=== PATIENT | female | born 1950 | race Caucasian/White ===

== ENCOUNTER → 2018-04-30 | Outpatient (CLI) | payer OTHER ==
[2018-04-30 16:52] LABS: ALBUMIN 3.8 gm/dl (3.4-5.0); ALKALINE PHOSPHATASE 56 U/L (45-117); ALT/SGPT 37 U/L (12-78); AST/SGOT 23 U/L (15-37); BLOOD UREA NITROGEN 17 mg/dl (7-18); CALCIUM 9.3 mg/dl (8.5-10.1); CARBON DIOXIDE 29 mmol/L (21-32); CHOLESTEROL 107 mg/dl (0-200); CREATININE 0.75 mg/dl (0.60-1.20); GLUCOSE 58 mg/dl (70-99); LDL CHOLESTEROL CALCULATED 11 mg/dl; POTASSIUM 3.7 mmol/L (3.5-5.1); SODIUM 141 mmol/L (136-145); TOTAL PROTEIN 7.3 gm/dl (6.4-8.2)
[2018-05-01 05:57] LABS: HEMOGLOBIN A1C 5.3 % (4.5-5.6)
== END | disposition home or self-care (01) ==
LOC: C.LAB1850 15:52
PROVIDERS: ATTEND Physician Assistant
DX: E11.9 Type 2 diabetes mellitus without complications (principal)

== ENCOUNTER 2024-12-13 05:32 | Inpatient (IN) ==
[2024-12-13] MEDS ORDERED: ONDANSETRON INJ 2 MG/ML 2 ML VIAL IV PRN ×2 (05:55→13:32)
[2024-12-13] MEDS ORDERED: MoRPHine SULFATE 2 MG/ML CARP IV PRN (05:55)
--- NOTE | 2024-12-13 06:08 | Surgery Consultation ---
Date of Consultation December 13, 2024 Assessment & Plan (1) PEG tube malfunction: I evaluated the patient in room C3. For the present time we will proceed as follows: Patient will be kept strict n.p.o. for the present time Will not initiate any tube feeds or medicines through her PEG tube at this time We will provide analgesics and antiemetics We will provide IV fluid for gentle hydration supplementing her potassium I ordered a dose of Protonix as there was reportedly some blood from her PEG tube during her most recent tube feed although the patient does not appear to have active bleeding at this time As noted the emergency room physician that [facility] attempted to reposition the PEG tube without success. At the time of my exam the tube was painful with manipulation and I could not identify a port to deflate the balloon. It has been nearly 12 hours since the tube became dislodged and it is unlikely this can be replaced at bedside I did discuss with my attending physician, Dr. Turner and he is planning on taking the patient to the operating room later today for surgical correction of this problem. Supervising Physician Co-Signing Physician Notes Patient discussed with Chun Romero overnight, 2 weeks status post PEG tube placement by Dr. Turner, dislodged, was seen at [facility] and transferred here for further management. Dr. Turner to perform PEG replacement later this afternoon. History of Present Illness Reason for Consultation: Dislodged PEG tube History of Present Illness This is a 71-year-old female with underlying history of tongue cancer. She has been undergoing chemotherapy as well as radiation therapy. Her most recent dose of chemotherapy was on 12/08/2024 with her next dose due on 12/15/2024. Her most recent radiation therapy was on 12/10/2024 with her next dose of radiation being done today. Patient notes that she is having significant difficulty swallowing due to pain from her radiation therapy and she is only able to drink small amounts of water. Because of this problem she had a PEG tube placed by Dr. Turner on 11/29/2024. Patient notes that she is receiving tube feeds approximate 4 times per day. Her most recent tube feed attempt was at 6:00 PM on 12/12/2024. When the patient and her administered the tube feed they noticed some blood and leaking fluid around the tube. The patient also noted pain with flushing of the tube and she therefore presented to the emergency department at [facility]. She does note some pain at the PEG tube insertion site but denies any overt abdominal pain. She denies any nausea or vomiting. Patient went to the emergency department at [facility] where labs were conducted. A CBC revealed white blood cell count was 3.1. Her hemoglobin and hematocrit were 10.8 and 31.2. Platelet count was 190,000. An INR was 1.1 with a PTT of 21. Chemistry profile showed sodium was 143 with a potassium of 3.0. BUN and creatinine were 24 and 0.8. She had a chest x-ray and abdominal x-ray that showed no evidence of free air or obstructive process. A CT scan of the abdomen and pelvis was performed that showed that the distal aspect of her G-tube was noted in the subcutaneous fat above the stomach. There was some element of a residual tract noted and inflammatory changes noted around the tube itself. Interpreting radiologist felt that the stomach was not adjacent to the abdominal wall and the distal aspect of the tube was near the course of the superior epigastric artery. There is no contrast extravasation suggestive of active bleed on the study. While at [facility] the treating emergent physician did contact [facility] physician of general surgery and discussion was had with this provider as well as Dr. English and it was recommended that he attempt to try to readjust the PEG tube and he was unable to do so and therefore requested transfer to [facility]. There were no beds available alternative facilities were contacted however it was felt the patient should be transferred to [facility] and she was sent from ER to ER as a transfer. At the time of my interview the patient was resting comfortably bed and she was in no distress. Allergies Allergy/AdvReac Type Severity Reaction Status Date / Time latex Allergy Intermediate Blisters Verified 12/13/24 08:36 Penicillins Allergy Intermediate Hives Verified 12/13/24 08:36 lisinopril Allergy Mild fluid Verified 12/13/24 08:36 retention Hoxxkpm-NFI-YfV Reductase Allergy Verified 12/13/24 08:36 Inhibitor Home Medications Medication Instructions Recorded Confirmed Type amlodipine 5 mg tablet 5 mg PO QAM 07/27/19 12/13/24 History buspirone 30 mg tablet 30 mg PO BID 07/27/19 12/13/24 History cholecalciferol (vitamin D3) 125 5,000 units PO QAM 07/27/19 12/13/24 History mcg (5,000 unit) capsule Microlet Lancet (lancets) #200 ea 06/12/20 11/22/24 Rx CPAP Machine 04/19/21 11/22/24 History lansoprazole 15 mg capsule,delayed 15 mg PO QAM 06/27/21 12/13/24 History release cyanocobalamin (vitamin B-12) 1,000 mcg IM MONTHLY 11/26/21 12/13/24 History 1,000 mcg/mL injection solution mercaptopurine 50 mg tablet 50 mg PO QAM 11/26/21 12/13/24 History soft lens rinse,store solution 05/29/22 11/22/24 History (Bio true solution) blood-glucose meter (Contour Next #1 ea 02/21/23 11/22/24 Rx One Meter) pen needle, diabetic 31 gauge x #500 ea 09/16/23 11/22/24 Rx 3/16" (BD Ultra-Fine Mini Pen Needle) blood-glucose sensor (Dexcom G7 01/19/24 11/22/24 History Sensor device) cyanocobalamin (vitamin B-12) 1,000 mcg PO DAILY 01/19/24 12/13/24 History 1,000 mcg sublingual tablet irbesartan 300 mg tablet 300 mg PO QPM 06/22/24 12/13/24 History insulin glargine U-300 conc 300 70 unit (0.2333 mL) subcut HS #24 07/05/24 12/13/24 Rx unit/mL (3 mL) subcutaneous pen mL (Toujeo Max U-300 SoloStar) magnesium aspart,citrate,oxide 400 mg PO QAM 08/10/24 12/13/24 History potassium chloride 20 mEq 20 meq PO DAILY 08/10/24 12/13/24 History tablet,extended release(part/cryst) atorvastatin 20 mg tablet 20 mg PO HS #90 tabs 09/28/24 12/13/24 Rx cyclosporine 0.05 % eye drops in a 1 drp OPB BID 10/26/24 12/13/24 History dropperette blood sugar diagnostic (Contour #400 ea 11/12/24 11/22/24 Rx Next Test Strips) gabapentin 800 mg tablet 800 mg PO BID 12/13/24 12/13/24 History insulin aspart U-100 100 unit/mL 0 sliding scale dose subcut 12/13/24 12/13/24 History (3 mL) subcutaneous pen (Novolog TIDWMEAL FlexPen U-100 Insulin aspart) Patient History Medical History Hypomagnesemia heme/onc monitoring and supplementing Anemia Obesity Gout Hypertension Dyslipidemia associated with type 2 diabetes mellitus Diabetic peripheral neuropathy associated with type 2 diabetes mellitus Depression with anxiety Post-nasal drip Type 2 diabetes mellitus Spinal stenosis Glaucoma Metabolic syndrome Recurrent squamous cell carcinoma of tongue Surgery 04/2024 and 10/04/24; currently on chemo tx; follows with once per week (wednesdays); also current XRT with in [place] Hx of sepsis 2021- no residual/current issues Fatty liver Sleep apnea CPAP Crohn's disease Neck problem Cervical pitched nerve + narrowing Intermittent LUE radiculopathy and ROM limitations COPD (chronic obstructive pulmonary disease) "Mild" No inhaler Surgical History History of percutaneous endoscopic gastrostomy (11/29/24) Esophagogastroduodenoscopy with Percutaneous Endoscopic Gastrostomy (PEG) Tube - Malik Turner DO Port-A-Cath in place (11/01/24) Insertion Access Port with Fluoroscopy - Right Subclavian(Right) - Kishore Mulligan DO; MAC without issue S/P cholecystectomy S/P partial glossectomy 04/30/24: partial glossectomy with L selective neck dissection [facility]; 10/04/24: L suprahyoid neck dissection and partial glossectomy Hx of cataract extraction R/L Hx of bilateral breast reduction surgery S/P epidural steroid injection x4 [id number] History of colonoscopy History of bowel resection (~2003) 12 inches r/t Crohn's disease (1971) Re-do r/t Crohn's disease (2003)- also had gallbladder removed at this time History of appendectomy (1971) Family History Father Family history of diabetes mellitus Diabetes Stroke Daughter Breast cancer Uncle Diabetes Grandmother Diabetes Stroke Other No family history of adverse response to anesthesia Social History Smoking Status: Former smoker Tobacco Type: Cigarettes Age Started Using Tobacco: 0 (unknown); Age Quit Using Tobacco: 0 (unknown); Second Hand Exposure: No; Do You Dip or Chew Tobacco: No; Hx Alcohol Use: Yes Alcohol type: wine Hx Substance Use: No Preferred Language: Georgian Communication Ability: Effective Musical Instrument Maker Or Repairer Required: No Beliefs That Will Affect Care: None Current Living Situation: Spouse Feels Safe at Home: Yes Assistive Devices: CPAP and Glasses Review of Systems Review of Systems: All systems reviewed & are unremarkable except as noted in HPI & below Physical Exam Constitutional: WD/WN, vitals as above Eyes: Wears glasses ENMT: Ears: no hearing impairment and no external ear abnormality Oral mucosa is dry Neck: trachea midline Respiratory: Patient is not using accessory muscles to aid in respiration. There is no stridor or wheezing. There is no evidence of airway compromise Cardiovascular: Rate/Rhythm: regular rate and regular rhythm Gastrointestinal (Abdomen): Abdomen is soft and nondistended. It is nonrigid. The patient has a PEG tube in place with some erythema surrounding the insertion site. There is no purulent drainage. At the time of my exam there is no active bleeding noted from the site. Musculoskeletal: No calf tenderness Skin: no rashes Neurologic: moves all extremities Psychiatric: A+Ox3, euthymic affect PG Care Time/CCT Total # of Minutes Spent Total Time Spent with Patient: Total time spent is greater than 50% in coordination of care (as documented) at patient's floor/unit and/or counseling patient: Coding Level of Care Code 58217 INT INP/OBS CARE 3/75MIN Diagnoses PEG tube malfunction K94.23
[2024-12-13] MEDS: NSS + 20MEQ KCL 20 MEQ/1,000 ML BAG IV SCH (06:44)
[2024-12-13] MEDS: PANTOprazole 40 MG/10 ML SYR IV ONE (06:44)
[2024-12-13] MEDS: Patient's HEIGHT &/or WEIGHT Needed STA (06:44)
--- NOTE | 2024-12-13 08:56 | Hospitalist Consultation ---
Date of Consultation December 13, 2024 Assessment & Plan (1) PEG tube malfunction: (2) Hypomagnesemia: (3) Diabetes: Plan Carley is a 74-year-old female who presented on 12/13 after her PEG tube became dislodged. Plan is to go to the OR on 12/13. # PEG tube malfunction Pain control, DVT ppx, and fluids per the primary team OR planned for 934 on 12/13 Maintain strict n.p.o. for now but patient does drink water at home-advance diet to sips and chips after procedure Hold all p.o. medications, and will convert to IV where possible; added on Protonix 40 mg IV QAM IV antiemetics, analgesics PRN IVF maintenance with NSS +20mEq K at 75 mL an hour Ordered AM CBC, BMP, A1c, mag #Hypomagnesemia-magnesium 1.2 on arrival, also dealing with hypokalemia as an outpatient-secondary to poor p.o. intake and recently started on tube feeds Magnesium sulfate 1 g IV x 3 Trend a.m. mag #Recurrent squamous cell carcinoma of tongue-follows with [facility] for chemotherapy every Friday; cisplatin. Follows with PH for radiation therapy M-F Dietitian consult appreciated Aquaphor or formulary equivalent PRN for neck liriano/pain Daily wound care Wound care nurse consult appreciated #[id number] A1c at 6.0% on 06/07/2024,Glucose 241 on admission. Patient normally takes Lantus 70u HS Dose reduced to Lantus 30 u BID while inpatient SSI with target BSG range 120-150mg/dL, CF 15, carb ratio 5 BSG q6h while NPO Adjust regimen as needed #Crohn's disease-with a history of partial colectomy, follows with GI in [place] Hold mercaptopurine for now #GAMA CPAP HS #HTN-BPs are mildly elevated Hold irbesartan, amlodipine until G-tube able to be used Hydralazine 5 mg IV q8h PRN for SBP >195 or DBP >95 while off usual an tihypertensives Disposition: MedSurg Full code NPO for now, with plan to advance to sips and chips of water Thank you for allowing us to participate in the care of this patient, please reach out with any questions or concerns; we will continue to follow. Supervising Physician Co-Signing Physician Notes PA Supervision Note: I personally saw and examined the patient. 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 G-tube was recently placed 2 weeks ago but she did not start tube feeds until 12/03 while getting them approved through insurance. Here with dislodgment of the tube and inability to get nutrition or take any medications. Also with hypomagnesemia. No fevers or chills, no current abdominal pain, no other acute concerns. History and ROS otherwise reviewed as above I discussed her care with her oncologist, Dr. Perez, on admission O- Vitals reviewed Gen: AAOx3, NAD HEENT: Anicteric sclerae, EOMI, tongue with evidence of partial glossectomy with small amount of bleeding ulceration on the tip and lateral portion of tongue, left side of neck with radiation liriano and small amount of wet exudate in the center of rash, small amount of soft tissue swelling of the left cheek and submandibular region CV: RRR no mgr nl S1S2 Pulm: CTAB no wcr Abd: +BS soft NT ND no masses or hernias Ext: No edema, 2+ DP pulses Skin: No rashes except for left side of neck as above, warm/dry Neuro: Full strength throughout A/T-58-xcvs-old female here with with history noted as above with PEG tube malfunction/displacement -Surgery has admitted her and will be taking her to the OR for replacement of G- tube -Consult dietitian and plan to resume tube feeds when possible -Replace magnesium and follow BMP and magnesium levels in the morning -I discussed her care with her oncologist-she we will reschedule her routine follow-up appointment for this . She can resume radiation after discharge -We will continue to manage her blood pressure and diabetes as noted in YAYA Mcneal's note -IV Protonix for GI protection for now while holding home lansoprazole -Okay to hold other home medicines for 24 hours until G-tube can be replaced History of Present Illness Reason for Consultation: Medical management Requesting Physician: RAFA Mccloud Dr. Attending Physician: Dr. Ronald Chambers History of Present Illness Carley is a 74-year-old female with PMH of recurrent squamous cell carcinoma of the tongue with recent PEG tube placement, diabetes, anxiety, depression, GAMA, HTN, and HLD. She presented on 12/13 as a transfer from [facility] due to displace d PEG tube. Patient reports no prior issues with her feeding tube; has not become dislodged in the past. Her (Smapson) is at the bedside and provides the history. They report that, when they were attempting to do feeding around 1800, the patient developed pain, and there was "blood everywhere" around her feeding tube site. She reports that the pain was mainly on her left abdomen/flank; she rates it 7/10 at worst, and 0/10 at present after receiving pain medicine. Pain is worse with movement. The ED providers at [facility] did attempt to fix the feeding tube, but were unsuccessful. Patient has history of tongue cancer and receives chemotherapy every Friday with Dr. Perez at [facility]; last chemo was on Friday 12/08. She goes to [facility] for her radiation therapy Friday through Friday, with the last session being on Sunday 12/10. Patient did not take any of her regular morning medicine today; no recent change in medication. She normally takes long-acting insulin for her diabetes at night, but did not take anything the evening of 12/12. Patient uses a CPAP at night. She denies smoking or tobacco use. Patient is mildly hypertensive at 145/78 at time of consult; vitals otherwise stable. ROS: Patient endorses low-grade fever (last night; resolved), dizziness, lightheadedness, NG, loose stool, and pain at feeding tube site (resolved). Patient denies chest pain, SOB, chest palpitations, cough, abdominal pain, nausea, vomiting, melena, or blood in the urine/stool. Allergies Allergy/AdvReac Type Severity Reaction Status Date / Time latex Allergy Intermediate Blisters Verified 12/13/24 08:36 Penicillins Allergy Intermediate Hives Verified 12/13/24 08:36 lisinopril Allergy Mild fluid Verified 12/13/24 08:36 retention [id number]-[id number] Reductase Allergy Verified 12/13/24 08:36 Inhibitor Home Medications Medication Instructions Recorded Confirmed Type amlodipine 5 mg tablet 5 mg PO QAM 07/27/19 12/13/24 History buspirone 30 mg tablet 30 mg PO BID 07/27/19 12/13/24 History cholecalciferol (vitamin D3) 125 5,000 units PO QAM 07/27/19 12/13/24 History mcg (5,000 unit) capsule Microlet Lancet (lancets) #200 ea 06/12/20 11/22/24 Rx CPAP Machine 04/19/21 11/22/24 History lansoprazole 15 mg capsule,delayed 15 mg PO QAM 06/27/21 12/13/24 History release cyanocobalamin (vitamin B-12) 1,000 mcg IM MONTHLY 11/26/21 12/13/24 History 1,000 mcg/mL injection solution mercaptopurine 50 mg tablet 50 mg PO QAM 11/26/21 12/13/24 History soft lens rinse,store solution 05/29/22 11/22/24 History (Bio true solution) blood-glucose meter (Contour Next #1 ea 02/21/23 11/22/24 Rx One Meter) pen needle, diabetic 31 gauge x #500 ea 09/16/23 11/22/24 Rx 3/16" (BD Ultra-Fine Mini Pen Needle) blood-glucose sensor (Dexcom G7 01/19/24 11/22/24 History Sensor device) cyanocobalamin (vitamin B-12) 1,000 mcg PO DAILY 01/19/24 12/13/24 History 1,000 mcg sublingual tablet irbesartan 300 mg tablet 300 mg PO QPM 06/22/24 12/13/24 History insulin glargine U-300 conc 300 70 unit (0.2333 mL) subcut HS #24 07/05/24 12/13/24 Rx unit/mL (3 mL) subcutaneous pen mL (Toujeo Max U-300 SoloStar) magnesium aspart,citrate,oxide 400 mg PO QAM 08/10/24 12/13/24 History potassium chloride 20 mEq 20 meq PO DAILY 08/10/24 12/13/24 History tablet,extended release(part/cryst) atorvastatin 20 mg tablet 20 mg PO HS #90 tabs 09/28/24 12/13/24 Rx cyclosporine 0.05 % eye drops in a 1 drp OPB BID 10/26/24 12/13/24 History dropperette blood sugar diagnostic (Contour #400 ea 11/12/24 11/22/24 Rx Next Test Strips) gabapentin 800 mg tablet 800 mg PO BID 12/13/24 12/13/24 History insulin aspart U-100 100 unit/mL 0 sliding scale dose subcut 12/13/24 12/13/24 History (3 mL) subcutaneous pen (Novolog TIDWMEAL FlexPen U-100 Insulin aspart) Patient History Medical History Hypomagnesemia heme/onc monitoring and supplementing Anemia Obesity Gout Hypertension Dyslipidemia associated with type 2 diabetes mellitus Diabetic peripheral neuropathy associated with type 2 diabetes mellitus Depression with anxiety Post-nasal drip Type 2 diabetes mellitus Spinal stenosis Glaucoma Metabolic syndrome Recurrent squamous cell carcinoma of tongue Surgery 04/2024 and 10/04/24; currently on chemo tx; follows with once per week (wednesdays); also current XRT with in [place] Hx of sepsis 2021- no residual/current issues Fatty liver Sleep apnea CPAP Crohn's disease Neck problem Cervical pitched nerve + narrowing Intermittent LUE radiculopathy and ROM limitations COPD (chronic obstructive pulmonary disease) "Mild" No inhaler Surgical History History of percutaneous endoscopic gastrostomy (11/29/24) Esophagogastroduodenoscopy with Percutaneous Endoscopic Gastrostomy (PEG) Tube - Malik Turner DO Port-A-Cath in place (11/01/24) Insertion Access Port with Fluoroscopy - Right Subclavian(Right) - Kishore Mulligan DO; MAC without issue S/P cholecystectomy S/P partial glossectomy 04/30/24: partial glossectomy with L selective neck dissection Dr. Coyle [facility]; 10/04/24: L suprahyoid neck dissection and partial glossectomy Hx of cataract extraction R/L Hx of bilateral breast reduction surgery S/P epidural steroid injection x4 [id number] History of colonoscopy History of bowel resection (~2003) 12 inches r/t Crohn's disease (1971) Re-do r/t Crohn's disease (2003)- also had gallbladder removed at this time History of appendectomy (1971) Family History Father Family history of diabetes mellitus Diabetes Stroke Daughter Breast cancer Uncle Diabetes Grandmother Diabetes Stroke Other No family history of adverse response to anesthesia Social History Smoking Status: Former smoker Tobacco Type: Cigarettes Age Started Using Tobacco: 0 (unknown); Age Quit Using Tobacco: 0 (unknown); Second Hand Exposure: No; Do You Dip or Chew Tobacco: No; Hx Alcohol Use: Yes Alcohol type: wine Hx Substance Use: No Preferred Language: Senegalese Communication Ability: Effective Production Technologist Required: No Beliefs That Will Affect Care: None Current Living Situation: Spouse Feels Safe at Home: Yes Assistive Devices: CPAP and Glasses Review of Systems Review of Systems: See HPI above Physical Exam Physical Exam: General: no acute distress; pleasant affect; non-toxic appearing; well- nourished; cooperative; SpO2 94% on RA HEENT: normocephalic, atraumatic; no scleral icterus; PERRLA; vision and hearing intact Neck: supple; no lymphadenopathy; trachea midline Skin: Radiation burn barker/superficial scaling of skin noted on the anterior neck bilaterally; warm, dry without signs of tenting; no cyanosis CV: chest wall NTP; right upper chest wall port site without signs of erythema/infection; RRR; S1/S2 normal; no murmurs/rubs/gallops; pulses intact and symmetric at radial, DP, and PT Lungs: no acute respiratory distress; symmetrical chest wall expansion; clear breath sounds across all lung nino w/o adventitious sounds; no wheezing ABD: Feeding tube with new gauze dressing surrounding the site, without signs of active bleeding; soft, NTP; left flank NTP; BS present; no rebound/guarding; no distention MSK: no tics or fasciculations; no edema noted in the LEs b/l, nonerythematous Neuro: A&Ox3; normal mood and affect; fluent speech; no focal deficits; sensation grossly intact in the LEs b/l Results & Data Results & Data Vital Signs (Past 12 Hours) Vital Signs Temp Pulse Resp BP Pulse Ox O2 Del Method 12/13/24 05:36 36.8 C 90 18 145/78 H 94 Room Air Laboratory Results Reviewed CBC, BMP from outside hospital Abnormal lab results 12/13/24 Range/Units 08:09 Magnesium 1.2 L (1.7-2.4) mg/dl Diagnostic Findings Reviewed CT abdomen/pelvis report from outside hospital PG Care Time/CCT Total # of Minutes Spent Total Time Spent with Patient: Total time spent is greater than 50% in coordination of care (as documented) at patient's floor/unit and/or counseling patient: Coding [place] [address] IN/OBS CONSULT LVL 4,60M Patient Type Established Medical Decision Making High Complexity Diagnoses PEG tube malfunction K94.23 Hypomagnesemia E83.42 Diabetes E11.9
[2024-12-13] MEDS ORDERED: GLUCAGON FOR INJ 1 MG VIAL SQ PRN (09:23)
[2024-12-13] MEDS ORDERED: DEXTROSE 50% 50 ML SYRINGE IV PRN (09:23)
[2024-12-13] MEDS ORDERED: ARTIFICIAL TEARS OP PRN (10:07)
[2024-12-13] MEDS: MAGNESIUM SULFATE / D5W 1 GM/100 ML BAG IV SCH (10:17)
[2024-12-13] MEDS ORDERED: hydrALAZINE HCL 20 MG/ML VIAL IV PRN (10:28)
[2024-12-13 12:06] LABS: Basophils # (auto) 0.01 K/uL (0.00-0.20); Basophils % (auto) 0.4 %; Eosinophils # (auto) 0.01 K/uL (0.00-0.50); Eosinophils % (auto) 0.4 %; Hematocrit (blood only) 30.7 % (37.0-47.0); Hemoglobin 10.6 g/dl (12.0-16.0); Immature Granulocytes # (auto) 0.01 K/uL (0.01-0.20); Immature Granulocytes % (auto) 0.4 %; Lymphocytes # (auto) 0.26 K/uL (1.20-3.40); Lymphocytes % (auto) 10.3 %; Mean Corpuscular Hemoglobin 33.2 pg (25.0-34.0); Mean Corpuscular Hgb Conc 34.5 g/dL (32.0-36.0); Mean Corpuscular Volume 96.2 fL (80.0-100.0); Mean Platelet Volume 9.4 fL (9.4-12.4); Monocytes % (auto) 15.9 %; Neutrophils # (auto) 1.83 K/uL (1.40-6.50); Neutrophils % (auto) 72.6 %; Platelet Count 205 K/uL (130-400); RDW Coefficient of Variation 15.4 % (11.5-14.5); RDW Standard Deviation 53.7 fL (36.4-46.3); Red Blood Count 3.19 M/uL (4.20-5.40); White Blood Count 2.52 K/ul (4.8-10.8)
--- NOTE | 2024-12-13 12:17 | History & Physical Bridge Note ---
Date of Service December 13, 2024 History & Physical Bridge Note I have examined the patient, reviewed the History & Physical and in the interval since the performance of the History & Physical I have noted the following changes of clinical significance: no changes noted pt seen. chart/ct reviewed. discussed with my PA. gastrostomy tube appears to be dislodged to evaluate/repace in OR via laparoscopic +/- open approach. discussed options/risks ( bleeding/infection/blood clots/injury to another structure etc...). questions answered.
[2024-12-13 12:21] LABS: BUN Creatinine Ratio 29.2 (10-20); Calcium 8.6 mg/dl (8.6-10.3); Creatinine Clr Calc Pharmacy 87.7 ml/min; Potassium 3.2 mmol/L (3.5-5.1)
[2024-12-13] MEDS: LACTATED RINGER'S 1,000 ML IV SCH (13:21)
--- NOTE | 2024-12-13 13:29 | Anesthesiology Consultation ---
Date of Service December 13, 2024 Assessment & Plan Chart Review Chart Review: Acceptable Risk for Surgery and Patient NOT seen in Pre Admission Testing Consults Requested none ASA ASA4 Proposed Anesthesia Anesthesia Type: General Risk / Benefits Reviewed With: PT / POA / Parent / Guardian, Accepts Plan and Informed Consent Obtained History Surgery Operation Date: 12/13/24 09:35 Proposed Procedures p Laparoscopic, Possible Laparotomy, Replacement of Feeding Tube - Malik Turner DO s Esophagogastroduodenoscopy - Malik Turner DO Height/Weight Height: 5 ft 6 in Weight: 99.6 kg Allergies Allergy/AdvReac Type Severity Reaction Status Date / Time latex Allergy Intermediate Blisters Verified 12/13/24 12:45 Penicillins Allergy Intermediate Hives Verified 12/13/24 12:45 lisinopril Allergy Mild fluid Verified 12/13/24 12:45 retention [id number] Reductase Allergy Verified 12/13/24 12:45 Inhibitor Medications Home Medications Medication Instructions Recorded Confirmed Last Taken amlodipine 5 mg tablet 5 mg PO QAM 07/27/19 12/13/24 12/12/24 buspirone 30 mg tablet 30 mg PO BID 07/27/19 12/13/24 12/12/24 cholecalciferol (vitamin D3) 125 5,000 units PO QAM 07/27/19 12/13/24 12/12/24 mcg (5,000 unit) capsule Microlet Lancet (lancets) #200 ea 06/12/20 11/22/24 Unknown CPAP Machine 04/19/21 11/22/24 Unknown lansoprazole 15 mg capsule,delayed 15 mg PO QAM 06/27/21 12/13/24 12/12/24 release cyanocobalamin (vitamin B-12) 1,000 mcg IM MONTHLY 11/26/21 12/13/24 1 Month Ago 1,000 mcg/mL injection solution ~11/15/24 mercaptopurine 50 mg tablet 50 mg PO QAM 11/26/21 12/13/24 2 Weeks Ago ~11/29/24 soft lens rinse,store solution 05/29/22 11/22/24 Unknown (Bio true solution) blood-glucose meter (Contour Next #1 ea 02/21/23 11/22/24 Unknown One Meter) pen needle, diabetic 31 gauge x #500 ea 09/16/23 11/22/24 Unknown 3/16" (BD Ultra-Fine Mini Pen Needle) blood-glucose sensor (Dexcom G7 01/19/24 11/22/24 Unknown Sensor device) cyanocobalamin (vitamin B-12) 1,000 mcg PO DAILY 01/19/24 12/13/24 12/12/24 1,000 mcg sublingual tablet irbesartan 300 mg tablet 300 mg PO QPM 06/22/24 12/13/24 2 Weeks Ago ~11/29/24 insulin glargine U-300 conc 300 70 unit (0.2333 mL) subcut HS #24 07/05/24 12/13/24 12/12/24 unit/mL (3 mL) subcutaneous pen mL (Toujeo Max U-300 SoloStar) magnesium aspart,citrate,oxide 400 mg PO QAM 08/10/24 12/13/24 2 Weeks Ago ~11/29/24 potassium chloride 20 mEq 20 meq PO DAILY 08/10/24 12/13/24 2 Weeks Ago tablet,extended release(part/cryst) ~11/29/24 atorvastatin 20 mg tablet 20 mg PO HS #90 tabs 09/28/24 12/13/24 12/12/24 cyclosporine 0.05 % eye drops in a 1 drp OPB BID 10/26/24 12/13/24 12/12/24 dropperette blood sugar diagnostic (Contour #400 ea 11/12/24 11/22/24 Unknown Next Test Strips) gabapentin 800 mg tablet 800 mg PO BID 12/13/24 12/13/24 12/12/24 insulin aspart U-100 100 unit/mL 0 sliding scale dose subcut 12/13/24 12/13/24 12/12/24 (3 mL) subcutaneous pen (Novolog TIDWMEAL FlexPen U-100 Insulin aspart) Active Medications Generic Name Dose Route Start Last Admin Trade Name Freq PRN Reason Stop Dose Admin Potassium Chloride/Sodium Chloride 20 meq in 1,000 mls @ 75 mls/hr 12/13/24 06:00 12/13/24 06:44 Normal Saline W/20 Meq Kcl IV 12/14/24 05:59 75 mls/hr .[id number] CHARI Administration Magnesium Sulfate/Dextrose 1 gm in 100 mls @ 50 mls/hr 12/13/24 09:30 12/13/24 12:18 Magnesium Sulfate / D5w IV 12/13/24 15:29 50 mls/hr Q2H CHARI Administration Lactated Ringer's 1,000 mls @ 15 mls/hr 12/13/24 13:30 12/13/24 13:21 Lr IV 12/14/24 13:29 15 mls/hr .Q24H CHARI Administration NPO Date Last Intake of Fluids: 12/12/24 Time Last Intake of Fluids: 18:00 Date Last Intake of Solids: 12/12/24 Time Last Intake of Solids: 18:00 Past Medical History Medical History Anemia Obesity Gout Hypertension Dyslipidemia associated with type 2 diabetes mellitus Diabetic peripheral neuropathy associated with type 2 diabetes mellitus Depression with anxiety Post-nasal drip Type 2 diabetes mellitus Spinal stenosis Glaucoma Metabolic syndrome Recurrent squamous cell carcinoma of tongue Surgery 04/2024 and 10/04/24; currently on chemo tx; follows with once per week (wednesdays); also current XRT with in [place] Hx of sepsis 2021- no residual/current issues Fatty liver Sleep apnea CPAP Crohn's disease Neck problem Cervical pitched nerve + narrowing Intermittent LUE radiculopathy and ROM limitations COPD (chronic obstructive pulmonary disease) "Mild" No inhaler Exercise / Class Metabolic Activity III < 4 Walking/Shop/Light housework Past Family History Family History Father Family history of diabetes mellitus Diabetes Stroke Daughter Breast cancer Uncle Diabetes Grandmother Diabetes Stroke Other No family history of adverse response to anesthesia Past Surgical History Surgical History History of percutaneous endoscopic gastrostomy (11/29/24) Esophagogastroduodenoscopy with Percutaneous Endoscopic Gastrostomy (PEG) Tube - Malik Turner DO Port-A-Cath in place (11/01/24) Insertion Access Port with Fluoroscopy - Right Subclavian(Right) - Kishore Mulligan DO; MAC without issue S/P cholecystectomy S/P partial glossectomy 04/30/24: partial glossectomy with L selective neck dissection Dr. Coyle [facility]; 10/04/24: L suprahyoid neck dissection and partial glossectomy Hx of cataract extraction R/L Hx of bilateral breast reduction surgery S/P epidural steroid injection x4 [id number] History of colonoscopy History of bowel resection (~2003) 12 inches r/t Crohn's disease (1971) Re-do r/t Crohn's disease (2003)- also had gallbladder removed at this time History of appendectomy (1971) Past Anesthesia History No Hx of Anesthesia Complications and No Family Hx of Anesthesia Complications History of PONV No Hx of PONV and No Hx of Motion Sickness Social History Smoking Status: Former smoker Do You Dip or Chew Tobacco: No Hx Alcohol Use: Yes Alcohol type: wine alcohol intake frequency: holidays/special occasions only Hx Substance Use: No substance use type: does not use Physical Exam Vital Signs Last Vital Signs Temp 36.9 C 12/13/24 12:45 Pulse 81 12/13/24 12:45 Resp 18 12/13/24 12:45 BP 159/78 H 12/13/24 12:45 Pulse Ox 95 12/13/24 12:45 O2 Del Method Room Air 12/13/24 12:45 Testing Laboratory Results 12/13/24 11:23 12/13/24 11:28 12/13/24 12/13/24 12:47 09:50 POC Glucose 162 H 163 H Electrocardiogram Date: 10/28/24 Findings: + NSR @ (@ 76;1st degree AVB) Echocardiogram Date: 10/30/20 EF: 50% LV Function: normal RWMA: + none Valvular Disease: + (mild ;AV area 1.6 cm2)
[2024-12-13] MEDS ORDERED: fentaNYL citrate PF 100 MCG/2 ML VIAL IV PRN (13:32)
[2024-12-13] MEDS ORDERED: ePHEDrine sulfate 50 MG/ML AMP IV PRN (13:32)
[2024-12-13] MEDS ORDERED: LABETALOL HCL IV 5 MG/ML 20ML IV PRN (13:32)
[2024-12-13] MEDS ORDERED: NALOXONE HCL 0.4 MG/1 ML VIAL/CARP IV PRN (13:32)
[2024-12-13] MEDS ORDERED: ATROPINE SULFATE 0.1 MG/ML 10ML SYR IV PRN (13:32)
[2024-12-13] MEDS ORDERED: FLUMAZENIL 0.1 MG/1 ML 10 ML VIAL IV PRN (13:32)
[2024-12-13] MEDS ORDERED: PROMETHAZINE HCL 6.25 MG in SODIUM CHLORIDE 0.9% 50 ML IV PRN (13:32)
[2024-12-13] MEDS ORDERED: PROPOFOL IV EMULSION 10 MG/ML 20 ML VIAL IV ONE (13:40)
[2024-12-13] MEDS ORDERED: fentaNYL citrate PF 100 MCG/2 ML VIAL ONE (13:41)
[2024-12-13] MEDS: CLINDAMYCIN/D5W 900 MG/50 ML BAG IV SCH ×2 (14:25→21:23)
[2024-12-13] MEDS ORDERED: SUCCINYLCHOLINE CHLORIDE 20 MG/ML 10 ML VIAL IV ONE (15:20)
[2024-12-13] MEDS ORDERED: GLYCOPYRROLATE 0.2 MG/ML VIAL ONE (15:22)
--- NOTE | 2024-12-13 15:31 | Operative Report ---
PG Post Operative Report Pre & Post Diagnosis Operation Date: 12/13/24 09:35 Pre-Op Diagnosis: Peg malfunction/dislocation Post-Op Diagnosis: Peg malfunction/dislocation I identified the patient and participated in the time-out.: Yes Procedure Operation Date: 12/13/24 09:35 Actual Procedures p Removal of Feeding Tube(Not Applicable)/placement new gastrostomy tube - Malik Turner DO s Esophagogastroduodenoscopy - Malik Turner DO Surgeon Malik Turner DO Shopper'S Aide adelaida Mondragon Estimated Blood Loss 5 Findings Consistent with Post-Op Diagnosis Specimens none Description of Procedure After informed consent was obtained the patient was taken to the operating suite and placed in supine position. After successful intubation the abdomen was sterilely prepped and draped with a Betadine solution. I began by performing an upper endoscopy. A gastroscope was lubricated and inserted into the oropharynx and the proximal esophagus without difficulty. Keeping the lumen in view at all times scope was passed down into the stomach. I was able to readily identify the gastric opening from the recent PEG tube dislodgment. At this point I kept the camera in place and scrubbed into the abdomen itself. Next we removed the existing feeding tube with manual pressure. I initially tried to use the introducing catheter from a PEG kit to cannulate the external os into the lumen of the stomach. This proved to be too flimsy and I therefore used a 5 mm trocar and was then able to easily cannulate from the abdominal side into the lumen of the stomach visualizing it with the gastroscope. I did not want to use a traditional PEG tube as this would likely dislodge again. Therefore I advanced the guidewire from the PEG tube kit through the trocar and into the lumen of the stomach. We then used a 24 Malay 3 port 30 cc balloon urinary catheter. We were able to advance the guidewire through the distal channel and bring it out through the port. We were then able to slide the catheter itself over the guidewire and into the lumen of the stomach all while watching visually via the gastroscope. Once catheter was in we inflated the balloon to 25 cc. We then removed the guidewire. The tube flushed quite easily. I then removed the gastroscope. We placed an external buttressing button on the catheter prior to inserting it and we used this to secure the balloon up to the anterior abdominal wall. We then sutured the button onto the skin using 2-0 nylon The patient was awakened extubated and transferred to recovery in stable condition. My nurse practitioner was present for the entire case and assisted with all aspects of removing the prior gastrostomy tube, assisting with placement of the new tube. I attest to the content of the Intraoperative Record and any orders documented therein. Any exceptions are noted below.
[2024-12-13] MEDS: BUPIVACAINE/EPINEPHRINE 0.5% MPF 1:200,000 30 ML VIAL ONE (15:45)
--- NOTE | 2024-12-13 16:16 | Anesthesiology Progress Note ---
Date of Service December 13, 2024 Anesthesia Post Procedure Vital Signs Vital Signs: Temp Pulse Pulse Pulse Resp BP BP 12/13/24 16:05 94 H 14 128/61 12/13/24 15:55 92 H 16 127/72 12/13/24 15:45 96 H 18 144/78 H 12/13/24 15:35 36.4 C L 110 H 14 160/102 H 12/13/24 12:45 36.9 C 81 18 159/78 H 12/13/24 10:22 79 16 144/66 H 12/13/24 05:36 36.8 C 90 18 145/78 H Pulse Ox O2 Del Method 12/13/24 16:05 93 Room Air 12/13/24 15:55 95 Room Air 12/13/24 15:45 96 Room Air 12/13/24 15:35 92 Room Air 12/13/24 12:45 95 Room Air 12/13/24 10:22 95 Room Air 12/13/24 05:36 94 Room Air Transfer of Care Handoff Completed per policy Notes Mental Status: alert / awake / arousable Patient Amnestic to Procedure: Yes Nausea / Vomiting: adequately controlled Pain: adequately controlled Airway Patency, RR, SpO2: stable & adequate BP & HR: stable & adequate Hydration State: stable & adequate Anesthetic Complications: no major complications apparent
[2024-12-13] MEDS: INSULIN ASPART PER UNIT CHARGE SC SCH (17:04)
[2024-12-13] MEDS: POTASSIUM CHLORIDE / WTR 10 MEQ/100 ML PLCT IV SCH ×2 (17:28→18:51)
[2024-12-13] MEDS ORDERED: POTASSIUM CHLORIDE / WTR 10 MEQ/100 ML PLCT IV SCH (19:30)
[2024-12-13] MEDS: LANTUS PER UNIT CHARGE SQ SCH (20:56)
[2024-12-13] MEDS: ACETAMINOPHEN 1,000 MG/100 ML VIAL IV PRN (21:03)
[2024-12-14 06:23] LABS: Basophils # (auto) 0.02 K/uL (0.00-0.20); Basophils % (auto) 0.8 %; Eosinophils # (auto) 0.03 K/uL (0.00-0.50); Eosinophils % (auto) 1.2 %; Hematocrit (blood only) 29.8 % (37.0-47.0); Hemoglobin 10.3 g/dl (12.0-16.0); Immature Granulocytes # (auto) 0.02 K/uL (0.01-0.20); Immature Granulocytes % (auto) 0.8 %; Lymphocytes # (auto) 0.32 K/uL (1.20-3.40); Lymphocytes % (auto) 12.6 %; Mean Corpuscular Hemoglobin 33.2 pg (25.0-34.0); Mean Corpuscular Hgb Conc 34.6 g/dL (32.0-36.0); Mean Corpuscular Volume 96.1 fL (80.0-100.0); Mean Platelet Volume 9.4 fL (9.4-12.4); Monocytes # (auto) 0.39 K/uL (0.11-0.59); Monocytes % (auto) 15.4 %; Neutrophils # (auto) 1.76 K/uL (1.40-6.50); Neutrophils % (auto) 69.2 %; Platelet Count 199 K/uL (130-400); RDW Coefficient of Variation 15.6 % (11.5-14.5); RDW Standard Deviation 53.7 fL (36.4-46.3); White Blood Count 2.54 K/ul (4.8-10.8)
[2024-12-14] MEDS ORDERED: Nursing to Pharmacy Communication SCH (06:30)
[2024-12-14 06:36] LABS: BUN Creatinine Ratio 29.2 (10-20); Calcium 7.9 mg/dl (8.6-10.3); Magnesium 1.6 mg/dl (1.7-2.4); Potassium 3.2 mmol/L (3.5-5.1)
[2024-12-14] MEDS: INSULIN ASPART PER UNIT CHARGE SC SCH (06:44)
[2024-12-14 07:38] LABS: Estimated Average Glucose 143 mg/dl; Hemoglobin A1C 6.6 % (4.5-5.6)
--- NOTE | 2024-12-14 08:25 | Surgery Progress Note ---
Date of Service December 14, 2024 Assessment & Plan (1) PEG tube malfunction: Plan: POD#1 EGD and PEG tube exchange Pt doing okay will order tube study today to ensure good placement prior to using if okay can likely start meds/feeds appreciate medicine assisting us with patient Admission and Anticipated Discharge Date Admission Date: December 13, 2024 Subjective patient with no overnight issues. feels a twinge of nausea and expected post op pain in abdomen, otherwise no major complaints Physical Exam Physical Exam: awake, no distress Gastrointestinal (Abdomen): G tube in place with dressing c/d/i. abdomen soft Results & Data Vital Signs (Past 12 Hours) Vital Signs Temp Pulse Pulse Resp BP Pulse Ox O2 Del Method 12/14/24 04:00 97.7 F 80 18 134/82 95 Room Air 12/14/24 02:33 77 16 93 12/13/24 22:30 80 12 96 12/13/24 22:10 97.9 F 79 18 129/71 93 Room Air PG Care Time/CCT Total # of Minutes Spent Total Time Spent with Patient: Total time spent is greater than 50% in coordination of care (as documented) at patient's floor/unit and/or counseling patient: Coding Level of Care Code 99313 Post Operative Follow-Up Diagnoses PEG tube malfunction K94.23
[2024-12-14] MEDS: MAGNESIUM SULFATE / D5W 1 GM/100 ML BAG IV SCH (09:09)
[2024-12-14] MEDS: POTASSIUM CHLORIDE / WTR 10 MEQ/100 ML PLCT IV SCH (09:09)
[2024-12-14] MEDS: PANTOprazole 40 MG/10 ML SYR IV SCH (09:09)
[2024-12-14] MEDS: LANTUS PER UNIT CHARGE SQ SCH (09:18)
--- NOTE | 2024-12-14 10:06 | XRay Report ---
KUB HISTORY: do Contrasted G tube study to ensure placement COMPARISON STUDY: None FINDINGS: Gastrografin was injected into the PEG tube and multiple frontal views of the abdomen were obtained. The contrast conforms to the tube and the lumen of the stomach. No evidence of contrast leak seen. No evidence of bowel obstruction seen. IMPRESSION: Normal PEG tube check. ACT 112: Negative or not required by law. The above report was generated using voice recognition software. It may contain grammatical, syntax o r spelling errors. Electronically signed by: Ronald Alvarez M.D. 12/14/2024 10:04 AM
[2024-12-14] MEDS: NSS + 20MEQ KCL 20 MEQ/1,000 ML BAG IV SCH (13:06)
[2024-12-14] MEDS: TUBE FEEDING WATER FLUSH GT SCH ×2 (13:09→13:10)
[2024-12-14] MEDS: NUTREN LIQD 2.0 1,000 ML BAG PEG SCH (13:10)
[2024-12-14] MEDS: FIRST - Mouthwash BLM 5 ML UDP PO SCH (13:19)
--- NOTE | 2024-12-14 17:17 | Hospitalist Progress Note ---
Date of Service December 14, 2024 Assessment & Plan (1) PEG tube malfunction: (2) Hypomagnesemia: (3) Diabetes: Plan This patient is a 74-year-old female with a H/O recurrent squamous cell carcinoma of the tongue, DM2, Crohn's disease, GAMA on CPAP, HTN, with recent PEG tube placement who presented on 12/13 after her PEG tube became dislodged # PEG tube malfunction-PEG tube replaced on 12/13 and is functioning normally and in place as per tube study on 12/14. -Give 1 more liter of IV fluids maintenance while restarting tube feeds -Give free water flushes as per nutrition recommendations 120 mL before and after tube feeds at Nutren 2.0 250 mL per G-tube 4 times daily -Continue IV Protonix x 1 more day -Appreciate general surgery management #Hypomagnesemia/hypokalemia-magnesium 1.2 on arrival, potassium low-from poor enteral intake with oral cancer and not receiving enough nutrition lately -Continue replacement with 2 g of IV magnesium sulfate and IV potassium chloride -Follow BMP, magnesium in the morning #Recurrent squamous cell carcinoma of tongue-follows with CCP for chemotherapy every Friday; cisplatin. Follows with PH for radiation therapy M-F-has 5 remaining radiation treatments With ulcerations on tongue and buccal mucosa from radiation that is very painful. Poor nutrition and pain are making her not feel well today. She also has radiation liriano to the left side of her neck -Continue Aquaphor or formulary equivalent PRN for neck liriano/pain appreciate wound care nurse consult -Add Magic mouthwash #[id number] A1c at 6.0% on 06/07/2024,Glucose 241 on admission. Patient normally takes Lantus 70u HS-dose reduced to Lantus 30 u BID while inpatient, but still with poor enteral intake -Reduce Lantus further to 15 units once daily, continue supplemental NovoLog -BSG's #Crohn's disease-with a history of partial colectomy, follows with GI in [place] Hold mercaptopurine for now #GAMA-continue CPAP HS #HTN-BPs are controlled -Hold irbesartan, amlodipine until G-tube able to be used-will now resume -Continue hydralazine 5 mg IV q8h PRN for SBP >195 or DBP >95 while off usual antihypertensives DVT prophylaxis-SCDs, add Lovenox Disposition-continued stay Admission and Anticipated Discharge Date Admission Date: December 13, 2024 Subjective Patient reports feeling bad and wiped out, flushed. No headache or chest pain or shortness of breath. Has some mild abdominal pain at the site of the incision. Physical Exam Constitutional: WD/WN, vitals as above Respiratory: normal respiratory effort, lungs clear to auscultation Cardiovascular: RRR, no murmur, no edema Gastrointestinal (Abdomen): Inspection/Auscultation: normal bowel sounds; + abdomen abnormal to inspection (PEG tube in place with dressing CDI) and abdomen not distended Percussion/Palpation: abdomen soft; abdomen nontender Psychiatric: A+Ox3, euthymic affect Results & Data Results & Data Vital Signs (Past 12 Hours) Vital Signs Temp Pulse Resp BP Pulse Ox O2 Del Method 12/14/24 16:33 36.7 C 79 16 138/78 96 Room Air 12/14/24 08:43 36.7 C 80 18 128/71 94 Room Air Laboratory Results CBC, BMP, magnesium, HgbA1c reviewed Diagnostic Findings KUB/PEG tube study reviewed PG Care Time/CCT Total # of Minutes Spent Total Time Spent with Patient: Total time spent is greater than 50% in coordination of care (as documented) at patient's floor/unit and/or counseling patient: Coding Level of Care Code 28118 SUB INP/OBS CARE 3/50MIN Diagnoses PEG tube malfunction K94.23 Hypomagnesemia E83.42 Diabetes E11.9
[2024-12-14] MEDS: ENOXAPARIN INJ 40 MG/0.4 ML SYR SQ SCH (20:14)
[2024-12-14] MEDS: GABAPENTIN 250 MG/5 ML 470 ML BTL PO SCH (21:27)
[2024-12-14] MEDS: LOSARTAN POTASSIUM 50 MG TAB PEG SCH (21:28)
[2024-12-14] MEDS: busPIRone 15 MG TAB PEG SCH (21:28)
[2024-12-14] MEDS: ATORVASTATIN 20 MG TAB PEG SCH (21:28)
[2024-12-15 06:35] LABS: Magnesium 1.6 mg/dl (1.7-2.4); Potassium 3.2 mmol/L (3.5-5.1)
[2024-12-15 06:36] LABS: Basophils # (auto) 0.02 K/uL (0.00-0.20); Basophils % (auto) 0.8 %; Eosinophils # (auto) 0.04 K/uL (0.00-0.50); Eosinophils % (auto) 1.5 %; Hematocrit (blood only) 30.4 % (37.0-47.0); Hemoglobin 10.3 g/dl (12.0-16.0); Immature Granulocytes # (auto) 0.05 K/uL (0.01-0.20); Immature Granulocytes % (auto) 1.9 %; Lymphocytes # (auto) 0.49 K/uL (1.20-3.40); Lymphocytes % (auto) 18.8 %; Mean Corpuscular Hemoglobin 33.6 pg (25.0-34.0); Mean Corpuscular Hgb Conc 33.9 g/dL (32.0-36.0); Mean Platelet Volume 9.5 fL (9.4-12.4); Monocytes # (auto) 0.48 K/uL (0.11-0.59); Monocytes % (auto) 18.4 %; Neutrophils # (auto) 1.53 K/uL (1.40-6.50); Neutrophils % (auto) 58.6 %; Nucleated RBC # (auto) 0.03 K/uL (0.00-0.12); Nucleated RBC % (auto) 1.1 %; Platelet Count 221 K/uL (130-400); RDW Coefficient of Variation 15.7 % (11.5-14.5); RDW Standard Deviation 55.9 fL (36.4-46.3); Red Blood Count 3.07 M/uL (4.20-5.40); White Blood Count 2.61 K/ul (4.8-10.8)
[2024-12-15 06:41] LABS: BUN Creatinine Ratio 33.9 (10-20); Creatinine Clr Calc Pharmacy 102.2 ml/min
[2024-12-15 07:25] VITALS: BP 172/74; PULSE 59; RESP 16; TEMP 98.1; O2SAT 95
--- NOTE | 2024-12-15 07:31 | Surgery Progress Note ---
Date of Service December 15, 2024 Assessment & Plan (1) PEG tube malfunction: Plan: POD#2 EGD and PEG tube exchange tube study yesterday showed tube in the right position TEN feeds going in okay per patient abdomen soft, non distended when pt is medically stable for discharge she may go from our standpoint we appreciate hospitalists taking over her care we are available for any questions/concerns during her stay Admission and Anticipated Discharge Date Admission Date: December 13, 2024 Subjective Patient doing okay. Tolerating her tube feeds. Has some expected abdominal discomfort, not related to getting tube feeds. No nausea/vomiting. Physical Exam Physical Exam: awake, no distress Gastrointestinal (Abdomen): Inspection/Auscultation: abdomen not distended Percussion/Palpation: abdomen soft; abdomen nontender Results & Data Vital Signs (Past 12 Hours) Vital Signs Temp Pulse Pulse Resp BP Pulse Ox O2 Del Method 12/15/24 07:24 98.1 F 59 L 16 172/74 H 95 Room Air 12/15/24 02:46 67 14 98 12/14/24 22:50 97.7 F 78 18 128/63 94 CPAP 12/14/24 22:27 79 17 98 PG Care Time/CCT Total # of Minutes Spent Total Time Spent with Patient: Total time spent is greater than 50% in coordination of care (as documented) at patient's floor/unit and/or counseling patient: Coding Level of Care Code 71008 Post Operative Follow-Up Diagnoses PEG tube malfunction K94.23
[2024-12-15] MEDS: CYANOCOBALAMIN (B-12) 500 MCG TABLET PO SCH (07:55)
[2024-12-15] MEDS: MAGNESIUM OXIDE 400 MG TAB PEG SCH (07:55)
[2024-12-15] MEDS: CHOLECALCIFEROL 125 MCG (5,000 UNITS) TAB PO SCH (07:56)
[2024-12-15] MEDS: LANSOPRAZOLE 15 MG SOLTAB PO SCH (07:56)
[2024-12-15] MEDS: amLODIPine BESYLATE 5 MG TAB PEG SCH (07:57)
[2024-12-15] MEDS: INSULIN ASPART PER UNIT CHARGE SC SCH (08:29)
[2024-12-15] MEDS: POTASSIUM CHLORIDE 20 MEQ/15 ML UDC PEG SCH (09:39)
[2024-12-15] MEDS: MAGNESIUM SULFATE / D5W 1 GM/100 ML BAG IV SCH (09:39)
--- NOTE | 2024-12-15 13:38 | Discharge Summary ---
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 She is now tolerating regular feeds through the tube. -continue free water flushes as per nutrition recommendations 120 mL before and after tube feeds and Nutren 2.0 250 mL per G-tube 4 times daily -Continue Prevacid daily -Appreciate general surgery management-f/u in 2 weeks as outpt #Hypomagnesemia/hypokalemia-magnesium 1.2 on arrival, potassium low-from poor enteral intake with oral cancer and not receiving enough nutrition lately. Replaced with IV mag and KCl IV and per PEG on several occasions, improving. -change home KCl tablet to KCl elixir 20 meq per PEG daily, continue Mag oxide per PEG -f/u BMP, mag levels with oncology as outpt #Recurrent squamous cell carcinoma of tongue-follows with [facility] for chemotherapy every Friday; cisplatin-pushed appt back this week to 12/16. Follows with for radiation therapy M-F-has 5 remaining radiation treatments-she will resume treatments after discharge With ulcerations on tongue and buccal mucosa from radiation that is very painful-improved with magic mouthwash. She also has radiation liriano to the left side of her neck -Continue Aquaphor or formulary equivalent PRN for neck liriano/pain appreciate wound care nurse consult -continue Magic mouthwash -continue chemo and XRT after discharge #[id number] A1c at 6.0% on 06/07/2024,Glucose 241 on admission. Patient normally takes Lantus 70u HS-dose reduced to Lantus 15 units while inpatient, but glucose rising now wth resuming tube feeds -can resume home doses of lantus and Novolog on discharge #Crohn's disease-with a history of partial colectomy, follows with GI in [place] Held mercaptopurine while here but can resume on discharge #GAMA-continue CPAP HS #HTN-BPs are controlled -continue home irbesartan, amlodipine DVT prophylaxis-SCDs, Lovenox Disposition-dc to home Notes For Next Care Provider Check BMP, mag level with oncology in 1 day Medication Changes From Visit Changed KCl from 20 meq tab per PEG qAM to 20 meq elixir qAM Discharge Exam Constitutional WD/WN, vitals as above Respiratory normal respiratory effort, lungs clear to auscultation Cardiovascular RRR, no murmur, no edema Gastrointestinal (Abdomen) Inspection/Auscultation: normal bowel sounds; + abdomen abnormal to inspection (PEG tube in place with dressing CDI) and abdomen not distended Percussion/Palpation: abdomen soft; abdomen nontender Psychiatric A+Ox3, euthymic affect Discharge Plan Discharge Items Patient Disposition: Home - Home Health Services Reason For Visit: PEG MALFUNCTION Discharge Diagnosis: Peg tube replacement Hypomagnesemia Hypokalemia Condition on Discharge: Fair Activity: As commented below Lifting: No more than 10 pounds Exercise/Sports: Wait until after follow-up appointment Non-emergency contact: Primary Care Provider, Surgeon and Oncologist Call non-emergency contact if: you have any medication questions, your symptoms worsen, your pain is not controlled, your temperature is above 101.5, your wound has increased redness, your wound has increased drainage and your wound pain has increased Follow-up/Referrals: Malik Turner DO [Surgeon] - (call office for a follow up in 1-2 weeks ) Lilian Godwin MD [Primary Care Provider] - (Follow up within 1-2 weeks) Kellen Perez MD [Physician] - 12/16/24 10:15 am (Your appointment was rescheduled for 10:15 blood draw and 11:[address] Perez's office) Diet: Other - See Diet Comment Addtl Attending Provider Instructions: You may use your G-tube for feeds and/or medications as instructed. You can still take small amounts of clear liquids by mouth as tolerated. You may keep a dry dressing around your G tube site, with dry gauze/tape or a drain sponge/tape, change daily and as needed. Your potassium supplement was changed to an elixir that can more easily be placed through your PEG tube. Dr. Perez will be checking your blood work to make sure your potassium and magnesium levels are normalizing. Pending Studies at Discharge: No Stand-Alone Forms: [facility] Medications and DC Order Prescriptions: New potassium chloride 20 mEq/15 mL Liquid 20 meq PEG QAM Qty: 450 0RF Nutren 2.0 0.08 gram-2 kcal/mL Liquid See Rx Instructions .ROUTE .COMPLEX Qty: 6000 0RF Rx Instructions: 250mL four times a day through PEG tube. Continued (DME) lancets [Microlet Lancet] Misc See Rx Instructions .ROUTE .MEDSUPPLY Qty: 200 5RF Rx Instructions: Test blood sugars four times a day (DME) blood-glucose meter [Contour Next One Meter] Misc See Rx Instructions .ROUTE .MEDSUPPLY Qty: 1 0RF Rx Instructions: Test blood sugars 1 x times a day (DME) pen needle, diabetic [BD Ultra-Fine Mini Pen Needle] 31 gauge x 3/16" needle See Dose Instructions .ROUTE .MEDSUPPLY Qty: 500 1RF Rx Instructions: use to inject insulin 5 times daily as directed insulin glargine U-300 conc [Toujeo Max U-300 SoloStar] 300 unit/mL (3 mL) insulin pen 70 unit SQ HS Qty: 24 3RF Rx Instructions: 80 units the day of chemoa nd the day after cyanocobalamin (vitamin B-12) 1,000 mcg/mL solution 1,000 mcg IM MONTHLY (DME) Dexcom G7 Sensor Device See Rx Instructions .Route Rx Instructions: change every 10 days (DME) Bio true Solution See Rx Instructions .Route Rx Instructions: As directed; PRN (DME) CPAP Machine Misc See Rx Instructions .Route Rx Instructions: As directed (DME) Contour Next Test Strips Strip See Rx Instructions .ROUTE .MEDSUPPLY Qty: 400 1RF Rx Instructions: Test blood sugar four times daily magnesium aspart,citrate,oxide 400 mg magnesium capsule 400 mg PO QAM Rx Instructions: Pt takes this the day of chemo - otherwise she skips it because it's too hard to swallow cyclosporine 0.05 % dropperette 1 drp OPB BID insulin aspart U-100 [Novolog FlexPen U-100 Insulin] 100 unit/mL (3 mL) insulin pen 0 sliding scale dose SQ TIDWMEAL MDD 60 Changed buspirone 30 mg tablet 30 mg feeding tube BID Qty: 60 0RF lansoprazole 15 mg capsule,delayed release(DR/EC) 15 mg feeding tube QAM Qty: 30 0RF amlodipine 5 mg tablet 5 mg feeding tube QAM Qty: 30 0RF cholecalciferol (vitamin D3) 5,000 unit capsule 5,000 units feeding tube QAM Qty: 30 0RF mercaptopurine 50 mg tablet 50 mg feeding tube QAM Qty: 30 0RF cyanocobalamin (vitamin B-12) 1,000 mcg tablet, sublingual 1,000 mcg sublingual DAILY Qty: 30 0RF irbesartan 300 mg tablet 300 mg feeding tube QPM Qty: 30 0RF atorvastatin 20 mg tablet 20 mg feeding tube HS Qty: 90 2RF gabapentin 800 mg tablet 800 mg feeding tube BID Qty: 60 0RF Discontinued potassium chloride 20 mEq tablet,ER particles/crystals 20 meq PO DAILY Rx Instructions: Pt states she is unable to crush this tablet so she hasn't been taking it even though her potassium is low. Discharge Orders: Discharge Order (Routine); Ordered 12/15/24 Ordered By: Alycia Dugan/Other Patient Handouts: Managing Type 2 Diabetes Admission Data Admit Date/Time: 12/13/24 06:30 Attending Provider: Alycia Alexandre Admit Provider: Ronald English Primary Care Provider: Lilian Godwin Other Providers: Shaniqua Castellanos; [facility] Hospital Stay Data Consultations 12/13/24 10:03 Consult Hospitalist Routine Procedures Performed Operation Date: 12/13/24 09:35 Actual Procedures p Replacement of Feeding Tube(Not Applicable) - Malik Turner DO s Esophagogastroduodenoscopy - Malik Turner DO Pending Results Patient Have Any Pending Studies at Discharge: No Discharge Instructions Given to Patient (Per Discharging Provider) You may use your G-tube for feeds and/or medications as instructed. You can still take small amounts of clear liquids by mouth as tolerated. You may keep a dry dressing around your G tube site, with dry gauze/tape or a drain sponge/tape, change daily and as needed. Your potassium supplement was changed to an elixir that can more easily be placed through your PEG tube. Dr. Perez will be checking your blood work to make sure your potassium and magnesium levels are normalizing. Total Time Total Time Spent Total Time Spent (In Minutes): 35 min Total Time Includes: Examination of the Patient, Discharge Planning and Medication Reconciliation Coding Level of Care Code 36507 INP/OBS DISCH >30 MIN Diagnoses PEG tube malfunction K94.23 Hypomagnesemia E83.42 Hypokalemia E87.6 Recurrent squamous cell carcinoma of tongue C02.9
[2024-12-15] MEDS: HEPARIN 100 UNIT/ML 5ML FLUSH FLUSH STA (14:49)
== END 2024-12-15 15:22 | disposition home health service (06) | DRG 394 ==
LOC: ED 05:32 → SUATTDRO 06:30 → EDINP 06:30 → 4W 16:46

== ENCOUNTER 2025-04-16 14:46 | Inpatient (IN) ==
--- NOTE | 2025-04-16 14:59 | Emergency Department Note ---
Impression & Plan Jerri infection, Cellulitis of face ED Provider Note CHIEF COMPLAINT: PEG tube issue HISTORY OF PRESENTING ILLNESS: The patient is a pleasant 74-year-old female who arrives to the emergency department for evaluation of a PEG tube problem. She reports noting some drainage from the superior aspect of the insertion site. She states she has been having some breakdown of the skin around the area as well. She reports no significant abdominal pain. She states currently at this time she is only using the PEG tube for medication administration, and is able to have limited oral intake. She states she would prefer to have the PEG tube removed, as it is causing her problems at this time, and she ideally does not need to use it. She also states she began to develop facial cellulitis, with right-sided facial pain, and swelling since last night. She reports history of previous infected salivary duct, with similar symptoms. She was evaluated for the previous infection, by ENT and provided antibiotics with resolution of symptoms. She reports last night symptoms began, she went to urgent care this morning, and she was diagnosed with the same. She was provided oral cephalexin, and steroids for treatment. She states the pain is severe, she denies difficulty swallowing, or fever. REVIEW OF SYSTEMS: See HPI for pertinent positives and pertinent negatives. ALLERGIES: See below MEDICATIONS: See below PAST MEDICAL HISTORY: See below PHYSICAL EXAM: VITALS: Vitals are noted on the nurse's note and reviewed by myself. Vital signs stable. GENERAL: 74-year-old female, in no acute distress, nondiaphoretic, well- developed well-nourished. SKIN: The skin was without rashes, erythema, edema, or bruising. HEAD: Normocephalic atraumatic. MOUTH: Mucous membranes moist. Tonsils are not enlarged. No sublingual edema. Pharynx without erythema or exudate. Uvula midline. Airway patent. Tongue does not deviate. Right-sided facial swelling, firmness, and tenderness to palpation noted from the preauricular region extending to the mastoid, and towards the lower mandibular region. Erythema noted overlying this region. NECK: Supple without nuchal rigidity. Right cervical lymphadenopathy. Cervical spine is nontender. No JVD. HEART: Regular rate and rhythm without murmurs gallops or rubs. LUNGS: Clear to auscultation bilaterally without wheezes, rales or rhonchi. No retractions or accessory muscle use. ABDOMEN: Positive bowel sounds x 4. Soft, nontender, without masses or organomegaly. Wren sign negative. No guarding or rebound tenderness. Drainage noted at the insertion site of the PEG tube, with surrounding skin breakdown, likely consistent with yeast. NEURO: Patient was alert and oriented to person place and time. No focal neurological deficits. DIFFERENTIAL DIAGNOSIS: Infection, cellulitis, parotiditis, abscess, mass, lymphadenitis, meningitis, tumor, arterial dissection, thyroiditis, mastoiditis, as well as other pathologies. ED COURSE AND MEDICAL DECISION MAKING: HISTORY FROM INDEPENDENT HISTORIAN: at bedside serving as secondary historian. MEDICATIONS GIVEN: 1 L NSS bolus, 900 mg IV clindamycin, 4 mg IV morphine, 4 mg IV Zofran INTERPRETATION OF LABS: I interpreted the labs with full lab results as below in the lab section of this note. Pertinent lab results discussed in the MDM section below. INTERPRETATION OF IMAGING: Imaging studies were interpreted by myself and read by radiology as per the imaging section of this note. 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 CONSULTATIONS: [place] [facility] [place] recommendation of admission to hospitalist service for IV antibiotics and further imaging likely. MDM SUMMARY: The patient is a pleasant, 74-year-old female who arrives to the emergency department for evaluation of the above-stated complaint. Upon patient arrival, the PEG tube was evaluated, and it does appear the drainage from the tube, and the breakdown of the skin is likely due to a Jerri infection. Patient was provided nystatin powder and is considering having PEG tube removed, as she is no longer using it for feeding. Upon further discussion, the patient states she was seen for a right sided facial swelling, with pain. Patient does appear to have a significant right-sided facial cellulitis, with severe tenderness to palpation, which has seemed to significantly increase over the past 24 hours. Patient was provided Keflex, and steroids from urgent care, and diagnosed with a salivary gland obstruction. Due to the patient's past medical history of recurrent squamous cell carcinoma of the tongue, as well as newly found pulmonary nodules, I do believe further evaluation is indicated. CT imaging of the soft tissue of the neck was obtained which per my interpretation shows significant fat stranding, consistent with cellulitis/infection, as well as an enlarged submandibular gland, either infectious, or inflammatory. Lab work shows no leukocytosis, with a stable anemia. Patient does have hypokalemia, as well as slight hyperglycemia. The patient's PEG tube was flushed, she was provided 40 mEq liquid potassium via PEG tube for replacement. Formal radiology report of CT scan showed no acute findings, I contacted the radiologist for discussion, who did agree due to the left facial radiation, that the patient likely suffered significant atrophy, causing the right side of the face to appear slightly normal on CT imaging. Consultation was obtained by Dr. Alexander Vargas from [facility] who recommended admission as well as IV antibiotics. He will evaluate the patient in the morning, for need for surgical intervention. The patient was provided IV clindamycin due to a penicillin allergy. Discussion was had with Dr. Shaniqua Castellanos from the [facility]. She agreed to evaluate and accept the patient for admission. Please refer to her documentation as well as Dr. Vargas's documentation for further patient workup and care. DIAGNOSIS: Jerri infection, facial cellulitis The patient's case was discussed with Dr. Burr, who agreed with my evaluation and treatment plan. The chart was completed utilizing [employer] Speech voice recognition software. Grammatical errors, random word insertions, pronoun errors, and incomplete sentences are an occasional consequence of this system due to software limitations, ambient noise, and hardware issues. Any formal questions or concerns about the content, text, or information contained within the body of this dictation should be directly addressed to the provider for clarification. Past Med/Surg History Problem List (Updated 04/19/25 @ 01:37 by STEFANI Estrella) Cellulitis of face (Acute) Jerri infection (Acute) Jerri infection Salivary gland obstruction Cellulitis of face Multiple pulmonary nodules PEG (percutaneous endoscopic gastrostomy) adjustment/replacement/removal (12/13/24) Removal of Feeding Tube/placement new gastrostomy tube - Malik Turner, DO Esophagogastroduodenoscopy - Malik Turner, DO Hypokalemia Hypomagnesemia heme/onc monitoring and supplementing Diabetes Arthritis Anemia Recurrent squamous cell carcinoma of tongue Obesity Post-nasal drip Injury of toe, right, superficial 05/2022 Depression with anxiety Left lumbar radiculopathy GAMA (obstructive sleep apnea) Crohn disease Binge eating disorder Mixed hyperlipidemia Metabolic syndrome Glaucoma Spinal stenosis Diabetic peripheral neuropathy associated with type 2 diabetes mellitus (Acute) Dyslipidemia associated with type 2 diabetes mellitus (Acute) Hypertension (Acute) Loss of protective sensation of skin of foot (Acute) Type 2 diabetes mellitus (Acute) Medical History PEG tube malfunction Anemia Obesity Gout Hypertension Dyslipidemia associated with type 2 diabetes mellitus Diabetic peripheral neuropathy associated with type 2 diabetes mellitus Depression with anxiety Post-nasal drip Type 2 diabetes mellitus Spinal stenosis Glaucoma Metabolic syndrome Recurrent squamous cell carcinoma of tongue Surgery 04/2024 and 10/04/24; currently on chemo tx; follows with once per week (wednesdays); also current XRT with in [place] Hx of sepsis 2021- no residual/current issues Fatty liver Sleep apnea CPAP Crohn's disease Neck problem Cervical pitched nerve + narrowing Intermittent LUE radiculopathy and ROM limitations COPD (chronic obstructive pulmonary disease) "Mild" No inhaler Surgical History History of percutaneous endoscopic gastrostomy (11/29/24) Esophagogastroduodenoscopy with Percutaneous Endoscopic Gastrostomy (PEG) Tube - Malik Turner DO Port-A-Cath in place (11/01/24) Insertion Access Port with Fluoroscopy - Right Subclavian(Right) - Kishore Mulligan DO; MAC without issue S/P cholecystectomy S/P partial glossectomy 04/30/24: partial glossectomy with L selective neck dissection Dr[facility]; 10/04/24: L suprahyoid neck dissection and partial glossectomy Hx of cataract extraction R/L Hx of bilateral breast reduction surgery S/P epidural steroid injection x4 [id number] History of colonoscopy History of bowel resection (~2003) 12 inches r/t Crohn's disease (1971) Re-do r/t Crohn's disease (2003)- also had gallbladder removed at this time History of appendectomy (1971) Family History Father Family history of diabetes mellitus Diabetes Stroke Daughter Breast cancer Uncle Diabetes Grandmother Diabetes Stroke Other No family history of adverse response to anesthesia Social History Smoking Status: Former smoker Tobacco Type: Cigarettes Age Started Using Tobacco: 18; Age Quit Using Tobacco: 30; packs per day: 1; Cigarettes Per Day: 1980; Second Hand Exposure: Yes; Do You Dip or Chew Tobacco: No; Hx Alcohol Use: No Hx Substance Use: No Preferred Language: Turkmen Communication Ability: Effective Visual Impairment: No Limitations Deep Fryer Assembler Required: No Beliefs That Will Affect Care: None Current Living Situation: Spouse Feels Safe at Home: Yes Assistive Devices: CPAP, Walker and Other Allergies Allergies Allergy/AdvReac Type Severity Reaction Status Date / Time latex Allergy Intermediate Blisters Verified 04/13/25 14:43 Penicillins Allergy Intermediate Hives Verified 04/13/25 14:43 lisinopril Allergy Mild fluid Verified 04/13/25 14:43 retention [id number] Reductase Allergy Verified 04/13/25 14:43 Inhibitor Home Meds Home Medications Medication Instructions Recorded Confirmed CPAP Machine 04/19/21 01/26/25 soft lens rinse,store solution 05/29/22 01/26/25 (Bio true solution) blood-glucose sensor (Dexcom G7 01/19/24 01/26/25 Sensor device) cyclosporine 0.05 % eye drops in a 1 drp OPB BID 10/26/24 04/16/25 dropperette insulin aspart U-100 100 unit/mL 0 sliding scale dose subcut 12/13/24 04/16/25 (3 mL) subcutaneous pen (Novolog TIDWMEAL FlexPen U-100 Insulin aspart) ondansetron 8 mg disintegrating 8 mg PO Q8H PRN Nausea 01/01/25 04/16/25 tablet latanoprostene bunod 0.024 % eye 1 drp ophthalmic (eye) QPM 04/13/25 04/16/25 drops (Vyzulta) mercaptopurine 50 mg tablet 50 mg PO DAILY 04/13/25 04/16/25 Previous Rx's Medication Instructions Recorded Microlet Lancet (lancets) #200 ea 06/12/20 blood-glucose meter (Contour Next #1 ea 02/21/23 One Meter) blood sugar diagnostic (Contour #400 ea 11/12/24 Next Test Strips) buspirone 30 mg tablet 30 mg feeding tube BID #60 tabs 12/15/24 gabapentin 800 mg tablet 800 mg feeding tube BID #60 tabs 12/15/24 pen needle, diabetic 31 gauge x #500 ea 03/21/2512/05" Results & Data (ED) Vital Signs Vital Signs - 24 hr 04/16/25 14:52 04/16/25 17:30 04/16/25 19:00 Temperature 36.5 C Temperature Source Temporal Artery Scan Pulse Rate 109 H Pulse Rate [Right Finger] 86 99 H Pulse Rhythm [Right Finger] Regular Pulse Strength [Right Finger] Normal Respiratory Rate 16 19 18 Respiratory Effort / Characteristics Non-Labored Spontaneous Non-Labored Spontaneous Non-Labored Spontaneous Respiratory Depth Normal Normal Normal Respiratory Pattern Regular Regular Blood Pressure 142/83 H Blood Pressure [Right Arm] 146/77 H 143/98 H Blood Pressure Mean 102 Blood Pressure Mean [Right Arm] 100 113 Blood Pressure Position Sitting Blood Pressure Position [Right Arm] Pulse Oximetry 98 96 98 Oxygen Delivery Method Room Air Room Air Room Air Sepsis Recent Fever Within 48 Hours No Sepsis New/Unexplained Change in Mental Status N/A Sepsis Action Taken by Nursing No Action Required 04/16/25 19:50 Temperature Temperature Source Pulse Rate Pulse Rate [Right Finger] 87 Pulse Rhythm [Right Finger] Pulse Strength [Right Finger] Respiratory Rate 18 Respiratory Effort / Characteristics Non-Labored Spontaneous Respiratory Depth Normal Respiratory Pattern Regular Blood Pressure Blood Pressure [Right Arm] 137/103 H Blood Pressure Mean Blood Pressure Mean [Right Arm] 114 Blood Pressure Position Blood Pressure Position [Right Arm] Semi-fowlers Pulse Oximetry 99 Oxygen Delivery Method Room Air Sepsis Recent Fever Within 48 Hours Sepsis New/Unexplained Change in Mental Status Sepsis Action Taken by Residential Medications Current Medication List: was personally reviewed by me Laboratory Data Attestation: I reviewed the patient's lab results. 04/18/25 06:01 04/18/25 06:01 Lab Results 04/16/25 Range/Units 15:46 WBC 4.95 (4.8-10.8) K/ul RBC 3.61 L (4.20-5.40) M/uL Hgb 12.2 (12.0-16.0) g/dl Hct 34.0 L (37.0-47.0) % MCV 94.2 (80.0-100.0) fL MCH 33.8 (25.0-34.0) pg MCHC 35.9 (32.0-36.0) g/dL RDW Std Deviation 48.6 H (36.4-46.3) fL RDW Coeff of Nelia 14.3 (11.5-14.5) % Plt Count 243 (130-400) K/uL MPV 9.1 L (9.4-12.4) fL Immature Gran % (Auto) 0.2 % Neut % (Auto) 75.1 % Lymph % (Auto) 15.6 % Cascade % (Auto) 8.3 % Eos % (Auto) 0.6 % Baso % (Auto) 0.2 % Neut # (Auto) 3.72 (1.40-6.50) K/uL Lymph # (Auto) 0.77 L (1.20-3.40) K/uL Cascade # (Auto) 0.41 (0.11-0.59) K/uL Eos # (Auto) 0.03 (0.00-0.50) K/uL Baso # (Auto) 0.01 (0.00-0.20) K/uL Immature Gran # (Auto) 0.01 (0.01-0.20) K/uL Sodium 141 (136-145) mmol/L Potassium 2.9 L (3.5-5.1) mmol/L Chloride 107 (98-107) mmol/L Carbon Dioxide 25 (21-32) mmol/L Anion Gap 9 (3-11) BUN 12 (6-23) mg/dl Creatinine 0.84 (0.6-1.2) mg/dl Est Cr Clr Drug Dosing 63.4 ml/min eGFR 71.97 BUN/Creatinine Ratio 14.3 (10-20) Glucose 165 H (70-99(Fasting)) mg/dl Calcium 9.6 (8.6-10.3) mg/dl Magnesium 1.4 L (1.7-2.4) mg/dl Total Bilirubin 0.8 (0.2-1.0) mg/dl AST 14 (13-39) U/L ALT 16 (7-52) U/L Alkaline Phosphatase 96 (34-104) U/L Total Protein 6.8 (6.0-8.3) gm/dl Albumin 3.6 (3.4-5.0) gm/dl Globulin 3.2 (2.5-4.0) gm/dl Albumin/Globulin Ratio 1.1 (0.9-2) Administered Medications Acetaminophen (Acetaminophen 325 Mg Tab) 650 mg PO Q4H PRN PRN Reason: Pain or Fever Stop: 05/16/25 22:03 Last Admin: 04/17/25 17:42 Dose: 650 mg Documented By: Admin: 04/17/25 08:38 Dose: 650 mg Documented By: Admin: 04/16/25 22:57 Dose: 650 mg Documented By: JIAN Buspirone HCl (Buspirone 15 Mg Tab) 30 mg PO BID CHARI Stop: 05/16/25 22:03 Last Admin: 04/18/25 20:37 Dose: 30 mg Documented By: Admin: 04/18/25 07:57 Dose: 30 mg Documented By: Admin: 04/17/25 21:21 Dose: 30 mg Documented By: Admin: 04/17/25 08:37 Dose: 30 mg Documented By: Admin: 04/16/25 22:49 Dose: 30 mg Documented By: JIAN Enoxaparin Sodium (Enoxaparin Inj 40 Mg/0.4 Ml Syr) 40 mg SQ HS CHARI Stop: 05/16/25 22:44 Last Admin: 04/18/25 20:37 Dose: 40 mg Documented By: Admin: 04/17/25 21:22 Dose: 40 mg Documented By: Admin: 04/16/25 22:51 Dose: Not Given Documented By: JIAN Gabapentin (Gabapentin 800 Mg Tab) 800 mg PO BID CHARI Stop: 05/16/25 22:03 Last Admin: 04/18/25 20:37 Dose: 800 mg Documented By: Admin: 04/18/25 07:57 Dose: 800 mg Documented By: Admin: 04/17/25 21:21 Dose: 800 mg Documented By: Admin: 04/17/25 08:37 Dose: 800 mg Documented By: Admin: 04/16/25 22:49 Dose: 800 mg Documented By: JIAN Heparin Sodium (Porcine) (Heparin 100 Unit/Ml 5ml Flush) 5 ml FLUSH PRN PRN PRN Reason: Flush Stop: 05/17/25 12:47 Last Admin: 04/18/25 20:50 Dose: 5 ml Documented By: Admin: 04/18/25 08:44 Dose: 5 ml Documented By: JOSE M Clindamycin Phosphate (Cleocin/D5w) 900 mg in 50 mls @ 100 mls/hr IV Q8H CHARI Stop: 04/24/25 03:59 Last Infusion: 04/18/25 20:55 Dose: Infused Documented By: Admin: 04/18/25 20:21 Dose: 100 mls/hr Documented By: Infusion: 04/18/25 13:25 Dose: Infused Documented By: JOSE M Admin: 04/18/25 12:55 Dose: 100 mls/hr Documented By: JOSE M Infusion: 04/18/25 04:38 Dose: Infused Documented By: Admin: 04/18/25 04:08 Dose: 100 mls/hr Documented By: Infusion: 04/17/25 22:07 Dose: Infused Documented By: Admin: 04/17/25 21:25 Dose: 100 mls/hr Documented By: Infusion: 04/17/25 12:44 Dose: Infused Documented By: Admin: 04/17/25 12:11 Dose: 100 mls/hr Documented By: Infusion: 04/17/25 05:09 Dose: Infused Documented By: Admin: 04/17/25 04:39 Dose: 100 mls/hr Documented By: JIAN Ceftriaxone Sodium (Rocephin) 2,000 mg in 50 mls @ 100 mls/hr IV Q24H CHARI Stop: 04/24/25 08:59 Last Infusion: 04/18/25 08:28 Dose: Infused Documented By: JOSE M Admin: 04/18/25 07:58 Dose: 100 mls/hr Documented By: JOSE M Infusion: 04/17/25 09:36 Dose: Infused Documented By: Admin: 04/17/25 09:00 Dose: 100 mls/hr Documented By: MALLORY Insulin Aspart (Insulin Aspart Per Unit Charge) 0 units SC ACHS CHARI Stop: 05/17/25 12:29 Last Admin: 04/18/25 20:39 Dose: 1 units Documented By: YISEL Co-signed By: ELIUD Admin: 04/18/25 17:05 Dose: Not Given Documented By: DAYANA Co-signed By: JOSE M Admin: 04/18/25 13:00 Dose: 7 units Documented By: JOSE M Co-signed By: DAYANA Admin: 04/18/25 09:01 Dose: 7 units Documented By: JOSE M Co-signed By: DAYANA Admin: 04/17/25 21:22 Dose: Not Given Documented By: Admin: 04/17/25 17:40 Dose: 3 units Documented By: MALLORY Co-signed By: EVELYN Admin: 04/17/25 13:39 Dose: Not Given Documented By: MALLORY Morphine Sulfate (Morphine Sulfate 2 Mg/Ml Carp) 2 mg IV Q6H PRN PRN Reason: Moderate Pain (Scale 4, 5, 6) Stop: 04/30/25 22:03 Last Admin: 04/18/25 08:51 Dose: 2 mg Documented By: JOSE M Vyzulta 0.024% Eye Drops- Non-Formulary Patient's Own Med 1 each EXT HS CHARI Stop: 05/17/25 20:59 Last Admin: 04/18/25 20:38 Dose: 1 drops Documented By: Admin: 04/17/25 21:22 Dose: 1 drops Documented By: ANTONIA Nutritional Formula (Nutren Liqd 2.0 1,000 Ml Bag) 0 ml GT DAILY@1000 CHARI; Protocol Stop: 05/18/25 09:59 Last Admin: 04/18/25 16:11 Dose: 180 ml Documented By: DAYANA Oxycodone HCl (Oxycodone Hcl Ir 5 Mg Tab (Immediate Release)) 5 mg PO Q4H PRN PRN Reason: Pain Stop: 05/01/25 09:43 Last Admin: 04/18/25 20:36 Dose: 5 mg Documented By: Admin: 04/18/25 06:18 Dose: 5 mg Documented By: Admin: 04/18/25 02:21 Dose: 5 mg Documented By: Admin: 04/17/25 14:53 Dose: 5 mg Documented By: MALLORY Sterile Water (Tube Feeding Water Flush) 60 ml GT DAILY@0930,1100 CHARI Stop: 05/18/25 09:29 Last Admin: 04/18/25 17:03 Dose: 60 ml Documented By: Admin: 04/18/25 16:12 Dose: 60 ml Documented By: PME Discontinued Medications Enoxaparin Sodium (Enoxaparin Inj 40 Mg/0.4 Ml Syr) 40 mg SQ Q24H CHARI Stop: 05/16/25 22:03 Last Admin: 04/17/25 08:44 Dose: Not Given Documented By: MALLORY Heparin Sodium (Beef Lung) (Heparin 10 Unit/Ml 5 Ml Flush) 5 ml FLUSH PRN PRN PRN Reason: Flush Stop: 05/17/25 03:32 Last Admin: 04/17/25 05:07 Dose: 5 ml Documented By: JIAN Sodium Chloride (Nss) 1,000 mls @ 999 mls/hr IV .Q1H1M ONE Stop: 04/16/25 20:35 Last Infusion: 04/16/25 21:25 Dose: Infused Documented By: Admin: 04/16/25 20:02 Dose: 999 mls/hr Documented By: TATYANA Clindamycin Phosphate (Cleocin/D5w) 900 mg in 50 mls @ 100 mls/hr IV NOW ONE Stop: 04/16/25 20:04 Last Infusion: 04/16/25 21:03 Dose: Infused Documented By: Admin: 04/16/25 20:19 Dose: 100 mls/hr Documented By: JESUS Magnesium Sulfate/Dextrose (Magnesium Sulfate / D5w) 1 gm in 100 mls @ 50 mls/hr IV Q2H CHARI Stop: 04/17/25 00:29 Last Infusion: 04/17/25 01:38 Dose: Infused Documented By: Admin: 04/16/25 23:38 Dose: 50 mls/hr Documented By: Infusion: 04/16/25 23:38 Dose: Infused Documented By: Admin: 04/16/25 21:03 Dose: 50 mls/hr Documented By: JESUS Potassium Chloride (K Turner / Wtr) 10 meq in 100 mls @ 100 mls/hr IV Q1H CHARI Stop: 04/16/25 23:29 Last Infusion: 04/17/25 00:56 Dose: Infused Documented By: Admin: 04/16/25 23:56 Dose: 100 mls/hr Documented By: Infusion: 04/16/25 23:53 Dose: Infused Documented By: Admin: 04/16/25 23:37 Dose: 100 mls/hr Documented By: Infusion: 04/16/25 23:36 Dose: Infused Documented By: Admin: 04/16/25 20:56 Dose: 100 mls/hr Documented By: JESUS Potassium Chloride (K Turner / Wtr) 10 meq in 100 mls @ 100 mls/hr IV Q1H CHARI Stop: 04/18/25 11:29 Last Infusion: 04/18/25 12:17 Dose: Infused Documented By: Admin: 04/18/25 11:17 Dose: 100 mls/hr Documented By: Infusion: 04/18/25 11:10 Dose: Infused Documented By: Admin: 04/18/25 10:10 Dose: 100 mls/hr Documented By: Infusion: 04/18/25 09:52 Dose: Infused Documented By: Admin: 04/18/25 08:52 Dose: 100 mls/hr Documented By: JOSE M Magnesium Sulfate/Dextrose (Magnesium Sulfate / D5w) 1 gm in 100 mls @ 50 mls/hr IV Q2H CHARI Stop: 04/18/25 14:29 Last Infusion: 04/18/25 14:51 Dose: Infused Documented By: Admin: 04/18/25 12:51 Dose: 50 mls/hr Documented By: Infusion: 04/18/25 12:51 Dose: Infused Documented By: Admin: 04/18/25 11:00 Dose: 50 mls/hr Documented By: Infusion: 04/18/25 10:52 Dose: Infused Documented By: Admin: 04/18/25 08:52 Dose: 50 mls/hr Documented By: JOSE M Insulin Aspart (Insulin Aspart Per Unit Charge) 0 units SC Q6 CHARI Stop: 05/16/25 22:29 Last Admin: 04/17/25 12:07 Dose: Not Given Documented By: Admin: 04/17/25 05:43 Dose: Not Given Documented By: LEÓN Co-signed By: JIAN Admin: 04/16/25 22:51 Dose: Not Given Documented By: JIAN Co-signed By: LEÓN Insulin Glargine (Lantus Per Unit Charge) 15 units SQ BID CHARI Stop: 05/16/25 22:03 Last Admin: 04/17/25 08:33 Dose: Not Given Documented By: Admin: 04/16/25 22:52 Dose: Not Given Documented By: JIAN Ioversol (Optiray 320 100ml) 90 ml IV ONCE ONE Stop: 04/16/25 16:41 Last Admin: 04/16/25 16:40 Dose: 90 ml Documented By: MAX Miscellaneous ((Latanoprostene Bunod [Vyzulta] 0.024 % Drops)Order Awaiting Action) 1 each N/A QS CHARI Stop: 05/16/25 22:29 Last Admin: 04/17/25 08:40 Dose: Not Given Documented By: Admin: 04/16/25 23:01 Dose: Not Given Documented By: JIAN Morphine Sulfate (Morphine Sulfate 4 Mg/Ml 1 Ml Carp\\Vial) 4 mg IV NOW STA Stop: 04/16/25 19:36 Last Admin: 04/16/25 20:04 Dose: 4 mg Documented By: TATYANA Nystatin (Nystatin Powder 15gm Btl) 1 appln EXT ONCE ONE Stop: 04/16/25 15:35 Last Admin: 04/16/25 16:13 Dose: 1 appln Documented By: SUSY Nystatin (Nystatin Powder 15gm Btl) 1 appln EXT QID CHARI Stop: 05/16/25 22:03 Last Admin: 04/18/25 15:07 Dose: Not Given Documented By: JOSE M Admin: 04/18/25 07:57 Dose: 1 appln Documented By: JOSE M Admin: 04/17/25 21:22 Dose: 1 appln Documented By: Admin: 04/17/25 17:40 Dose: 1 appln Documented By: Admin: 04/17/25 12:44 Dose: 1 appln Documented By: Admin: 04/17/25 08:38 Dose: 1 appln Documented By: Admin: 04/16/25 22:42 Dose: 1 appln Documented By: JIAN Ondansetron HCl (Ondansetron Inj 2 Mg/Ml 2 Ml Vial) 4 mg IV NOW STA Stop: 04/16/25 19:36 Last Admin: 04/16/25 20:02 Dose: 4 mg Documented By: TATYANA Potassium Chloride (Potassium Chloride 20 Meq/15 Ml Udc) 40 meq PO NOW STA Stop: 04/16/25 18:53 Last Admin: 04/16/25 19:06 Dose: 40 meq Documented By: JESUS Potassium Chloride (Potassium Chloride Crtab 20 Meq Tabcr) 40 meq PO NOW STA Stop: 04/17/25 08:13 Last Admin: 04/17/25 08:37 Dose: 40 meq Documented By: MALLORY Imaging Data Attestation: I personally reviewed and interpreted this imaging study as follows: Radiologist's Impression: Soft Tissue Neck CT 04/16/25 15:33 CT neck with contrast History: PEG tube issues Comparison: PET/CT 04/05/2025 Technique: Following intravenous administration of nonionic iodinated contrast medium, thin section helical CT images were obtained from the skull base down to the level of the aortic arch. Axial, coronal and sagittal reformations were performed with 2-3 mm slice thickness reconstruction. Images were reviewed in soft tissue, lung and bone windows. One or more of the following dose-optimizing techniques was utilized for this exam: automated exposure control, adjustment of the mA and/or kV according to patient size, and/or use of iterative reconstruction technique. Findings: Evaluation of the mucosal space demonstrates no evident abnormality in the nasopharynx, oropharynx, hypopharynx or the glottis. The tongue base appears normal. Complete fatty atrophy of the left parotid and left submandibular gland. There is also moderate fatty atrophy of the right parotid and right submandibular gland. The thyroid gland appears atrophic without suspicious nodule. There is no evident cervical lymphadenopathy. The fascial spaces in the neck are intact bilaterally. The major vascular structures in the neck appear unremarkable. Evaluation of the osseous structures demonstrate no worrisome lytic or sclerotic lesion. No overt spinal canal or neuroforaminal stenosis. The visualized paranasal sinuses are clear. The mastoid air cells are clear. Scattered pulmonary nodules again seen. Impression: Normal CT study of the neck with contrast. No evident mass or adenopathy within the neck. Glandular atrophy, as above. Redemonstrated scattered pulmonary nodules, partially seen in the upper lungs. Electronically signed by Joaquín Appiah 04-16-2025 6:49 PM Discharge Plan Visit Data Chief Complaint: Feeding/PEG Tube Replacement Stated Complaint: PEG TUBE SEEMS TO BE LEAKING ED Provider: Ludwig Burr ED Midlevel Provider: Kami Jones Discharge Problem: Jerri infection, Cellulitis of face Patient Disposition: Admitted As Inpatient Discharge Instructions Interventions: ED Discharge Assessment Last Done: 04/16/25 21:49
[2025-04-16 16:04] LABS: Hematocrit (blood only) 34.0 % (37.0-47.0); Hemoglobin 12.2 g/dl (12.0-16.0); Immature Granulocytes # (auto) 0.01 K/uL (0.01-0.20); Immature Granulocytes % (auto) 0.2 %; Mean Corpuscular Hemoglobin 33.8 pg (25.0-34.0); Mean Corpuscular Volume 94.2 fL (80.0-100.0); Platelet Count 243 K/uL (130-400); RDW Standard Deviation 48.6 fL (36.4-46.3); Red Blood Count 3.61 M/uL (4.20-5.40); White Blood Count 4.95 K/ul (4.8-10.8)
[2025-04-16] MEDS: NYSTATIN POWDER 15GM BTL EXT ONE (16:13)
[2025-04-16 16:26] LABS: Alanine Aminotransferase 16.0 U/L (7-52); Albumin Globulin Ratio 1.1 (0.9-2); Alkaline Phosphatase 96.0 U/L (34-104); Anion Gap 9.0 (3-11); Bilirubin,Total 0.8 mg/dl (0.2-1.0); Blood Urea Nitrogen 12.0 mg/dl (6-23); Calcium 9.6 mg/dl (8.6-10.3); Carbon Dioxide 25.0 mmol/L (21-32); Chloride 107.0 mmol/L (98-107); Creatinine Clr Calc Pharmacy 63.4 ml/min; Globulin 3.2 gm/dl (2.5-4.0); Glucose 165.0 mg/dl (70-99(Fasting)); Potassium 2.9 mmol/L (3.5-5.1); Sodium 141.0 mmol/L (136-145); Total Protein 6.8 gm/dl (6.0-8.3)
[2025-04-16] MEDS: OPTIRAY 320 100ml IV ONE (16:40)
--- NOTE | 2025-04-16 16:55 | Emergency Department Note ---
ED Visit Note Physician Evaluation Note: Patient was seen in conjunction with the midlevel provider. Please see the midlevel provider note for full details of the patient's visit. I have personally evaluated and examined this patient. Patient presented to the ED with concern for evaluation of her PEG tube where she noted some erythema and moisture, patient also mention while here that she was having some discomfort in the right part of her jaw over the past several days. Patient is noted to have a history of squamous cell carcinoma of the tongue. Following evaluation of the patient decision was made to order CT imaging of the neck to evaluate her right sided jaw discomfort. The area surrounding her PEG tube appears to be consistent with a yeast dermatitis. Patient will be placed on nystatin powder for this issue. CT imaging of the neck was obtained, following review there is some concern for an inflammatory process of the glands on the right side of the neck. Imaging was reviewed with OMFS, patient was determined appropriate for admission and initiation of IV antibiotics. Placement was placed for admission in stable condition. I agree with assessment and plan of Kami Jones NP. Ludwig Burr DO .
--- NOTE | 2025-04-16 18:49 | CT Scan Report ---
CT neck with contrast History: PEG tube issues Comparison: PET/CT 04/05/2025 Technique: Following intravenous administration of nonionic iodinated contrast medium, thin section helical CT images were obtained from the skull base down to the level of the aortic arch. Axial, coronal and sagittal reformations were performed with 2-3 mm slice thickness reconstruction. Images were reviewed in soft tissue, lung and bone windows. One or more of the following dose-optimizing techniques was utilized for this exam: automated exposure control, adjustment of the mA and/or kV according to patient size, and/or use of iterative reconstruction technique. Findings: Evaluation of the mucosal space demonstrates no evident abnormality in the nasopharynx, oropharynx, hypopharynx or the glottis. The tongue base appears normal. Complete fatty atrophy of the left parotid and left submandibular gland. There is also moderate fatty atrophy of the right parotid and right submandibular gland. The thyroid gland appears atrophic without suspicious nodule. There is no evident cervical lymphadenopathy. The fascial spaces in the neck are intact bilaterally. The major vascular structures in the neck appear unremarkable. Evaluation of the osseous structures demonstrate no worrisome lytic or sclerotic lesion. No overt spinal canal or neuroforaminal stenosis. The visualized paranasal sinuses are clear. The mastoid air cells are clear. Scattered pulmonary nodules again seen. Impression: Normal CT study of the neck with contrast. No evident mass or adenopathy within the neck. Glandular atrophy, as above. Redemonstrated scattered pulmonary nodules, partially seen in the upper lungs. Electronically signed by Joaquín Appiah 04-16-2025 6:49 PM
[2025-04-16] MEDS: POTASSIUM CHLORIDE 20 MEQ/15 ML UDC PO STA (19:06)
--- NOTE | 2025-04-16 19:56 | History & Physical Report ---
Date of Service April 16, 2025 Assessment & Plan (1) Cellulitis of face: (2) Salivary gland obstruction: (3) Jerri infection: (4) Hypokalemia: (5) Hypomagnesemia: Plan Patient is a 74-year-old female with past medical history of type II DM, HTN, COPD, GAMA, Crohn's s/p partial colectomy. 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 Patient presented due to redness of her PEG tube and right sided facial erythema and swelling. She is being admitted for evaluation for possible PEG tube removal and right facial cellulitis secondary to salivary gland obstruction. #right facial cellulitis/salivary gland obstruction - known history of salivary gland obstruction. CT imaging on admission showed extensive subcutaneous inflammatory fat stranding suggestive of cellulitis, no abscess or evidence for deep neck space infection noted. Nonseptic at time of admissionno leukocytosis, VSS, afebrile. Oral maxillofacial surgery consulted, aware and will evaluate patient in a.m. continue clindamycin No previous cultures on file N.p.o. after midnight Pain control with Tylenol as needed, morphine for breakthrough pain - hard candy prn - oral care q4h Trend CBC #Suspected Jerri PEG patient taking [id number] powder for several weeks without relief. Again patient is nonseptic. Wound cultures ordered Nystatin powder ordered Patient now able to tolerate a liquid and pured diet, only takes medications through PEG however stated she is able to tolerate p.o., would like for possible PEG removal Nutrition consulted for swallow evaluation If passes swallow evaluation consider general surgery consult for PEG removal Hold PEG feeds #Electrolyte abnormalities - Chronic however acutely worsened. With chronic liquid diarrhea with Crohn's disease. K+ 2.9, mag 1.4. Has not yet started home potassium supplement. 40 mEq p.o. 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 S/p radiation and chemotherapy. PEG tube as above. #GAMA CPAP at bedtime #T2DM - Most recent A1C 6.6%. - SSI with target BSG range 110-180mg/dL, CF 15, carb ratio 5 - Lantus reduced to 15 u BID while in patient #Crohn's disease - s/p partial colectomy. Hold mercaptopurine with acute infection #HTN - no reported home medications with med rec, monitor BP. VTE ppx: SCDs, Lovenox Dispo: MedSurg Admission and Anticipated Discharge Date Admission Date: 04/16/25 History of Present Illness Chief Complaint: facial cellulitis Primary Care Provider: Lilian Godwin MD Patient is a 74-year-old female with past medical history of type II DM, HTN, COPD, GAMA, Crohn's s/p partial colectomy. 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 Patient presented due to redness of her PEG tube and right sided facial erythema and swelling. She is being admitted for evaluation for possible PEG tube removal and right facial cellulitis secondary to salivary gland obstruction. Patient seen at bedside with her present. She stated she saw an ENT March 11 who stated she had an infected salivary gland which was treated and resolved at that time. Today she went to urgent care because she developed swelling overnight of the right side of her face as well as significant pain. Urgent care referred her to the ED because she also has redness of her PEG tube. CT imaging revealed extensive subcutaneous inflammatory fat stranding suggestive of cellulitis however no signs of deep neck space infection or abscess noted. Patient has a known obstructed salivary gland, oral maxillofacial surgery aware and will evaluate the patient in the morning. She has not eaten much today due to the pain. As for her PEG tube, patient stated it has been red and with white drainage for several weeks and she has been using a yeast powder that she bought [id number] at home, it intermittently causes her pain but it is not significant. She previously had PEG feeds she was unable to tolerate p.o. intake but slowly has been able to tolerate liquid and pured diet eating mostly soups at home, she still takes medications through PEG tube but does feel she is able to swallow them at this time and would like for possible PEG tube removal. Patient stated on Friday she also had low potassium and magnesium and received IV repletion, she was ordered a potassium supplement which she has not yet taken. She does have chronic liquid diarrhea secondary to the Crohn's disease. She denies any fevers, chills, chest pain, shortness of breath, nausea, vomiting. Patient did have a recent PET scan April 05 that showed new lung nodules that she is under the impression will need repeat chemotherapy and radiation. She is to [facility] on Friday, pulmonology (Dr. Hawkins), and Dr. Wheeler with [facility] radiology on Friday. She is due for her evening medications. She wishes to be full code. She still uses CPAP at bedtime. Reports she was prescribed Keflex and prednisone which she only took 1 Keflex, no prednisone from urgent care. Allergies Allergy/AdvReac Type Severity Reaction Status Date / Time latex Allergy Intermediate Blisters Verified 04/13/25 14:43 Penicillins Allergy Intermediate Hives Verified 04/13/25 14:43 lisinopril Allergy Mild fluid Verified 04/13/25 14:43 retention Oblcgcg-[id number] Reductase Allergy Verified 04/13/25 14:43 Inhibitor Home Medications Medication Instructions Recorded Confirmed Type Microlet Lancet (lancets) #200 ea 06/12/20 01/26/25 Rx CPAP Machine 04/19/21 01/26/25 History soft lens rinse,store solution 05/29/22 01/26/25 History (Bio true solution) blood-glucose meter (Contour Next #1 ea 02/21/23 01/26/25 Rx One Meter) blood-glucose sensor (Dexcom G7 01/19/24 01/26/25 History Sensor device) cyclosporine 0.05 % eye drops in a 1 drp OPB BID 10/26/24 04/16/25 History dropperette blood sugar diagnostic (Contour #400 ea 11/12/24 01/26/25 Rx Next Test Strips) insulin aspart U-100 100 unit/mL 0 sliding scale dose subcut 12/13/24 04/16/25 History (3 mL) subcutaneous pen (Novolog TIDWMEAL FlexPen U-100 Insulin aspart) buspirone 30 mg tablet 30 mg feeding tube BID #60 tabs 12/15/24 04/16/25 Rx gabapentin 800 mg tablet 800 mg feeding tube BID #60 tabs 12/15/24 04/16/25 Rx ondansetron 8 mg disintegrating 8 mg PO Q8H PRN Nausea 01/01/25 04/16/25 History tablet pen needle, diabetic 31 gauge x #500 ea 03/21/25 Rx 12/05" latanoprostene bunod 0.024 % eye 1 drp ophthalmic (eye) QPM 04/13/25 04/16/25 History drops (Vyzulta) mercaptopurine 50 mg tablet 50 mg PO DAILY 04/13/25 04/16/25 History Past Med/Surg History Problem List Jerri infection Salivary gland obstruction Cellulitis of face Multiple pulmonary nodules PEG (percutaneous endoscopic gastrostomy) adjustment/replacement/removal (12/13/24) Removal of Feeding Tube/placement new gastrostomy tube - Malik Turner DO Esophagogastroduodenoscopy - Malik Turner DO Hypokalemia Hypomagnesemia heme/onc monitoring and supplementing Diabetes Arthritis Anemia Recurrent squamous cell carcinoma of tongue Obesity Post-nasal drip Injury of toe, right, superficial 05/2022 Depression with anxiety Left lumbar radiculopathy GAMA (obstructive sleep apnea) Crohn disease Binge eating disorder Mixed hyperlipidemia Metabolic syndrome Glaucoma Spinal stenosis Diabetic peripheral neuropathy associated with type 2 diabetes mellitus (Acute) Dyslipidemia associated with type 2 diabetes mellitus (Acute) Hypertension (Acute) Loss of protective sensation of skin of foot (Acute) Type 2 diabetes mellitus (Acute) Medical History PEG tube malfunction Anemia Obesity Gout Hypertension Dyslipidemia associated with type 2 diabetes mellitus Diabetic peripheral neuropathy associated with type 2 diabetes mellitus Depression with anxiety Post-nasal drip Type 2 diabetes mellitus Spinal stenosis Glaucoma Metabolic syndrome Recurrent squamous cell carcinoma of tongue Surgery 04/2024 and 10/04/24; currently on chemo tx; follows with once per week (wednesdays); also current XRT with in [facility] of sepsis 2021- no residual/current issues Fatty liver Sleep apnea CPAP Crohn's disease Neck problem Cervical pitched nerve + narrowing Intermittent LUE radiculopathy and ROM limitations COPD (chronic obstructive pulmonary disease) "Mild" No inhaler Surgical History History of percutaneous endoscopic gastrostomy (11/29/24) Esophagogastroduodenoscopy with Percutaneous Endoscopic Gastrostomy (PEG) Tube - Malik Turner DO Port-A-Cath in place (11/01/24) Insertion Access Port with Fluoroscopy - Right Subclavian(Right) - Kishore Mulligan DO; MAC without issue S/P cholecystectomy S/P partial glossectomy 04/30/24: partial glossectomy with L selective neck dissection Dr. Coyle [facility]; 10/04/24: L suprahyoid neck dissection and partial glossectomy Hx of cataract extraction R/L Hx of bilateral breast reduction surgery S/P epidural steroid injection x4 [id number] History of colonoscopy History of bowel resection (~2003) 12 inches r/t Crohn's disease (1971) Re-do r/t Crohn's disease (2003)- also had gallbladder removed at this time History of appendectomy (1971) Family History Father Family history of diabetes mellitus Diabetes Stroke Daughter Breast cancer Uncle Diabetes Grandmother Diabetes Stroke Other No family history of adverse response to anesthesia Social History Smoking Status: Never smoker Tobacco Type: Cigarettes Age Started Using Tobacco: 18; Age Quit Using Tobacco: 30; packs per day: 1; Second Hand Exposure: Yes; Do You Dip or Chew Tobacco: No; Hx Alcohol Use: No Hx Substance Use: No Preferred Language: Amharic Communication Ability: Effective Visual Impairment: No Limitations Manager Philosophy Required: No Beliefs That Will Affect Care: Islam Islam Beliefs: NONDENOMINATIONAL Current Living Situation: Spouse Feels Safe at Home: Yes Assistive Devices: Walker Review of Systems Review of Systems: see HPI Physical Exam Physical Exam: The patient is awake, alert and oriented 3, well developed and well nourished, normocephalic and atraumatic, in no acute distress. Non-toxic appearing. HEENT- EOMI, mucous membranes dry. Hearing grossly intact. Right neck with significant area edema, erythema, swelling. Heart-normal S1 and S2. No murmurs, rubs or gallops. Lungs-clear bilaterally, no respiratory distress, no accessory muscle use. Abdomen-normal bowel sounds and soft. No ascites noted. Non-tender. PEG tube with surrounding erythema. Extremities- no clubbing, cyanosis, or edema. Rheumatologic-normal range of motion. Results & Data Results & Data Vital Signs (Past 12 Hours) Vital Signs Temp Pulse Pulse Resp BP BP Pulse Ox 04/16/25 19:50 87 18 137/103 H 99 04/16/25 19:00 99 H 18 143/98 H 98 04/16/25 17:30 86 19 146/77 H 96 04/16/25 14:52 36.5 C 109 H 16 142/83 H 98 O2 Del Method 04/16/25 19:50 Room Air 04/16/25 19:00 Room Air 04/16/25 17:30 Room Air 04/16/25 14:52 Room Air Laboratory Results reviewed CBC, CMP, magnesium Diagnostic Findings reviewed soft tissue neck CT Medications Administered EDclindamycin 900 Mg IV, nystatin powder externally, KCl 40 mEq p.o., morphine 4 Mg IV, Zofran 4 Mg IV, 1L NSS ECG Additional Comments: ordered Code Status & VTE Plan Code Status full code VTE Prophylaxis Plan VTE Prophylaxis will be ordered: Yes Supervising Physician Co-Signing Physician Notes Patient seen and examined, chart reviewed, case discussed with RAFA Vasquez and I agree with the assessment and plan as above. In brief, patient is a 74yo female with history of DM, HTN, COPD, SCC of her tongue s/p XRT and chemotherapy presenting with right sided facial pain and swelling. Also with pain at her PEG site. Patient does not use her PEG tube much anymore and is able to take most of her nutrition orally. She denies fever, chills. Is having significant discomfort of the right face. On exam she is afebrile, HD stable +S1/S2, regular, no m/r/g Lungs CTA anteriorly Abd soft, NT/ND Ext warm, well perfused Warmth, redness and tenderness of right face. No obvious purulence Labs and images reviewed Assessment/Plan -Continue Clindamycin -OMFS consultation appreciated -Will keep patient NPO for now -Swallow evaluation -Consider general surgery consultation for possible PEG removal -Remainder as above PG Care Time/CCT Total # of Minutes Spent Total Time Spent with Patient: Total time spent is greater than 50% in coordination of care (as documented) at patient's floor/unit and/or counseling patient: Coding Level of Care Code 15619 INT INP/OBS CARE MIN Diagnoses Cellulitis of face L03.211 Salivary gland obstruction K11.8 Jerri infection B37.9 Hypokalemia E87.6 Hypomagnesemia E83.42
[2025-04-16] MEDS: SODIUM CHLORIDE 0.9% 1,000 ML IV ONE (20:02)
[2025-04-16] MEDS: ONDANSETRON INJ 2 MG/ML 2 ML VIAL IV STA (20:02)
[2025-04-16] MEDS: MoRPHine SULFATE 4 MG/ML 1 ML CARP\\VIAL IV STA (20:04)
[2025-04-16 20:10] LABS: Magnesium 1.4 mg/dl (1.7-2.4)
[2025-04-16] MEDS: CLINDAMYCIN/D5W 900 MG/50 ML BAG IV ONE (20:19)
[2025-04-16] MEDS: POTASSIUM CHLORIDE / WTR 10 MEQ/100 ML PLCT IV SCH (20:56)
[2025-04-16] MEDS: MAGNESIUM SULFATE / D5W 1 GM/100 ML BAG IV SCH (21:03)
[2025-04-16] MEDS ORDERED: GLUCOSE 40% GEL 15 GM TUBE PO PRN (22:04)
[2025-04-16] MEDS ORDERED: GLUCAGON FOR INJ 1 MG VIAL SQ PRN (22:04)
[2025-04-16] MEDS ORDERED: DEXTROSE 50% 50 ML SYRINGE IV PRN (22:04)
[2025-04-16] MEDS ORDERED: GLUCOSE 10 TAB/TUBE PO PRN (22:04)
[2025-04-16] MEDS ORDERED: NALOXONE HCL 0.4 MG/1 ML VIAL/CARP IV PRN (22:04)
[2025-04-16] MEDS ORDERED: MoRPHine SULFATE 4 MG/ML 1 ML CARP\\VIAL IV PRN (22:04)
[2025-04-16] MEDS ORDERED: MELATONIN 3 MG TAB PO PRN (22:04)
[2025-04-16] MEDS ORDERED: CARBOHYDRATES FOR HYPOGLYCEMIA PO PRN (22:04)
[2025-04-16] MEDS ORDERED: ARTIFICIAL TEARS OP PRN (22:25)
[2025-04-16] MEDS: NYSTATIN POWDER 15GM BTL EXT SCH (22:42)
[2025-04-16] MEDS: GABAPENTIN 800 MG TAB PO SCH (22:49)
[2025-04-16] MEDS: busPIRone 15 MG TAB PO SCH (22:49)
[2025-04-16] MEDS: ENOXAPARIN INJ 40 MG/0.4 ML SYR SQ SCH (22:51)
[2025-04-16] MEDS: INSULIN ASPART PER UNIT CHARGE SC SCH (22:51)
[2025-04-16] MEDS: LANTUS PER UNIT CHARGE SQ SCH (22:52)
[2025-04-16] MEDS: ACETAMINOPHEN 325 MG TAB PO PRN (22:57)
[2025-04-17] MEDS: CLINDAMYCIN/D5W 900 MG/50 ML BAG IV SCH (04:39)
[2025-04-17 06:58] LABS: Hematocrit (blood only) 30.5 % (37.0-47.0); Hemoglobin 10.8 g/dl (12.0-16.0); Immature Granulocytes # (auto) 0.02 K/uL (0.01-0.20); Immature Granulocytes % (auto) 0.4 %; Mean Corpuscular Hemoglobin 33.8 pg (25.0-34.0); Mean Corpuscular Volume 95.3 fL (80.0-100.0); Platelet Count 219 K/uL (130-400); RDW Standard Deviation 49.6 fL (36.4-46.3); Red Blood Count 3.20 M/uL (4.20-5.40); White Blood Count 5.22 K/ul (4.8-10.8)
[2025-04-17 07:22] LABS: Anion Gap 7.0 (3-11); Blood Urea Nitrogen 9.0 mg/dl (6-23); Calcium 8.7 mg/dl (8.6-10.3); Carbon Dioxide 25.0 mmol/L (21-32); Chloride 110.0 mmol/L (98-107); Creatinine Clr Calc Pharmacy 74.3 ml/min; Glucose 146.0 mg/dl (70-99(Fasting)); Magnesium 1.8 mg/dl (1.7-2.4); Potassium 3.0 mmol/L (3.5-5.1); Sodium 142.0 mmol/L (136-145)
[2025-04-17] MEDS: POTASSIUM CHLORIDE CRTAB 20 MEQ TABCR PO STA (08:37)
[2025-04-17] MEDS: ENOXAPARIN INJ 40 MG/0.4 ML SYR SQ SCH (08:44)
[2025-04-17] MEDS: cefTRIAXone SODIUM 2,000 MG/50 ML BAG IV SCH (09:00)
--- NOTE | 2025-04-17 12:13 | Oral/Maxillofacial Consult ---
Date of Consultation April 17, 2025 Assessment & Plan (1) Salivary gland obstruction: (2) Cellulitis of face: (3) Diabetes: History of Present Illness Attending Physician: Emely Betancourt MD History of Present Illness I reviewed this case last night with the ER staff and radiologist over the phone. Right side Parotid gland swelling second reoccurrence over the last few months. Last time much worse. Etiology most likely from recent chemo/radiation and DM. No drainable fluid noted. Given the dry mouth probably due to retrograde bacteremia vs mucus plug. Suggest-heat, fluid, massage, IV antibiotics, sour candy or lemon juice rinse. I will follow her while she is in Hospital No drainage via through the Parotid duct Notes from ER Plan Patient is a 74-year-old female with past medical history of type II DM, HTN, COPD, GAMA, Crohn's s/p partial colectomy. 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 Patient presented due to redness of her PEG tube and right sided facial erythema and swelling. She is being admitted for evaluation for possible PEG tube removal and right facial cellulitis secondary to salivary gland obstruction. #right facial cellulitis/salivary gland obstruction - known history of salivary gland obstruction. CT imaging on admission showed extensive subcutaneous inflammatory fat stranding suggestive of cellulitis, no abscess or evidence for deep neck space infection noted. Nonseptic at time of admissionno leukocytosis, VSS, afebrile. Oral maxillofacial surgery consulted, aware and will evaluate patient in a.m. continue clindamycin No previous cultures on file Pain control with Tylenol as needed, morphine for breakthrough pain - hard candy prn - oral care q4h Trend CBC Allergies Allergy/AdvReac Type Severity Reaction Status Date / Time latex Allergy Intermediate Blisters Verified 04/13/25 14:43 Penicillins Allergy Intermediate Hives Verified 04/13/25 14:43 lisinopril Allergy Mild fluid Verified 04/13/25 14:43 retention Uzqqgvp-KGT-MdH Reductase Allergy Verified 04/13/25 14:43 Inhibitor Home Medications Medication Instructions Recorded Confirmed Type Microlet Lancet (lancets) #200 ea 06/12/20 01/26/25 Rx CPAP Machine 04/19/21 01/26/25 History soft lens rinse,store solution 05/29/22 01/26/25 History (Bio true solution) blood-glucose meter (Contour Next #1 ea 02/21/23 01/26/25 Rx One Meter) blood-glucose sensor (Dexcom G7 01/19/24 01/26/25 History Sensor device) cyclosporine 0.05 % eye drops in a 1 drp OPB BID 10/26/24 04/16/25 History dropperette blood sugar diagnostic (Contour #400 ea 11/12/24 01/26/25 Rx Next Test Strips) insulin aspart U-100 100 unit/mL 0 sliding scale dose subcut 12/13/24 04/16/25 History (3 mL) subcutaneous pen (Novolog TIDWMEAL FlexPen U-100 Insulin aspart) buspirone 30 mg tablet 30 mg feeding tube BID #60 tabs 12/15/24 04/16/25 Rx gabapentin 800 mg tablet 800 mg feeding tube BID #60 tabs 12/15/24 04/16/25 Rx ondansetron 8 mg disintegrating 8 mg PO Q8H PRN Nausea 01/01/25 04/16/25 History tablet pen needle, diabetic 31 gauge x #500 ea 03/21/25 Rx 3/16" latanoprostene bunod 0.024 % eye 1 drp ophthalmic (eye) QPM 04/13/25 04/16/25 History drops (Vyzulta) mercaptopurine 50 mg tablet 50 mg PO DAILY 04/13/25 04/16/25 History Patient History Medical History PEG tube malfunction Anemia Obesity Gout Hypertension Dyslipidemia associated with type 2 diabetes mellitus Diabetic peripheral neuropathy associated with type 2 diabetes mellitus Depression with anxiety Post-nasal drip Type 2 diabetes mellitus Spinal stenosis Glaucoma Metabolic syndrome Recurrent squamous cell carcinoma of tongue Surgery 04/2024 and 10/04/24; currently on chemo tx; follows with once per week (wednesdays); also current XRT with in [facility] of sepsis 2021- no residual/current issues Fatty liver Sleep apnea CPAP Crohn's disease Neck problem Cervical pitched nerve + narrowing Intermittent LUE radiculopathy and ROM limitations COPD (chronic obstructive pulmonary disease) "Mild" No inhaler Surgical History History of percutaneous endoscopic gastrostomy (11/29/24) Esophagogastroduodenoscopy with Percutaneous Endoscopic Gastrostomy (PEG) Tube - Malik Turner DO Port-A-Cath in place (11/01/24) Insertion Access Port with Fluoroscopy - Right Subclavian(Right) - Kishore Mulligan DO; MAC without issue S/P cholecystectomy S/P partial glossectomy 04/30/24: partial glossectomy with L selective neck dissection Dr. C[facility]; 10/04/24: L suprahyoid neck dissection and partial glossectomy Hx of cataract extraction R/L Hx of bilateral breast reduction surgery S/P epidural steroid injection x4 [id number] History of colonoscopy History of bowel resection (~2003) 12 inches r/t Crohn's disease (1971) Re-do r/t Crohn's disease (2003)- also had gallbladder removed at this time History of appendectomy (1971) Family History Father Family history of diabetes mellitus Diabetes Stroke Daughter Breast cancer Uncle Diabetes Grandmother Diabetes Stroke Other No family history of adverse response to anesthesia Social History Smoking Status: Former smoker Tobacco Type: Cigarettes Age Started Using Tobacco: 18; Age Quit Using Tobacco: 30; packs per day: 1; Cigarettes Per Day: 1980; Second Hand Exposure: Yes; Do You Dip or Chew Tobacco: No; Hx Alcohol Use: No Hx Substance Use: No Preferred Language: Liberian Communication Ability: Effective Visual Impairment: No Limitations Dixonac Operator Required: No Beliefs That Will Affect Care: None Current Living Situation: Spouse Feels Safe at Home: Yes Safety Concerns: Feels Safe At This Time Assistive Devices: CPAP, Walker and Other Results & Data Vital Signs (Past 12 Hours) Vital Signs Temp Pulse Pulse Resp BP Pulse Ox O2 Del Method 04/17/25 07:50 Room Air, CPAP 04/17/25 07:41 36.4 C 67 15 128/82 97 Nasal CPAP 04/17/25 05:31 81 25 H 97 PG Care Time/CCT Total # of Minutes Spent Total Time Spent with Patient: Total time spent is greater than 50% in coordination of care (as documented) at patient's floor/unit and/or counseling patient: Coding Level of Care Code 34313 INT INP/OBS CARE Diagnoses Salivary gland obstruction K11.8 Cellulitis of face L03.211 Type 2 diabetes mellitus with other specified complication, with long-term current use of insulin E11.69; Z79.4 Diabetes mellitus type: type 2 Diabetes mellitus extermination inspector insulin use: with alf use Diabetes mellitus complication status: with other specified complication (3) Diabetes Diabetes mellitus type: type 2 Diabetes mellitus alf insulin use: with extermination inspector use Diabetes mellitus complication status: with other specified complication Qualified Code(s): E11.69 - Type 2 diabetes mellitus with other specified complication; Z79.4 - buttermaker helper (current) use of insulin
[2025-04-17] MEDS ORDERED: Nursing to Pharmacy Communication SCH (12:15)
--- NOTE | 2025-04-17 12:28 | Hospitalist Progress Note ---
Date of Service April 17, 2025 Assessment & Plan (1) Cellulitis of face: (2) Salivary gland obstruction: (3) Jerri infection: (4) Hypokalemia: (5) Hypomagnesemia: Plan Patient is a 74-year-old female with past medical history of type II DM, HTN, COPD, GAMA, Crohn's s/p partial colectomy. 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 Patient presented due to redness of her PEG tube and right sided facial erythema and swelling. She is being admitted for evaluation for possible PEG tube removal and right facial cellulitis secondary to salivary gland obstruction. #right facial cellulitis/salivary gland obstruction With hx of salivary gland obstruction CT: extensive subcutaneous inflammatory fat stranding suggestive of cellulitis, no abscess/evidence for deep neck space infx noted. CBC w/o leukocytosis. Dr Vargas consulted --> recommended heat, fluid, massage IV abx, sour candy/lemon juice rinse. No drainage via parotid duct was observed. Puree diet Pain control w/ Tylenol & Morphine for severe pain. Continue Clindamycin #PEG tube infection Wound culture + for Serratia marcescens, sensitivities pending Rocephin started 04/17, tailor abx based on sensitivity results. Speech consulted - diet w/ minced & moist Nutrition consulted - PEG tubes 1x/day. Per nutrition not having enough PO intake for PEG tube removal yet. Continue to monitor. Able to take medications PO now #Electrolyte abnormalities Acute on Chronic --> reports was given a potassium supplement at home but has not started yet. K 3.0 s/p repletion Mag stable @ 1.8 but s/p repletion on admission Trend w/ daily labs. 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 --> did discuss w/ pt that if her salivary gland infection is not improved she may not be able to make these appointments. will reassess in AM. S/p radiation and chemotherapy. PEG tube as above. Does require urgent CN prior to beginning immunotherapy tx --> would like to be referred to [facility] on discharge. #GAMA CPAP at bedtime #T2DM Most recent A1C 6.6%. SSI with target BSG range 110-180mg/dL, CF 15, carb ratio 5 Refused Lantus x 2 --> discontinued. #Crohn's disease s/p partial colectomy. Mercaptopurine held due to infx Has diarrhea 1x daily reports Refer to [facility] on dc. --> may require biologic ? #HTN - no reported home medications with med rec, monitor BP. VTE ppx: SCDs, Lovenox Code: full Updated at bedside 04/17 Admission and Anticipated Discharge Date Admission Date: April 16, 2025 Subjective Carley seen and examined this morning. States that her right parotid gland is still painful. chip applying machine tender to palpation. Also reports ongoing issues with her Peg tube outpatient & has been using anti-fungal products to help. Ideally she would like her peg tube removed but she is unsure if she is taking in enough nutrition by mouth for this to be an option. Physical Exam Constitutional: WD/WN, vitals as above Eyes: PERRL, conjunctivae normal, anicteric sclerae ENMT: swelling of right side of mouth/neck area. tender & warm to palpation Respiratory: normal respiratory effort, lungs clear to auscultation Cardiovascular: RRR, no murmur, no edema Gastrointestinal (Abdomen): PEG tube w/ surrounding erythema around insertion site. no purulent/bloody drainage observed. Neurologic: PERRL, EOMI, accommodation nl, no face palsy, no dysarthria Psychiatric: A+Ox3, euthymic affect Results & Data Results & Data Vital Signs (Past 12 Hours) Vital Signs Temp Pulse Pulse Resp BP Pulse Ox O2 Del Method 04/17/25 07:50 Room Air, CPAP 04/17/25 07:41 36.4 C 67 15 128/82 97 Nasal CPAP 04/17/25 05:31 81 25 H 97 PG Care Time/CCT Total # of Minutes Spent Total Time Spent with Patient: Total time spent is greater than 50% in coordination of care (as documented) at patient's floor/unit and/or counseling patient: Coding Level of Care Code 83646 SUB INP/OBS CARE 3/50MIN Diagnoses Cellulitis of face L03.211 Salivary gland obstruction K11.8 Jerri infection B37.9 Hypokalemia E87.6 Hypomagnesemia E83.42
[2025-04-17] MEDS: INSULIN ASPART PER UNIT CHARGE SC SCH (13:39)
[2025-04-17 18:53] LABS: Cdiff Toxin B Gene (2yr or >) Negative Cdiff Gene (Neg)
[2025-04-17 19:24] LABS: Adenovirus F 40/41 PCR Not Detected (NotDetected); Campylobacter PCR Not Detected (NotDetected); Enteroaggregative E.coli(EAEC) Not Detected (NotDetected); Shiga-like Toxin E.coli (STEC) Not Detected (NotDetected); Vibrio species PCR Not Detected (NotDetected)
[2025-04-17] MEDS: EYE EXT SCH (21:22)
[2025-04-17] MEDS: VYZULTA 0.024% EXT SCH (21:22)
[2025-04-18 06:14] LABS: Hematocrit (blood only) 31.1 % (37.0-47.0); Hemoglobin 10.9 g/dl (12.0-16.0); Mean Corpuscular Hemoglobin 33.3 pg (25.0-34.0); Mean Corpuscular Volume 95.1 fL (80.0-100.0); Platelet Count 211 K/uL (130-400); RDW Standard Deviation 50.4 fL (36.4-46.3); Red Blood Count 3.27 M/uL (4.20-5.40); White Blood Count 6.03 K/ul (4.8-10.8)
[2025-04-18 06:31] LABS: Anion Gap 7.0 (3-11); Blood Urea Nitrogen 10.0 mg/dl (6-23); Calcium 8.5 mg/dl (8.6-10.3); Carbon Dioxide 24.0 mmol/L (21-32); Chloride 109.0 mmol/L (98-107); Creatinine Clr Calc Pharmacy 71.3 ml/min; Glucose 131.0 mg/dl (70-99(Fasting)); Magnesium 1.3 mg/dl (1.7-2.4); Potassium 2.8 mmol/L (3.5-5.1); Sodium 140.0 mmol/L (136-145)
--- NOTE | 2025-04-18 06:32 | Electrocardiogram Report ---
Test Reason : Blood Pressure : */* mmHG Vent. Rate : 73 BPM Atrial Rate : 73 BPM P-R Int : 222 ms QRS Dur : 96 ms QT Int : 408 ms P-R-T Axes : 52 85 94 degrees QTcB Int : 449 ms Sinus rhythm with 1st degree A-V block Abnormal ECG When compared with ECG of 28-Oct-2024 15:08, T wave inversion now evident in Anterior leads Confirmed by Sonny Yee ([id number]) on 04/18/2025 6:31:42 AM Referred By: REFERRED SELF Confirmed By: Sonny Yee
[2025-04-18] MEDS: HEPARIN 100 UNIT/ML 5ML FLUSH FLUSH PRN (08:44)
[2025-04-18] MEDS: MoRPHine SULFATE 2 MG/ML CARP IV PRN (08:51)
[2025-04-18] MEDS: POTASSIUM CHLORIDE / WTR 10 MEQ/100 ML PLCT IV SCH (08:52)
[2025-04-18] MEDS: MAGNESIUM SULFATE / D5W 1 GM/100 ML BAG IV SCH (08:52)
--- NOTE | 2025-04-18 13:51 | Gastrointestinal Consultation ---
Date of Consultation April 18, 2025 Assessment & Plan (1) Crohn disease: 74 year old female w/ w/ history of T2DM, HTN, COPD, GAMA, Crohn's s/p partial colectomy maintained on 6MP, SSC of tongue s/p radiation and chemotherapy w/ plan for immunotherapy admitted w/ PEG site infection, facial cellulitis and s alivary gland obstruction - GI was asked to arrange inpatient colonoscopy. Will follow course of admission and plan for colonoscopy once medically appropriate - this will be discussed w/ attending. Recommend clear liquid diet. I spent a total of 60 minutes on the date of service in review of patient's record, and previously obtained information in person and appropriate medical visit, discussion and education of plan, with patient and/or caregiver, placing orders for tests/referral/procedures as medically necessary and documentation of pertinent clinical information in patient's medical records for their visit today. Supervising Physician Co-Signing Physician Notes I saw and examined this patient with our nurse practitioner and agree with her assessment and plan. Patient with long history of Crohn's disease status post small bowel and large bowel resection. Although clinically her symptoms have not changed recently to suggest active Crohn's disease we will plan to do a colonoscopy later in the week prior to her receiving her chemotherapy. History of Present Illness Reason for Consultation: inpatient colonoscopy Requesting Physician: Emely Betancourt MD Attending Physician: Emely Betancourt MD History of Present Illness 74 year old female w/ w/ history of T2DM, HTN, COPD, GAMA, Crohn's s/p partial colectomy maintained on 6MP, SSC of tongue s/p radiation and chemotherapy w/ plan for immunotherapy admitted w/ PEG site infection, facial cellulitis and salivary gland obstruction - GI was asked to arrange inpatient colonoscopy. She notes she was diagnosed w/ Crohn's disease in her younger years. Suggests she is s/p partial colectomy in her 20's. Was doing well until around 2003 when she was brought back to the OR w/ additional large bowel resection - she tells me this was related to disease recurrence at anastomosis. Since 2003, she has been maintained on 6mp and doing fairly well from an IBD standpoint. Suggests she often has loose stools. Typically one loose stool daily. No black or bloody stools. Allergies Allergy/AdvReac Type Severity Reaction Status Date / Time latex Allergy Intermediate Blisters Verified 04/13/25 14:43 Penicillins Allergy Intermediate Hives Verified 04/13/25 14:43 lisinopril Allergy Mild fluid Verified 04/13/25 14:43 retention Yielpmj-OTL-LtV Reductase Allergy Verified 04/13/25 14:43 Inhibitor Home Medications Medication Instructions Recorded Confirmed Type Microlet Lancet (lancets) #200 ea 06/12/20 01/26/25 Rx CPAP Machine 04/19/21 01/26/25 History soft lens rinse,store solution 05/29/22 01/26/25 History (Bio true solution) blood-glucose meter (Contour Next #1 ea 02/21/23 01/26/25 Rx One Meter) blood-glucose sensor (Dexcom G7 01/19/24 01/26/25 History Sensor device) cyclosporine 0.05 % eye drops in a 1 drp OPB BID 10/26/24 04/16/25 History dropperette blood sugar diagnostic (Contour #400 ea 11/12/24 01/26/25 Rx Next Test Strips) insulin aspart U-100 100 unit/mL 0 sliding scale dose subcut 12/13/24 04/16/25 History (3 mL) subcutaneous pen (Novolog TIDWMEAL FlexPen U-100 Insulin aspart) buspirone 30 mg tablet 30 mg feeding tube BID #60 tabs 12/15/24 04/16/25 Rx gabapentin 800 mg tablet 800 mg feeding tube BID #60 tabs 12/15/24 04/16/25 Rx ondansetron 8 mg disintegrating 8 mg PO Q8H PRN Nausea 01/01/25 04/16/25 History tablet pen needle, diabetic 31 gauge x #500 ea 03/21/25 Rx 3/16" latanoprostene bunod 0.024 % eye 1 drp ophthalmic (eye) QPM 04/13/25 04/16/25 History drops (Vyzulta) mercaptopurine 50 mg tablet 50 mg PO DAILY 04/13/25 04/16/25 History Patient History Medical History PEG tube malfunction Anemia Obesity Gout Hypertension Dyslipidemia associated with type 2 diabetes mellitus Diabetic peripheral neuropathy associated with type 2 diabetes mellitus Depression with anxiety Post-nasal drip Type 2 diabetes mellitus Spinal stenosis Glaucoma Metabolic syndrome Recurrent squamous cell carcinoma of tongue Surgery 04/2024 and 10/04/24; currently on chemo tx; follows with once per week (wednesdays); also current XRT with in [place] Hx of sepsis 2021- no residual/current issues Fatty liver Sleep apnea CPAP Crohn's disease Neck problem Cervical pitched nerve + narrowing Intermittent LUE radiculopathy and ROM limitations COPD (chronic obstructive pulmonary disease) "Mild" No inhaler Surgical History History of percutaneous endoscopic gastrostomy (11/29/24) Esophagogastroduodenoscopy with Percutaneous Endoscopic Gastrostomy (PEG) Tube - Malik Turner DO Port-A-Cath in place (11/01/24) Insertion Access Port with Fluoroscopy - Right Subclavian(Right) - Kishore Mulligan DO; MAC without issue S/P cholecystectomy S/P partial glossectomy 04/30/24: partial glossectomy with L selective neck dissection Dr. Coyle [facility]; 10/04/24: L suprahyoid neck dissection and partial glossectomy Hx of cataract extraction R/L Hx of bilateral breast reduction surgery S/P epidural steroid injection x4 [id number] History of colonoscopy History of bowel resection (~2003) 12 inches r/t Crohn's disease (1971) Re-do r/t Crohn's disease (2003)- also had gallbladder removed at this time History of appendectomy (1971) Family History Father Family history of diabetes mellitus Diabetes Stroke Daughter Breast cancer Uncle Diabetes Grandmother Diabetes Stroke Other No family history of adverse response to anesthesia Social History Smoking Status: Former smoker Tobacco Type: Cigarettes Age Started Using Tobacco: 18; Age Quit Using Tobacco: 30; packs per day: 1; Cigarettes Per Day: 1980; Second Hand Exposure: Yes; Do You Dip or Chew Tobacco: No; Hx Alcohol Use: No Hx Substance Use: No Preferred Language: Hungarian Communication Ability: Effective Visual Impairment: No Limitations Pin Machine Operator Required: No Beliefs That Will Affect Care: None Current Living Situation: Spouse Feels Safe at Home: Yes Assistive Devices: CPAP, Walker and Other Review of Systems Review of Systems: All other findings negative except as noted in HPI. Physical Exam Constitutional: WD/WN, vitals as above Respiratory: normal respiratory effort Cardiovascular: Rate/Rhythm: regular rate and regular rhythm Gastrointestinal (Abdomen): normal bowel sounds, soft, nontender, no hepatosplenomegaly Skin: no rashes, warm and dry Results & Data Vital Signs (Past 12 Hours) Vital Signs Temp Pulse Pulse Resp BP Pulse Ox O2 Del Method 04/18/25 12:38 98.1 F 69 14 116/79 96 Room Air 04/18/25 07:20 98.1 F 64 13 145/83 H 94 Nasal CPAP 04/18/25 02:57 70 14 97 Laboratory Results 04/18/25 04/18/25 04/18/25 Range/Units 11:37 07:30 06:01 WBC 6.03 (4.8-10.8) K/ul RBC 3.27 L (4.20-5.40) M/uL Hgb 10.9 L (12.0-16.0) g/dl Hct 31.1 L (37.0-47.0) % MCV 95.1 (80.0-100.0) fL MCH 33.3 (25.0-34.0) pg MCHC 35.0 (32.0-36.0) g/dL RDW Std Deviation 50.4 H (36.4-46.3) fL RDW Coeff of Nelia 14.6 H (11.5-14.5) % Plt Count 211 (130-400) K/uL MPV 8.8 L (9.4-12.4) fL Sodium 140 (136-145) mmol/L Potassium 2.8 L (3.5-5.1) mmol/L Chloride 109 H (98-107) mmol/L Carbon Dioxide 24 (21-32) mmol/L Anion Gap 7 (3-11) BUN 10 (6-23) mg/dl Creatinine 0.75 (0.6-1.2) mg/dl Est Cr Clr Drug Dosing 71.3 ml/min eGFR 82.46 BUN/Creatinine Ratio 13.3 (10-20) Glucose 131 H (70-99(Fasting)) mg/dl POC Glucose 153 H 124 H (70-99) mg/dl Calcium 8.5 L (8.6-10.3) mg/dl Magnesium 1.3 L (1.7-2.4) mg/dl Stl C. cayetanensis PCR (NotDetected) Stool Rotavirus A PCR (NotDetected) Stl Adenov F 40/ PCR (NotDetected) Stool Astrovirus (PCR) (NotDetected) Stool Campylobacter PCR (NotDetected) Stl C. diff Tox B Gene (Neg) Stl C. diff 027-NAP1-BI Stool Cryptosporidium PCR (NotDetected) Stl E.coli Shiga Tox PCR (NotDetected) Stl Enterotoxigenic E PCR (NotDetected) Stool EPEC (PCR) (NotDetected) Stool EAEC (PCR) (NotDetected) Stl E. histolytica PCR (NotDetected) Stool Giardia Lamblia PCR (NotDetected) Stool Salmonella PCR (NotDetected) Stool Sapovirus (PCR) (NotDetected) Stl P. shigelloides PCR (NotDetected) Stl Shigella/EIEC PCR (NotDetected) St Y.enterocolitica PCR (NotDetected) Stool Vibrio (PCR) (NotDetected) Stl Vibrio cholerae PCR (NotDetected) Stl Norovirus GI/GII PCR (NotDetected) 04/17/25 04/17/25 04/17/25 Range/Units 21:20 17:47 16:34 WBC (4.8-10.8) K/ul RBC (4.20-5.40) M/uL Hgb (12.0-16.0) g/dl Hct (37.0-47.0) % MCV (80.0-100.0) fL MCH (25.0-34.0) pg MCHC (32.0-36.0) g/dL RDW Std Deviation (36.4-46.3) fL RDW Coeff of Nelia (11.5-14.5) % Plt Count (130-400) K/uL MPV (9.4-12.4) fL Sodium (136-145) mmol/L Potassium (3.5-5.1) mmol/L Chloride (98-107) mmol/L Carbon Dioxide (21-32) mmol/L Anion Gap (3-11) BUN (6-23) mg/dl Creatinine (0.6-1.2) mg/dl Est Cr Clr Drug Dosing ml/min eGFR BUN/Creatinine Ratio (10-20) Glucose (70-99(Fasting)) mg/dl POC Glucose 139 H 147 H (70-99) mg/dl Calcium (8.6-10.3) mg/dl Magnesium (1.7-2.4) mg/dl Stl C. cayetanensis PCR Not Detected (NotDetected) Stool Rotavirus A PCR Not Detected (NotDetected) Stl Adenov F 40/41 PCR Not Detected (NotDetected) Stool Astrovirus (PCR) Not Detected (NotDetected) Stool Campylobacter PCR Not Detected (NotDetected) Stl C. diff Tox B Gene Negative Cdiff Gene (Neg) Stl C. diff 027-NAP1-BI NEGATIVE Stool Cryptosporidium PCR Not Detected (NotDetected) Stl E.coli Shiga Tox PCR Not Detected (NotDetected) Stl Enterotoxigenic E PCR Not Detected (NotDetected) Stool EPEC (PCR) Not Detected (NotDetected) Stool EAEC (PCR) Not Detected (NotDetected) Stl E. histolytica PCR Not Detected (NotDetected) Stool Giardia Lamblia PCR Not Detected (NotDetected) Stool Salmonella PCR Not Detected (NotDetected) Stool Sapovirus (PCR) Not Detected (NotDetected) Stl P. shigelloides PCR Not Detected (NotDetected) Stl Shigella/EIEC PCR Not Detected (NotDetected) St Y.enterocolitica PCR Not Detected (NotDetected) Stool Vibrio (PCR) Not Detected (NotDetected) Stl Vibrio cholerae PCR Not Detected (NotDetected) Stl Norovirus GI/GII PCR Not Detected (NotDetected) PG Care Time/CCT Total # of Minutes Spent Total Time Spent with Patient: Total time spent is greater than 50% in coordination of care (as documented) at patient's floor/unit and/or counseling patient: Coding Level of Care Code 27813 INT INP/OBS CARE 2/55MIN Diagnoses Crohn disease K50.90
--- NOTE | 2025-04-18 14:20 | Hospitalist Progress Note ---
Date of Service April 18, 2025 Assessment & Plan (1) Cellulitis of face: (2) Salivary gland obstruction: (3) Jerri infection: (4) Hypokalemia: (5) Hypomagnesemia: Plan Patient is a 74-year-old female with past medical history of type II DM, HTN, COPD, GAMA, Crohn's s/p partial colectomy. 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 Patient presented due to redness of her PEG tube and right sided facial erythema and swelling. She is being admitted for evaluation for possible PEG tube removal and right facial cellulitis secondary to salivary gland obstruction. #right facial cellulitis/salivary gland obstruction With hx of salivary gland obstruction CT: extensive subcutaneous inflammatory fat stranding suggestive of cellulitis, no abscess/evidence for deep neck space infx noted. CBC w/o leukocytosis. Dr Vargas consulted --> recommended heat, fluid, massage IV abx, sour candy/lemon juice rinse. No drainage via parotid duct was observed. Puree diet Pain control w/ Tylenol & Morphine for severe pain. Continue Clindamycin #PEG tube infection Wound culture + for Serratia marcescens, pansensitive Rocephin started 04/17, continue Speech consulted - diet w/ minced & moist Nutrition consulted - PEG tubes 1x/day. Per nutrition not having enough PO inta ke for PEG tube removal yet. Continue to monitor. Able to take medications PO now Took gauze off peg tube site, recommend avoiding placing gauze around peg tube. Clean with saline if purulent drainage around site. No need for fungal powder given this is a bacterial infection. #Electrolyte abnormalities Acute on Chronic --> reports was given a potassium supplement at home but has not started yet. K 2.8 s/p repletion Mag 1.3 s/p repletion Trend w/ daily labs. #Crohn's disease s/p partial colectomy. Mercaptopurine held due to infx Has diarrhea 1x daily reports Stool studies negative. Discussed w/ Dr. Perez - she would like patient to have CN prior to discharge if able. 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 Perez outpatient. S/p radiation and chemotherapy. PEG tube as above. Patient reports she does need to meet with pum for a lung bx --> will discuss w/ nurse navigator when closer to [place]. #GAMA CPAP at bedtime #T2DM Most recent A1C 6.6%. SSI with target BSG range 110-180mg/dL, CF 15, carb ratio 5 Refused Lantus x 2 --> discontinued. #HTN - no reported home medications with med rec, monitor BP. VTE ppx: SCDs, Lovenox Code: full Updated at bedside 04/18 Admission and Anticipated Discharge Date Admission Date: April 16, 2025 Subjective Carley seen and examined this afternoon. She states that she is still having pain on the right side of her face but it is slowly improving. Continues with diarrhea daily. GI also in to see patient at same time & discussed bowel habits + past abdominal surgeries. Physical Exam Constitutional: WD/WN, vitals as above ENMT: erythema on right side of face/neck region. tender to palpation. Respiratory: normal respiratory effort Gastrointestinal (Abdomen): PEG tube site w/ erythema + purulent drainage. Neurologic: PERRL, EOMI, accommodation nl, no face palsy, no dysarthria Psychiatric: A+Ox3, euthymic affect Results & Data Results & Data Vital Signs (Past 12 Hours) Vital Signs Temp Pulse Pulse Resp BP Pulse Ox O2 Del Method 04/18/25 12:38 36.7 C 69 14 116/79 96 Room Air 04/18/25 07:20 36.7 C 64 13 145/83 H 94 Nasal CPAP 04/18/25 02:57 70 14 97 PG Care Time/CCT Total # of Minutes Spent Total Time Spent with Patient: Total time spent is greater than 50% in coordination of care (as documented) at patient's floor/unit and/or counseling patient: Coding Level of Care Code 16949 SUB INP/OBS CARE 3/50MIN Diagnoses Cellulitis of face L03.211 Salivary gland obstruction K11.8 Jerri infection B37.9 Hypokalemia E87.6 Hypomagnesemia E83.42
[2025-04-18] MEDS: NUTREN LIQD 2.0 1,000 ML BAG GT SCH (16:11)
[2025-04-18] MEDS: TUBE FEEDING WATER FLUSH GT SCH (16:12)
[2025-04-19 06:36] LABS: Hematocrit (blood only) 30.3 % (37.0-47.0); Hemoglobin 10.6 g/dl (12.0-16.0); Mean Corpuscular Hemoglobin 33.4 pg (25.0-34.0); Mean Corpuscular Volume 95.6 fL (80.0-100.0); Platelet Count 234 K/uL (130-400); RDW Standard Deviation 48.6 fL (36.4-46.3); Red Blood Count 3.17 M/uL (4.20-5.40); White Blood Count 5.35 K/ul (4.8-10.8)
[2025-04-19 07:10] LABS: Anion Gap 9.0 (3-11); Blood Urea Nitrogen 10.0 mg/dl (6-23); Calcium 8.5 mg/dl (8.6-10.3); Carbon Dioxide 26.0 mmol/L (21-32); Chloride 106.0 mmol/L (98-107); Creatinine Clr Calc Pharmacy 74.3 ml/min; Glucose 143.0 mg/dl (70-99(Fasting)); Magnesium 1.6 mg/dl (1.7-2.4); Potassium 2.6 mmol/L (3.5-5.1); Sodium 141.0 mmol/L (136-145)
[2025-04-19] MEDS: MAGNESIUM SULFATE / D5W 1 GM/100 ML BAG IV ONE (09:33)
[2025-04-19] MEDS: POTASSIUM CHLORIDE / WTR 10 MEQ/100 ML PLCT IV SCH ×2 (09:35→18:00)
[2025-04-19] MEDS: POTASSIUM CHLORIDE 20 MEQ/15 ML UDC PO SCH (10:24)
--- NOTE | 2025-04-19 11:10 | Gastroenterology Progress Note ---
Date of Service April 19, 2025 Assessment & Plan (1) Crohn disease: Plan: 74 year old female w/ w/ history of T2DM, HTN, COPD, GAMA, Crohn's s/p partial colectomy maintained on 6MP, SSC of tongue s/p radiation and chemotherapy w/ plan for immunotherapy admitted w/ PEG site infection, facial cellulitis and salivary gland obstruction - GI was asked to arrange inpatient colonoscopy. Clear liquids. NPO midnight. Golytely bowel prep. Colonoscopy planned 04/20. Will need potassium corrected. We appreciate assistance in the management of any serological abnormality and corrections to include: hemoglobin >7, INR <2, platelets >50,000, potassium levels >3.5 but <5.3, and sodium levels within 5 points of the reference range prior to endoscopic evaluation. I spent a total of 30 minutes on the date of service in review of patient's record, and previously obtained information in person and appropriate medical visit, discussion and education of plan, with patient and/or caregiver, placing orders for tests/referral/procedures as medically necessary and documentation of pertinent clinical information in patient's medical records for their visit today. Admission and Anticipated Discharge Date Admission Date: April 16, 2025 Supervising Physician Co-Signing Physician Notes I saw and examined this patient with our nurse practitioner and agree with her assessment and plan. Resting comfortably persistent hyponatremia. Plan for colonoscopy to assess Crohn's disease activity in a.m. if potassium normalized. Subjective Tentative plan for colonoscopy 04/20 pending her potassium. No new symptoms. Afebrile. Review of Systems Review of Systems: All other findings negative except as noted in HPI. Physical Exam Constitutional: WD/WN, vitals as above Respiratory: normal respiratory effort Cardiovascular: Rate/Rhythm: regular rate and regular rhythm Gastrointestinal (Abdomen): Percussion/Palpation: abdomen soft; abdomen nontender Skin: no rashes, warm and dry Results & Data Results & Data Vital Signs (Past 12 Hours) Vital Signs Temp Pulse Pulse Resp BP Pulse Ox O2 Del Method 04/19/25 07:38 97.5 F L 72 16 133/78 97 CPAP 04/19/25 03:42 72 15 96 FiO2 04/19/25 07:38 04/19/25 03:42 21 Laboratory Results 04/19/25 04/19/25 04/18/25 Range/Units 07:40 05:56 20:06 WBC 5.35 (4.8-10.8) K/ul RBC 3.17 L (4.20-5.40) M/uL Hgb 10.6 L (12.0-16.0) g/dl Hct 30.3 L (37.0-47.0) % MCV 95.6 (80.0-100.0) fL MCH 33.4 (25.0-34.0) pg MCHC 35.0 (32.0-36.0) g/dL RDW Std Deviation 48.6 H (36.4-46.3) fL RDW Coeff of Nelia 13.8 (11.5-14.5) % Plt Count 234 (130-400) K/uL MPV 9.2 L (9.4-12.4) fL Sodium 141 (136-145) mmol/L Potassium 2.6 L (3.5-5.1) mmol/L Chloride 106 (98-107) mmol/L Carbon Dioxide 26 (21-32) mmol/L Anion Gap 9 (3-11) BUN 10 (6-23) mg/dl Creatinine 0.72 (0.6-1.2) mg/dl Est Cr Clr Drug Dosing 74.3 ml/min eGFR 86.60 BUN/Creatinine Ratio 13.9 (10-20) Glucose 143 H (70-99(Fasting)) mg/dl POC Glucose 153 H 181 H (70-99) mg/dl Calcium 8.5 L (8.6-10.3) mg/dl Magnesium 1.6 L (1.7-2.4) mg/dl 04/18/25 04/18/25 Range/Units 16:37 11:37 WBC (4.8-10.8) K/ul RBC (4.20-5.40) M/uL Hgb (12.0-16.0) g/dl Hct (37.0-47.0) % MCV (80.0-100.0) fL MCH (25.0-34.0) pg MCHC (32.0-36.0) g/dL RDW Std Deviation (36.4-46.3) fL RDW Coeff of Nelia (11.5-14.5) % Plt Count (130-400) K/uL MPV (9.4-12.4) fL Sodium (136-145) mmol/L Potassium (3.5-5.1) mmol/L Chloride (98-107) mmol/L Carbon Dioxide (21-32) mmol/L Anion Gap (3-11) BUN (6-23) mg/dl Creatinine (0.6-1.2) mg/dl Est Cr Clr Drug Dosing ml/min eGFR BUN/Creatinine Ratio (10-20) Glucose (70-99(Fasting)) mg/dl POC Glucose 131 H 153 H (70-99) mg/dl Calcium (8.6-10.3) mg/dl Magnesium (1.7-2.4) mg/dl PG Care Time/CCT Total # of Minutes Spent Total Time Spent with Patient: Total time spent is greater than 50% in coordination of care (as documented) at patient's floor/unit and/or counseling patient: Coding Level of Care Code 58955 SUB INP/OBS CARE 10/16MIN Diagnoses Crohn disease K50.90
--- NOTE | 2025-04-19 14:17 | Hospitalist Progress Note ---
Date of Service April 19, 2025 Assessment & Plan (1) Cellulitis of face: (2) Salivary gland obstruction: (3) Jerri infection: (4) Hypokalemia: (5) Hypomagnesemia: Plan Patient is a 74-year-old female with past medical history of type II DM, HTN, COPD, GAMA, Crohn's s/p partial colectomy. 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 Patient presented due to redness of her PEG tube and right sided facial erythema and swelling. She is being admitted for evaluation for possible PEG tube removal and right facial cellulitis secondary to salivary gland obstruction. #right facial cellulitis/salivary gland obstruction With hx of salivary gland obstruction CT: extensive subcutaneous inflammatory fat stranding suggestive of cellulitis, no abscess/evidence for deep neck space infx noted. CBC w/o leukocytosis. Continue Clindamycin Dr Vargas consulted --> recommended heat, fluid, massage IV abx, sour candy/lemon juice rinse. No drainage via parotid duct was observed. Pain control w/ Tylenol & Morphine for severe pain. #PEG tube infection Wound culture + for Serratia marcescens, pansensitive Rocephin started 04/17, continue Speech consulted - diet w/ minced & moist, however on clear liquid with plan for colonoscopy tomorrow Nutrition consulted - PEG tubes 1x/day. Per nutrition not having enough PO intake for PEG tube removal yet. Continue to monitor. Able to take medications PO now Took gauze off peg tube site, recommend avoiding placing gauze around peg tube. Clean with saline if purulent drainage around site. No need for fungal powder given this is a bacterial infection. #Electrolyte abnormalities Acute on Chronic --> reports was given a potassium supplement at home but has not started yet. K 2.6 today and mag 1.6 - give 1gm mag IV, 40 meq K PO x2 and 20meq IV checked EKG SR with 1st AV block, no CP or palpiations, okay to remain on med/surg pending repeat BMP Recheck BMP this afternoon for possible additional supplementation overnight to prepare for colo tomorrow AM BMP and Mag #Crohn's disease s/p partial colectomy. Mercaptopurine held due to infx Has diarrhea 1x daily. Stool studies negative. Discussed w/ Dr. Perez - she would like patient to have CN prior to discharge if able. 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 Perez outpatient. S/p radiation and chemotherapy. PEG tube as above. Patient reports she does need to meet with pum for a lung bx --> will discuss w/ nurse navigator [place] #GAMA CPAP at bedtime #T2DM Most recent A1C 6.6%. SSI with target BSG range 110-180mg/dL, CF 15, carb ratio 5 Refused Lantus x 2 --> discontinued. #HTN - no reported home medications with med rec, monitor BP. VTE ppx: SCDs, Lovenox Dispo: continued inpatient stay, colonscopy tomorrow Updated at bedside 04/18 Admission and Anticipated Discharge Date Admission Date: April 16, 2025 Subjective patient seen this morning lying in bed denies CP or shortness of breath mouth is dry but this is her baseline still having tenderness to her face and reports that Dr. Vargas is wanting to do a CT scan Review of Systems Review of Systems: All systems reviewed & are unremarkable except as noted in Subjective Physical Exam Physical Exam: General: NAD, VS as above HEENT: swelling and erythema to right check/jaw bone area Resp: normal respiratory effort, lungs clear to auscultation CV: RRR, no murmur, Abd: normal bowel sounds, non tender, no hepatosplenomegaly. PEG tube site with mild erythema, no active drainage Extremities: Moves all extremities, non pitting LE edema Neuro: A&O x3, Results & Data Results & Data Vital Signs (Past 12 Hours) Vital Signs Temp Pulse Pulse Resp BP Pulse Ox O2 Del Method 04/19/25 13:40 98.1 F 68 16 124/91 97 Room Air 04/19/25 07:38 97.5 F L 72 16 133/78 97 CPAP 04/19/25 03:42 72 15 96 FiO2 04/19/25 13:40 04/19/25 07:38 04/19/25 03:42 21 Laboratory Results cbc and chemistry reviewed PG Care Time/CCT Total # of Minutes Spent Total Time Spent with Patient: Total time spent is greater than 50% in coordination of care (as documented) at patient's floor/unit and/or counseling patient: Coding Level of Care Code 38486 SUB INP/OBS CARE 350MIN Diagnoses Cellulitis of face L03.211 Salivary gland obstruction K11.8 Jerri infection B37.9 Hypokalemia E87.6 Hypomagnesemia E83.42
[2025-04-19 15:42] LABS: Anion Gap 9.0 (3-11); Blood Urea Nitrogen 8.0 mg/dl (6-23); Calcium 8.6 mg/dl (8.6-10.3); Carbon Dioxide 23.0 mmol/L (21-32); Chloride 105.0 mmol/L (98-107); Creatinine Clr Calc Pharmacy 73.3 ml/min; Glucose 171.0 mg/dl (70-99(Fasting)); Potassium 3.3 mmol/L (3.5-5.1); Sodium 137.0 mmol/L (136-145)
[2025-04-19] MEDS: LAVAGE SOLUTION 4000ML PO SCH (21:08)
[2025-04-20] MEDS ORDERED: Nursing to Pharmacy Communication SCH ×2 (01:00→16:15)
[2025-04-20] MEDS: ONDANSETRON INJ 2 MG/ML 2 ML VIAL IV PRN (06:06)
[2025-04-20] MEDS: INSULIN ASPART PER UNIT CHARGE SC SCH ×2 (06:28→17:25)
[2025-04-20 06:40] LABS: Anion Gap 10.0 (3-11); Blood Urea Nitrogen 5.0 mg/dl (6-23); Calcium 9.2 mg/dl (8.6-10.3); Carbon Dioxide 24.0 mmol/L (21-32); Chloride 107.0 mmol/L (98-107); Creatinine Clr Calc Pharmacy 86.3 ml/min; Glucose 148.0 mg/dl (70-99(Fasting)); Magnesium 1.5 mg/dl (1.7-2.4); Potassium 3.5 mmol/L (3.5-5.1); Sodium 141.0 mmol/L (136-145)
[2025-04-20] MEDS: MAGNESIUM SULFATE / D5W 1 GM/100 ML BAG IV SCH (09:00)
[2025-04-20] MEDS: POTASSIUM CHLORIDE 20 MEQ in LACTATED RINGER'S 1,000 ML IV SCH (09:04)
[2025-04-20] MEDS: PROCHLORPERAZINE 5 MG in SYRINGE 4 ML IV ONE (09:29)
--- NOTE | 2025-04-20 09:48 | Hospitalist Progress Note ---
Date of Service April 20, 2025 Assessment & Plan (1) Cellulitis of face: (2) Salivary gland obstruction: (3) Jerri infection: (4) Hypokalemia: (5) Hypomagnesemia: Plan Patient is a 74-year-old female with past medical history of type II DM, HTN, COPD, GAMA, Crohn's s/p partial colectomy. 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 Patient presented due to redness of her PEG tube and right sided facial erythema and swelling. She is being admitted for evaluation for possible PEG tube removal and right facial cellulitis secondary to salivary gland obstruction. #right facial cellulitis/salivary gland obstruction With hx of salivary gland obstruction CT: extensive subcutaneous inflammatory fat stranding suggestive of cellulitis, no abscess/evidence for deep neck space infx noted. CBC w/o leukocytosis. Continue Clindamycin Dr Vargas consulted --> recommended heat, fluid, massage IV abx, sour candy/lemon juice rinse. DIscussed with Dr. Vargas - recommend CT scan to reeval parotid gland, if not improving consider bx. Pain control w/ Tylenol & Morphine for severe pain. #PEG tube infection Wound culture + for Serratia marcescens, pansensitive, staph aureus and galbrata - currently not on MRSA coverage, not worsening, will await culture before initating Rocephin started 04/17, continue Speech consulted - diet w/ minced & moist, NPO for colo can advance after Nutrition consulted - PEG tubes 1x/day. Per nutrition not having enough PO intake for PEG tube removal yet. Continue to monitor. Able to take medications PO now Took gauze off peg tube site, recommend avoiding placing gauze around peg tube. Clean with saline if purulent drainage around site. No need for fungal powder given this is a bacterial infection. #Electrolyte abnormalities Acute on Chronic --> reports was given a potassium supplement at home but has not started yet. K improved to 3.5, mag 1.5 --> replace mag IV and add K to fluids while NPO AM BMP and Mag #Crohn's disease s/p partial colectomy. Mercaptopurine held due to infx Has diarrhea 1x daily. Stool studies negative. Discussed w/ Dr. Perez - she would like patient to have CN prior to discharge if able. 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 Perez outpatient. S/p radiation and chemotherapy. PEG tube as above. Patient reports she does need to meet with pum for a lung bx --> will discuss w/ nurse navigator [place] closer to [place]. #GAMA CPAP at bedtime #T2DM Most recent A1C 6.6%. SSI with target BSG range 110-180mg/dL, CF 15, carb ratio 5 Refused Lantus x 2 --> discontinued. #HTN - no reported home medications with med rec, monitor BP. VTE ppx: SCDs, Lovenox Dispo: continued inpatient stay, colonscopy today, awaiting cultures Updated at bedside 04/18 Admission and Anticipated Discharge Date Admission Date: April 16, 2025 Supervising Physician Co-Signing Physician Notes Attending Attestation - Chart reviewed, care plan d/w YAYA Han. I agree w/ the miller components of her documentation. Appreciate GI & oral surgery assistance. Duc Taylor MD Subjective Patient seen this morning, lying in bed. Reports not feeling well after colonscopy prep - nausea but not vomiting this morning face pain has improved plan for colonscopy today Review of Systems Review of Systems: All systems reviewed & are unremarkable except as noted in Subjective Physical Exam Physical Exam: General: NAD, VS as above HEENT: swelling and erythema to right check/jaw bone area - has improved compared to yesterday Resp: normal respiratory effort, lungs clear to auscultation CV: RRR, no murmur, Abd: normal bowel sounds, non tender, no hepatosplenomegaly. PEG tube site with mild erythema, no active drainage Extremities: Moves all extremities, non pitting LE edema Neuro: A&O x3, Results & Data Results & Data Vital Signs (Past 12 Hours) Vital Signs Temp Pulse Resp BP Pulse Ox O2 Del Method 04/20/25 07:24 97.9 F 80 17 150/92 H 98 Room Air Laboratory Results cbc, chemistry and mag reviewed PG Care Time/CCT Total # of Minutes Spent Total Time Spent with Patient: Total time spent is greater than 50% in coordination of care (as documented) at patient's floor/unit and/or counseling patient: Coding Level of Care Code 46962 SUB INP/OBS CARE 50MIN Diagnoses Cellulitis of face L03.211 Salivary gland obstruction K11.8 Jerri infection B37.9 Hypokalemia E87.6 Hypomagnesemia E83.42
--- NOTE | 2025-04-20 10:42 | Gastroenterology Progress Note ---
Date of Service April 20, 2025 Assessment & Plan (1) Crohn disease: Plan: 74 year old female w/ w/ history of T2DM, HTN, COPD, GAMA, Crohn's s/p partial colectomy maintained on 6MP, SSC of tongue s/p radiation and chemotherapy w/ plan for immunotherapy admitted w/ PEG site infection, facial cellulitis and salivary gland obstruction - GI was asked to arrange inpatient colonoscopy. NPO for colonoscopy today. We appreciate assistance in the management of any se rological abnormality and corrections to include: hemoglobin >7, INR <2, platelets >50,000, potassium levels >3.5 but <5.3, and sodium levels within 5 points of the reference range prior to endoscopic evaluation. Admission and Anticipated Discharge Date Admission Date: April 16, 2025 Supervising Physician Co-Signing Physician Notes I saw and examined this patient with our nurse practitioner and agree with her assessment and plan. Tolerated colon prep well no signs of bleeding. Will proceed with colonoscopy. Subjective Pt was seen and evaluated, chart reviewed. Nausea w/ prep. No vomiting. Stools are liquid, yellow. No black/bloody stools. Review of Systems Review of Systems: All other findings negative except as noted in HPI. Physical Exam Respiratory: normal respiratory effort Cardiovascular: Rate/Rhythm: regular rate Gastrointestinal (Abdomen): Inspection/Auscultation: normal bowel sounds Skin: no rashes, warm and dry Results & Data Results & Data Vital Signs (Past 12 Hours) Vital Signs Temp Pulse Resp BP Pulse Ox O2 Del Method 04/20/25 07:24 97.9 F 80 17 150/92 H 98 Room Air Laboratory Results 04/20/25 04/20/25 04/19/25 Range/Units 05:59 05:42 20:18 Sodium 141 (136-145) mmol/L Potassium 3.5 (3.5-5.1) mmol/L Chloride 107 (98-107) mmol/L Carbon Dioxide 24 (21-32) mmol/L Anion Gap 10 (3-11) BUN 5 L (6-23) mg/dl Creatinine 0.62 (0.6-1.2) mg/dl Est Cr Clr Drug Dosing 86.3 ml/min eGFR 92.24 BUN/Creatinine Ratio 8.1 L (10-20) Glucose 148 H (70-99(Fasting)) mg/dl POC Glucose 139 H 94 (70-99) mg/dl Calcium 9.2 (8.6-10.3) mg/dl Magnesium 1.5 L (1.7-2.4) mg/dl 04/19/25 04/19/25 04/19/25 Range/Units 16:34 14:45 11:34 Sodium 137 (136-145) mmol/L Potassium 3.3 L D (3.5-5.1) mmol/L Chloride 105 (98-107) mmol/L Carbon Dioxide 23 (21-32) mmol/L Anion Gap 9 (3-11) BUN 8 (6-23) mg/dl Creatinine 0.73 (0.6-1.2) mg/dl Est Cr Clr Drug Dosing 73.3 ml/min eGFR 85.18 BUN/Creatinine Ratio 11.0 (10-20) Glucose 171 H (70-99(Fasting)) mg/dl POC Glucose 119 H 175 H (70-99) mg/dl Calcium 8.6 (8.6-10.3) mg/dl Magnesium (1.7-2.4) mg/dl PG Care Time/CCT Total # of Minutes Spent Total Time Spent with Patient: Total time spent is greater than 50% in coordination of care (as documented) at patient's floor/unit and/or counseling patient: Coding Level of Care Code None Diagnoses Crohn disease K50.90
--- NOTE | 2025-04-20 12:56 | Anesthesiology Consultation ---
Date of Service April 20, 2025 Assessment & Plan Chart Review Chart Review: Acceptable Risk for Surgery and Patient NOT seen in Pre Admission Testing Consults Requested none ASA ASA3 Proposed Anesthesia Anesthesia Type: MAC Risk / Benefits Reviewed With: PT / POA / Parent / Guardian, Accepts Plan and Informed Consent Obtained History Surgery Operation Date: 04/20/25 17:10 Proposed Procedures p Colonoscopy Dr. Guillermo Li MD Height/Weight Height: 5 ft 6 in Weight: 88.1 kg Allergies Allergy/AdvReac Type Severity Reaction Status Date / Time latex Allergy Intermediate Blisters Verified 04/20/25 12:55 Penicillins Allergy Intermediate Hives Verified 04/20/25 12:55 lisinopril Allergy Mild fluid Verified 04/20/25 12:55 retention Zhzpybe-BOF-UbQ Reductase Allergy Verified 04/20/25 12:55 Inhibitor Medications Home Medications Medication Instructions Recorded Confirmed Last Taken Microlet Lancet (lancets) #200 ea 06/12/20 01/26/25 Unknown CPAP Machine 04/19/21 01/26/25 Unknown soft lens rinse,store solution 05/29/22 01/26/25 Unknown (Bio true solution) blood-glucose meter (Contour Next #1 ea 02/21/23 01/26/25 Unknown One Meter) blood-glucose sensor (Dexcom G7 01/19/24 01/26/25 Unknown Sensor device) cyclosporine 0.05 % eye drops in a 1 drp OPB BID 10/26/24 04/16/25 12/12/24 dropperette blood sugar diagnostic (Contour #400 ea 11/12/24 01/26/25 Unknown Next Test Strips) insulin aspart U-100 100 unit/mL 0 sliding scale dose subcut 12/13/24 04/16/25 12/12/24 (3 mL) subcutaneous pen (Novolog TIDWMEAL FlexPen U-100 Insulin aspart) buspirone 30 mg tablet 30 mg feeding tube BID #60 tabs 12/15/24 04/16/25 12/12/24 gabapentin 800 mg tablet 800 mg feeding tube BID #60 tabs 12/15/24 04/16/25 12/12/24 ondansetron 8 mg disintegrating 8 mg PO Q8H PRN Nausea 01/01/25 04/16/25 Unknown tablet pen needle, diabetic 31 gauge x #500 ea 03/21/25 Unknown 3/16" latanoprostene bunod 0.024 % eye 1 drp ophthalmic (eye) QPM 04/13/25 04/16/25 Unknown drops (Vyzulta) mercaptopurine 50 mg tablet 50 mg PO DAILY 04/13/25 04/16/25 Unknown Active Medications Generic Name Dose Route Start Last Admin Trade Name Freq PRN Reason Stop Dose Admin Acetaminophen 650 mg 04/16/25 22:04 04/19/25 23:19 Acetaminophen 325 Mg Tab PO 05/16/25 22:03 650 mg Q4H PRN Administration Pain or Fever Buspirone HCl 30 mg 04/16/25 22:04 04/20/25 09:03 Buspirone 15 Mg Tab PO 05/16/25 22:03 30 mg BID CHARI Administration Enoxaparin Sodium 40 mg 04/16/25 22:45 04/19/25 22:36 Enoxaparin Inj 40 Mg/0.4 Ml Syr SQ 05/16/25 22:44 40 mg HS CHARI Administration Gabapentin 800 mg 04/16/25 22:04 04/20/25 09:03 Gabapentin 800 Mg Tab PO 05/16/25 22:03 800 mg BID CHARI Administration Heparin Sodium (Porcine) 5 ml 04/17/25 12:48 04/20/25 06:04 Heparin 100 Unit/Ml 5ml Flush FLUSH 05/17/25 12:47 5 ml PRN PRN Administration Flush Clindamycin Phosphate 900 mg in 50 mls @ 100 mls/hr 04/17/25 04:00 04/20/25 04:43 Cleocin/D5w IV 04/24/25 03:59 Infused Q8H CHARI Infusion Ceftriaxone Sodium 2,000 mg in 50 mls @ 100 mls/hr 04/17/25 09:00 04/20/25 09:29 Rocephin IV 04/24/25 08:59 0 mls/hr Q24H CHARI Infusion Potassium Chloride 20 meq/ 1,010 mls @ 80 mls/hr 04/20/25 09:00 04/20/25 09:04 Lactated Ringer's IV 04/21/25 10:00 80 mls/hr .[id number] CHARI Administration Insulin Aspart 0 units 04/20/25 06:00 04/20/25 12:17 Insulin Aspart Per Unit Charge SC 05/20/25 05:59 2 units Q6 CHARI Administration Morphine Sulfate 2 mg 04/16/25 22:04 04/18/25 08:51 Morphine Sulfate 2 Mg/Ml Carp IV 04/30/25 22:03 2 mg Q6H PRN Administration Moderate Pain (Scale 4, 5, 6) Vyzulta 0.024% Eye 1 each 04/17/25 21:00 04/19/25 22:37 Drops- Non-Formulary EXT 05/17/25 20:59 1 drops Patient's Own Med HS CHARI Administration Nutritional Formula 0 ml 04/18/25 10:00 04/20/25 09:04 Nutren Liqd 2.0 1,000 Ml Bag GT 05/18/25 09:59 Not Given DAILY@1000 [facility] Protocol Ondansetron HCl 4 mg 04/16/25 22:04 04/20/25 06:06 Ondansetron Inj 2 Mg/Ml 2 Ml Vial IV 05/16/25 22:03 4 mg Q6H PRN Administration Nausea And Vomiting Oxycodone HCl 5 mg 04/17/25 09:44 04/18/25 20:36 Oxycodone Hcl Ir 5 Mg Tab (Immediate Release) PO 05/01/25 09:43 5 mg Q4H PRN Administration Pain Sterile Water 60 ml 04/18/25 09:30 04/20/25 12:00 Tube Feeding Water Flush GT 05/18/25 09:29 Not Given DAILY@0930,1100 [facility] NPO Date Last Intake of Fluids: 04/20/25 Time Last Intake of Fluids: 08:00 Last Intake of Fluids Comment: sips only with am medication Date Last Intake of Solids: 04/19/25 Time Last Intake of Solids: 23:59 Last Intake of Solids Comment: NPO at midnight per RN report, patient reports no BF today Past Medical History Medical History PEG tube malfunction Anemia Obesity Gout Hypertension Dyslipidemia associated with type 2 diabetes mellitus Diabetic peripheral neuropathy associated with type 2 diabetes mellitus Depression with anxiety Post-nasal drip Type 2 diabetes mellitus Spinal stenosis Glaucoma Metabolic syndrome Recurrent squamous cell carcinoma of tongue Surgery 04/2024 and 10/04/24; currently on chemo tx; follows with once per week (wednesdays); also current XRT with in [place] Hx of sepsis 2021- no residual/current issues Fatty liver Sleep apnea CPAP Crohn's disease Neck problem Cervical pitched nerve + narrowing Intermittent LUE radiculopathy and ROM limitations COPD (chronic obstructive pulmonary disease) "Mild" No inhaler Exercise / Class Metabolic Activity II 4-5 Yardwork/Stairs/Walk up hill Past Family History Family History Father Family history of diabetes mellitus Diabetes Stroke Daughter Breast cancer Uncle Diabetes Grandmother Diabetes Stroke Other No family history of adverse response to anesthesia Past Surgical History Surgical History History of percutaneous endoscopic gastrostomy (11/29/24) Esophagogastroduodenoscopy with Percutaneous Endoscopic Gastrostomy (PEG) Tube - Malik Turner DO Port-A-Cath in place (11/01/24) Insertion Access Port with Fluoroscopy - Right Subclavian(Right) - Kishore Mulligan, ; MAC without issue S/P cholecystectomy S/P partial glossectomy 04/30/24: partial glossectomy with L selective neck dissection Dr. Coyle [facility]; 10/04/24: L suprahyoid neck dissection and partial glossectomy Hx of cataract extraction R/L Hx of bilateral breast reduction surgery S/P epidural steroid injection x4 [id number] History of colonoscopy History of bowel resection (~2003) 12 inches r/t Crohn's disease (1971) Re-do r/t Crohn's disease (2003)- also had gallbladder removed at this time History of appendectomy (1971) Past Anesthesia History No Hx of Anesthesia Complications and No Family Hx of Anesthesia Complications History of PONV No Hx of PONV and No Hx of Motion Sickness Social History Smoking Status: Former smoker Smoking cigarettes per day: 1979 Do You Dip or Chew Tobacco: No Hx Alcohol Use: No Alcohol type: wine alcohol intake frequency: holidays/special occasions only Hx Substance Use: No substance use type: does not use Review of Systems ROS Unobtainable: All systems reviewed & are unremarkable except as noted in HPI & below Physical Exam Vital Signs Last Vital Signs Temp 36.2 C L 04/20/25 12:50 Pulse 98 H 04/20/25 12:50 Resp 16 04/20/25 12:50 BP 183/92 H 04/20/25 12:50 Pulse Ox 98 04/20/25 12:50 O2 Del Method Room Air 04/20/25 12:50 FiO2 21 04/19/25 03:42 Constitutional WD/WN, vitals as above + obese Eyes PERRL, conjunctivae normal, anicteric sclerae ENMT external ear and nose normal, oropharynx normal Mouth: no dentition abnormality Thyromental Distance: > or= 3.5 Finger Breadths Mallampati Class: III Neck trachea midline, no thyromegaly normal visual inspection Respiratory normal respiratory effort, lungs clear to auscultation normal respiratory effort; no respiratory distress Auscultation: + diminished lung sounds Cardiovascular RRR, no murmur, no edema Rate/Rhythm: regular rate and regular rhythm Musculoskeletal Head/Neck/Chest: normocephalic and head atraumatic Spine: normal cervical ROM and no pain with cervical ROM Extremities: extremities normal to inspection and strength 5/5 throughout; full ROM of extremities Skin no rashes, warm and dry Neurologic moves all extremities Motor/Sensory: no sensory deficit Psychiatric A+Ox3, euthymic affect Testing Laboratory Results 04/19/25 05:56 04/20/25 05:59 04/16/25 21:22 Gram Stain - Final Abdomen Aerobic and Anaerobic Culture - Preliminary Serratia marcescens Staphylococcus aureus Jerri glabrata Jerri albicans 04/20/25 04/20/25 11:52 05:42 POC Glucose 196 H 139 H
--- NOTE | 2025-04-20 14:02 | GI REPORT ---
[facility] Patient: ERASTO ALVAREZ : 1950 Sex at : Female Age: 74 Years Procedure: Colonoscopy Date: 04/20/2025 Attending Physician: Jay Jay Li MD Referring MD: Referred Self Indications: - Crohn's disease Medications: - Monitored Anesthesia Care Complications: - No immediate complications. Procedure: - Prior to the procedure, a History and Physical was performed, and patient medications and allergies were reviewed. The patient's tolerance of previous anesthesia was also reviewed. The risks and benefits of the procedure and the sedation options and risks were discussed with the patient. All questions were answered, and informed consent was obtained. [Anticoagulant Agents] [Days Prior to Procedure]. [ASA Grade]. After reviewing the risks and benefits, the patient was deemed in satisfactory condition to undergo the procedure. - The adult colonoscope was introduced through the anus and advanced to the ileocolonic anastomosis. - The colonoscopy was performed without difficulty. - The patient tolerated the procedure well. - The quality of the bowel preparation was [Prep Quality]. - [Anatomical Structures] photographed. Findings: - The perianal and digital rectal examinations were normal. - A small (4-6 mm) polyp was found in the ascending colon. The polyp was sessile. The polyp was removed with a cold snare. Resection and retrieval were complete. To prevent bleeding after the polypectomy, two hemostatic clips were successfully placed. There was no bleeding at the end of the procedure. - A 12 mm polyp was found in the transverse colon. The polyp was sessile. The polyp was removed with a hot snare. Resection and retrieval were complete. - Four [Pedicle] polyps were found in the anastomosis, mid descending colon and rectum. The polyps were diminutive (1-3 mm) in size. These polyps were removed with a piecemeal technique using a cold biopsy forceps. Resection and retrieval were complete. - Many diverticula were found in the entire colon. - The chanel-terminal ileum appeared normal. - There was evidence of a prior end-to-end ileo-colonic anastomosis in the ascending colon. This was patent and was characterized by healthy appearing mucosa. - No other significant abnormalities were identified in a careful examination of the remainder of the colon. Impression: - One small (4-6 mm) polyp in the ascending colon, removed with a cold snare. Resected and retrieved. Clips were placed. - One 12 mm polyp in the transverse colon, removed with a hot snare. Resected and retrieved. - Four diminutive (1-3 mm) polyps at the anastomosis, in the mid descending colon and in the rectum, removed piecemeal using a cold biopsy forceps. Resected and retrieved. - Diverticulosis in the entire examined colon. - The examined portion of the ileum was normal. - Patent end-to-end ileo-colonic anastomosis, characterized by healthy appearing mucosa. Recommendation: - Await pathology results. - Resume previous diet. - Repeat colonoscopy in 3 years for surveillance of multiple adenomas and for surveillance. - Patient has a contact number available for emergencies. The signs and symptoms of potential delayed complications were discussed with the patient. Return to normal activities tomorrow. Written discharge instructions were provided to the patient. Procedure Code(s): - 49402, Colonoscopy, flexible; with removal of tumor(s), polyp(s), or other lesion(s) by snare technique - 11997-83, Colonoscopy, flexible; with biopsy, single or multiple Diagnosis Code(s): - D12.2, Benign neoplasm of ascending colon - D12.3, Benign neoplasm of transverse colon (hepatic flexure or splenic flexure) - D12.4, Benign neoplasm of descending colon - D12.8, Benign neoplasm of rectum - Z98.0, Intestinal bypass and anastomosis status - K57.30, Diverticulosis of large intestine without perforation or abscess without bleeding CPT(R) - 2023 copyright [employer]. All Rights Reserved. The CPT codes, CCI edits and ICD codes generated are intended as suggestions and were generated based on input data. These codes are preliminary and upon bone char puller review may be revised to meet current compliance and payer requirements. The provider is responsible for the final determination of appropriate codes, and modifiers. Jay Jay Li MD This document has been electronically signed. Note Initiated:04/20/2025 Note Completed:04/20/2025 2:01 PM \\[email or web address]\[email or web address]\[id number]
--- NOTE | 2025-04-20 14:03 | Anesthesiology Progress Note ---
Date of Service April 20, 2025 Anesthesia Post Procedure Vital Signs Vital Signs: Temp Pulse Pulse Resp BP Pulse Ox O2 Del Method 04/20/25 12:50 36.2 C L 98 H 16 183/92 H 98 Room Air 04/20/25 11:56 36.6 C 82 16 142/80 H 93 Room Air 04/20/25 07:24 36.6 C 80 17 150/92 H 98 Room Air 04/19/25 19:27 36.8 C 73 16 158/86 H 98 Room Air Pain Intensity Right Ear: Pain Intensity: 6 Right Cheek: Pain Intensity: 0 Transfer of Care Handoff Completed per policy Notes Mental Status: alert / awake / arousable and participated in evaluation Patient Amnestic to Procedure: Yes Nausea / Vomiting: adequately controlled Pain: adequately controlled Airway Patency, RR, SpO2: stable & adequate BP & HR: stable & adequate Hydration State: stable & adequate Anesthetic Complications: no major complications apparent and Pt Satisfied with anesthetic care
[2025-04-20] MEDS: OPTIRAY 320 100ml IV ONE (14:50)
--- NOTE | 2025-04-20 15:29 | CT Scan Report ---
FACIAL BONE CT WITH AND WITHOUT CONTRAST CLINICAL HISTORY: Right facial erythema and swelling. Squamous cell carcinoma of the tongue status po st chemoradiation. COMPARISON STUDY: PET/CT April 05, 2025. CT of the neck April 16, 2025. TECHNIQUE: Axial images through the face were obtained before and after intravenous administration of 90 cc of Optiray 320. Sagittal and coronal reformats were viewed. A dose lowering technique was util ized adhering to the principles of ALARA. FINDINGS: There are no facial fractures. Note is made of asymmetric heterogeneity and enhancement of the right parotid gland which is similar to CT of April 16, 2025. Adjacent inflammation is also unchan ged. There is no rim-enhancing fluid collection to suggest an abscess. There is no soft tissue gas. N o well-defined mass is identified within the right parotid gland. Asymmetric enhancement the right greene bmandibular gland has mildly decreased since CT of April 16, 2025. The left parotid gland is unremarka ble. No sialoliths are identified. The left submandibular gland is not well visualized. Epiglottis is normal. Major vasculature of the upper neck is patent. There is no fluid within mastoid air cells. T here is minimal sinus mucosal thickening. IMPRESSION: 1. No significant change in findings consistent with right parotitis since CT of April 16, 2025. No ab scess. No sialolith. 2. Partially visualized sialoadenitis of the right submandibular gland, mildly improved since prior C T. ACT 112: Negative or not required by law. Electronically signed by: Musa Dennis M.D. 04/20/2025 3:28 PM
[2025-04-20] MEDS: LIDOCAINE 2% 2 ML VIAL/AMP(20MG/ML) INFIL ONE (15:56)
[2025-04-20] MEDS: PROPOFOL IV EMULSION 10 MG/ML 20 ML VIAL IV ONE (15:57)
[2025-04-21 06:34] LABS: Anion Gap 7.0 (3-11); Blood Urea Nitrogen 3.0 mg/dl (6-23); Calcium 8.8 mg/dl (8.6-10.3); Carbon Dioxide 26.0 mmol/L (21-32); Chloride 107.0 mmol/L (98-107); Creatinine Clr Calc Pharmacy 89.2 ml/min; Glucose 124.0 mg/dl (70-99(Fasting)); Magnesium 1.5 mg/dl (1.7-2.4); Potassium 3.1 mmol/L (3.5-5.1); Sodium 140.0 mmol/L (136-145)
[2025-04-21] MEDS: POTASSIUM CHLORIDE 20 MEQ/15 ML UDC PO STA (09:21)
[2025-04-21] MEDS: POTASSIUM CHLORIDE / WTR 10 MEQ/100 ML PLCT IV SCH (09:46)
[2025-04-21] MEDS: MAGNESIUM SULFATE / D5W 1 GM/100 ML BAG IV SCH (09:47)
--- NOTE | 2025-04-21 11:30 | Gastroenterology Progress Note ---
Date of Service April 21, 2025 Assessment & Plan (1) Crohn disease: Plan: Patient is feeling well from a GI standpoint. Reviewed colonoscopy report with patient. pathology is pending. She should follow with her primary GI team upon discharge in [place]. Will sign off from GI standpoint. reconsult as needed. Admission and Anticipated Discharge Date Admission Date: April 16, 2025 Supervising Physician Co-Signing Physician Notes I saw and examined this patient with our nurse practitioner and agree with her assessment and plan. Stable post colonoscopy. There was no signs of active Crohn's disease. Multiple colon polyps were removed. 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 Call if any further issues. Pathology is pending. Subjective 74 year old female w/ w/ history of T2DM, HTN, COPD, GAMA, Crohn's s/p partial colectomy maintained on 6MP, SSC of tongue s/p radiation and chemotherapy w/ plan for immunotherapy admitted w/ PEG site infection, facial cellulitis and salivary gland obstruction - GI was asked to arrange inpatient colonoscopy. she feels well from a GI standpoint. no current GI concerns. Colonoscopy 04/20 - One small (4-6 mm) polyp in the ascending colon, removed with a cold snare. Resected and retrieved. Clips were placed. - One 12 mm polyp in the transverse colon, removed with a hot snare. Resected and retrieved. - Four diminutive (1-3 mm) polyps at the anastomosis, in the mid descending colon and in the rectum, removed piecemeal using a cold biopsy forceps. Resected and retrieved. - Diverticulosis in the entire examined colon. - The examined portion of the ileum was normal. - Patent end-to-end ileo-colonic anastomosis, characterized by healthy appearing mucosa. Review of Systems Review of Systems: All systems reviewed & are unremarkable except as noted in HPI & below Physical Exam Constitutional: WD/WN, vitals as above Respiratory: normal respiratory effort, lungs clear to auscultation Cardiovascular: Rate/Rhythm: regular rate and regular rhythm Gastrointestinal (Abdomen): normal bowel sounds, soft, nontender, no hepatosplenomegaly peg in place. Psychiatric: Orientation: alert and oriented x 3 Affect: euthymic affect Results & Data Results & Data Vital Signs (Past 12 Hours) Vital Signs Temp Pulse Pulse Resp BP Pulse Ox O2 Del Method 04/21/25 07:33 98.2 F 73 16 151/73 H 98 Room Air 04/21/25 03:08 83 18 96 FiO2 04/21/25 07:33 04/21/25 03:08 21 Coding Level of Care Code 40992 SUB INP/OBS CARE 10/16MIN Diagnoses Crohn disease K50.90
--- NOTE | 2025-04-21 13:58 | Hospitalist Progress Note ---
Date of Service April 21, 2025 Assessment & Plan (1) Cellulitis of face: (2) Salivary gland obstruction: (3) Jerri infection: (4) Hypokalemia: (5) Hypomagnesemia: Plan Patient is a 74-year-old female with past medical history of type II DM, HTN, COPD, GAMA, Crohn's s/p partial colectomy. 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 Patient presented due to redness of her PEG tube and right sided facial erythema and swelling. She is being admitted for evaluation for possible PEG tube removal and right facial cellulitis secondary to salivary gland obstruction. #right facial cellulitis/salivary gland obstruction With hx of salivary gland obstruction CT: extensive subcutaneous inflammatory fat stranding suggestive of cellulitis, no abscess/evidence for deep neck space infx noted. CBC w/o leukocytosis. Continue Clindamycin Dr Vargas consulted --> recommended heat, fluid, massage IV abx, sour candy/lemon juice rinse. DIscussed with Dr. Vargas - repeat CT scan from 04/20 with unchanged partoid gland consider bx, discussed with IR would not recommmend bx with negative PET 04/05 and improvement with abx. --> plan to continue abx, OP follow up with Dr. Vargas and consider repeat imaging in a few weeks Pain control w/ Tylenol & Morphine for severe pain. #PEG tube infection Wound culture + for Serratia marcescens, pansensitive, MSSA and galbrata - Rocephin started 04/17, continue Speech consulted - diet w/ minced & moist, Nutrition consulted - plan to hold feeds today and try boost to see if she can maintain her PO intake Able to take medications PO now Took gauze off peg tube site, recommend avoiding placing gauze around peg tube. Clean with saline if purulent drainage around site. No need for fungal powder given this is a bacterial infection. #Electrolyte abnormalities Acute on Chronic --> reports was given a potassium supplement at home but has not started yet. K 3.1 and Mag 1.5 today - repleted IV and PO. Will need supplementation at discharge AM BMP and Mag #Crohn's disease s/p partial colectomy. Mercaptopurine held due to infx Has diarrhea 1x daily. Stool studies negative. Discussed w/ Dr. Perez - she would like patient to have CN prior to discharge if able. 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 Perez outpatient. S/p radiation and chemotherapy. PEG tube as above. Patient reports she does need to meet with pum for a lung bx --> missed her appt d/t hospitalization, Dr. rm consulted to arrange outpatient #GAMA CPAP at bedtime #T2DM Most recent A1C 6.6%. SSI with target BSG range 110-180mg/dL, CF 15, carb ratio 5 Refused Lantus x 2 --> discontinued. #HTN - no reported home medications with med rec, monitor BP. VTE ppx: SCDs, Lovenox Dispo: continued inpatient stay, monitor nutrition status Updated at bedside 04/18 & 04/21 Admission and Anticipated Discharge Date Admission Date: April 16, 2025 Subjective Patient seen earlier this morning - cellutlitis/swelling is feeling better. She is very apprehensive about her tube feeds and preferred not to have them. Agreeable to try minced and moist Revisited this afternoon to update on plan of care - at bedside, they are both agreeable to current plan Review of Systems Review of Systems: All systems reviewed & are unremarkable except as noted in Subjective Physical Exam Physical Exam: General: NAD, VS as above HEENT: swelling and erythema to right check/jaw bone area - has improved compared to yesterday, nontender, but gland is still firm Resp: normal respiratory effort, lungs clear to auscultation CV: RRR, no murmur, Abd: normal bowel sounds, non tender, no hepatosplenomegaly. PEG tube site with mild erythema, no active drainage Extremities: Moves all extremities, non pitting LE edema Neuro: A&O x3, Results & Data Results & Data Vital Signs (Past 12 Hours) Vital Signs Temp Pulse Pulse Resp BP Pulse Ox O2 Del Method 04/21/25 07:33 98.2 F 73 16 151/73 H 98 Room Air 04/21/25 03:08 83 18 96 FiO2 04/21/25 07:33 04/21/25 03:08 21 Laboratory Results cbc, chemistry and wound culture rveiewed mag reviewed PG Care Time/CCT Total # of Minutes Spent Total Time Spent with Patient: Total time spent is greater than 50% in coordination of care (as documented) at patient's floor/unit and/or counseling patient: Coding Level of Care Code 82802 SUB INP/OBS CARE 3/50MIN Diagnoses Cellulitis of face L03.211 Salivary gland obstruction K11.8 Jerri infection B37.9 Hypokalemia E87.6 Hypomagnesemia E83.42
--- NOTE | 2025-04-21 14:17 | Pulmonary Consultation ---
Date of Consultation April 21, 2025 Assessment & Plan (1) Multiple pulmonary nodules: (2) Abnormal chest CT: (3) Recurrent squamous cell carcinoma of tongue: Plan CT chest 04/13/2025 personally reviewed: Multiple pulmonary nodules appreciated bilaterally Largest being 2.1 cm in the right upper lobe followed by 2.1 cm left lower lobe para-aortic No significant mediastinal lymphadenopathy -- Multiple pulmonary nodules Largest being 2.1 cm in the right upper lobe followed by left lower lobe In summary who has history of squamous cell carcinoma the possibility of malignancy/malignancy particularly Patient is agreeable to have the procedure done. 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 Patient understands and wants to go ahead with the procedures Will try to schedule something in the next week to have the robotic bronchoscopy done Please note the above document was generated using voice recognition software. It may contain grammatical, syntax or spelling errors.Any formal questions or concerns about the content, text or information contained within the body of this dictation should be directly addressed to the provider for clarification. History of Present Illness Attending Physician: Mj Cummings MD History of Present Illness 74-year-old female admitted to the hospital for right face cellulitis Past medical history: Squamous cell carcinoma of the tongue s/p radiation and chemo, type 2 diabetes, hypertension, COPD, GAMA, Crohn's disease s/p partial colectomy Pulmonary consulted for multiple pulmonary nodules Patient was supposed to follow-up with me on 04/18/2025 as outpatient. Fortunately she was admitted because of cellulitis At the time of examination patient was not in any respiratory distress Patient's was also in the room. She states she is feeling much better after coming to the hospital when it comes to the cellulitis on the face Denies any issues with her breathing Saturating well on room air Denies any chest tightness. Periodic cough with clear phlegm. No chest congestion. Afebrile No nausea or vomiting Fair appetite Social history: Only [id number] smoking history, quit in 1979, was exposed to secondhand smoke from father as well as Allergies Allergy/AdvReac Type Severity Reaction Status Date / Time latex Allergy Intermediate Blisters Verified 04/20/25 12:55 Penicillins Allergy Intermediate Hives Verified 04/20/25 12:55 lisinopril Allergy Mild fluid Verified 04/20/25 12:55 retention Ltvilxl-UIT-AjD Reductase Allergy Verified 04/20/25 12:55 Inhibitor Home Medications Medication Instructions Recorded Confirmed Type Microlet Lancet (lancets) #200 ea 06/12/20 01/26/25 Rx CPAP Machine 04/19/21 01/26/25 History soft lens rinse,store solution 05/29/22 01/26/25 History (Bio true solution) blood-glucose meter (Contour Next #1 ea 02/21/23 01/26/25 Rx One Meter) blood-glucose sensor (Dexcom G7 01/19/24 01/26/25 History Sensor device) cyclosporine 0.05 % eye drops in a 1 drp OPB BID 10/26/24 04/16/25 History dropperette blood sugar diagnostic (Contour #400 ea 11/12/24 01/26/25 Rx Next Test Strips) insulin aspart U-100 100 unit/mL 0 sliding scale dose subcut 12/13/24 04/16/25 History (3 mL) subcutaneous pen (Novolog TIDWMEAL FlexPen U-100 Insulin aspart) buspirone 30 mg tablet 30 mg feeding tube BID #60 tabs 12/15/24 04/16/25 Rx gabapentin 800 mg tablet 800 mg feeding tube BID #60 tabs 12/15/24 04/16/25 Rx ondansetron 8 mg disintegrating 8 mg PO Q8H PRN Nausea 01/01/25 04/16/25 History tablet pen needle, diabetic 31 gauge x #500 ea 03/21/25 Rx 3/16" latanoprostene bunod 0.024 % eye 1 drp ophthalmic (eye) QPM 04/13/25 04/16/25 History drops (Vyzulta) mercaptopurine 50 mg tablet 50 mg PO DAILY 04/13/25 04/16/25 History Patient History Medical History PEG tube malfunction Anemia Obesity Gout Hypertension Dyslipidemia associated with type 2 diabetes mellitus Diabetic peripheral neuropathy associated with type 2 diabetes mellitus Depression with anxiety Post-nasal drip Type 2 diabetes mellitus Spinal stenosis Glaucoma Metabolic syndrome Recurrent squamous cell carcinoma of tongue Surgery 04/2024 and 10/04/24; currently on chemo tx; follows with once per week (wednesdays); also current XRT with in [place] Hx of sepsis 2021- no residual/current issues Fatty liver Sleep apnea CPAP Crohn's disease Neck problem Cervical pitched nerve + narrowing Intermittent LUE radiculopathy and ROM limitations COPD (chronic obstructive pulmonary disease) "Mild" No inhaler Surgical History History of percutaneous endoscopic gastrostomy (11/29/24) Esophagogastroduodenoscopy with Percutaneous Endoscopic Gastrostomy (PEG) Tube - Malik Turner DO Port-A-Cath in place (11/01/24) Insertion Access Port with Fluoroscopy - Right Subclavian(Right) - Kishore Mulligan DO; MAC without issue S/P cholecystectomy S/P partial glossectomy 04/30/24: partial glossectomy with L selective neck dissection [facility]; 10/04/24: L suprahyoid neck dissection and partial glossectomy Hx of cataract extraction R/L Hx of bilateral breast reduction surgery S/P epidural steroid injection x4 [id number] History of colonoscopy History of bowel resection (~2003) 12 inches r/t Crohn's disease (1971) Re-do r/t Crohn's disease (2003)- also had gallbladder removed at this time History of appendectomy (1971) Family History Father Family history of diabetes mellitus Diabetes Stroke Daughter Breast cancer Uncle Diabetes Grandmother Diabetes Stroke Other No family history of adverse response to anesthesia Social History Smoking Status: Former smoker Tobacco Type: Cigarettes Age Started Using Tobacco: 18; Age Quit Using Tobacco: 30; packs per day: 1; Cigarettes Per Day: 1980; Second Hand Exposure: Yes; Do You Dip or Chew Tobacco: No; Hx Alcohol Use: No Hx Substance Use: No Preferred Language: Gabonese Communication Ability: Effective Visual Impairment: No Limitations Front Desk Required: No Beliefs That Will Affect Care: [employer] Beliefs: [employer] Current Living Situation: Spouse Feels Safe at Home: Yes Assistive Devices: CPAP, Walker and Other Review of Systems 2 Review of Systems: All systems reviewed & are unremarkable except as noted in Subjective Physical Exam 2 Physical Exam: Constitutional: No acute distress HEENT: EOMI, PERRLA Respiratory system: Good air entry bilaterally, no wheeze, no rhonchi, positive crackles bilateral lower lobe CVS: S1-S2 positive, no murmurs or gallops Abdomen: Soft, nontender, nondistended, positive bowel sounds x4, positive PEG tube Extremities: +2 pulses bilaterally radialis/ dorsalis pedis, no cyanosis, minimal pitting edema bilateral lower extremity Neuro: Awake alert oriented x3 Psych: Normal mood and affect G/U: No Luz Skin: no rashes, warm and dry Lymphatic: no cervical or axillary lymphadenopathy Results & Data Results & Data Vital Signs (Past 12 Hours) Vital Signs Temp Pulse Pulse Resp BP Pulse Ox O2 Del Method 04/21/25 07:33 36.8 C 73 16 151/73 H 98 Room Air 04/21/25 03:08 83 18 96 FiO2 04/21/25 07:33 04/21/25 03:08 21 Laboratory Results 04/19/25 05:56 04/21/25 05:33 PG Care Time/CCT Total # of Minutes Spent Total Time Spent with Patient: Total time spent is greater than 50% in coordination of care (as documented) at patient's floor/unit and/or counseling patient: Coding Level of Care Code 78097 INT INP/OBS CARE 2/55MIN Diagnoses Multiple pulmonary nodules R91.[address] R93.89 Recurrent squamous cell carcinoma of tongue C02.9
[2025-04-22 07:19] LABS: Anion Gap 10.0 (3-11); Blood Urea Nitrogen 4.0 mg/dl (6-23); Calcium 8.9 mg/dl (8.6-10.3); Carbon Dioxide 23.0 mmol/L (21-32); Chloride 109.0 mmol/L (98-107); Creatinine Clr Calc Pharmacy 76.4 ml/min; Glucose 126.0 mg/dl (70-99(Fasting)); Magnesium 1.6 mg/dl (1.7-2.4); Potassium 3.0 mmol/L (3.5-5.1); Sodium 142.0 mmol/L (136-145)
--- NOTE | 2025-04-22 07:42 | Pulmonology Progress Note ---
Date of Service April 22, 2025 Assessment & Plan (1) Multiple pulmonary nodules: (2) Abnormal chest CT: (3) Recurrent squamous cell carcinoma of tongue: (4) Sleep apnea: Plan CT chest 04/13/2025 personally reviewed: Multiple pulmonary nodules appreciated bilaterally Largest being 2.1 cm in the right upper lobe followed by 2.1 cm left lower lobe para-aortic No significant mediastinal lymphadenopathy -- Multiple pulmonary nodules Largest being 2.1 cm in the right upper lobe followed by left lower lobe Only [id number] smoking history, quit in 1979, was exposed to secondhand smoke In summary who has history of squamous cell carcinoma the possibility of malignancy/malignancy particularly Patient is agreeable to have the procedure done. 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 It may contain grammatical, syntax or spelling errors.Any formal questions or concerns about the content, text or information contained within the body of this dictation should be directly addressed to the provider for clarification. Admission and Anticipated Discharge Date Admission Date: April 16, 2025 Subjective Patient seen and examined at bedside. No acute distress, no adverse events overnight Denies any chest pain Fair appetite, no nausea or vomiting Denied any abdominal pain Has been afebrile Review of Systems 2 Review of Systems: All systems reviewed & are unremarkable except as noted in Subjective Physical Exam 2 Physical Exam: Constitutional: No acute distress HEENT: EOMI, PERRLA Respiratory system: Good air entry bilaterally, no wheeze, no rhonchi, positive crackles bilateral lower lobe CVS: S1-S2 positive, no murmurs or gallops Abdomen: Soft, nontender, nondistended, positive bowel sounds x4, positive PEG tube Extremities: +2 pulses bilaterally radialis/ dorsalis pedis, no cyanosis, minimal pitting edema bilateral lower extremity Neuro: Awake alert oriented x3 Psych: Normal mood and affect G/U: No Luz Skin: no rashes, warm and dry Lymphatic: no cervical or axillary lymphadenopathy Results & Data Results & Data Vital Signs (Past 12 Hours) Vital Signs Temp Pulse Resp BP Pulse Ox O2 Del Method 04/21/25 20:37 36.7 C 78 16 161/95 H 97 Room Air 04/21/25 20:28 Room Air Laboratory Results 04/19/25 05:56 04/22/25 06:02 PG Care Time/CCT Total # of Minutes Spent Total Time Spent with Patient: Total time spent is greater than 50% in coordination of care (as documented) at patient's floor/unit and/or counseling patient: Coding Level of Care Code 59079 SUB INP/OBS CARE 2/35MIN Diagnoses Multiple pulmonary nodules R91.[address] R93.89 Recurrent squamous cell carcinoma of tongue C02.9 Sleep apnea G47.30
[2025-04-22] MEDS: PROSOURCE NO CARB 30 ML/PKT GT SCH (08:40)
[2025-04-22 08:43] LABS: INR 1.1 (0.9-1.1); Partial Thromboplastin Time 32 Seconds (21-31); Prothrombin Time 11.4 Seconds (9.0-12.0)
[2025-04-22] MEDS: MAGNESIUM SULFATE / D5W 1 GM/100 ML BAG IV ONE (09:29)
[2025-04-22] MEDS: POTASSIUM CHLORIDE 20 MEQ/15 ML UDC PO SCH (10:11)
[2025-04-22] MEDS: MAGNESIUM OXIDE 400 MG TAB PO SCH (10:12)
[2025-04-22] MEDS: POTASSIUM CHLORIDE / WTR 20 MEQ/100 ML PLCT IV SCH (11:37)
[2025-04-22] MEDS: AMOXICILLIN/CLAVULANATE SUSP 400/57 MG 5 ML BTL PO SCH (13:12)
--- NOTE | 2025-04-22 14:01 | Hospitalist Progress Note ---
Date of Service April 22, 2025 Assessment & Plan (1) Cellulitis of face: (2) Salivary gland obstruction: (3) Jerri infection: (4) Hypokalemia: (5) Hypomagnesemia: Plan Patient is a 74-year-old female with past medical history of type II DM, HTN, COPD, GAMA, Crohn's s/p partial colectomy. 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 Patient presented due to redness of her PEG tube and right sided facial erythema and swelling. She is being admitted for evaluation for possible PEG tube removal and right facial cellulitis secondary to salivary gland obstruction. #right facial cellulitis/salivary gland obstruction With hx of salivary gland obstruction Dr Vargas consulted --> recommended heat, fluid, massage IV abx, sour candy/lemon juice rinse. DIscussed with Dr. Vargas - repeat CT scan from 04/20 with unchanged partoid gland consider bx, discussed with IR would not recommmend bx with negative PET 04/05 and improvement with abx. --> plan to continue abx, OP follow up with Dr. Vargas and consider repeat imaging in a few weeks Discussed with pharmacy 04/22 --> transition to liquid augmentin and doxy (to prevent pill esophagitis and can use PEG if needed) At discharge, liquid Augmentin should be in the 400/5ml concentration to get enough clavulanic acid Pain control w/ Tylenol & Morphine for severe pain. #PEG tube infection Wound culture + for Serratia marcescens, pansensitive, MSSA and galbrata - Rocephin started 04/17, discontinued 04/22 as it will be covered by abx above recommend avoiding placing gauze around peg tube. Clean with saline if purulent drainage around site. No need for fungal powder needed. Speech consulted - diet w/ minced & moist, Nutrition consulted - try for prosouce today with G tube with BID boost. Today had a prolonged discussion about the need for proper nutrition, espeically with planned immunotherapy. Patient voiced understanding. I do think she probably eats alittle better at home given the variety but concerned about the amount. Encouraged her to worry about her diabetes a little less, and we can compensate with a few extra units of insulin if needed. #Electrolyte abnormalities Acute on Chronic --> reports was given a potassium supplement at home but has not started yet. K 3.0 and Mag 1.6 today - repleted IV and PO. Will need supplementation at discharge Started on daily mag and K 40 BID powder AM BMP and Mag #Crohn's disease s/p partial colectomy. Mercaptopurine held due to infx Has diarrhea 1x daily. Stool studies negative. Discussed w/ Dr. 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 Perez outpatient. S/p radiation and chemotherapy. PEG tube as above. Patient reports she does need to meet with [facility] for a lung bx --> Dr. rm consulted and plan for outpatient bx next week 04/27 #GAMA CPAP at bedtime #T2DM Most recent A1C 6.6%. SSI with target BSG range 110-180mg/dL, CF 15, carb ratio 5 Refused Lantus x 2 --> discontinued. #HTN - no reported home medications with med rec, monitor BP. VTE ppx: SCDs, Lovenox Dispo: continued inpatient stay, monitor nutrition status Updated at bedside 04/18 & 04/21 & 04/22 Admission and Anticipated Discharge Date Admission Date: April 16, 2025 Subjective Patient seen earlier this morning after breakfast, had a friend present at bedside she reports that her facial swelling is feeling much better she is having a hard time with Po intake because her food gets cold. She states she eats alot of soup at home. She is also did not like the flavor of boost she recieved and is requesting chocolate we discussed her electolytes and she is unsure how she would like to take her potassium moving her bowels Review of Systems Review of Systems: All systems reviewed & are unremarkable except as noted in Subjective Physical Exam Physical Exam: General: NAD, VS as above HEENT: swelling and erythema to right check/jaw bone area - has improved compared to yesterday, Resp: normal respiratory effort, lungs clear to auscultation CV: RRR, no murmur, Abd: normal bowel sounds, non tender, no hepatosplenomegaly. PEG tube site with mild erythema which is improved , no active drainage Extremities: Moves all extremities, non pitting LE edema Neuro: A&O x3, Results & Data Results & Data Vital Signs (Past 12 Hours) Vital Signs Temp Pulse Pulse Resp BP Pulse Ox O2 Del Method 04/22/25 12:53 97.9 F 72 16 129/77 96 Room Air 04/22/25 09:41 Room Air, CPAP 04/22/25 07:45 97.9 F 78 78 17 156/81 H 96 Room Air Laboratory Results BMP and mag reviewed PT/INR reviewed PG Care Time/CCT Total # of Minutes Spent Total Time Spent with Patient: Total time spent is greater than 50% in coordination of care (as documented) at patient's floor/unit and/or counseling patient: Coding Level of Care Code 65843 SUB INP/OBS CARE 3/50MIN Diagnoses Cellulitis of face L03.211 Salivary gland obstruction K11.8 Jerri infection B37.9 Hypokalemia E87.6 Hypomagnesemia E83.42
[2025-04-22] MEDS: POTASSIUM CHLORIDE PWD 20 MEQ PACK PO SCH (22:13)
[2025-04-23] MEDS: DOXYCYCLINE SUSP 25 MG/5 ML 60ML PO SCH (00:22)
--- NOTE | 2025-04-23 05:54 | Electrocardiogram Report ---
Test Reason : Blood Pressure : */* mmHG Vent. Rate : 77 BPM Atrial Rate : 77 BPM P-R Int : 236 ms QRS Dur : 102 ms QT Int : 378 ms P-R-T Axes : 40 100 34 degrees QTcB Int : 427 ms Sinus rhythm with 1st degree A-V block with Premature atrial complexes Rightward axis Low voltage QRS Nonspecific T wave abnormality When compared with ECG of 17-Apr-2025 08:35, Premature atrial complexes are now Present Nonspecific T wave abnormality has replaced inverted T waves in Anterior leads Confirmed by Sonny Yee ([id number]) on 04/23/2025 5:54:14 AM Referred By: REFERRED SELF Confirmed By: Sonny Yee
[2025-04-23] MEDS: TUBE FEEDING WATER FLUSH GT SCH (08:04)
--- NOTE | 2025-04-23 08:30 | Pulmonology Progress Note ---
Date of Service April 23, 2025 Assessment & Plan (1) Multiple pulmonary nodules: (2) Abnormal chest CT: (3) Recurrent squamous cell carcinoma of tongue: (4) Sleep apnea: Plan CT chest 04/13/2025 personally reviewed: Multiple pulmonary nodules appreciated bilaterally Largest being 2.1 cm in the right upper lobe followed by 2.1 cm left lower lobe para-aortic No significant mediastinal lymphadenopathy -- Multiple pulmonary nodules Largest being 2.1 cm in the right upper lobe followed by left lower lobe Only [id number] smoking history, quit in 1979, was exposed to secondhand smoke In summary who has history of squamous cell carcinoma the possibility of malignancy/malignancy particularly Patient is agreeable to have the procedure done. 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 What ever decision she makes and is comfortable with is what will be respected. Please note the above document was generated using voice recognition software. It may contain grammatical, syntax or spelling errors.Any formal questions or concerns about the content, text or information contained within the body of this dictation should be directly addressed to the provider for clarification. Admission and Anticipated Discharge Date Admission Date: April 16, 2025 Subjective Patient seen and examined at bedside. No acute distress, no adverse events overnight She was a little emotional today when while talking to her She says that she is thinking a lot about relapse of her cancer and whether she would like to have the procedure done She has been complaining of mild nausea Appetite is poor. No vomiting No abdominal pain Periodic cough with clear phlegm Denies any shortness of breath Was saturating well on room air Review of Systems 2 Review of Systems: All systems reviewed & are unremarkable except as noted in Subjective Physical Exam 2 Physical Exam: Constitutional: No acute distress HEENT: EOMI, PERRLA Respiratory system: Good air entry bilaterally, no wheeze, no rhonchi, positive crackles bilateral lower lobe CVS: S1-S2 positive, no murmurs or gallops Abdomen: Soft, nontender, nondistended, positive bowel sounds x4, positive PEG tube Extremities: +2 pulses bilaterally radialis/ dorsalis pedis, no cyanosis, no edema Neuro: Awake alert oriented x3 Psych: Normal mood and affect G/U: No Luz Skin: no rashes, warm and dry Lymphatic: no cervical or axillary lymphadenopathy Results & Data Results & Data Vital Signs (Past 12 Hours) Vital Signs Temp Pulse Pulse Resp BP Pulse Ox O2 Del Method 04/23/25 07:32 36.6 C 90 16 135/77 94 Room Air 04/23/25 03:16 79 15 97 04/23/25 00:45 80 19 97 04/22/25 22:30 36.4 C L 80 16 148/80 H 96 Room Air 04/22/25 22:15 Room Air FiO2 04/23/25 07:32 04/23/25 03:16 21 04/23/25 00:45 21 04/22/25 22:30 04/22/25 22:15 Laboratory Results 04/19/25 05:56 PG Care Time/CCT Total # of Minutes Spent Total Time Spent with Patient: Total time spent is greater than 50% in coordination of care (as documented) at patient's floor/unit and/or counseling patient: Coding Level of Care Code 06163 SUB INP/OBS CARE 2/35MIN Diagnoses Multiple pulmonary nodules R91.[address] R93.89 Recurrent squamous cell carcinoma of tongue C02.9 Sleep apnea G47.30
[2025-04-23 08:47] LABS: Anion Gap 7.0 (3-11); Blood Urea Nitrogen 8.0 mg/dl (6-23); Calcium 9.3 mg/dl (8.6-10.3); Carbon Dioxide 23.0 mmol/L (21-32); Chloride 112.0 mmol/L (98-107); Creatinine Clr Calc Pharmacy 77.5 ml/min; Glucose 125.0 mg/dl (70-99(Fasting)); Magnesium 1.6 mg/dl (1.7-2.4); Potassium 3.8 mmol/L (3.5-5.1); Sodium 142.0 mmol/L (136-145)
--- NOTE | 2025-04-23 09:49 | Hospitalist Progress Note ---
Date of Service April 23, 2025 Assessment & Plan (1) Cellulitis of face: (2) Salivary gland obstruction: (3) Jerri infection: (4) Hypokalemia: (5) Hypomagnesemia: Plan Patient is a 74-year-old female with past medical history of type II DM, HTN, COPD, GAMA, Crohn's s/p partial colectomy. 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 Patient presented due to redness of her PEG tube and right sided facial erythema and swelling. She is being admitted for evaluation for possible PEG tube removal and right facial cellulitis secondary to salivary gland obstruction. #right facial cellulitis/salivary gland obstruction With hx of salivary gland obstruction Dr Vargas consulted --> recommended heat, fluid, massage IV abx, sour candy/lemon juice rinse. DIscussed with Dr. Vargas - repeat CT scan from 04/20 with unchanged partoid gland consider bx, discussed with IR would not recommmend bx with negative PET 04/05 and improvement with abx. --> plan to continue abx, OP follow up with Dr. Vargas and consider repeat imaging in a few weeks Discussed with pharmacy 04/22 --> transition to liquid augmentin and doxy (to prevent pill esophagitis and can use PEG if needed) total 10-14 day course At discharge, liquid Augmentin should be in the 400/5ml concentration to get enough clavulanic acid Pain control w/ Tylenol & Morphine for severe pain. #PEG tube infection Wound culture + for Serratia marcescens, pansensitive, MSSA and galbrata - Mihir ephin started 04/17, discontinued 04/22 as it will be covered by abx above recommend avoiding placing gauze around peg tube. Clean with saline if purulent drainage around site. No need for fungal powder needed. Speech consulted - diet w/ minced & moist, Nutrition consulted - try for prosouce today with G tube with BID boost. Patient very mentally down about her disease process and prognosis - discussed palliative care consult which she is pondering. Agreeable to initate remeron. Shyanne carcamo consulted #Electrolyte abnormalities Acute on Chronic --> reports was given a potassium supplement at home but has not started yet. K 3.8 and Mag 1.6 today - replete mag IV, continue BID PO K - if K remains stable tomorrow can likely transition to daily Started on daily mag and K 40 BID powder AM BMP and Mag #Crohn's disease s/p partial colectomy. Mercaptopurine held due to infx Has diarrhea 1x daily. Stool studies negative. Discussed w/ Dr. 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 Perez outpatient. S/p radiation and chemotherapy. PEG tube as above. Patient reports she does need to meet with [facility] for a lung bx --> Dr. rm consulted and plan for outpatient bx next week 04/27 #GAMA CPAP at bedtime #T2DM Most recent A1C 6.6%. SSI with target BSG range 110-180mg/dL, CF 15, carb ratio 5 Refused Lantus x 2 --> discontinued. #HTN - no reported home medications with med rec, monitor BP. VTE ppx: SCDs, Lovenox Dispo: continued inpatient stay, monitor nutrition status Updated at bedside 04/18 & 04/21 & 04/22 Admission and Anticipated Discharge Date Admission Date: April 16, 2025 Subjective Patient seen sitting up in bed reports feeling mentally down - very overwhelmed by all of her disease processes, and being told that things will work and then they dont, feels like a failure. More details in ACP note Does feel like the things her friend brought help her clean her mouth K liriano her mouth so has been using her tube abdomen folds are itchy Review of Systems Review of Systems: All systems reviewed & are unremarkable except as noted in Subjective Physical Exam Physical Exam: General: NAD, VS as above HEENT: mild swelling and erythema to right check/jaw bone area - much improved Resp: normal respiratory effort, lungs clear to auscultation CV: RRR, no murmur, Abd: normal bowel sounds, non tender, no hepatosplenomegaly. PEG tube site with mild erythema which is improved , no active drainage Extremities: Moves all extremities, non pitting LE edema Neuro: A&O x3, Results & Data Results & Data Vital Signs (Past 12 Hours) Vital Signs Temp Pulse Pulse Resp BP Pulse Ox O2 Del Method 04/23/25 07:32 97.9 F 90 16 135/77 94 Room Air 04/23/25 03:16 79 15 97 04/23/25 00:45 80 19 97 04/22/25 22:30 97.5 F L 80 16 148/80 H 96 Room Air 04/22/25 22:15 Room Air FiO2 04/23/25 07:32 04/23/25 03:16 21 04/23/25 00:45 21 04/22/25 22:30 04/22/25 22:15 Laboratory Results bmp and mag reviewed PG Care Time/CCT Total # of Minutes Spent Total Time Spent with Patient: Total time spent is greater than 50% in coordination of care (as documented) at patient's floor/unit and/or counseling patient: Coding Level of Care Code 02179 SUB INP/OBS CARE 350MIN Diagnoses Cellulitis of face L03.211 Salivary gland obstruction K11.8 Jerri infection B37.9 Hypokalemia E87.6 Hypomagnesemia E83.42
--- NOTE | 2025-04-23 09:53 | Advance Care Plan Prog Note ---
Advanced Care Planning Note Date of Discussion April 23, 2025 ACP Discussion Diagnoses requiring ACP discussion: [metastatic SCC ] A [id number] discussion with Carley regarding the patient's advanced care planning took place during this hospitalization on the above date. The discussion included the explanation and discussion of advance directives and associated forms/documents, as well as the patient's current code status. We also discussed at length the patient's medical conditions (both acute and chronic), general prognosis, treatment options, and goals of care. The following summarizes the discussion: Carley is feeling very overwhelmed about her disease process, current state of health and not getting better. States she has been repetitively been told that things are going to get better and then she gets bad news. She feels like a failure, especially in regards to her oral intake. States her is in denial that she has lung cancer until it is biopsy proven. We had a discussion about her thoughts on not pursuing active treating - Carley stated that no one has given her that option before and that is something she would like to contemplate. Although, she feels like hospice is "giving up". Right now, her biggest barrier to perusing a hospice route is her daughter, does not think that is what her daughter would want her to choose. Stating that her daughter is her biggest advocate, but she is currently away on vacation and is due to return tomorrow evening. She also has missed two therapy appointments and has alot of stressors. She would like to think about her options and asked me to come back when her was present. I revisted this afternoon when Sampson, her was present. At first, Sampson was very hesitant to even listen to what I had to say given that I was not the oncologist. I informed him that I was not trying to replace the onco logist, I am just trying to make sure Carley is aware of all of her options for her care. Sampson made multiple comments that did not value Carley as the decision maker, such as asking me "well doesnt the family have a say?" to which I informed him that any family member can share their opinions about the situation with Carley, but Carley gets to make the decisions about her own body and his response was "She better make the right ones" We discussed that Carley does not experience eating/chewing like we do because of her tongue resection and chemo/radiation. Sampson expressed that he wants Carley to "get over it" and try more of the foods that he makes. Towards the end of the conversation Sampson asked me to leave because "your too good at advocating for your patients" I reassured Carley no decisions to make changes in her care had to be made today but regardless she is the one who is to make the decisions and I am here to make sure she knows all her options. As a result of this discussion - no changes to the current plan of care were made. Discussion will be ongoing. Advance Care Planning/Goals of Care Continue current evaluation & management of any acute/chronic issues, Will continue to support the patient/family and Will continue to discuss both short- and long-term goals of care Status Resuscitation Status Full Code Total Time I spent a total of [65] minutes was spent on this discussion, including counseling, answering questions, and completing, if any, pertinent advanced care planning forms/documents.
[2025-04-23] MEDS: MAGNESIUM SULFATE / D5W 1 GM/100 ML BAG IV SCH (09:59)
[2025-04-23] MEDS: PROCHLORPERAZINE 5 MG in SYRINGE 4 ML IV PRN (19:03)
[2025-04-23] MEDS: MIRTAZAPINE TAB 15 MG TAB PO SCH (20:07)
[2025-04-23] MEDS: TRIAMCINOLONE ACET 0.1% CR 80 GM TUBE EXT PRN (20:19)
[2025-04-23] MEDS: NYSTATIN POWDER 15GM BTL EXT PRN (20:20)
[2025-04-24 06:22] LABS: Anion Gap 7.0 (3-11); Blood Urea Nitrogen 6.0 mg/dl (6-23); Calcium 9.5 mg/dl (8.6-10.3); Carbon Dioxide 21.0 mmol/L (21-32); Chloride 114.0 mmol/L (98-107); Creatinine Clr Calc Pharmacy 79.9 ml/min; Glucose 114.0 mg/dl (70-99(Fasting)); Magnesium 1.7 mg/dl (1.7-2.4); Potassium 3.9 mmol/L (3.5-5.1); Sodium 142.0 mmol/L (136-145)
[2025-04-24] MEDS: POTASSIUM CHLORIDE PWD 20 MEQ PACK PO SCH (08:38)
[2025-04-24] MEDS: NUTREN LIQD 2.0 1,000 ML BAG GT SCH (08:48)
--- NOTE | 2025-04-24 09:51 | Pulmonology Progress Note ---
Date of Service April 24, 2025 Assessment & Plan (1) Multiple pulmonary nodules: (2) Abnormal chest CT: (3) Recurrent squamous cell carcinoma of tongue: (4) Sleep apnea: Plan CT chest 04/13/2025 personally reviewed: Multiple pulmonary nodules appreciated bilaterally Largest being 2.1 cm in the right upper lobe followed by 2.1 cm left lower lobe para-aortic No significant mediastinal lymphadenopathy -- Multiple pulmonary nodules Largest being 2.1 cm in the right upper lobe followed by left lower lobe Only [id number] smoking history, quit in 1979, was exposed to secondhand smoke In summary who has history of squamous cell carcinoma the possibility of malignancy/malignancy particularly Patient is agreeable to have the procedure done. I will try to schedule it next week Friday --Squamous cell carcinoma of the tongue Stage IV Diagnosed 12/2023, recurrence August 2024 Planning to get pembrolizumab -- GAMA On CPAP Plan: Bronchoscopy has been scheduled to be done on 04/27/2025 Patient is still thinking whether she wants to pursue immunotherapy and/or biopsy I did encourage her to speak with as well as daughter before making any decision. I will get in touch with oncology as well so that they can also have a visit tomorrow with the patient I reiterated what ever decision she makes and is comfortable with is what will be respected. Please note the above document was generated using voice recognition software. It may contain grammatical, syntax or spelling errors.Any formal questions or concerns about the content, text or information contained within the body of this dictation should be directly addressed to the provider for clarification. Admission and Anticipated Discharge Date Admission Date: April 16, 2025 Subjective Patient seen and examined at bedside. No acute distress, no adverse events overnight She had talked with the primary team along with yesterday regarding what her options are moving forward She is not yet decided Her daughter is coming back today she would like to talk to her before making any decision She is able to tolerate the food better. Mild nausea but no vomiting No unusual headache or blurry vision Was saturating well on room air Review of Systems 2 Review of Systems: All systems reviewed & are unremarkable except as noted in Subjective Physical Exam 2 Physical Exam: Constitutional: No acute distress HEENT: EOMI, PERRLA Respiratory system: Good air entry bilaterally, no wheeze, no rhonchi, positive crackles bilateral lower lobe CVS: S1-S2 positive, no murmurs or gallops Abdomen: Soft, nontender, nondistended, positive bowel sounds x4, positive PEG tube Extremities: +2 pulses bilaterally radialis/ dorsalis pedis, no cyanosis, no edema Neuro: Awake alert oriented x3 Psych: Normal mood and affect G/U: No Luz Skin: no rashes, warm and dry Lymphatic: no cervical or axillary lymphadenopathy Results & Data Results & Data Vital Signs (Past 12 Hours) Vital Signs Temp Pulse Pulse Resp BP Pulse Ox O2 Del Method 04/24/25 07:34 36.5 C 85 16 127/79 94 Room Air 04/24/25 02:47 80 12 96 04/23/25 23:00 36.4 C L 82 18 156/83 H 95 Room Air FiO2 04/24/25 07:34 04/24/25 02:47 21 04/23/25 23:00 Laboratory Results 04/19/25 05:56 04/24/25 05:26 PG Care Time/CCT Total # of Minutes Spent Total Time Spent with Patient: Total time spent is greater than 50% in coordination of care (as documented) at patient's floor/unit and/or counseling patient: Coding Level of Care Code 76472 SUB INP/OBS CARE 2/35MIN Diagnoses Multiple pulmonary nodules R91.[address] R93.89 Recurrent squamous cell carcinoma of tongue C02.9 Sleep apnea G47.30
--- NOTE | 2025-04-24 10:58 | Hospitalist Progress Note ---
Date of Service April 24, 2025 Assessment & Plan (1) Cellulitis of face: (2) Salivary gland obstruction: (3) Jerri infection: (4) Hypokalemia: (5) Hypomagnesemia: Plan Patient is a 74-year-old female with past medical history of type II DM, HTN, COPD, GAMA, Crohn's s/p partial colectomy. 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 Patient presented due to redness of her PEG tube and right sided facial erythema and swelling. She is being admitted for evaluation for possible PEG tube removal and right facial cellulitis secondary to salivary gland obstruction. #right facial cellulitis/salivary gland obstruction With hx of salivary gland obstruction Dr Vargas consulted --> recommended heat, fluid, massage IV abx, sour candy/lemon juice rinse. DIscussed with Dr. Vargas - repeat CT scan from 04/20 with unchanged partoid gland consider bx, discussed with IR would not recommmend bx with negative PET 04/05 and improvement with abx. --> plan to continue abx, OP follow up with Dr. Vargas and consider repeat imaging in a few weeks Discussed with pharmacy 04/22 --> transition to liquid augmentin and doxy (to prevent pill esophagitis and can use PEG if needed) total 10-14 day course At discharge, liquid Augmentin should be in the 400/5ml concentration to get enough clavulanic acid Pain control w/ Tylenol & Morphine for severe pain. #PEG tube infection Wound culture + for Serratia marcescens, pansensitive, MSSA and galbrata - Mihir ephin started 04/17, discontinued 04/22 as it will be covered by abx above recommend avoiding placing gauze around peg tube. Clean with saline if purulent drainage around site. No need for fungal powder needed. Speech consulted - diet w/ minced & moist, Nutrition consulted - try for prosouce today with G tube with BID boost. Remeron initiated 04/23 Patient very mentally down about her disease process and prognosis - discussed palliative care consult which she is now agreeable to. [facility] liason consulted Patients weight continue to drop #Electrolyte abnormalities Acute on Chronic --> reports was given a potassium supplement at home but has not started yet. K 3.9 and Mag 1.7 today - continue PO K - decreased to daily, continue daily mag AM BMP and Mag #Crohn's disease s/p partial colectomy. Mercaptopurine held due to infx Has diarrhea 1x daily. Stool studies negative. Discussed w/ Dr. Perez - aware colonoscopy was preformed and lung bx scheduled, planning for immunotherapy. Dr. 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 Perez outpatient. S/p radiation and chemotherapy. PEG tube as above. Patient reports she does need to meet with [facility] for a lung bx --> Dr. rm consulted and plan for outpatient bx next week 04/27 #GAMA CPAP at bedtime #T2DM Most recent A1C 6.6%. SSI with target BSG range 110-180mg/dL, CF 15, carb ratio 5 Refused Lantus x 2 --> discontinued. #HTN - no reported home medications with med rec, monitor BP. VTE ppx: SCDs, Lovenox Dispo: continued inpatient stay, monitor nutrition status, palliative and oncology to see patient tomorrow Updated at bedside 04/18 & 04/21 & 04/22 & 04/23 Admission and Anticipated Discharge Date Admission Date: April 16, 2025 Subjective patient seen lying in bed, only reports that she has a lot of things on her mind. I asked her how things went with her after our conversation yesterday. States that he cried on and off throughout the evening. Also states that her talked to their son and he was quite upset. They plan on talking to her daughter soon. But she is not in town yet she gets home later today. I offered to call the daughter but they did not want to do that today. We discussed a palliative care consult for which she is agreeable. We also discussed how she continues to lose weight she has not had her tube feeds at the time of my assessment today. Review of Systems Review of Systems: All systems reviewed & are unremarkable except as noted in Subjective Physical Exam Physical Exam: General: NAD, VS as above HEENT: mild swelling and erythema to right check/jaw bone area - much improved Resp: normal respiratory effort, lungs clear to auscultation CV: RRR, no murmur, Abd: normal bowel sounds, non tender, no hepatosplenomegaly. PEG tube site Much improved no active drainage Extremities: Moves all extremities, non pitting LE edema Neuro: A&O x3, Results & Data Results & Data Vital Signs (Past 12 Hours) Vital Signs Temp Pulse Pulse Resp BP Pulse Ox O2 Del Method 04/24/25 07:34 97.7 F 85 16 127/79 94 Room Air 04/24/25 02:47 80 12 96 04/23/25 23:00 97.5 F L 82 18 156/83 H 95 Room Air FiO2 04/24/25 07:34 04/24/25 02:47 21 04/23/25 23:00 Laboratory Results BMP and mag reviewed PG Care Time/CCT Total # of Minutes Spent Total Time Spent with Patient: Total time spent is greater than 50% in coordination of care (as documented) at patient's floor/unit and/or counseling patient: Coding Level of Care Code 82669 SUB INP/OBS CARE 2/35MIN Diagnoses Cellulitis of face L03.211 Salivary gland obstruction K11.8 Jerri infection B37.9 Hypokalemia E87.6 Hypomagnesemia E83.42
--- NOTE | 2025-04-24 11:03 | Advance Care Plan Prog Note ---
Advanced Care Planning Note Date of Discussion April 24, 2025 ACP Discussion Diagnoses requiring ACP discussion: [metastatic squamous cell cancer] A [id number] discussion with Carley regarding the patient's advanced care planning took place during this hospitalization on the above date. The discussion included the explanation and discussion of advance directives and associated forms/documents, as well as the patient's current code status. We also discussed at length the patient's medical conditions (both acute and chronic), general prognosis, treatment options, and goals of care. The following summarizes the discussion: Touching base with Carley following yesterday's conversation. She has a lot on her mind and is not sure how to process things. She is awaiting to speak to her daughter, which will hopefully happen tonight. Carley reports that her daughter is a great advocate for her, but advocates for her to live to eternity which Carley is realistic about and knows won't happen. We discussed a palliative care consult and she was hesitant at first but agreeable when discussing that this could be continued in the outpatient setting, possibly at the same time as Dr. Perez visits or virtually and that they would be able to help continue to advocate on her behalf when her and her family's opinions are not matching. We discussed code status - she wanted more time to think about this. She knows that she would not want to be kept alive on machines, but she did not know about resuscitation. We discussed the likelihood of successful resuscitations and the termite control technician of sequelae of these events. Plan to meet with Dr. Perez and palliative tomorrow. She is still undecided ab out the lung bx, but is wondering if it can be done while she is here. Advance Care Planning/Goals of Care Continue current evaluation & management of any acute/chronic issues, Will continue to support the patient/family and Will continue to discuss both short- and long-term goals of care Status Resuscitation Status Full Code Total Time I spent a total of [32] minutes was spent on this discussion, including counseling, answering questions, and completing, if any, pertinent advanced care planning forms/documents.
[2025-04-25 06:31] LABS: Anion Gap 7.0 (3-11); Blood Urea Nitrogen 14.0 mg/dl (6-23); Calcium 9.5 mg/dl (8.6-10.3); Carbon Dioxide 22.0 mmol/L (21-32); Chloride 114.0 mmol/L (98-107); Creatinine Clr Calc Pharmacy 75.4 ml/min; Glucose 116.0 mg/dl (70-99(Fasting)); Magnesium 1.5 mg/dl (1.7-2.4); Potassium 3.7 mmol/L (3.5-5.1); Sodium 143.0 mmol/L (136-145)
--- NOTE | 2025-04-25 07:32 | Pulmonology Progress Note ---
Date of Service April 25, 2025 Assessment & Plan (1) Multiple pulmonary nodules: (2) Abnormal chest CT: (3) Recurrent squamous cell carcinoma of tongue: (4) Sleep apnea: Plan CT chest 04/13/2025 personally reviewed: Multiple pulmonary nodules appreciated bilaterally Largest being 2.1 cm in the right upper lobe followed by 2.1 cm left lower lobe para-aortic No significant mediastinal lymphadenopathy -- Multiple pulmonary nodules Largest being 2.1 cm in the right upper lobe followed by left lower lobe Only [id number] smoking history, quit in 1979, was exposed to secondhand smoke In summary who has history of squamous cell carcinoma the possibility of malignancy/malignancy particularly Patient is agreeable to have the procedure done. I will try to schedule it next week Friday --Squamous cell carcinoma of the tongue Stage IV Diagnosed 12/2023, recurrence August 2024 Planning to get pembrolizumab -- GAMA On CPAP Plan: Bronchoscopy has been scheduled to be done on 04/27/2025 Hold the dose of Lovenox tomorrow Patient spoke with Dr. Perez and is agreeable to for procedure to be done on 04/27/2025 She is requesting if she could stay in the hospital so that she does not have to travel home and come back in a day, this was relayed to primary team Case discussed with oncology I reiterated what ever decision she makes and is comfortable with is what will be respected. All questions inquiries of the patient were answered in depth Please note the above document was generated using voice recognition software. It may contain grammatical, syntax or spelling errors.Any formal questions or concerns about the content, text or information contained within the body of this dictation should be directly addressed to the provider for clarification. Admission and Anticipated Discharge Date Admission Date: April 16, 2025 Subjective Patient seen and examined at bedside. No acute distress, no events events overnight Patient's is also in the room at the time of examination She denied any chest pain No nausea or vomiting Appetite is getting better but still not where she is wants it to be Getting tube feeds Review of Systems 2 Review of Systems: All systems reviewed & are unremarkable except as noted in Subjective Physical Exam 2 Physical Exam: Constitutional: No acute distress HEENT: EOMI, PERRLA Respiratory system: Good air entry bilaterally, no wheeze, no rhonchi, positive crackles bilateral lower lobe CVS: S1-S2 positive, no murmurs or gallops Abdomen: Soft, nontender, nondistended, positive bowel sounds x4, positive PEG tube Extremities: +2 pulses bilaterally radialis/ dorsalis pedis, no cyanosis, no edema Neuro: Awake alert oriented x3 Psych: Normal mood and affect G/U: No Luz Skin: no rashes, warm and dry Lymphatic: no cervical or axillary lymphadenopathy Results & Data Results & Data Vital Signs (Past 12 Hours) Vital Signs Temp Pulse Pulse Pulse Resp BP Pulse Ox 04/25/25 07:24 35.6 C L 104 H 104 H 16 129/82 98 04/25/25 02:23 77 14 94 04/24/25 22:34 36.5 C 90 16 169/76 H 96 04/24/25 22:11 83 14 97 O2 Del Method FiO2 04/25/25 07:24 Room Air 04/25/25 02:23 21 04/24/25 22:34 Room Air 04/24/25 22:11 21 Laboratory Results 04/19/25 05:56 04/25/25 05:28 PG Care Time/CCT Total # of Minutes Spent Total Time Spent with Patient: Total time spent is greater than 50% in coordination of care (as documented) at patient's floor/unit and/or counseling patient: Coding Level of Care Code 81354 SUB INP/OBS CARE 2/35MIN Diagnoses Multiple pulmonary nodules R91.[address] R93.89 Recurrent squamous cell carcinoma of tongue C02.9 Sleep apnea G47.30
--- NOTE | 2025-04-25 07:35 | Oncology Consultation ---
Date of Consultation April 25, 2025 Assessment & Plan (1) Recurrent squamous cell carcinoma of tongue: (2) Multiple pulmonary nodules: Plan I had an extensive discussion with patient and her today. 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 She has good PD-L1 expression which would indicate that she should have a good response to immunotherapy. Ideally, should get biopsy of lung lesion to confirm metastasis but given high clinical suspicion if patient decides not to proceed with lung biopsy would still proceed with pembrolizumab. - Following extensive discussion, Patient indicated that She would like to proceed with biopsy if it can be performed while she is inpatient due to distance of travel. Patient would like to start pembrolizumab as soon as she is discharged from hospital. She has been tentatively scheduled for treatment on 05/02/2025. History of Present Illness Reason for Consultation: Metastatic head and neck cancer Attending Physician: Brennan Lovett MD History of Present Illness 74-year-old female with medical history significant for squamous cell carcinoma of the tongue for which she is s/p chemoradiation treatment with cisplatin completed on 12/22/2024. Most recent restaging imaging was concerning for disease progression with multiple lung nodules. Was admitted to [facility] for right facial cellulitis secondary to saliva gland obstruction. During hospitalization, she underwent colonoscopy to rule out Crohn's flare prior to starting pembrolizumab. Colonoscopy was negative for evidence of active IBD. She is currently scheduled for outpatient biopsy of lung nodule on 04/27/2025. Allergies Allergy/AdvReac Type Severity Reaction Status Date / Time latex Allergy Intermediate Blisters Verified 04/20/25 12:55 Penicillins Allergy Intermediate Hives Verified 04/20/25 12:55 lisinopril Allergy Mild fluid Verified 04/20/25 12:55 retention [id number] Reductase Allergy Verified 04/20/25 12:55 Inhibitor Home Medications Medication Instructions Recorded Confirmed Type Microlet Lancet (lancets) #200 ea 06/12/20 01/26/25 Rx CPAP Machine 04/19/21 01/26/25 History soft lens rinse,store solution 05/29/22 01/26/25 History (Bio true solution) blood-glucose meter (Contour Next #1 ea 02/21/23 01/26/25 Rx One Meter) blood-glucose sensor (Dexcom G7 01/19/24 01/26/25 History Sensor device) cyclosporine 0.05 % eye drops in a 1 drp OPB BID 10/26/24 04/16/25 History dropperette blood sugar diagnostic (Contour #400 ea 11/12/24 01/26/25 Rx Next Test Strips) insulin aspart U-100 100 unit/mL 0 sliding scale dose subcut 12/13/24 04/16/25 History (3 mL) subcutaneous pen (Novolog TIDWMEAL FlexPen U-100 Insulin aspart) buspirone 30 mg tablet 30 mg feeding tube BID #60 tabs 12/15/24 04/16/25 Rx gabapentin 800 mg tablet 800 mg feeding tube BID #60 tabs 12/15/24 04/16/25 Rx ondansetron 8 mg disintegrating 8 mg PO Q8H PRN Nausea 01/01/25 04/16/25 History tablet pen needle, diabetic 31 gauge x #500 ea 03/21/25 Rx 3/16" latanoprostene bunod 0.024 % eye 1 drp ophthalmic (eye) QPM 04/13/25 04/16/25 History drops (Vyzulta) mercaptopurine 50 mg tablet 50 mg PO DAILY 04/13/25 04/16/25 History Patient History Medical History PEG tube malfunction Anemia Obesity Gout Hypertension Dyslipidemia associated with type 2 diabetes mellitus Diabetic peripheral neuropathy associated with type 2 diabetes mellitus Depression with anxiety Post-nasal drip Type 2 diabetes mellitus Spinal stenosis Glaucoma Metabolic syndrome Recurrent squamous cell carcinoma of tongue Surgery 04/2024 and 10/04/24; currently on chemo tx; follows with once per week (wednesdays); also current XRT with in [place] Hx of sepsis 2021- no residual/current issues Fatty liver Sleep apnea CPAP Crohn's disease Neck problem Cervical pitched nerve + narrowing Intermittent LUE radiculopathy and ROM limitations COPD (chronic obstructive pulmonary disease) "Mild" No inhaler Surgical History History of percutaneous endoscopic gastrostomy (11/29/24) Esophagogastroduodenoscopy with Percutaneous Endoscopic Gastrostomy (PEG) Tube - Malik Turner, DO Port-A-Cath in place (11/01/24) Insertion Access Port with Fluoroscopy - Right Subclavian(Right) - Kishore Mulligan DO; MAC without issue S/P cholecystectomy S/P partial glossectomy 04/30/24: partial glossectomy with L selective neck dissection Dr. Coyle [facility]; 10/04/24: L suprahyoid neck dissection and partial glossectomy Hx of cataract extraction R/L Hx of bilateral breast reduction surgery S/P epidural steroid injection x4 [id number] History of colonoscopy History of bowel resection (~2003) 12 inches r/t Crohn's disease (1971) Re-do r/t Crohn's disease (2003)- also had gallbladder removed at this time History of appendectomy (1971) Family History Father Family history of diabetes mellitus Diabetes Stroke Daughter Breast cancer Uncle Diabetes Grandmother Diabetes Stroke Other No family history of adverse response to anesthesia Social History Smoking Status: Former smoker Tobacco Type: Cigarettes Age Started Using Tobacco: 18; Age Quit Using Tobacco: 30; packs per day: 1; Cigarettes Per Day: 1980; Second Hand Exposure: Yes; Do You Dip or Chew Tobacco: No; Hx Alcohol Use: No Hx Substance Use: No Preferred Language: Nigerian Communication Ability: Effective Visual Impairment: No Limitations Book Or Script Editor Required: No Beliefs That Will Affect Care: Roman Catholic Roman Catholic Beliefs: BAPTIST Current Living Situation: Spouse Feels Safe at Home: Yes Assistive Devices: CPAP, Walker and Other Results & Data Vital Signs (Past 12 Hours) Vital Signs Temp Pulse Pulse Pulse Resp BP Pulse Ox 04/25/25 07:24 35.6 C L 104 H 104 H 16 129/82 98 04/25/25 02:23 77 14 94 04/24/25 22:34 36.5 C 90 16 169/76 H 96 04/24/25 22:11 83 14 97 O2 Del Method FiO2 04/25/25 07:24 Room Air 04/25/25 02:23 21 04/24/25 22:34 Room Air 04/24/25 22:11 21
[2025-04-25] MEDS: MAGNESIUM SULFATE / D5W 1 GM/100 ML BAG IV SCH (08:34)
--- NOTE | 2025-04-25 10:00 | Palliative Care Consultation ---
Date of Consultation April 25, 2025 Assessment & Plan (1) Palliative care by specialist: Met with pt at bedside, her spouse was present. Introduced Palliative Medicine and explained our role in advanced care planning, symptom management and navigation through the progression of life limiting disease. Patient and/or family were receptive to palliative services for goals of care discussions. Reviewed we are different from hospice, a home health nurse visiting service. (2) Counseling regarding advanced directives and goals of care: Pt shared that she had just met with Dr Perez and was told that her cancer is likely to respond well to treatment, and she would like to start soon. Although she was given option of beginning cancer directed therapy without biopsy, pt has opted to proceed with biopsy. Pt shared that Dr Perez was going to try to get pt's lung Bx (scheduled as outpt for 04/27) done while she is an inpt. Pt and her spouse both shared that they are eager to get chemotherapy underway. She stated she really does not feel she needs any help from palliative at this time. Pt denies any pain or discomfort at this time and has symptoms requiring palliative intervention. Discussed the role of palliative care in symptom management as well as navigation through progression of disease. Patient is agreeable to outpt follow up during her visits with Dr. Perez for cancer directed treatment. Pt and her spouse deferred any discussion of ACP/goals at this time. Plan We will sign off on this patient as goals of care are clearly established to continue all life prolonging therapies including resuscitation. Pt will follow up with Dr Arenas in outpt Palliative Care clinic. Thank you for including Palliative Care in the management of this patient. Please call with any questions or concerns regarding this consultation. History of Present Illness Reason for Consultation: goals of care Requesting Physician: Brennan Lovett MD Attending Physician: Brennan Lovett MD History of Present Illness Patient is a 74-year-old female with past medical history of type II DM, HTN, COPD, GAMA, Crohn's s/p partial colectomy. 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 Patient admitted 04/16/25 due to redness of her PEG tube and right sided facial erythema and swelling. She is being admitted for evaluation for possible PEG tube removal and right facial cellulitis secondary to salivary gland obstruction. She also has had "red and with white drainage" from PEG site for several weeks and she has been using OTC yeast powder. Patient had PET scan April 05 that showed new lung nodules of unclear etiology. She has history of recurrent squamous cell carcinoma of tongue, Most recent restaging imaging was concerning for disease progression with multiple lung nodules. Surgery 04/2024 and 10/04/24; currently on chemo tx; follows with once per week (wednesdays); also current XRT with in [facility] radiology as well as pulmonology (Dr. Hawkins). Allergies Allergy/AdvReac Type Severity Reaction Status Date / Time latex Allergy Intermediate Blisters Verified 04/20/25 12:55 Penicillins Allergy Intermediate Hives Verified 04/20/25 12:55 lisinopril Allergy Mild fluid Verified 04/20/25 12:55 retention Vnyapiv-GPU-BnS Reductase Allergy Verified 04/20/25 12:55 Inhibitor Home Medications Medication Instructions Recorded Confirmed Type Microlet Lancet (lancets) #200 ea 06/12/20 01/26/25 Rx CPAP Machine 04/19/21 01/26/25 History soft lens rinse,store solution 05/29/22 01/26/25 History (Bio true solution) blood-glucose meter (Contour Next #1 ea 02/21/23 01/26/25 Rx One Meter) blood-glucose sensor (Dexcom G7 01/19/24 01/26/25 History Sensor device) cyclosporine 0.05 % eye drops in a 1 drp OPB BID 10/26/24 04/16/25 History dropperette blood sugar diagnostic (Contour #400 ea 11/12/24 01/26/25 Rx Next Test Strips) insulin aspart U-100 100 unit/mL 0 sliding scale dose subcut 12/13/24 04/16/25 History (3 mL) subcutaneous pen (Novolog TIDWMEAL FlexPen U-100 Insulin aspart) buspirone 30 mg tablet 30 mg feeding tube BID #60 tabs 12/15/24 04/16/25 Rx gabapentin 800 mg tablet 800 mg feeding tube BID #60 tabs 12/15/24 04/16/25 Rx ondansetron 8 mg disintegrating 8 mg PO Q8H PRN Nausea 01/01/25 04/16/25 History tablet pen needle, diabetic 31 gauge x #500 ea 03/21/25 Rx 3/16" latanoprostene bunod 0.024 % eye 1 drp ophthalmic (eye) QPM 04/13/25 04/16/25 History drops (Vyzulta) mercaptopurine 50 mg tablet 50 mg PO DAILY 04/13/25 04/16/25 History Patient History Medical History PEG tube malfunction Anemia Obesity Gout Hypertension Dyslipidemia associated with type 2 diabetes mellitus Diabetic peripheral neuropathy associated with type 2 diabetes mellitus Depression with anxiety Post-nasal drip Type 2 diabetes mellitus Spinal stenosis Glaucoma Metabolic syndrome Recurrent squamous cell carcinoma of tongue Surgery 04/2024 and 10/04/24; currently on chemo tx; follows with once per week (wednesdays); also current XRT with in [place] Hx of sepsis 2021- no residual/current issues Fatty liver Sleep apnea CPAP Crohn's disease Neck problem Cervical pitched nerve + narrowing Intermittent LUE radiculopathy and ROM limitations COPD (chronic obstructive pulmonary disease) "Mild" No inhaler Surgical History History of percutaneous endoscopic gastrostomy (11/29/24) Esophagogastroduodenoscopy with Percutaneous Endoscopic Gastrostomy (PEG) Tube - Malik Turner DO Port-A-Cath in place (11/01/24) Insertion Access Port with Fluoroscopy - Right Subclavian(Right) - Kishore Mulligan DO; MAC without issue S/P cholecystectomy S/P partial glossectomy 04/30/24: partial glossectomy with L selective neck dissection Dr. Coyle [facility]; 10/04/24: L suprahyoid neck dissection and partial glossectomy Hx of cataract extraction R/L Hx of bilateral breast reduction surgery S/P epidural steroid injection x4 [id number] History of colonoscopy History of bowel resection (~2003) 12 inches r/t Crohn's disease (1971) Re-do r/t Crohn's disease (2003)- also had gallbladder removed at this time History of appendectomy (1971) Family History Father Family history of diabetes mellitus Diabetes Stroke Daughter Breast cancer Uncle Diabetes Grandmother Diabetes Stroke Other No family history of adverse response to anesthesia Social History Smoking Status: Former smoker Tobacco Type: Cigarettes Age Started Using Tobacco: 18; Age Quit Using Tobacco: 30; packs per day: 1; Cigarettes Per Day: 1980; Second Hand Exposure: Yes; Do You Dip or Chew Tobacco: No; Hx Alcohol Use: No Hx Substance Use: No Preferred Language: German Communication Ability: Effective Visual Impairment: No Limitations Paint Grinder Required: No Beliefs That Will Affect Care: Protestant Protestant Beliefs: LUTHERAN Current Living Situation: Spouse Feels Safe at Home: Yes Assistive Devices: CPAP, Walker and Other Review of Systems Review of Systems: All systems reviewed & are unremarkable except as noted in HPI & below Physical Exam Constitutional: well developed, well nourished, + obese, cooperative and comfortable; not in distress Eyes: PERRL, conjunctivae normal, anicteric sclerae Neck: trachea midline, no thyromegaly Respiratory: normal respiratory effort, lungs clear to auscultation Cardiovascular: Rate/Rhythm: regular rate and regular rhythm Heart Sounds: normal S1 and normal S2 Extremities: + edema Gastrointestinal (Abdomen): normal bowel sounds, soft, nontender, no hepatosplenomegaly Musculoskeletal: no cyanosis or clubbing, extremities motor strength 5/5 Neurologic: PERRL, EOMI, accommodation nl, no face palsy, no dysarthria Psychiatric: A+Ox3, euthymic affect Results & Data Vital Signs (Past 12 Hours) Vital Signs Temp Pulse Pulse Pulse Resp BP Pulse Ox 04/25/25 07:24 35.6 C L 104 H 104 H 16 129/82 98 04/25/25 02:23 77 14 94 04/24/25 22:34 36.5 C 90 16 169/76 H 96 04/24/25 22:11 83 14 97 O2 Del Method FiO2 04/25/25 07:24 Room Air 04/25/25 02:23 21 04/24/25 22:34 Room Air 04/24/25 22:11 21 Laboratory Results Abnormal lab results 04/24/25 04/24/25 04/24/25 Range/Units 11:19 16:28 20:19 Chloride (98-107) mmol/L Glucose (70-99(Fasting)) mg/dl POC Glucose 104 H 113 H 100 H (70-99) mg/dl Magnesium (1.7-2.4) mg/dl 04/25/25 04/25/25 Range/Units 05:28 07:39 Chloride 114 H (98-107) mmol/L Glucose 116 H (70-99(Fasting)) mg/dl POC Glucose 131 H (70-99) mg/dl Magnesium 1.5 L (1.7-2.4) mg/dl Diagnostic Findings Soft Tissue Neck CT 04/16/25 15:33 CT neck with contrast History: PEG tube issues Comparison: PET/CT 04/05/2025 Technique: Following intravenous administration of nonionic iodinated contrast medium, thin section helical CT images were obtained from the skull base down to the level of the aortic arch. Axial, coronal and sagittal reformations were performed with 2-3 mm slice thickness reconstruction. Images were reviewed in soft tissue, lung and bone windows. One or more of the following dose-optimizing techniques was utilized for this exam: automated exposure control, adjustment of the mA and/or kV according to patient size, and/or use of iterative reconstruction technique. Findings: Evaluation of the mucosal space demonstrates no evident abnormality in the nasopharynx, oropharynx, hypopharynx or the glottis. The tongue base appears normal. Complete fatty atrophy of the left parotid and left submandibular gland. There is also moderate fatty atrophy of the right parotid and right submandibular gland. The thyroid gland appears atrophic without suspicious nodule. There is no evident cervical lymphadenopathy. The fascial spaces in the neck are intact bilaterally. The major vascular structures in the neck appear unremarkable. Evaluation of the osseous structures demonstrate no worrisome lytic or sclerotic lesion. No overt spinal canal or neuroforaminal stenosis. The visualized paranasal sinuses are clear. The mastoid air cells are clear. Scattered pulmonary nodules again seen. Impression: Normal CT study of the neck with contrast. No evident mass or adenopathy within the neck. Glandular atrophy, as above. Redemonstrated scattered pulmonary nodules, partially seen in the upper lungs. Electronically signed by Joaquín Appiah 04-16-2025 6:[address] 04/20/25 13:[address] WITH AND WITHOUT CONTRAST CLINICAL HISTORY: Right facial erythema and swelling. Squamous cell carcinoma of the tongue status post chemoradiation. COMPARISON STUDY: PET/CT April 05, 2025. CT of the neck April 16, 2025. TECHNIQUE: Axial images through the face were obtained before and after intravenous administration of 90 cc of Optiray 320. Sagittal and coronal reformats were viewed. A dose lowering technique was utilized adhering to the principles of ALARA. FINDINGS: There are no facial fractures. Note is made of asymmetric heterogeneity and enhancement of the right parotid gland which is similar to CT of April 16, 2025. Adjacent inflammation is also unchanged. There is no rim- enhancing fluid collection to suggest an abscess. There is no soft tissue gas. No well-defined mass is identified within the right parotid gland. Asymmetric enhancement the right submandibular gland has mildly decreased since CT of April 16, 2025. The left parotid gland is unremarkable. No sialoliths are identified. The left submandibular gland is not well visualized. Epiglottis is normal. Major vasculature of the upper neck is patent. There is no fluid within mastoid air cells. There is minimal sinus mucosal thickening. IMPRESSION: 1. No significant change in findings consistent with right parotitis since CT of April 16, 2025. No abscess. No sialolith. 2. Partially visualized sialoadenitis of the right submandibular gland, mildly improved since prior CT. ACT 112: Negative or not required by law. Electronically signed by: Musa Dennis M.D. 04/20/2025 3:28 PM Medications Administered Current Inpatient Medications Acetaminophen (Acetaminophen 325 Mg Tab) 650 mg PO Q4H PRN PRN Reason: Pain or Fever Stop: 05/16/25 22:03 Last Admin: 04/19/25 23:19 Dose: 650 mg Amoxicillin/Clavulanate Potassium (Amoxicillin/Clavulanate Susp 400/57 Mg 5 Ml Btl) 800 mg PO BID@0800,1999 [facility] Stop: 05/02/25 11:59 Last Admin: 04/25/25 07:52 Dose: 800 mg Artificial Tears (Artificial Tears) 1 drops OP QID PRN PRN Reason: Dryness Stop: 05/16/25 22:24 Buspirone HCl (Buspirone 15 Mg Tab) 30 mg PO BID CHARI Stop: 05/16/25 22:03 Last Admin: 04/25/25 07:53 Dose: 30 mg Dextrose (Dextrose 50% 50 Ml Syringe) 25 - 50 ml IV UD PRN; Protocol PRN Reason: Hypoglycemia Protocol Stop: 05/16/25 22:03 Docusate Sodium (Docusate Sodium 100 Mg Cap) 100 mg PO BID PRN PRN Reason: Constipation Stop: 05/16/25 22:03 Doxycycline Monohydrate (Doxycycline Susp 25 Mg/5 Ml 60ml) 100 mg PO BID@0900,2100 CHARI Stop: 05/02/25 20:59 Last Admin: 04/25/25 08:35 Dose: 100 mg Enoxaparin Sodium (Enoxaparin Inj 40 Mg/0.4 Ml Syr) 40 mg SQ HS CHARI Stop: 05/16/25 22:44 Last Admin: 04/24/25 20:17 Dose: 40 mg Gabapentin (Gabapentin 800 Mg Tab) 800 mg PO BID CHARI Stop: 05/16/25 22:03 Last Admin: 04/25/25 07:52 Dose: 800 mg Glucagon (Glucagon For Inj 1 Mg Vial) 1 mg SQ UD PRN; Protocol PRN Reason: Hypoglycemia Protocol Stop: 05/16/25 22:03 Glucose (Glucose 40% Gel 15 Gm Tube) 15 - 30 gm PO UD PRN; Protocol PRN Reason: Hypoglycemia Protocol Stop: 05/16/25 22:03 Glucose (Glucose 10 Tab/Tube) 4 - 8 tab PO UD PRN; Protocol PRN Reason: Hypoglycemia Protocol Stop: 05/16/25 22:03 Heparin Sodium (Porcine) (Heparin 100 Unit/Ml 5ml Flush) 5 ml FLUSH PRN PRN PRN Reason: Flush Stop: 05/17/25 12:47 Last Admin: 04/25/25 08:17 Dose: 5 ml Prochlorperazine 5 mg/ Syringe 5 mls @ 5 mls/min IV Q6H PRN PRN Reason: Nausea And Vomiting Stop: 05/23/25 18:30 Last Admin: 04/24/25 10:52 Dose: 5 mls/min Magnesium Sulfate/Dextrose (Magnesium Sulfate / D5w) 1 gm in 100 mls @ 50 mls/hr IV Q2H CHARI Stop: 04/25/25 13:44 Last Admin: 04/25/25 08:34 Dose: 50 mls/hr Insulin Aspart (Insulin Aspart Per Unit Charge) 0 units SC ACHS CHARI Stop: 05/20/25 16:29 Last Admin: 04/25/25 08:33 Dose: 2 units Magnesium Oxide (Magnesium Oxide 400 Mg Tab) 400 mg PO QAM CHARI Stop: 05/22/25 08:59 Last Admin: 04/25/25 07:52 Dose: 400 mg Melatonin (Melatonin 3 Mg Tab) 3 mg PO HS PRN PRN Reason: Sleep Stop: 05/16/25 22:03 Mirtazapine (Mirtazapine Tab 15 Mg Tab) 7.5 mg PO HS [facility] Stop: 05/23/25 20:59 Last Admin: 04/24/25 20:20 Dose: 7.5 mg Miscellaneous (Carbohydrates For Hypoglycemia ) 15 - 30 gm PO UD PRN PRN Reason: Hypoglycemia Protocol Stop: 05/16/25 22:03 Morphine Sulfate (Morphine Sulfate 2 Mg/Ml Carp) 2 mg IV Q6H PRN PRN Reason: Moderate Pain (Scale 4, 5, 6) Stop: 04/30/25 22:03 Last Admin: 04/18/25 08:51 Dose: 2 mg Morphine Sulfate (Morphine Sulfate 4 Mg/Ml 1 Ml Carp\\Vial) 4 mg IV Q6H PRN PRN Reason: Severe Pain (Scale 7, 8, 9,10) Stop: 04/30/25 22:03 Naloxone HCl (Naloxone Hcl 0.4 Mg/1 Ml Vial/Carp) 0.1 mg IV Q5M PRN PRN Reason: Oversedation/Resp Depression Stop: 05/16/25 22:03 Vyzulta 0.024% Eye Drops- Non-Formulary Patient's Own Med 1 each EXT [facility] Stop: 05/17/25 20:59 Last Admin: 04/24/25 20:19 Dose: 1 drops Nutritional Formula (Prosource No Carb 30 Ml/Pkt) 60 ml GT DAILY [facility] Stop: 05/22/25 08:59 Last Admin: 04/25/25 07:53 Dose: 60 ml Nutritional Formula (Nutren Liqd 2.0 1,000 Ml Bag) 0 ml GT DAILY@0800 [facility]; Protocol Stop: 05/23/25 07:59 Last Admin: 04/25/25 08:35 Dose: 240 ml Nystatin (Nystatin Powder 15gm Btl) 1 appln EXT BID PRN PRN Reason: skin irritation Stop: 05/22/25 16:48 Last Admin: 04/23/25 20:20 Dose: 1 appln Ondansetron HCl (Ondansetron Inj 2 Mg/Ml 2 Ml Vial) 4 mg IV Q6H PRN PRN Reason: Nausea And Vomiting Stop: 05/16/25 22:03 Last Admin: 04/24/25 17:32 Dose: 4 mg Oxycodone HCl (Oxycodone Hcl Ir 5 Mg Tab (Immediate Release)) 5 mg PO Q4H PRN PRN Reason: Pain Stop: 05/01/25 09:43 Last Admin: 04/18/25 20:36 Dose: 5 mg Potassium Chloride (Potassium Chloride Pwd 20 Meq Pack) 40 meq PO QAM CHARI Stop: 05/24/25 08:59 Last Admin: 04/25/25 07:53 Dose: 40 meq Sterile Water (Tube Feeding Water Flush) 30 ml GT DAILY@0745,0900 [facility] Stop: 05/23/25 07:44 Last Admin: 04/25/25 08:35 Dose: 30 ml Triamcinolone Acetonide (Triamcinolone Acet 0.1% Cr 80 Gm Tube) 1 appln EXT BID PRN PRN Reason: skin irritation Stop: 05/22/25 16:48 Last Admin: 04/23/25 20:19 Dose: 1 appln PG Care Time/CCT Total # of Minutes Spent Total Time Spent with Patient: Total time spent is greater than 50% in coordination of care (as documented) at patient's floor/unit and/or counseling patient: [place] [address] IN/OBS CONSULT LVL 3,45M Patient Type New Medical Decision Making Low Complexity Diagnoses Palliative care by specialist Z51.5 Counseling regarding advanced directives and goals of care Z71.89
--- NOTE | 2025-04-25 11:45 | Hospitalist Progress Note ---
Date of Service April 25, 2025 Assessment & Plan (1) Cellulitis of face: (2) Salivary gland obstruction: (3) Jerri infection: (4) Hypokalemia: (5) Hypomagnesemia: Plan Patient is a 74-year-old female with past medical history of type II DM, HTN, COPD, GAMA, Crohn's s/p partial colectomy. 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 Patient presented due to redness of her PEG tube and right sided facial erythema and swelling. She is being admitted for evaluation for possible PEG tube removal and right facial cellulitis secondary to salivary gland obstruction. #right facial cellulitis/salivary gland obstruction With hx of salivary gland obstruction Dr Vargas consulted --> recommended heat, fluid, massage IV abx, sour candy/lemon juice rinse. DIscussed with Dr. Vargas - repeat CT scan from 04/20 with unchanged partoid gland consider bx, discussed with IR would not recommmend bx with negative PET 04/05 and improvement with abx. --> plan to continue abx, OP follow up with Dr. Vargas and consider repeat imaging in a few weeks Discussed with pharmacy 04/22 --> transition to liquid Augmentin and doxy (to prevent pill esophagitis and can use PEG if needed) total 10-14 day course (first day 04/16) At discharge, liquid Augmentin should be in the 400/5ml concentration to get enough clavulanic acid Pain control: Tylenol #PEG tube infection Wound culture + for Serratia marcescens, pansensitive, MSSA and galbrata - Rocephin started 04/17, discontinued 04/22 as it will be covered by abx above recommend avoiding placing gauze around peg tube. Clean with saline if purulent drainage around site. No need for fungal powder needed. Speech consulted - diet w/ minced & moist, Nutrition consulted - changing to regular to have more foods she likes, decreasing tube feed amount for 04/26 Remeron initiated 04/23 but felt to tired during the day with 7.5mg dose - this was discontinued. Patient very mentally down about her disease process and prognosis - discussed palliative care consult which she is now agreeable to. [facility] liason consulted Patients weight continue to drop #Electrolyte abnormalities Acute on Chronic --> reports was given a potassium supplement at home but has not started yet. K 3.9 and Mag 1.5 today - continue PO K - decreased to daily, continue daily mag. IV mag ordered AM BMP and Mag #Crohn's disease s/p partial colectomy. Mercaptopurine held due to infx Has diarrhea 1x daily. Stool studies negative. Discussed w/ Dr. Perez - aware colonoscopy was preformed and lung bx scheduled, planning for immunotherapy. Dr. 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 Perez outpatient. S/p radiation and chemotherapy. PEG tube as above. Patient reports she does need to meet with pum for a lung bx --> Dr. rm consulted and plan for outpatient bx next week 04/27 #GAMA CPAP at bedtime #T2DM Most recent A1C 6.6%. SSI with target BSG range 110-180mg/dL, CF 15, carb ratio 5 Refused Lantus x 2 --> discontinued. #HTN - no reported home medications with med rec, monitor BP. VTE ppx: SCDs, Lovenox Dispo: continued inpatient stay, monitor nutrition status, per palliaitve - oncology reaching out to pulm to possibly make bx inpatient Updated at bedside 04/18 & 04/21 & 04/22 & 04/23 & 04/24 & 04/25 Case discussed with palliative Admission and Anticipated Discharge Date Admission Date: April 16, 2025 Supervising Physician Co-Signing Physician Notes The patient was not seen by me. The chart was reviewed. Case discussed with YAYA Olson. Agree with assessment and plan Subjective patient seen sitting up in bed. present at bedside. States that she is talk to Dr. blackmon today and that is it. She is nervous about going home and having to come back for biopsy if she decides to proceed with it. She asked me not to call her daughter yet until they can speak to Dr. Perez does not like how the Remeron makes her feel, reports that she is sleepy all through the day. Was not nauseous with her tube feeds this morning Review of Systems Review of Systems: All systems reviewed & are unremarkable except as noted in Subjective Physical Exam Physical Exam: General: NAD, VS as above HEENT: mild swelling and erythema to right check/jaw bone area - much improved Resp: normal respiratory effort, lungs clear to auscultation CV: RRR, no murmur, Abd: normal bowel sounds, non tender, no hepatosplenomegaly. PEG tube site Much improved no active drainage Extremities: Moves all extremities, non pitting LE edema Neuro: A&O x3, Results & Data Results & Data Vital Signs (Past 12 Hours) Vital Signs Temp Pulse Pulse Pulse Resp BP Pulse Ox 04/25/25 11:22 98.1 F 83 15 102/67 94 04/25/25 07:24 96.1 F L 104 H 104 H 16 129/82 98 04/25/25 02:23 77 14 94 O2 Del Method FiO2 04/25/25 11:22 Room Air 04/25/25 07:24 Room Air 04/25/25 02:23 21 Laboratory Results BMP and mag reviewed PG Care Time/CCT Total # of Minutes Spent Total Time Spent with Patient: Total time spent is greater than 50% in coordination of care (as documented) at patient's floor/unit and/or counseling patient: Coding Level of Care Code 53760 SUB INP/OBS CARE 3/50MIN Diagnoses Cellulitis of face L03.211 Salivary gland obstruction K11.8 Jerri infection B37.9 Hypokalemia E87.6 Hypomagnesemia E83.42
[2025-04-25] MEDS: DOCUSATE SODIUM 100 MG CAP PO PRN (21:56)
--- NOTE | 2025-04-26 07:43 | Pulmonology Progress Note ---
Date of Service April 26, 2025 Assessment & Plan (1) Multiple pulmonary nodules: (2) Abnormal chest CT: (3) Recurrent squamous cell carcinoma of tongue: (4) Sleep apnea: Plan CT chest 04/13/2025 personally reviewed: Multiple pulmonary nodules appreciated bilaterally Largest being 2.1 cm in the right upper lobe followed by 2.1 cm left lower lobe para-aortic No significant mediastinal lymphadenopathy -- Multiple pulmonary nodules Largest being 2.1 cm in the right upper lobe followed by left lower lobe Only [id number] smoking history, quit in 1979, was exposed to secondhand smoke In summary who has history of squamous cell carcinoma the possibility of malignancy/malignancy particularly Patient is agreeable to have the procedure done. 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 She decided that she would not like to pursue the bronchoscopy Will cancel the bronchoscopy procedure for tomorrow Okay to resume Lovenox I reiterated what ever decision she makes and is comfortable with is what will be respected. All questions inquiries of the patient were answered in depth No further recommendation from pulmonary perspective, will sign off Please call directly with any questions Please note the above document was generated using voice recognition software. It may contain grammatical, syntax or spelling errors.Any formal questions or concerns about the content, text or information contained within the body of this dictation should be directly addressed to the provider for clarification. Admission and Anticipated Discharge Date Admission Date: April 16, 2025 Subjective Patient seen and examined at bedside. No acute distress, no adverse events overnight Nausea has improved Was able to finish her breakfast as well as lunch Denied any vomiting No shortness of breath Denied any cough Review of Systems 2 Review of Systems: All systems reviewed & are unremarkable except as noted in Subjective Physical Exam 2 Physical Exam: Constitutional: No acute distress HEENT: EOMI, PERRLA Respiratory system: Good air entry bilaterally, no wheeze, no rhonchi, positive crackles bilateral lower lobe CVS: S1-S2 positive, no murmurs or gallops Abdomen: Soft, nontender, nondistended, positive bowel sounds x4, positive PEG tube Extremities: +2 pulses bilaterally radialis/ dorsalis pedis, no cyanosis, no edema Neuro: Awake alert oriented x3 Psych: Normal mood and affect G/U: No Luz Skin: no rashes, warm and dry Lymphatic: no cervical or axillary lymphadenopathy Results & Data Results & Data Vital Signs (Past 12 Hours) Vital Signs Temp Pulse Pulse Resp BP Pulse Ox O2 Del Method 04/26/25 07:18 36.3 C L 85 18 132/75 96 CPAP 04/26/25 03:18 84 14 97 04/26/25 00:12 80 16 96 04/25/25 23:45 36.7 C 78 16 119/74 96 Room Air Laboratory Results 04/19/25 05:56 04/25/25 05:28 PG Care Time/CCT Total # of Minutes Spent Total Time Spent with Patient: Total time spent is greater than 50% in coordination of care (as documented) at patient's floor/unit and/or counseling patient: Coding Level of Care Code 71104 SUB INP/OBS CARE 10/16MIN Diagnoses Multiple pulmonary nodules R91.[address] R93.89 Recurrent squamous cell carcinoma of tongue C02.9 Sleep apnea G47.30
[2025-04-26 08:19] LABS: Anion Gap 6.0 (3-11); Blood Urea Nitrogen 18.0 mg/dl (6-23); Calcium 9.3 mg/dl (8.6-10.3); Carbon Dioxide 23.0 mmol/L (21-32); Chloride 113.0 mmol/L (98-107); Creatinine Clr Calc Pharmacy 69.8 ml/min; Glucose 120.0 mg/dl (70-99(Fasting)); Magnesium 1.7 mg/dl (1.7-2.4); Potassium 3.8 mmol/L (3.5-5.1); Sodium 142.0 mmol/L (136-145)
--- NOTE | 2025-04-26 11:17 | Hospitalist Progress Note ---
Date of Service April 26, 2025 Assessment & Plan (1) Cellulitis of face: (2) Salivary gland obstruction: (3) Jerri infection: (4) Hypokalemia: (5) Hypomagnesemia: Plan Patient is a 74-year-old female with past medical history of type II DM, HTN, COPD, GAMA, Crohn's s/p partial colectomy. 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 Patient presented due to redness of her PEG tube and right sided facial erythema and swelling. She is being admitted for evaluation for possible PEG tube removal and right facial cellulitis secondary to salivary gland obstruction. #right facial cellulitis/salivary gland obstruction With hx of salivary gland obstruction Dr Vargas consulted --> recommended heat, fluid, massage IV abx, sour candy/lemon juice rinse. DIscussed with Dr. Vargas - repeat CT scan from 04/20 with unchanged partoid gland consider bx, discussed with IR would not recommmend bx with negative PET 04/05 and improvement with abx. --> plan to continue abx, OP follow up with Dr. Vargas and consider repeat imaging in a few weeks Discussed with pharmacy 04/22 --> transition to liquid Augmentin and doxy (to prevent pill esophagitis and can use PEG if needed) total 10-14 day course (first day 04/16) At discharge, liquid Augmentin should be in the 400/5ml concentration to get enough clavulanic acid Pain control: Tylenol #PEG tube infection Wound culture + for Serratia marcescens, pansensitive, MSSA and galbrata - Rocephin started 04/17, discontinued 04/22 as it will be covered by abx above recommend avoiding placing gauze around peg tube. Clean with saline if purulent drainage around site. No need for fungal powder needed. Speech consulted - diet w/ minced & moist, Nutrition consulted - changing to regular to have more foods she likes, decreasing tube feed amount for 04/26 Remeron initiated 04/23 but felt to tired during the day with 7.5mg dose - this was discontinued. Patient very mentally down about her disease process and prognosis - discussed palliative care consult which she is now agreeable to. [facility] liason consulted Patients weight continue to drop #Electrolyte abnormalities Acute on Chronic --> reports was given a potassium supplement at home but has not started yet. K 3.9 and Mag 1.5 today - continue PO K - decreased to daily, continue daily mag. IV mag ordered AM BMP and Mag #Crohn's disease s/p partial colectomy. Mercaptopurine held due to infx Has diarrhea 1x daily. Stool studies negative. Discussed w/ Dr. Perez - aware colonoscopy was preformed and lung bx scheduled, planning for immunotherapy. Dr. 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 Perez outpatient. S/p radiation and chemotherapy. PEG tube as above. Patient reports she does need to meet with pum for a lung bx --> Dr. rm consulted and plan for outpatient bx next week 04/27 #GAMA CPAP at bedtime #T2DM Most recent A1C 6.6%. SSI with target BSG range 110-180mg/dL, CF 15, carb ratio 5 Refused Lantus x 2 --> discontinued. #HTN - no reported home medications with med rec, monitor BP. VTE ppx: SCDs, Lovenox Dispo: continued inpatient stay, monitor nutrition status, per palliaitve - oncology reaching out to pulm to possibly make bx inpatient Updated at bedside 04/18 & 04/21 & 04/22 & 04/23 & 04/24 & 04/25 Case discussed with palliative Admission and Anticipated Discharge Date Admission Date: April 16, 2025 Results & Data Results & Data Vital Signs (Past 12 Hours) Vital Signs Temp Pulse Pulse Resp BP Pulse Ox O2 Del Method 04/26/25 07:18 36.3 C L 85 18 132/75 96 CPAP 04/26/25 03:18 84 14 97 04/26/25 00:12 80 16 96 04/25/25 23:45 36.7 C 78 16 119/74 96 Room Air PG Care Time/CCT Total # of Minutes Spent Total Time Spent with Patient: Total time spent is greater than 50% in coordination of care (as documented) at patient's floor/unit and/or counseling patient: Coding Diagnoses Cellulitis of face L03.211 Salivary gland obstruction K11.8 Jerri infection B37.9 Hypokalemia E87.6 Hypomagnesemia E83.42
--- NOTE | 2025-04-26 15:52 | Hospitalist Progress Note ---
Date of Service April 26, 2025 Assessment & Plan (1) Cellulitis of face: (2) Salivary gland obstruction: (3) Jerri infection: (4) Hypokalemia: (5) Hypomagnesemia: Plan Patient is a 74-year-old female with past medical history of type II DM, HTN, COPD, GAMA, Crohn's s/p partial colectomy. 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 Patient presented due to redness of her PEG tube and right sided facial erythema and swelling. She is being admitted for evaluation for possible PEG tube removal and right facial cellulitis secondary to salivary gland obstruction. #right facial cellulitis/salivary gland obstruction Dr Vargas consulted --> recommended heat, fluid, massage IV abx, sour candy/lemon juice rinse. Discussed with Dr. Vargas - repeat CT scan from 04/20 with unchanged parotid gland consider bx, discussed with IR would not recommend bx with negative PET 04/05 and improvement with abx. --> plan to continue abx, OP follow up with Dr. Vargas and consider repeat imaging in a few weeks Discussed with pharmacy 04/22 --> transition to liquid Augmentin and doxy (to prevent pill esophagitis and can use PEG if needed) total 10-14 day course (first day 04/16) At discharge, liquid Augmentin should be in the 400/5ml concentration to get enough clavulanic acid Pain control: Tylenol #PEG tube infection Wound culture + for Serratia marcescens, pansensitive, MSSA and galbrata - Rocephin started 04/17, discontinued 04/22 as it will be covered by abx above recommend avoiding placing gauze around peg tube. Clean with saline if purulent drainage around site. No need for fungal powder needed. Speech consulted - diet w/ minced & moist, Nutrition consulted - changing to regular to have more foods she likes, decreasing tube feed amount for 04/26 --> discussed w/ nutrition who reports they have an outpatient plan in place to ensure she is getting adequate nutrition & she will follow up with them in the office. #Electrolyte abnormalities Acute on Chronic --> reports was given a potassium supplement at home but has not started yet. K 3.8 and Mag 1.7 today - continue PO K - decreased to daily, continue daily mag AM BMP and Mag #Crohn's disease s/p partial colectomy. Mercaptopurine held due to infx Has diarrhea 1x daily. Stool studies negative. Discussed w/ Dr. 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 Perez outpatient. S/p radiation and chemotherapy. PEG tube as above. No longer getting lung bx due to it not changing her treatment course. Per Dr. Perez immunotherapy to start 05/02. #GAMA CPAP at bedtime #T2DM Most recent A1C 6.6%. SSI with target BSG range 110-180mg/dL, CF 15, carb ratio 5 Refused Lantus x 2 --> discontinued. #HTN - no reported home medications with med rec, monitor BP. VTE ppx: SCDs, Lovenox Code: full Anticipate discharge home 04/27. Admission and Anticipated Discharge Date Admission Date: April 16, 2025 Supervising Physician Co-Signing Physician Notes Attending Attestation - Chart reviewed, care plan d/w YAYA Chahal. I agree w/ the miller components of her documentation. Duc Howe seen and examined this morning. She reports that she is doing okay today. States she feels tired. She reports she spoke with her daughter & they have decided against the lung biopsy since it will not change treatment. She reports she was able to eat more for breakfast this morning. Physical Exam Constitutional: WD/WN, vitals as above Respiratory: normal respiratory effort Neurologic: PERRL, EOMI, accommodation nl, no face palsy, no dysarthria Psychiatric: A+Ox3, euthymic affect Results & Data Results & Data Vital Signs (Past 12 Hours) Vital Signs Temp Pulse Resp BP Pulse Ox O2 Del Method 04/26/25 15:24 36.7 C 85 16 152/79 H 97 Room Air 04/26/25 07:18 36.3 C L 85 18 132/75 96 CPAP PG Care Time/CCT Total # of Minutes Spent Total Time Spent with Patient: Total time spent is greater than 50% in coordination of care (as documented) at patient's floor/unit and/or counseling patient: Coding Level of Care Code 59547 SUB INP/OBS CARE MIN Diagnoses Cellulitis of face L03.211 Salivary gland obstruction K11.8 Jerri infection B37.9 Hypokalemia E87.6 Hypomagnesemia E83.42
[2025-04-26] MEDS: ALUMINUM/MAGNESIUM SUSP 30 ML UDC PO PRN (17:19)
[2025-04-27 06:21] LABS: Anion Gap 8.0 (3-11); Blood Urea Nitrogen 22.0 mg/dl (6-23); Calcium 9.2 mg/dl (8.6-10.3); Carbon Dioxide 21.0 mmol/L (21-32); Chloride 114.0 mmol/L (98-107); Creatinine Clr Calc Pharmacy 75.1 ml/min; Glucose 127.0 mg/dl (70-99(Fasting)); Magnesium 1.5 mg/dl (1.7-2.4); Potassium 3.7 mmol/L (3.5-5.1); Sodium 143.0 mmol/L (136-145)
[2025-04-27 07:19] VITALS: RESP 15; O2SAT 95
[2025-04-27] MEDS: MAGNESIUM SULFATE / D5W 1 GM/100 ML BAG IV SCH (08:36)
[2025-04-27 11:28] VITALS: TEMP 97.9
[2025-04-27] MEDS: NYSTATIN SUSP 500,000 U/5 ML UDC PO SCH (12:10)
--- NOTE | 2025-04-27 15:49 | Discharge Summary ---
Discharge Summary Date of Service April 27, 2025 Principal Dx & Hospital Course #1 = Principal Diagnosis (1) Cellulitis of face: (2) Salivary gland obstruction: (3) Jerri infection: (4) Hypokalemia: (5) Hypomagnesemia: Plan Patient is a 74-year-old female with past medical history of type II DM, HTN, COPD, GAMA, Crohn's s/p partial colectomy. 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 Patient presented due to redness of her PEG tube and right sided facial erythema and swelling. She is being admitted for evaluation for possible PEG tube removal and right facial cellulitis secondary to salivary gland obstruction. #right facial cellulitis/salivary gland obstruction Dr Vargas consulted --> recommended heat, fluid, massage IV abx, sour candy/lemon juice rinse. Discussed with Dr. Vargas - repeat CT scan from 04/20 with unchanged parotid gland consider bx, discussed with IR would not recommend bx with negative PET 04/05 and improvement with abx. --> plan to continue abx, OP follow up with Dr. Vargas and consider repeat imaging in a few weeks Patient was treated with PO Augmentin + Doxycycline after being switched from IV abx. Total duration total was ~ 12 days - defer further abx on discharge. Tongue irritation w/ concern for thrush --> Nystatin PO TID on discharge x 7 days. #PEG tube infection Wound culture + for Serratia marcescens, pansensitive, MSSA and galbrata - antibiotics completed while inpatient. recommend avoiding placing gauze around peg tube. Clean with saline if purulent drainage around site. No need for fungal powder needed. Speech consulted - diet w/ minced & moist, Nutrition consulted - changing to regular to have more foods she likes, decreasing tube feed amount for 04/26 --> discussed w/ nutrition who reports they have an outpatient plan in place to ensure she is getting adequate nutrition & she will follow up with them in the office. #Electrolyte abnormalities Acute on Chronic --> reports was given a potassium supplement at home but has not started yet. K 3.7 and Mag 1.5 today - continue PO K - decreased to daily, continue daily mag. s/p IV mag repletion. Monitor closely outpatient. #Crohn's disease s/p partial colectomy. Mercaptopurine can be resumed on discharge given infection resolved. Has diarrhea 1x daily. Stool studies negative. Discussed w/ Dr. 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 Perez outpatient. S/p radiation and chemotherapy. PEG tube as above. No longer getting lung bx due to it not changing her treatment course. Per Dr. Perez immunotherapy to start 05/02. #GAMA CPAP at bedtime #T2DM Most recent A1C 6.6%. SSI with target BSG range 110-180mg/dL, CF 15, carb ratio 5 Refused Lantus x 2 --> discontinued. #HTN - no reported home medications with med rec, monitor BP. Updated @ bedside 04/27. Discharged home 04/27. Admission HPI Per Admitting Provider Patient is a 74-year-old female with past medical history of type II DM, HTN, COPD, GAMA, Crohn's s/p partial colectomy. 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 Patient presented due to redness of her PEG tube and right sided facial erythema and swelling. She is being admitted for evaluation for possible PEG tube removal and right facial cellulitis secondary to salivary gland obstruction. Patient seen at bedside with her present. She stated she saw an ENT March 11 who stated she had an infected salivary gland which was treated and resolved at that time. Today she went to urgent care because she developed swelling overnight of the right side of her face as well as significant pain. Urgent care referred her to the ED because she also has redness of her PEG tube. CT imaging revealed extensive subcutaneous inflammatory fat stranding suggestive of cellulitis however no signs of deep neck space infection or abscess noted. Patient has a known obstructed salivary gland, oral maxillofacial surgery aware and will evaluate the patient in the morning. She has not eaten much today due to the pain. As for her PEG tube, patient stated it has been red and with white drainage for several weeks and she has been using a yeast powder that she bought [id number] at home, it intermittently causes her pain but it is not significant. She previously had PEG feeds she was unable to tolerate p.o. intake but slowly has been able to tolerate liquid and pured diet eating mostly soups at home, she still takes medications through PEG tube but does feel she is able to swallow them at this time and would like for possible PEG tube removal. Patient stated on Friday she also had low potassium and magnesium and received IV repletion, she was ordered a potassium supplement which she has not yet taken. She does have chronic liquid diarrhea secondary to the Crohn's disease. She denies any fevers, chills, chest pain, shortness of breath, nausea, vomiting. Patient did have a recent PET scan April 05 that showed new lung nodules that she is under the impression will need repeat chemotherapy and radiation. She is to see the [facility] on Friday, pulmonology (Dr. Hawkins), and Dr. Wheeler with [facility] radiology on Friday. She is due for her evening medications. She wishes to be full code. She still uses CPAP at bedtime. Reports she was prescribed Keflex and prednisone which she only took 1 Keflex, no prednisone from urgent care. Discharge Exam Constitutional WD/WN, vitals as above Respiratory normal respiratory effort Neurologic PERRL, EOMI, accommodation nl, no face palsy, no dysarthria Psychiatric A+Ox3, euthymic affect Discharge Plan Discharge Items Patient Disposition: Home - Self-Care Reason For Visit: FACIAL CELLULITIS, PEG REMOVAL Discharge Diagnosis: Salivary gland infection, peg tube infection, hypokalemia, hypomagnesemia Activity: Resume your previous activity Non-emergency contact: Primary Care Provider Call non-emergency contact if: you have any medication questions and your sy mptoms worsen Follow-up/Referrals: Lilian Godwin MD [Primary Care Provider] - Kellen Perez MD [Physician] - Diet: Regular Addtl Attending Provider Instructions: Mrs. Ramos, You were recently hospitalized for an infection of your salivary gland and peg tube infection. While you were hospitalized you also had a colonoscopy which revealed you do not have active crohn's disease. You were evaluated by the lung doctor and opted against a lung biopsy since it will not change your immunotherapy treatment. Please see recommendations below regarding your discharge. You have completed 12 days of antibiotic therapy which is adequate for both your salivary gland infection & PEG tube infection. Please use Nystatin swish & swallow three times daily for 7 days. If you do not notice improvement please contact your PCP or Dr. Perez for further recommendations of your tongue irritation. Please take a Potassium and Magnesium supplement daily. A script has been signed for your tube feeds at time of discharge. Instructions from Nutrition include: lemon slices with meals to help stimulate saliva; Use 2 packets of ProSource No carb daily which is 30 grams of protein. Please follow up with nutrition for continued care. Please follow up with your PCP to reassess your electrolyte levels within 1-2 weeks of discharge. Best of luck! Lata Chahal PA-C Pending Studies at Discharge: No Stand-Alone Forms: My [facility] [employer], Smoking Cessation Medications and DC Order Prescriptions: New magnesium oxide 400 mg (241.3 mg magnesium) Tablet 400 mg PO QAM Qty: 30 0RF nystatin 100,000 unit/mL Suspension 5 ml PO QID Qty: 60 0RF Continued mercaptopurine 50 mg tablet 50 mg PO DAILY Vyzulta 0.024 % drops 1 drp ophthalmic (eye) QPM cyclosporine 0.05 % dropperette 1 drp OPB BID insulin aspart U-100 [Novolog FlexPen U-100 Insulin] 100 unit/mL (3 mL) insulin pen 0 sliding scale dose SQ TIDWMEAL MDD 60 gabapentin 800 mg tablet 800 mg feeding tube BID Qty: 60 0RF buspirone 30 mg tablet 30 mg feeding tube BID Qty: 60 0RF ondansetron 8 mg tablet,disintegrating 8 mg PO Q8H PRN (Reason: Nausea) No Action (DME) lancets [Microlet Lancet] Misc See Rx Instructions .ROUTE .MEDSUPPLY Qty: 200 5RF Rx Instructions: Test blood sugars four times a day (DME) blood-glucose meter [Contour Next One Meter] Misc See Rx Instructions .ROUTE .MEDSUPPLY Qty: 1 0RF Rx Instructions: Test blood sugars 1 x times a day (DME) pen needle, diabetic 31 gauge x 3/16" needle See Dose Instructions .ROUTE .MEDSUPPLY Qty: 500 1RF Rx Instructions: use to inject insulin 5 times daily as directed (DME) [email or web address] G7 Sensor Device See Rx Instructions .Route Rx Instructions: change every 10 days (DME) Bio true Solution See Rx Instructions .Route Rx Instructions: As directed; PRN (DME) CPAP Machine Misc See Rx Instructions .Route Rx Instructions: As directed (DME) Contour Next Test Strips Strip See Rx Instructions .ROUTE .MEDSUPPLY Qty: 400 1RF Rx Instructions: Test blood sugar four times daily Discharge Orders: Discharge Order (Routine); Ordered 04/27/25 Ordered By: Lata Chahal Admission Data Admit Date/Time: 04/16/25 20:20 Attending Provider: Emely Betancourt Admit Provider: Shaniqua Castellanos Primary Care Provider: Lilian Godwin Other Providers: Alexander Vargas; Shaniqua Castellanos; Jay Jay Li I; Ann Hawkins; Kellen Perez; Dorothea Marie; Brook Arenas Other Interventions: Discharge Summary Assessment (RN) Last Done: 04/27/25 15:55 Hospital Stay Data Consultations 04/16/25 19:42 ED Decision to Admit Stat 04/16/25 22:04 Consult Oromaxillofacial Surgery Routine 04/18/25 12:34 Consult Gastroenterology Routine 04/21/25 13:36 Consult Pulmonology Routine 04/23/25 09:10 Consult Behavioral Health Liaison Routine 04/24/25 10:02 Consult Oncology Routine Consult Palliative Care Routine Procedures Performed Operation Date: 04/20/25 17:10 Actual Procedures p Colonoscopy Polypectomy - Jay Jay Li MD Diagnostic Imagining Performed 04/16/25 15:33 CT soft tissue neck w con Stat 04/20/25 13:47 CT face [CT facial bones wo/w con] Routine Pending Results Patient Have Any Pending Studies at Discharge: No Discharge Instructions Given to Patient (Per Discharging Provider) Mrs. Ramos, You were recently hospitalized for an infection of your salivary gland and peg tube infection. While you were hospitalized you also had a colonoscopy which revealed you do not have active crohn's disease. You were evaluated by the lung doctor and opted against a lung biopsy since it will not change your immunotherapy treatment. Please see recommendations below regarding your discharge. You have completed 12 days of antibiotic therapy which is adequate for both your salivary gland infection & PEG tube infection. Please use Nystatin swish & swallow three times daily for 7 days. If you do not notice improvement please contact your PCP or Dr. Perez for further recommendations of your tongue irritation. Please take a Potassium and Magnesium supplement daily. A script has been signed for your tube feeds at time of discharge. Instructions from Nutrition include: lemon slices with meals to help stimulate saliva; Use 2 packets of ProSource No carb daily which is 30 grams of protein. Please follow up with nutrition for continued care. Please follow up with your PCP to reassess your electrolyte levels within 1-2 weeks of discharge. Best of luck! Lata Chahal PA-C Total Time Total Time Spent Total Time Spent (In Minutes): 55 Total Time Includes: Examination of the Patient, Discharge Planning, Medication Reconciliation and Communication With Other Providers Coding Level of Care Code 05969 INP/OBS DISCH >30 MIN Diagnoses Cellulitis of face L03.211 Salivary gland obstruction K11.8 Jerri infection B37.9 Hypokalemia E87.6 Hypomagnesemia E83.42
[2025-04-27 15:57] VITALS: BP 137/82; PULSE 68
== END 2025-04-27 16:50 | disposition home or self-care (01) | DRG 603 ==
LOC: ED 14:46 → SUATTDRO 20:20 → 3E 20:20

== ENCOUNTER 2025-06-29 10:49 | Inpatient (IN) ==
--- NOTE | 2025-06-29 11:17 | Emergency Department Note ---
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 Patient notes that she has had pain in the left shoulder which has been going on since November. Has been fairly constant and worsening over the past week. She has been following with Dr. Perez for this and has been prescribed a fentanyl patch. Pain got worse today. Significantly worsens with any movement of the shoulder. Denies any neck pain. No new trouble breathing or swallowing. She denies any weakness but notes the pain does shoot down to her thumb. No dysuria, urgency or frequency. ADDITIONAL HISTORY OBTAINED: Per HPI Chronic Medical/Social Conditions Affecting Care: Per HPI PAST MEDICAL HISTORY:See Below PAST SURGICAL HISTORY:See Below FAMILY HISTORY:See Below SOCIAL HISTORY:See Below HOME MEDICATIONS:See Below ALLERGIES:See Below VITALS:See Below PHYSICAL EXAMINATION: GENERAL: Sitting up in bed, alert, well appearing, well nourished, no distress, non-toxic EYE EXAM: normal conjunctiva. PERRL and EOM's grossly intact. OROPHARYNX: no exudate, no erythema, lips, buccal mucosa, and tongue normal and mucous membranes are moist NECK: supple, no nuchal rigidity, no adenopathy, non-tender LUNGS: Clear to auscultation. Normal chest wall mechanics HEART: no murmurs, S1 normal and S2 normal ABDOMEN: abdomen soft, non-tender, normo-active bowel sounds, no masses, no rebound or guarding. BACK: Back is symmetrical on inspection and there is no deformity, no midline tenderness, no CVA tenderness. SKIN: no rashes and no bruising UPPER EXTREMITIES: Significant pain on palpation of the left humeral head tracking over the left scapula. Severe pain with movement including flexion extension of the shoulder as well as abduction and. Grass as well as abduction of the digits in flexion extension of the wrist and elbow is intact. Radial pulse 2 out of 4. Gross sensation intact. LOWER EXTREMITIES: No pitting edema. NEURO EXAM: Normal sensorium, cranial nerves II-XII grossly intact, normal speech, no gross weakness of arms, no gross weakness of legs. No drift. Finger to nose intact. Gross sensation intact. MEDICAL DECISION MAKING: Patient is a 74-year-old female who presents ER for severe left shoulder pain. IV was established blood work is obtained. Labs show no significant leukocytosis. Mild anemia 10. BMP with LFTs and bilirubin is unremarkable. Mag was slightly low at 1.6. EKG was unremarkable. X-rays of the chest were unremarkable. CT head cervical spine suggest thoracic lesions which would likely be the cause of the pain in the left shoulder. Patient was given IV morphine x 2. She is on fentanyl at home and combination with oxy 10 mg every 4 hours and still having severe pain and consequently discussed case with the hospitalist for further evaluation management treatment. Initially I thought we would be able to discharge her and I did discuss this with oncology but the pain persisted and recurred and she was admitted. Consults/Care Managements Discussions: Per MDM Triage Nursing notes reviewed. Limited review of prior medical records performed Vital Signs: reviewed and remarkable for no significant abnormalities Differential diagnosis: Fracture, subluxation, dislocation, contusion, ligamentous injury, neurovascular, compartment syndrome, rhabdomyolysis, as well as other pathologies. ER treatment provided: See below Diagnostics interpreted by me include EKG and cardiac monitoring as listed below: -Cardiac Monitoring: An order was placed for continuous cardiac monitoring. The monitor shows a rate of 90 with sinus rhythm. -ECG: Sinus rhythm rate 81 Normal axis No PVCs QTc 466 -Laboratory studies:Interpreted by me as stated above in MDM and shown below. Imaging studies: Xrays: As interpreted by me: Portable AP upright 1 view of the chest shows multiple pulmonary nodules X-ray of the shoulder shows no acute fracture CTs show: CT cervical spine as described above Procedures:none Critical Care: None Past Med/Surg History Problem List (Updated 06/29/25 @ 14:54 by Nicola Mcnela PA-C) Left shoulder pain Cancer related pain Spinal cord lesion (Acute) Arm pain (Acute) Cellulitis Ex-smoker Counseling regarding advanced directives and goals of care Palliative care by specialist Abnormal chest CT Cellulitis of face (Acute) Jerri infection (Acute) Jerri infection Salivary gland obstruction Cellulitis of face Multiple pulmonary nodules PEG (percutaneous endoscopic gastrostomy) adjustment/replacement/removal (12/13/24) Removal of Feeding Tube/placement new gastrostomy tube - Malik Turner DO Esophagogastroduodenoscopy - Malik Turner DO Hypokalemia Hypomagnesemia heme/onc monitoring and supplementing Diabetes Arthritis Anemia Recurrent squamous cell carcinoma of tongue Obesity Post-nasal drip Injury of toe, right, superficial 05/2022 Depression with anxiety Left lumbar radiculopathy GAMA (obstructive sleep apnea) Crohn disease Binge eating disorder Mixed hyperlipidemia Metabolic syndrome Glaucoma Spinal stenosis Diabetic peripheral neuropathy associated with type 2 diabetes mellitus (Acute) Dyslipidemia associated with type 2 diabetes mellitus (Acute) Hypertension (Acute) Loss of protective sensation of skin of foot (Acute) Type 2 diabetes mellitus (Acute) Medical History PEG tube malfunction Anemia Obesity Gout Hypertension Dyslipidemia associated with type 2 diabetes mellitus Diabetic peripheral neuropathy associated with type 2 diabetes mellitus Depression with anxiety Post-nasal drip Type 2 diabetes mellitus Spinal stenosis Glaucoma Metabolic syndrome Recurrent squamous cell carcinoma of tongue Surgery 04/2024 and 10/04/24; currently on chemo tx; follows with once per week (wednesdays); also current XRT with in [place] Hx of sepsis 2021- no residual/current issues Fatty liver Sleep apnea CPAP Crohn's disease Neck problem Cervical pitched nerve + narrowing Intermittent LUE radiculopathy and ROM limitations COPD (chronic obstructive pulmonary disease) "Mild" No inhaler Surgical History History of percutaneous endoscopic gastrostomy (11/29/24) Esophagogastroduodenoscopy with Percutaneous Endoscopic Gastrostomy (PEG) Tube - Malik Turner DO Port-A-Cath in place (11/01/24) Insertion Access Port with Fluoroscopy - Right Subclavian(Right) - Kishore Mulligan DO; MAC without issue S/P cholecystectomy S/P partial glossectomy 04/30/24: partial glossectomy with L selective neck dissection Dr. Coyle [facility]; 10/04/24: L suprahyoid neck dissection and partial glossectomy Hx of cataract extraction R/L Hx of bilateral breast reduction surgery S/P epidural steroid injection x4 [id number] History of colonoscopy History of bowel resection (~2003) 12 inches r/t Crohn's disease (1971) Re-do r/t Crohn's disease (2003)- also had gallbladder removed at this time History of appendectomy (1971) Family History Father Family history of diabetes mellitus Diabetes Stroke Daughter Breast cancer Uncle Diabetes Grandmother Diabetes Stroke Other No family history of adverse response to anesthesia Social History Smoking Status: Current every day smoker Tobacco Type: Cigarettes Age Started Using Tobacco: 0 (unknown); Age Quit Using Tobacco: 0 (unknown); packs per day: ; Cigarettes Per Day: 1979; Second Hand Exposure: Yes; Do You Dip or Chew Tobacco: No; Hx Alcohol Use: No Hx Substance Use: No Preferred Language: Japanese Communication Ability: Effective Visual Impairment: No Limitations Solar Pool Heating Installer Required: No Beliefs That Will Affect Care: Rastafarian Rastafarian Beliefs: NONDENOMINATIONAL Current Living Situation: Spouse Feels Safe at Home: Yes Assistive Devices: CPAP, Walker and Other Allergies Allergies Allergy/AdvReac Type Severity Reaction Status Date / Time latex Allergy Intermediate Blisters Verified 06/20/25 12:59 Penicillins Allergy Intermediate Hives Verified 06/20/25 12:59 lisinopril Allergy Mild fluid Verified 06/20/25 12:59 retention Ipndazb-DGA-JoB Reductase Allergy Verified 06/20/25 12:59 Inhibitor Home Meds Home Medications Medication Instructions Recorded Confirmed CPAP Machine 04/19/21 06/20/25 soft lens rinse,store solution 05/29/22 06/20/25 (Bio true solution) blood-glucose sensor (Dexcom G7 01/19/24 06/20/25 Sensor device) cyclosporine 0.05 % eye drops in a 1 drp OPB BID 10/26/24 06/29/25 dropperette insulin aspart U-100 100 unit/mL 0 sliding scale dose subcut 12/13/24 06/29/25 (3 mL) subcutaneous pen (Novolog TIDWMEAL FlexPen U-100 Insulin aspart) latanoprostene bunod 0.024 % eye 1 drp ophthalmic (eye) QPM 04/13/25 06/29/25 drops (Vyzulta) mercaptopurine 50 mg tablet 50 mg PO DAILY 04/13/25 06/29/25 potassium chloride 10 mEq 10 meq PO DAILY 05/25/25 06/29/25 capsule,extended release buspirone 30 mg tablet 30 mg feeding tube TID 05/27/25 06/29/25 cyanocobalamin (vitamin B-12) 1,000 mcg .Route MONTHLY 05/27/25 06/29/25 1,000 mcg/mL injection syringe gabapentin 800 mg tablet 800 mg feeding tube TID 05/27/25 06/29/25 loperamide 2 mg tablet (Imodium 2 mg PO Q6H PRN Other 05/27/25 06/29/25 A-D) mecobalamin (vitamin B12) 1,000 1,000 mcg PO DAILY 05/27/25 06/29/25 mcg chewable tablet prochlorperazine maleate 10 mg 10 mg PO Q8H PRN n/v 05/27/25 06/29/25 tablet oxycodone 5 mg tablet 10 mg PO .Q4-6H PRN Pain 06/20/25 06/29/25 atorvastatin 20 mg tablet 20 mg PO DAILY 06/29/25 06/29/25 fentanyl 25 mcg/hr transdermal 25 mcg transdermal .Q72H 06/29/25 06/29/25 patch nystatin 100,000 unit/mL oral 0 ml PO QID 06/29/25 06/29/25 suspension Previous Rx's Medication Instructions Recorded Microlet Lancet (lancets) #200 ea 06/12/20 blood-glucose meter (Contour Next #1 ea 02/21/23 One Meter) blood sugar diagnostic (Contour #400 ea 11/12/24 Next Test Strips) pen needle, diabetic 31 gauge x #500 ea 03/21/25 3/16" magnesium oxide 400 mg (241.3 mg 400 mg PO QAM #30 tabs 04/27/25 magnesium) tablet ondansetron 4 mg disintegrating 4 mg PO Q8H PRN nausea and 05/25/25 tablet vomiting #60 tabs Results & Data (ED) Vital Signs Vital Signs - 24 hr 06/29/25 10:52 06/29/25 11:12 06/29/25 11:12 Temperature 36.0 C L Temperature Source Skin Pulse Rate 91 H Pulse Rate [Right Finger] 75 Pulse Rhythm Regular Pulse Rhythm [Right Finger] Pulse Strength [Right Finger] Respiratory Rate 20 18 18 Respiratory Effort / Characteristics Non-Labored Spontaneous Non-Labored Spontaneous Respiratory Depth Normal Normal Respiratory Pattern Regular Blood Pressure 132/76 Blood Pressure [Right Arm] 134/77 Blood Pressure Mean 94 Blood Pressure Mean [Right Arm] 96 Blood Pressure Position [Right Arm] Lying Pulse Oximetry 93 91 91 Oxygen Delivery Method Room Air Room Air Room Air Sepsis Recent Fever Within 48 Hours No Sepsis New/Unexplained Change in Mental Status N/A Sepsis Action Taken by Nursing No Action Required 06/29/25 13:00 06/29/25 14:43 Temperature Temperature Source Pulse Rate Pulse Rate [Right Finger] 72 81 Pulse Rhythm Pulse Rhythm [Right Finger] Regular Regular Pulse Strength [Right Finger] Normal Normal Respiratory Rate 17 18 Respiratory Effort / Characteristics Non-Labored Spontaneous Non-Labored Spontaneous Respiratory Depth Normal Normal Respiratory Pattern Regular Regular Blood Pressure Blood Pressure [Right Arm] 154/90 H 173/100 H Blood Pressure Mean Blood Pressure Mean [Right Arm] 111 124 Blood Pressure Position [Right Arm] Lying Lying Pulse Oximetry 92 91 Oxygen Delivery Method Room Air Room Air Sepsis Recent Fever Within 48 Hours Sepsis New/Unexplained Change in Mental Status Sepsis Action Taken by Nursing Laboratory Data 06/29/25 11:25 06/29/25 11:25 Lab Results 06/29/25 Range/Units 11:25 WBC 7.64 (4.8-10.8) K/ul RBC 3.49 L (4.20-5.40) M/uL Hgb 10.5 L (12.0-16.0) g/dl Hct 33.1 L (37.0-47.0) % MCV 94.8 (80.0-100.0) fL MCH 30.1 (25.0-34.0) pg MCHC 31.7 L (32.0-36.0) g/dL RDW Std Deviation 48.9 H (36.4-46.3) fL RDW Coeff of Nelia 14.1 (11.5-14.5) % Plt Count 352 (130-400) K/uL MPV 9.1 L (9.4-12.4) fL Immature Gran % (Auto) 0.3 % Neut % (Auto) 82.9 % Lymph % (Auto) 7.6 % [place] % (Auto) 8.4 % Eos % (Auto) 0.4 % Baso % (Auto) 0.4 % Neut # (Auto) 6.34 (1.40-6.50) K/uL Lymph # (Auto) 0.58 L (1.20-3.40) K/uL [place] # (Auto) 0.64 H (0.11-0.59) K/uL Eos # (Auto) 0.03 (0.00-0.50) K/uL Baso # (Auto) 0.03 (0.00-0.20) K/uL Immature Gran # (Auto) 0.02 (0.01-0.20) K/uL Sodium 137 (136-145) mmol/L Potassium 3.7 (3.5-5.1) mmol/L Chloride 95 L (98-107) mmol/L Carbon Dioxide 35 H (21-32) mmol/L Anion Gap 7 (3-11) BUN 17 (6-23) mg/dl Creatinine 0.63 (0.6-1.2) mg/dl Est Cr Clr Drug Dosing 85.5 ml/min eGFR 91.88 BUN/Creatinine Ratio 27.0 H (10-20) Glucose 200 H (70-99(Fasting)) mg/dl Calcium 9.6 (8.6-10.3) mg/dl Magnesium 1.6 L (1.7-2.4) mg/dl Total Bilirubin 0.6 (0.2-1.0) mg/dl AST 11 L (13-39) U/L ALT 8 (7-52) U/L Alkaline Phosphatase 76 (34-104) U/L Total Protein 6.7 (6.0-8.3) gm/dl Albumin 3.2 L (3.4-5.0) gm/dl Globulin 3.5 (2.5-4.0) gm/dl Albumin/Globulin Ratio 0.9 (0.9-2) Administered Medications Discontinued Medications Morphine Sulfate (Morphine Sulfate 4 Mg/Ml 1 Ml Carp\\Vial) 4 mg IV NOW STA Stop: 06/29/25 11:14 Last Admin: 06/29/25 11:35 Dose: 4 mg Documented By: price Morphine Sulfate (Morphine Sulfate 4 Mg/Ml 1 Ml Carp\\Vial) 4 mg IV NOW STA Stop: 06/29/25 13:19 Last Admin: 06/29/25 13:29 Dose: 4 mg Documented By: price Imaging Data Radiologist's Impression: Cervical Spine CT 06/29/25 11:12 CT cervical spine wo con CT DOSE: 483.99 mGy.cm CLINICAL HISTORY: 74 years-old Female with l arm pain. Acute neck pain without reported trauma. History of head and neck carcinoma COMPARISON: CT soft tissue neck 06/10/2025 TECHNIQUE: Multiple axial CT images of the cervical spine were obtained without contrast. A dose lowering technique was utilized adhering to the principles of ALARA. FINDINGS: Multilevel degenerative changes of the cervical spine with moderate mid to lower cervical spondylotic spurring. Moderate disc space narrowing at C6- C7. Crml-gf-[id number] multilevel facet arthrosis. Mild wedge deformities at T1-T3 without retropulsion appear chronic. No acute cervical spine fracture or subluxation identified. Osteolytic skeletal lesion measuring 1.5 cm within the left aspect of the T1 vertebral body on image 39 at the costovertebral junction. Soft tissue component of this lesion extends into the left T1-T2 neural foramen. Left mastoid effusion. Heterogeneity of the thyroid. Previously noted lesions in the floor the mouth are not imaged. Layering left pleural effusion with intralobular septal thickening. Irregular nodules at the lung apices are again noted including an index 1.7 cm nodule in the left upper lobe. Several of these nodules appear to be slightly larger than prior. IMPRESSION: 1. No acute cervical spine fracture or subluxation. 2. Progressive pulmonary metastasis. 3. 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 4. Suggestion of pulmonary edema with small left pleural effusion. ACT 112: Negative or not required by law. The above report was generated using voice recognition software. It may contain grammatical, syntax or spelling errors. Electronically signed by: Og Abarca M.D. 06/29/2025 12:05 PM Chest X-Ray 06/29/25 11:12 XR chest 1V portable CLINICAL HISTORY: Chest pain, nonspecific COMPARISON STUDY: 11/01/2024 FINDINGS: Stable right chest port. Stable mild cardiomegaly without pulmonary vascular congestion. There are scattered nodular densities in both lungs, increased. There are possible trace pleural effusions. No pneumothorax. IMPRESSION: Increased bilateral pulmonary nodules with possible trace pleural effusions. ACT 112: Negative or not required by law. Electronically signed by: Ronald Alvarez M.D. 06/29/2025 11:45 AM Shoulder X-Ray 06/29/25 11:12 XR shoulder LT min 2V routine CLINICAL HISTORY: l shoulder pain COMPARISON: 08/18/2019 FINDINGS: No acute fracture or dislocation seen. There are mild degenerative changes at the left shoulder. There are multiple pulmonary nodules at the left lung. IMPRESSION: No acute fracture seen. ACT 112: Negative or not required by law. Electronically signed by: Ronald Alvarez M.D. 06/29/2025 11:46 AM Discharge Plan Visit Data Chief Complaint: Arm Pain Stated Complaint: PAIN IN L ARM AND SHOULDER ED Provider: Henry Leblanc Discharge Problem: Arm pain, Spinal cord lesion, Hypomagnesemia, Multiple pulmonary nodules Patient Disposition: Home - Self-Care Condition: Fair Discharge Instructions Krames/Other Patient Handouts: ED [facility] Back Pain Activity Restrictions/Additional Instructions: Please follow up with your primary care doctor with in the next 24 hours. Any worsening of your symptoms, please return to the ED immediately. This includes any fevers greater than 100.4, worsening pain, chest pain, shortness breath, persistent nausea, vomiting, weakness or numbness in your arm, unable to eat or drink, or any other concerning signs or symptoms from your standpoint. You were given medications during this visit that will inhibit your ability to drive, operate machinery and work. Please do NOT drive, operate machinery, drink alcohol or work for the next 12hrs. You were found to have a blood pressure greater than 120 systolic over 90 diastolic. Due to the new Medicare guidelines, we are now recommending that you follow up with your primary care doctor in regards to this elevated blood pressure. Please follow-up with heme-onc and palliative care as well as pain management. Forms Stand Alone Forms: My [facility], Important Visit Information Prescriptions Prescriptions: No Action (DME) lancets [Microlet Lancet] Misc See Rx Instructions .ROUTE .MEDSUPPLY Qty: 200 5RF Rx Instructions: Test blood sugars four times a day (DME) blood-glucose meter [Contour Next One Meter] Misc See Rx Instructions .ROUTE .MEDSUPPLY Qty: 1 0RF Rx Instructions: Test blood sugars 1 x times a day (DME) pen needle, diabetic 31 gauge x 3/16" needle See Dose Instructions .ROUTE .MEDSUPPLY Qty: 500 1RF Rx Instructions: use to inject insulin 5 times daily as directed (DME) Dexcom G7 Sensor Device See Rx Instructions .Route Rx Instructions: change every 10 days (DME) Bio true Solution See Rx Instructions .Route Rx Instructions: As directed; PRN (DME) CPAP Machine Misc See Rx Instructions .Route Rx Instructions: As directed (DME) Contour Next Test Strips Strip See Rx Instructions .ROUTE .MEDSUPPLY Qty: 400 1RF Rx Instructions: Test blood sugar four times daily buspirone 30 mg tablet 30 mg feeding tube TID gabapentin 800 mg tablet 800 mg feeding tube TID prochlorperazine maleate 10 mg tablet 10 mg PO Q8H PRN (Reason: n/v) loperamide [Imodium A-D] 2 mg tablet 2 mg PO Q6H PRN (Reason: Other) Patient Comments: 06/29- otc unable to verify mecobalamin (vitamin B12) 1,000 mcg tablet,chewable 1,000 mcg PO DAILY Patient Comments: 06/29- otc unable to verify cyanocobalamin (vitamin B-12) 1,000 mcg/mL syringe 1,000 mcg .Route MONTHLY Patient Comments: Last filled 02/01 90 day supply Rx Instructions: [id number] mg intramuscularly monthly 1,000 mcg oxycodone 5 mg tablet 10 mg PO .Q4-6H PRN (Reason: Pain) mercaptopurine 50 mg tablet 50 mg PO DAILY Vyzulta 0.024 % drops 1 drp ophthalmic (eye) QPM potassium chloride 10 mEq capsule, extended release 10 meq PO DAILY ondansetron 4 mg tablet,disintegrating 4 mg PO Q8H PRN (Reason: nausea and vomiting) Qty: 60 0RF cyclosporine 0.05 % dropperette 1 drp OPB BID Patient Comments: Last filled 01/27 90 day supply magnesium oxide 400 mg (241.3 mg magnesium) Tablet 400 mg PO QAM Qty: 30 0RF insulin aspart U-100 [Novolog FlexPen U-100 Insulin] 100 unit/mL (3 mL) insulin pen 0 sliding scale dose SQ TIDWMEAL MDD 60 Patient Comments: last filled 07/09/2024 atorvastatin 20 mg tablet 20 mg PO DAILY fentanyl 25 mcg/hr patch 72 hour 25 mcg transdermal .Q72H nystatin 100,000 unit/mL suspension 0 ml PO QID Patient Comments: last filled 04/27 3 day supply Referrals Referrals: Lilian Godwin MD [Primary Care Provider] - Discharge Problem: Arm pain Qualifiers: Laterality: left Qualified Code(s): M79.602 - Pain in left arm
[2025-06-29] MEDS: MoRPHine SULFATE 4 MG/ML 1 ML CARP\\VIAL IV STA ×2 (11:35→13:29)
[2025-06-29 11:45] LABS: Hematocrit (blood only) 33.1 % (37.0-47.0); Hemoglobin 10.5 g/dl (12.0-16.0); Immature Granulocytes # (auto) 0.02 K/uL (0.01-0.20); Immature Granulocytes % (auto) 0.3 %; Mean Corpuscular Hemoglobin 30.1 pg (25.0-34.0); Mean Corpuscular Volume 94.8 fL (80.0-100.0); Platelet Count 352 K/uL (130-400); RDW Standard Deviation 48.9 fL (36.4-46.3); Red Blood Count 3.49 M/uL (4.20-5.40); White Blood Count 7.64 K/ul (4.8-10.8)
--- NOTE | 2025-06-29 11:47 | XRay Report ---
XR chest 1V portable CLINICAL HISTORY: Chest pain, nonspecific COMPARISON STUDY: 11/01/2024 FINDINGS: Stable right chest port. Stable mild cardiomegaly without pulmonary vascular congestion. Th ere are scattered nodular densities in both lungs, increased. There are possible trace pleural effusi ons. No pneumothorax. IMPRESSION: Increased bilateral pulmonary nodules with possible trace pleural effusions. ACT 112: Negative or not required by law. Electronically signed by: Ronald Alvarez M.D. 06/29/2025 11:45 AM
--- NOTE | 2025-06-29 11:48 | XRay Report ---
XR shoulder LT min 2V routine CLINICAL HISTORY: l shoulder pain COMPARISON: 08/18/2019 FINDINGS: No acute fracture or dislocation seen. There are mild degenerative changes at the left jeffery ulder. There are multiple pulmonary nodules at the left lung. IMPRESSION: No acute fracture seen. ACT 112: Negative or not required by law. Electronically signed by: Ronald Alvarez M.D. 06/29/2025 11:46 AM
[2025-06-29 12:02] LABS: Alanine Aminotransferase 8.0 U/L (7-52); Albumin Globulin Ratio 0.9 (0.9-2); Albumin Level 3.2 gm/dl (3.4-5.0); Alkaline Phosphatase 76.0 U/L (34-104); Anion Gap 7.0 (3-11); Bilirubin,Total 0.6 mg/dl (0.2-1.0); Blood Urea Nitrogen 17.0 mg/dl (6-23); Calcium 9.6 mg/dl (8.6-10.3); Carbon Dioxide 35.0 mmol/L (21-32); Chloride 95.0 mmol/L (98-107); Creatinine Clr Calc Pharmacy 85.5 ml/min; Globulin 3.5 gm/dl (2.5-4.0); Glucose 200.0 mg/dl (70-99(Fasting)); Potassium 3.7 mmol/L (3.5-5.1); Sodium 137.0 mmol/L (136-145); Total Protein 6.7 gm/dl (6.0-8.3)
--- NOTE | 2025-06-29 12:07 | CT Scan Report ---
CT cervical spine wo con CT DOSE: 483.99 mGy.cm CLINICAL HISTORY: 74 years-old Female with l arm pain. Acute neck pain without reported trauma. Hist ory of head and neck carcinoma COMPARISON: CT soft tissue neck 06/10/2025 TECHNIQUE: Multiple axial CT images of the cervical spine were obtained without contrast. A dose low ering technique was utilized adhering to the principles of ALARA. FINDINGS: Multilevel degenerative changes of the cervical spine with moderate mid to lower cervical s pondylotic spurring. Moderate disc space narrowing at C6-C7. Bayf-xk-mptgsgkx multilevel facet arthro sis. Mild wedge deformities at T1-T3 without retropulsion appear chronic. No acute cervical spine fra cture or subluxation identified. Osteolytic skeletal lesion measuring 1.5 cm within the left aspect o f the T1 vertebral body on image 39 at the costovertebral junction. Soft tissue component of this les ion extends into the left T1-T2 neural foramen. Left mastoid effusion. Heterogeneity of the thyroid. Previously noted lesions in the floor the mouth are not imaged. Layerin g left pleural effusion with intralobular septal thickening. Irregular nodules at the lung apices are again noted including an index 1.7 cm nodule in the left upper lobe. Several of these nodules appear to be slightly larger than prior. IMPRESSION: 1. No acute cervical spine fracture or subluxation. 2. Progressive pulmonary metastasis. 3. 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 4. Suggestion of pulmonary edema with small left pleural effusion. ACT 112: Negative or not required by law. The above report was generated using voice recognition software. It may contain grammatical, syntax o r spelling errors. Electronically signed by: Og Abarca M.D. 06/29/2025 12:05 PM
--- NOTE | 2025-06-29 13:41 | History & Physical Report ---
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 Pain is cancer related. #Cancer related pain | left shoulder pain Suspect progression of patient's left shoulder/scapular pain is due to the findings on imaging: - Progressive pulmonary metastasis. - Osteolytic skeletal metastatic lesion at T1 with involvement of the left T1-T2 neural foramen. 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 Perez) Dietitian consult appreciated for PEG tube feedings Patient is normally on Nutren 2.0 TID Communication order: All p.o. medications through the PEG tube Upcoming palliative care appointment on Wednesday 07/04 Patient was previously able to swallow some pills, but is finding it more difficult now Speech therapy consult appreciated N.p.o. for now #Hypomagnesemia Mild; magnesium 1.6 on arrival In the setting of chronic diarrhea from Crohn's Magnesium sulfate 1 g IV x 1 Replete PRN #T2DM Last A1c at 6.6% on 12/14/2024 Patient is normally on NovoLog U100 TIDwmeals Dose reduced to Lantus 15 u BID while inpatient SSI with target BSG range 110-150mg/dL, CF 15, carb ratio 5 BSG ACHS Adjust regimen as needed Pharmacy glycemic consult appreciated in setting of high-dose steroid use AM A1c #Crohn's disease With a history of partial colectomy, follows with GI in [place] Continue mercaptopurine #GAMA CPAP HS #HTN BP mildly elevated (173/100 on admission) ? Not currently on BP medications Patient was previously on irbesartan and amlodipine Hydralazine 5 mg IV q8h PRN for SBP >195 or DBP >95 Disposition: Admit to MedSurg VTE PPx: Lovenox 40 mg SQ q24h History of Present Illness Chief Complaint: Arm pain Primary Care Provider: Lilian Godwin MD Mrs. Ramos is a 74-year-old female with PMH of GAMA, T2DM, glaucoma, metabolic syndrome, Crohn's disease, and PEG tube placement. She presented on 06/29 for left shoulder and arm pain. Pain is located mainly in patient's left upper shoulder/back. Radiation down the arm. Worse with movements. Pain is constant, but she has sharp stabbing pain at times when she moves it the wrong way. 10/10 at worst. 6/10 at present after receiving morphine in the emergency department. She has been taking 10 mg oxycodone tablets every 4-6 hours at home as needed for pain, which helps a little bit, but it has grown increasingly worse this past week. Patient was also prescribed a fentanyl patch (25 mcg) starting on Friday, but this has not helped alleviate her pain. No chest pain. No other complaints at this time. Patient currently follows with Dr. Perez ([facility]) and is set to get immunotherapy next on Wednesday 07/11. She also has an upcoming appointment on Friday at 07/04 with palliative care. Patient is currently being treated for tongue and face cancer. She denies any smoking or tobacco use. Patient has a PEG tube and reports she uses Nutren 2.0 TID for food. She ambulates with a walker at baseline, but reportedly has had more difficulty walking over the past week. She feels off balance. No recent falls. No recent trauma to the left arm. Patient is mildly hypertensive at 154/90 at time admission; vitals otherwise stable. ED course: Morphine 4 mg IV x 2 ROS: Patient endorses severe left shoulder pain, thick sinus congestion, diarrhea once per day (attributes to Crohn's disease; sometimes does not make it to the bathroom), and numbness/tingling shooting down the left arm into her thumb. Patient denies fever, chills, night-sweats, dizziness, chest pain, pleuritic CP, cough, SOB, abdominal pain, N/V, or blood in the urine/stool. Allergies Allergy/AdvReac Type Severity Reaction Status Date / Time latex Allergy Intermediate Blisters Verified 06/20/25 12:59 Penicillins Allergy Intermediate Hives Verified 06/20/25 12:59 lisinopril Allergy Mild fluid Verified 06/20/25 12:59 retention Fnsvqbe-IFE-IvJ Reductase Allergy Verified 06/20/25 12:59 Inhibitor Home Medications Medication Instructions Recorded Confirmed Type Microlet Lancet (lancets) #200 ea 06/12/20 06/20/25 Rx CPAP Machine 04/19/21 06/20/25 History soft lens rinse,store solution 05/29/22 06/20/25 History (Bio true solution) blood-glucose meter (Contour Next #1 ea 02/21/23 06/20/25 Rx One Meter) blood-glucose sensor (Dexcom G7 01/19/24 06/20/25 History Sensor device) cyclosporine 0.05 % eye drops in a 1 drp OPB BID 10/26/24 06/29/25 History dropperette blood sugar diagnostic (Contour #400 ea 11/12/24 06/20/25 Rx Next Test Strips) insulin aspart U-100 100 unit/mL 0 sliding scale dose subcut 12/13/24 06/29/25 History (3 mL) subcutaneous pen (Novolog TIDWMEAL FlexPen U-100 Insulin aspart) pen needle, diabetic 31 gauge x #500 ea 03/21/25 06/20/25 Rx 3/16" latanoprostene bunod 0.024 % eye 1 drp ophthalmic (eye) QPM 04/13/25 06/29/25 Hi story drops (Vyzulta) mercaptopurine 50 mg tablet 50 mg PO DAILY 04/13/25 06/29/25 History magnesium oxide 400 mg (241.3 mg 400 mg PO QAM #30 tabs 04/27/25 06/29/25 Rx magnesium) tablet ondansetron 4 mg disintegrating 4 mg PO Q8H PRN nausea and 05/25/25 06/29/25 Rx tablet vomiting #60 tabs potassium chloride 10 mEq 10 meq PO DAILY 05/25/25 06/29/25 History capsule,extended release buspirone 30 mg tablet 30 mg feeding tube TID 05/27/25 06/29/25 History cyanocobalamin (vitamin B-12) 1,000 mcg .Route MONTHLY 05/27/25 06/29/25 History 1,000 mcg/mL injection syringe gabapentin 800 mg tablet 800 mg feeding tube TID 05/27/25 06/29/25 History loperamide 2 mg tablet (Imodium 2 mg PO Q6H PRN Other 05/27/25 06/29/25 History A-D) mecobalamin (vitamin B12) 1,000 1,000 mcg PO DAILY 05/27/25 06/29/25 History mcg chewable tablet prochlorperazine maleate 10 mg 10 mg PO Q8H PRN n/v 05/27/25 06/29/25 History tablet oxycodone 5 mg tablet 10 mg PO .Q4-6H PRN Pain 06/20/25 06/29/25 History atorvastatin 20 mg tablet 20 mg PO DAILY 06/29/25 06/29/25 History fentanyl 25 mcg/hr transdermal 25 mcg transdermal .Q72H 06/29/25 06/29/25 History patch nystatin 100,000 unit/mL oral 0 ml PO QID 06/29/25 06/29/25 History suspension Past Med/Surg History Problem List (Updated 06/30/25 @ 15:55 by STEFANI Conner) Counseling regarding goals of care PEG tube malfunction Pain from bone metastases Left shoulder pain Cancer related pain Spinal cord lesion (Acute) Arm pain (Acute) Cellulitis Ex-smoker Counseling regarding advanced directives and goals of care Palliative care by specialist Abnormal chest CT Cellulitis of face (Acute) Jerri infection (Acute) Jerri infection Salivary gland obstruction Cellulitis of face Multiple pulmonary nodules PEG (percutaneous endoscopic gastrostomy) adjustment/replacement/removal (12/13/24) Removal of Feeding Tube/placement new gastrostomy tube - Malik Turner, DO Esophagogastroduodenoscopy - Malik Turner, DO Hypokalemia Hypomagnesemia heme/onc monitoring and supplementing Diabetes Arthritis Anemia Recurrent squamous cell carcinoma of tongue Obesity Post-nasal drip Injury of toe, right, superficial 05/2022 Depression with anxiety Left lumbar radiculopathy GAMA (obstructive sleep apnea) Crohn disease Binge eating disorder Mixed hyperlipidemia Metabolic syndrome Glaucoma Spinal stenosis Diabetic peripheral neuropathy associated with type 2 diabetes mellitus (Acute) Dyslipidemia associated with type 2 diabetes mellitus (Acute) Hypertension (Acute) Loss of protective sensation of skin of foot (Acute) Type 2 diabetes mellitus (Acute) Medical History PEG tube malfunction Anemia Obesity Gout Hypertension Dyslipidemia associated with type 2 diabetes mellitus Diabetic peripheral neuropathy associated with type 2 diabetes mellitus Depression with anxiety Post-nasal drip Type 2 diabetes mellitus Spinal stenosis Glaucoma Metabolic syndrome Recurrent squamous cell carcinoma of tongue Surgery 04/2024 and 10/04/24; currently on chemo tx; follows with once per week (wednesdays); also current XRT with in [place] Hx of sepsis 2021- no residual/current issues Fatty liver Sleep apnea CPAP Crohn's disease Neck problem Cervical pitched nerve + narrowing Intermittent LUE radiculopathy and ROM limitations COPD (chronic obstructive pulmonary disease) "Mild" No inhaler Surgical History History of percutaneous endoscopic gastrostomy (11/29/24) Esophagogastroduodenoscopy with Percutaneous Endoscopic Gastrostomy (PEG) Tube - Malik Turner DO Port-A-Cath in place (11/01/24) Insertion Access Port with Fluoroscopy - Right Subclavian(Right) - Kishore Mulligan DO; MAC without issue S/P cholecystectomy S/P partial glossectomy 04/30/24: partial glossectomy with L selective neck dissection Dr. Coyle [facility]; 10/04/24: L suprahyoid neck dissection and partial glossectomy Hx of cataract extraction R/L Hx of bilateral breast reduction surgery S/P epidural steroid injection x4 [id number] History of colonoscopy History of bowel resection (~2003) 12 inches r/t Crohn's disease (1971) Re-do r/t Crohn's disease (2003)- also had gallbladder removed at this time History of appendectomy (1971) Family History Father Family history of diabetes mellitus Diabetes Stroke Daughter Breast cancer Uncle Diabetes Grandmother Diabetes Stroke Other No family history of adverse response to anesthesia Social History Smoking Status: Never smoker Tobacco Type: Cigarettes Age Started Using Tobacco: 1 (unknown); Age Quit Using Tobacco: 0 (unknown); packs per day: 1; Cigarettes Per Day: 1979; Second Hand Exposure: Yes; Do You Dip or Chew Tobacco: No; Hx Alcohol Use: No Hx Substance Use: No Preferred Language: Grenadian Communication Ability: Effective Visual Impairment: No Limitations Gear Hobber Required: No Beliefs That Will Affect Care: None Current Living Situation: Spouse Other Information That Helps Us Care for You: No Feels Safe at Home: Yes Safety Concerns: Feels Safe At This Time Assistive Devices: CPAP, Glasses and Walker Review of Systems Review of Systems: See HPI above Physical Exam Physical Exam: General: Mild distress secondary to L shoulder pain; pleasant affect; (Sampson) at bedside; non-toxic appearing; cooperative; SpO2 92% on RA HEENT: normocephalic, atraumatic; PERRLA; vision and hearing intact Neck: supple; trachea midline; shrugging shoulders against resistance, and rotating neck bilaterally induces left shoulder pain Back: Left scapula is TTP Skin: warm, dry without signs of tenting; no cyanosis; no rashes, bruising, lesions, or erythema noted CV: chest wall NTP; RRR; S1/S2 normal; no murmurs/rubs/gallops; pulses intact and symmetric at radial, DP, and PT Lungs: no acute respiratory distress; symmetrical chest wall expansion; clear breath sounds across all lung nino w/o adventitious sounds; no wheezing ABD: Soft, NTP; PEG tube in place in the left lower quadrant without signs of erythema or acute infection; BS present; no rebound/guarding; no distention MSK: no tics or fasciculations; no edema noted in the LEs b/l, nonerythematous; 5/5 pilot strength bilaterally Neuro: A&Ox3; normal mood and affect; hoarse voice; patient reports decrease sensation in the left hand compared to the right assessed via light touch at the fingers and elbows Results & Data Results & Data Vital Signs (Past 12 Hours) Vital Signs Temp Pulse Pulse Resp BP BP Pulse Ox 06/29/25 13:00 72 17 154/90 H 92 06/29/25 11:12 18 91 06/29/25 11:12 75 18 134/77 91 06/29/25 10:52 36.0 C L 91 H 20 132/76 93 O2 Del Method 06/29/25 13:00 Room Air 06/29/25 11:12 Room Air 06/29/25 11:12 Room Air 06/29/25 10:52 Room Air Laboratory Results Abnormal lab results 06/29/25 Range/Units 11:25 RBC 3.49 L (4.20-5.40) M/uL Hgb 10.5 L (12.0-16.0) g/dl Hct 33.1 L (37.0-47.0) % MCHC 31.7 L (32.0-36.0) g/dL RDW Std Deviation 48.9 H (36.4-46.3) fL MPV 9.1 L (9.4-12.4) fL Lymph # (Auto) 0.58 L (1.20-3.40) K/uL Lander # (Auto) 0.64 H (0.11-0.59) K/uL Chloride 95 L (98-107) mmol/L Carbon Dioxide 35 H (21-32) mmol/L BUN/Creatinine Ratio 27.0 H (10-20) Glucose 200 H (70-99(Fasting)) mg/dl AST 11 L (13-39) U/L Albumin 3.2 L (3.4-5.0) gm/dl Diagnostic Findings Cervical Spine CT 06/29/25 11:12 CT cervical spine wo con CT DOSE: 483.99 mGy.cm CLINICAL HISTORY: 74 years-old Female with l arm pain. Acute neck pain without reported trauma. History of head and neck carcinoma COMPARISON: CT soft tissue neck 06/10/2025 TECHNIQUE: Multiple axial CT images of the cervical spine were obtained without contrast. A dose lowering technique was utilized adhering to the principles of ALARA. FINDINGS: Multilevel degenerative changes of the cervical spine with moderate mid to lower cervical spondylotic spurring. Moderate disc space narrowing at C6- C7. [id number] multilevel facet arthrosis. Mild wedge deformities at T1-T3 without retropulsion appear chronic. No acute cervical spine fracture or subluxation identified. Osteolytic skeletal lesion measuring 1.5 cm within the left aspect of the T1 vertebral body on image 39 at the costovertebral junction. Soft tissue component of this lesion extends into the left T1-T2 neural foramen. Left mastoid effusion. Heterogeneity of the thyroid. Previously noted lesions in the floor the mouth are not imaged. Layering left pleural effusion with intralobular septal thickening. Irregular nodules at the lung apices are again noted including an index 1.7 cm nodule in the left upper lobe. Several of these nodules appear to be slightly larger than prior. IMPRESSION: 1. No acute cervical spine fracture or subluxation. 2. Progressive pulmonary metastasis. 3. 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 4. Suggestion of pulmonary edema with small left pleural effusion. ACT 112: Negative or not required by law. The above report was generated using voice recognition software. It may contain grammatical, syntax or spelling errors. Electronically signed by: Og Abarca M.D. 06/29/2025 12:05 PM Chest X-Ray 06/29/25 11:12 XR chest 1V portable CLINICAL HISTORY: Chest pain, nonspecific COMPARISON STUDY: 11/01/2024 FINDINGS: Stable right chest port. Stable mild cardiomegaly without pulmonary vascular congestion. There are scattered nodular densities in both lungs, increased. There are possible trace pleural effusions. No pneumothorax. IMPRESSION: Increased bilateral pulmonary nodules with possible trace pleural effusions. ACT 112: Negative or not required by law. Electronically signed by: Ronald Alvarez M.D. 06/29/2025 11:45 AM Shoulder X-Ray 06/29/25 11:12 XR shoulder LT min 2V routine CLINICAL HISTORY: l shoulder pain COMPARISON: 08/18/2019 FINDINGS: No acute fracture or dislocation seen. There are mild degenerative changes at the left shoulder. There are multiple pulmonary nodules at the left lung. IMPRESSION: No acute fracture seen. ACT 112: Negative or not required by law. Electronically signed by: Ronald Alvarez M.D. 06/29/2025 11:46 AM ECG Additional Comments: EKG ordered, pending Code Status & VTE Plan Code Status DNR/DNI Goals of care discussions were had during patient's last admission on 04/24 (see ACP note and palliative care note) Readdress CODE STATUS at bedside with both patient and patient's . Patient reports that - while she was previously listed a full code - she had long discussions with her recently; they have seen other family members pass away on ventilators, and patient does not want that under any circumstances. She is requesting to be listed as a DNR/DNI at this time. VTE Prophylaxis Plan VTE Prophylaxis will be ordered: Yes Supervising Physician Co-Signing Physician Notes Attending Attestation & Admit Note: Pt seen/examined, chart reviewed, admit care plan d/w YAYA Mcneal. I agree w/ the milelr components of his admission documentation. 74yo female with stage 4 squamous cell ca of the tongue with original surgery in 2023, GAMA, T2DM, glaucoma, metabolic syndrome, Crohn's disease, and PEG tube placement due to dysphagia - on Nutren 2.0 TID via PEG. Presents with ongoing left arm pain extending from the left shoulder blade region down the arm and into the L thumb. Numb/tingling. Cervical spine CT today noted a large metastatic bone lesion at T1-T2 compressing the left neuroforamen at this level. She is being admitted for pain control due to the intractable nature of such. PMH/PSH/allergies/meds/sochx - reviewed VSS, afebrile, o2 sats wnl gen - lying in bed, NAD neck - no JVD tongue - white plaques on anterior 1/3 - thrush?; MM dry heart - RRR, s1 s2, no murmur lungs - CTA b/l abd - soft NT ND BS+; PEG in place - clean ext - no edema of legs, pulses 2+ b/l feet neuro - DTRs 2+ b/l upper extremities; mild weakness of thumb on left; no muscle atrophy or fasciculations; strength otherwise wnl left arm labs reviewed imaging reviewed A/P: 1. stage 4 squamous cell ca of tongue with pulm mets and now bony mets 2. large met at T1-T2 likely the cause of left arm symptoms (impingement of exiting nerve root on left causing radiculopathy) 3. PEG tube status 4. dysphagia -start dexamethasone for bone pain & likely nerve pain/radiculopathy -rad onc consult for consideration of palliative XRT to T1-T2 -cont pain meds; consider increase in fentanyl patch, but not at this time as it was just recently added -consider muscle relaxer -palliative care consultation -consider addition of cymbalta as she is already on large dose of gabapentin (800 TID) Duc Taylor MD PG Care Time/CCT Total # of Minutes Spent Total Time Spent with Patient: Total time spent is greater than 50% in coordination of care (as documented) at patient's floor/unit and/or counseling patient: Coding [place] [address] INT INP/OBS CARE 3/75MIN Patient Type Established Medical Decision Making High Complexity Diagnoses Cancer related pain G89.3 Crohn disease K50.90 Left shoulder pain M25.512 Hypomagnesemia E83.42
[2025-06-29 14:50] LABS: Magnesium 1.6 mg/dl (1.7-2.4)
[2025-06-29] MEDS: dexAMETHasone**PF** 10 MG/ML VIAL IV ONE (15:53)
--- NOTE | 2025-06-29 16:06 | Electrocardiogram Report ---
Test Reason : Blood Pressure : */* mmHG Vent. Rate : 81 BPM Atrial Rate : 81 BPM P-R Int : 224 ms QRS Dur : 90 ms QT Int : 402 ms P-R-T Axes : 23 75 12 degrees QTcB Int : 466 ms Sinus rhythm with 1st degree A-V block Otherwise normal ECG When compared with ECG of 19-Apr-2025 09:42, Premature atrial complexes are no longer Present Confirmed by Foreign Stewart ([id number]) on 06/29/2025 4:05:38 PM Referred By: REFERRED SELF Confirmed By: Foreign Stewart
[2025-06-29] MEDS ORDERED: PHARMACY GLYCEMIC MGMT CONSULT PRN (16:34)
[2025-06-29] MEDS ORDERED: ACETAMINOPHEN 1,000 MG/100 ML VIAL IV PRN (16:34)
[2025-06-29] MEDS ORDERED: GLUCOSE 10 TAB/TUBE PO PRN (16:34)
[2025-06-29] MEDS ORDERED: ONDANSETRON INJ 2 MG/ML 2 ML VIAL IV PRN (16:34)
[2025-06-29] MEDS ORDERED: CARBOHYDRATES FOR HYPOGLYCEMIA PO PRN (16:34)
[2025-06-29] MEDS ORDERED: DEXTROSE 50% 50 ML SYRINGE IV PRN (16:34)
[2025-06-29] MEDS ORDERED: GLUCAGON FOR INJ 1 MG VIAL SQ PRN (16:34)
[2025-06-29] MEDS ORDERED: HYDROmorphone INJ 0.5 MG/0.5 ML SYR IV PRN (16:34)
[2025-06-29] MEDS ORDERED: GLUCOSE 40% GEL 15 GM TUBE PO PRN (16:34)
[2025-06-29] MEDS ORDERED: Nursing to Pharmacy Communication SCH (16:45)
[2025-06-29] MEDS ORDERED: NUTREN LIQD 2.0 1,000 ML BAG PEG SCH (17:00)
[2025-06-29] MEDS: HYDROmorphone INJ 1 MG/ML SYRINGE IV PRN (17:08)
[2025-06-29] MEDS: CHECK FENTANYL SCH (17:09)
[2025-06-29] MEDS: [UNRECOGNIZED DRUG - OTHER] SCH (17:09)
[2025-06-29] MEDS: MAGNESIUM SULFATE / D5W 1 GM/100 ML BAG IV ONE (17:49)
[2025-06-29] MEDS: NUTREN LIQD 2.0 1,000 ML BAG PEG SCH (17:51)
[2025-06-29] MEDS: TUBE FEEDING WATER FLUSH GT SCH (17:52)
[2025-06-29] MEDS: LANTUS PER UNIT CHARGE SQ SCH (17:55)
[2025-06-29] MEDS: INSULIN ASPART PER UNIT CHARGE SC SCH (17:55)
[2025-06-29] MEDS: [UNRECOGNIZED DRUG - REMARK] SCH (21:06)
[2025-06-29] MEDS: NYSTATIN POWDER 15GM BTL EXT PRN (21:07)
[2025-06-29] MEDS: busPIRone 15 MG TAB PEG SCH (21:07)
[2025-06-29] MEDS: ENOXAPARIN INJ 40 MG/0.4 ML SYR SQ SCH (21:07)
[2025-06-29] MEDS: GABAPENTIN 800 MG TAB PO SCH (21:08)
[2025-06-29] MEDS: GADOBUTROL 65ML VIAL IV ONE (22:55)
--- NOTE | 2025-06-30 00:35 | Magnetic Resonance Report ---
Exam(s): MRI T SPINE W/WO Contrast IV Amt: 8.5 ml genny EXAM: MR Thoracic Spine Without and With Intravenous Contrast CLINICAL HISTORY: Reason for exam: T1/T2 metastic lesion; ? cord compression. OTHER: Other Notes: T1-T2 METASTATIC LESION? CHECK FOR CORD COMPRESSION, DIFFICULTY HOLDING STILL, UNEVENTFUL INJECTION 8.4 ML GENNY GIVEN VIA PORT BY PRASAD TECHNIQUE: Magnetic resonance images of the thoracic spine without and with intravenous contrast in multiple planes. CONTRAST: Patient received 8.5 ml genny of IV contrast COMPARISON: No relevant prior studies available. FINDINGS: Vertebrae: There are 12 thoracic type vertebral bodies with increased thoracic kyphosis. There is a moderate sized enhancing soft tissue mass in the left T1 vertebral body extending to the posterior elements and to the left ventral epidural space and left C7-T1 and T1-T2 neural foramina. There are tiny enhancing lesions in the T7, T8 and T11 vertebral bodies. No acute fracture. Discs/spinal canal/neural foramina: No acute findings. No significant disc disease. No spinal canal stenosis. Spinal cord: Unremarkable. Normal signal. No abnormal enhancement. Soft tissues: Unremarkable. IMPRESSION: Moderate sized enhancing soft tissue mass in the left T1 vertebral body extending to the ventral epidural space and left C7-T1 and T1-T2 neural foramina concerning for metastatic disease. No evidence of pathologic fracture or spinal canal stenosis. Tiny enhancing lesions at T7, T8 and T11 vertebral bodies concerning for tiny metastatic lesions. Communications: Verify Receipt Electronically signed by: Mariah Dove MD 06/30/25 00:34 AM
[2025-06-30 03:58] LABS: Hematocrit (blood only) 31.7 % (37.0-47.0); Hemoglobin 10.3 g/dl (12.0-16.0); Mean Corpuscular Hemoglobin 30.7 pg (25.0-34.0); Mean Corpuscular Volume 94.6 fL (80.0-100.0); Platelet Count 370 K/uL (130-400); RDW Standard Deviation 47.2 fL (36.4-46.3); Red Blood Count 3.35 M/uL (4.20-5.40); White Blood Count 6.95 K/ul (4.8-10.8)
[2025-06-30 04:14] LABS: Anion Gap 5.0 (3-11); Blood Urea Nitrogen 15.0 mg/dl (6-23); Calcium 9.6 mg/dl (8.6-10.3); Carbon Dioxide 36.0 mmol/L (21-32); Chloride 97.0 mmol/L (98-107); Creatinine Clr Calc Pharmacy 100.7 ml/min; Glucose 119.0 mg/dl (70-99(Fasting)); Magnesium 1.9 mg/dl (1.7-2.4); Potassium 4.1 mmol/L (3.5-5.1); Sodium 138.0 mmol/L (136-145)
[2025-06-30] MEDS: HEPARIN 100 UNIT/ML 5ML FLUSH FLUSH PRN (05:23)
[2025-06-30] MEDS: dexAMETHasone 4 MG in SYRINGE 0 ML IV SCH (07:38)
[2025-06-30 08:11] LABS: Hemoglobin A1C 6.3 % (4.5-5.6)
[2025-06-30] MEDS: MERCAPTOPURINE 50 MG TAB PO SCH (08:28)
[2025-06-30] MEDS: ATORVASTATIN 20 MG TAB PO SCH (08:29)
[2025-06-30] MEDS: POTASSIUM CHLORIDE 10 MEQ TABCR PO SCH (08:29)
[2025-06-30] MEDS: MAGNESIUM OXIDE 400 MG TAB PO SCH (08:30)
--- NOTE | 2025-06-30 08:48 | Radiation OncologyConsultation ---
Date of Consultation June 30, 2025 Assessment & Plan (1) Pain from bone metastases: Plan ATTENDING ADDENDUM: Assessment: Ms. Ramos is a 74-year-old female who presents with metastatic head and neck cancer. The patient previously had surgical resection as well as adj uvant chemotherapy and radiation therapy which completed in October 2024. The patient received radiation therapy at [facility] by Dr. Renteria. The patient has been receiving immunotherapy under the supervision of Dr. Perez. The patient was admitted to the hospital for pain control regarding a metastatic lesion involving her thoracic spine. We have been asked to evaluate her regarding the role of palliative radiation therapy. Recommendation: Palliative radiation therapy. Possibly may require SBRT given overlap from previous course of radiation therapy. I did offer to refer the patient back to Dr. Renteria who the patient was previously treated by and the patient has declined this offer at this point. Plan: 1. CT simulation for treatment planning for radiation therapy. IV contrast. H/N mask. Plan to bring patient down tomorrow. 2. Continue pain management as per primary medical team. 3. Systemic therapy as per medical oncology. Follow-up in the outpatient setting. 4. Obtain previous radiation therapy records from [facility]. 5. Patient and authorized individuals are encouraged to call us with any further questions or concerns. Rationale/Explanation of Treatment: I have explained the indications, alternatives, benefits, risks and side effects of radiation therapy. I have explained the most common side effects which include but are not limited to skin erythema, skin break down, pulmonary fibrosis, adhesion development, radiation pneumonitis, spinal cord damage, brachial plexus damage, rib fracture, heart failure and heart disease, esophagitis, development of fistula, fatigue and development of secondary malignancy. I have explained the CT simulation process and treatment planning. I explained what to expect before, during and after treatment on a regular basis. I have explained the indications, alternatives, benefits, risks and side effects of radiation therapy. I have explained the most common side effects including but are not limited to skin erythema, skin break down, hair loss, fibrosis, adhesion development, heart failure and heart disease, esophagitis, esophageal stenosis, bowel obstruction, urinary symptoms, thyroid disorders, mucositis, nausea, vomiting, diarrhea, anemia, fatigue, carotid artery stenosis and development of secondary malignancy. Additionally, patients suffer may have xerostomia, stomatitis, glossitis, dysphagia, aspiration, mandibular osteoradionecrosis, mucocutaneous fistula formation, lymphedema in the neck, pharyngeal edema, mucositis, loss of taste. Women may also have early onset ovarian failure leading to premature menopause and may experience infertility issues depending on her age. I have explained the CT simulation process and treatment planning. I explained what to expect before, during and after treatment on a regular basis. I have explained to the patient that there is an increased risk of overlap from the previous course of radiation therapy and the current course of radiation therapy which can increase the risk of all acute and late side effects of radiation therapy. History of Present Illness Reason for Consultation: Intractable pain from metastatic head and neck cancer Requesting Physician: Duc Schulte MD Attending Physician: Duc Taylor MD History of Present Illness Developed ulcer on the left side of the tongue in 2023. 04/30/2024. Status post partial glossectomy with left selective neck dissection (Dr. Coyle). 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 Stage pT1N0. 09/20/2024. PET/CT. Enlargement and increased uptake within the left lateral tongue most consistent with malignancy and associated with new likely metastatic cervical lymphadenopathy with hypermetabolic left submental lymph node. 10/04/2024. Left suprahyoid neck dissection and partial glossectomy. Pathology revealed invasive moderately differentiated squamous cell carcinoma of the left lateral tongue. Stage cD9oT3x. 11/03/2024. Initiation of combined radiation and chemotherapy. Chemotherapy comprised of cisplatin. 12/16/2024. Completion of cisplatin. 12/22/2024. Completion of radiation therapy (Dr. Renteria). 04/05/2025. PET/CT. Postoperative changes related to resection along the lateral left tongue with only mild residual FDG avidity without areas of nodular contrast-enhancement to suggest residual/recurrent disease. Selective neck dissection without FDG avid cervical lymph nodes, interval development of innumerable FDG avid pulmonary nodules throughout lungs highly concerning for metastatic disease. Patient declined bronchoscopy with biopsies. 05/02/2025. Initiation of pembrolizumab. 06/20/2025. Cycle 3 of pembrolizumab. 06/29/2025. Hospital admission due to intractable pain of the upper back. Pain radiating down the left arm. 06/29/2025. CT of the cervical spine. 1. No acute cervical spine fracture or subluxation. 2. Progressive pulmonary metastasis. 3. 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 4. Suggestion of pulmonary edema with small left pleural effusion. 06/29/2025. Chest x-ray. Increased bilateral pulmonary nodules with possible trace pleural effusions. 06/29/2025. X-ray of left shoulder. No acute fracture seen. 06/29/2025. MRI of the thoracic spine. Moderate sized enhancing soft tissue mass in the left T1 vertebral body extending to the ventral epidural space and left C7-T1 and T1-T2 neural foramina concerning for metastatic disease. No evidence of pathologic fracture or spinal canal stenosis. Tiny enhancing lesions at T7, T8 and T11 vertebral bodies concerning for tiny metastatic lesions. 06/10/2025. CT soft tissues of the neck. 1. Subtle hypodense focus with mild peripheral enhancement within the left anterior floor of mouth musculature which measures approximately 2.2 x 2.2 cm. This has developed or progressed since prior CT. This is nonspecific although differential considerations including progression of a neoplastic process or an infectious process such as developing abscess. Close clinical follow-up is recommended. Short-term imaging follow-up is also suggested. 2. Interval development of nonspecific mild thickening of the epiglottis which can be assessed on follow-up CT. 3. 1.1 cm anterior right floor of mouth nodular peripherally enhancing density which has increased since prior CT. This is likely neoplastic and may represent a pathologic node. 4. Increase in size of numerous ill-defined upper lobe pulmonary nodules since CT of April 16, 2025. These favor metastases. Increase in a partially visualized left pleural effusion. 5. Near complete resolution of right parotid inflammation. Improvement in right submandibular gland inflammation. 06/30/2025. Radiation oncology consultation (Ashli Castro PA-C/Amy Vargas MD). Patient has been followed by Dr. Perez and medical oncology and Dr. Renteria in radiation oncology. She has squamous cell carcinoma of the head and neck. Initially diagnosed in 2023. She had surgery. She then had recurrence. She had surgery again follow-up by radiation and chemotherapy. She then started maintenance pembrolizumab. She unfortunately developed increasing pain of the back. This is in the upper thoracic region. The pain radiates down her left arm. She notes left arm weakness. She has numbness of her thumb. Pain increases with any movement. Since hospitalized she is on medication. Today she has a pain level of 5-6 out of 10. Our office was consulted to discuss palliative radiation therapy to help relieve pain. Allergies Allergy/AdvReac Type Severity Reaction Status Date / Time latex Allergy Intermediate Blisters Verified 06/20/25 12:59 Penicillins Allergy Intermediate Hives Verified 06/20/25 12:59 lisinopril Allergy Mild fluid Verified 06/20/25 12:59 retention Oittxug-QZB-VvC Reductase Allergy Verified 06/20/25 12:59 Inhibitor Home Medications Medication Instructions Recorded Confirmed Type Microlet Lancet (lancets) #200 ea 06/12/20 06/20/25 Rx CPAP Machine 04/19/21 06/20/25 History soft lens rinse,store solution 05/29/22 06/20/25 History (Bio true solution) blood-glucose meter (Contour Next #1 ea 02/21/23 06/20/25 Rx One Meter) blood-glucose sensor (Dexcom G7 01/19/24 06/20/25 History Sensor device) cyclosporine 0.05 % eye drops in a 1 drp OPB BID 10/26/24 06/29/25 History dropperette blood sugar diagnostic (Contour #400 ea 11/12/24 06/20/25 Rx Next Test Strips) insulin aspart U-100 100 unit/mL 0 sliding scale dose subcut 12/13/24 06/29/25 History (3 mL) subcutaneous pen (Novolog TIDWMEAL FlexPen U-100 Insulin aspart) pen needle, diabetic 31 gauge x #500 ea 03/21/25 06/20/25 Rx 3/16" latanoprostene bunod 0.024 % eye 1 drp ophthalmic (eye) QPM 04/13/25 06/29/25 History drops (Vyzulta) mercaptopurine 50 mg tablet 50 mg PO DAILY 04/13/25 06/29/25 History magnesium oxide 400 mg (241.3 mg 400 mg PO QAM #30 tabs 04/27/25 06/29/25 Rx magnesium) tablet ondansetron 4 mg disintegrating 4 mg PO Q8H PRN nausea and 05/25/25 06/29/25 Rx tablet vomiting #60 tabs potassium chloride 10 mEq 10 meq PO DAILY 05/25/25 06/29/25 History capsule,extended release buspirone 30 mg tablet 30 mg feeding tube TID 05/27/25 06/29/25 History cyanocobalamin (vitamin B-12) 1,000 mcg .Route MONTHLY 05/27/25 06/29/25 History 1,000 mcg/mL injection syringe gabapentin 800 mg tablet 800 mg feeding tube TID 05/27/25 06/29/25 History loperamide 2 mg tablet (Imodium 2 mg PO Q6H PRN Other 05/27/25 06/29/25 History A-D) mecobalamin (vitamin B12) 1,000 1,000 mcg PO DAILY 05/27/25 06/29/25 History mcg chewable tablet prochlorperazine maleate 10 mg 10 mg PO Q8H PRN n/v 05/27/25 06/29/25 History tablet oxycodone 5 mg tablet 10 mg PO .Q4-6H PRN Pain 06/20/25 06/29/25 History atorvastatin 20 mg tablet 20 mg PO DAILY 06/29/25 06/29/25 History fentanyl 25 mcg/hr transdermal 25 mcg transdermal .Q72H 06/29/25 06/29/25 History patch nystatin 100,000 unit/mL oral 0 ml PO QID 06/29/25 06/29/25 History suspension Patient History Medical History PEG tube malfunction Anemia Obesity Gout Hypertension Dyslipidemia associated with type 2 diabetes mellitus Diabetic peripheral neuropathy associated with type 2 diabetes mellitus Depression with anxiety Post-nasal drip Type 2 diabetes mellitus Spinal stenosis Glaucoma Metabolic syndrome Recurrent squamous cell carcinoma of tongue Surgery 04/2024 and 10/04/24; currently on chemo tx; follows with once per week (wednesdays); also current XRT with in [facility] of sepsis 2021- no residual/current issues Fatty liver Sleep apnea CPAP Crohn's disease Neck problem Cervical pitched nerve + narrowing Intermittent LUE radiculopathy and ROM limitations COPD (chronic obstructive pulmonary disease) "Mild" No inhaler Surgical History History of percutaneous endoscopic gastrostomy (11/29/24) Esophagogastroduodenoscopy with Percutaneous Endoscopic Gastrostomy (PEG) Tube - Malik Turner DO Port-A-Cath in place (11/01/24) Insertion Access Port with Fluoroscopy - Right Subclavian(Right) - Kishore Mulligan DO; MAC without issue S/P cholecystectomy S/P partial glossectomy 04/30/24: partial glossectomy with L selective neck dissection Dr. Coyle [facility]; 10/04/24: L suprahyoid neck dissection and partial glossectomy Hx of cataract extraction R/L Hx of bilateral breast reduction surgery S/P epidural steroid injection x4 [id number] History of colonoscopy History of bowel resection (~2003) 12 inches r/t Crohn's disease (1971) Re-do r/t Crohn's disease (2003)- also had gallbladder removed at this time History of appendectomy (1971) Family History Father Family history of diabetes mellitus Diabetes Stroke Daughter Breast cancer Uncle Diabetes Grandmother Diabetes Stroke Other No family history of adverse response to anesthesia Social History Smoking Status: Never smoker Tobacco Type: Cigarettes Age Started Using Tobacco: 1 (unknown); Age Quit Using Tobacco: 0 (unknown); packs per day: 1; Cigarettes Per Day: 1979; Second Hand Exposure: Yes; Do You Dip or Chew Tobacco: No; Hx Alcohol Use: No Hx Substance Use: No Preferred Language: Bolivian Communication Ability: Effective Visual Impairment: No Limitations Bull Ladle Tender Required: No Beliefs That Will Affect Care: None Current Living Situation: Spouse Other Information That Helps Us Care for You: No Feels Safe at Home: Yes Safety Concerns: Feels Safe At This Time Assistive Devices: Walker Review of Systems Review of Systems: 13 point review of systems is complete. Negative other than as in the history of present illness. She also has diarrhea which occurs 1 time per day. Physical Exam Constitutional: WD/WN, vitals as above Patient speaks with a muffled voice. Eyes: PERRL, conjunctivae normal, anicteric sclerae ENMT: Ears: no hearing impairment Noted mouth dryness with exudate on tongue. Neck: trachea midline, no thyromegaly Postoperative changes of the left neck. Postradiation changes with hyperpigmentation and skin thickness. No palpable masses. Respiratory: normal respiratory effort, lungs clear to auscultation Cardiovascular: RRR, no murmur, no edema Gastrointestinal (Abdomen): normal bowel sounds, soft, nontender, no hepatosplenomegaly Musculoskeletal: Tenderness to palpation of the upper thoracic spine. Pain on range of motion of the left arm. Skin: no rashes, warm and dry Neurologic: Decreased strength of the left arm. Numbness of the left thumb. Psychiatric: A+Ox3, euthymic affect Results (Rad Onc) Pathology Results: were reviewed and pertinent findings noted in HPI Imaging Studies: were reviewed and pertinent findings noted in HPI Time Spent Midlevel I spent [20] minutes in preparation for this follow up evaluation including reviewing all the clinical records, reviewing laboratory studies, pathology reports and imaging results. I spent [20] minutes with direct face to face interaction with the patient and/or family including performing a physical exam and answering all questions. I spent [10] minutes documenting this patient's visit. Attending I spent 20 minutes in preparation for this consultation including reviewing all the clinical records, reviewing laboratory studies, pathology reports and imaging results. I spent 30 minutes with direct face to face interaction with the patient and/or family including performing a physical exam and answering all questions. I spent 20 minutes documenting this patient's visit. PG Care Time/CCT Total # of Minutes Spent Total Time Spent with Patient: Total time spent is greater than 50% in coordination of care (as documented) at patient's floor/unit and/or counseling patient: Coding Level of Care Code 96473 INT INP/OBS CARE 3/75MIN Diagnoses Pain from bone metastases G89.3; C79.51
[2025-06-30] MEDS ORDERED: DEXAMETHASONE SOD INJ 4 MG/ML VIAL IV SCH (09:00)
--- NOTE | 2025-06-30 09:26 | Hospitalist Progress Note ---
Date of Service June 30, 2025 Assessment & Plan (1) Cancer related pain: (2) Crohn disease: (3) Left shoulder pain: (4) Hypomagnesemia: (5) PEG tube malfunction: Plan This patient is a 74-year-old female with PMH of metastatic tongue cancer (with mets to pulm) who presented on 06/29 for left shoulder/arm pain. Pain is cancer related. #Cancer related pain | left shoulder pain Suspect progression of patient's left shoulder/scapular pain is due to the findings on imaging: - Progressive pulmonary metastasis - Osteolytic skeletal metastatic lesion at T1 with involvement of the left T1-T2 neural foramen Designated thoracic spine MRI did not reveal evidence of pathological fracture Radiation oncology consult appreciated Planned radiation therapy tomorrow on 07/01 Continue Decadron 4 mg IV q8h Additional pain regimen as follows: - Fentanyl patch 25 mcg q72h - Gabapentin 800mg PEG TID - IV acetaminophen for pain 13 - IV Dilaudid 0.5-1.0 q2h for pain 410 Continuous pulse oximetry #PEG tube obstruction/malfunction (resolved) Alerted by nursing staff on the morning of 06/30 that patient's PEG tube had become clogged Initially, attempted to unclog with aspiration and warm water flush, but this was unsuccessful Discussed case with pharmacy, and Pancreaze [id number] was ordered Addendum: after several additional attempts with mechanical removal, the PEG tube obstruction eventually cleared without Pancreaze #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 Coyle) who did her resection x 2 Follows with CCP for immunotherapy (Dr. Perez) Dietitian consult appreciated for PEG tube feedings Patient is normally on Nutren 2.0 TID Communication order: All p.o. medications through the PEG tube Upcoming palliative care appointment on Wednesday 07/04 Patient is requesting to see palliative care while in the hospital #Worsening dysphagia Patient was previously able to swallow some pills, but is finding it more difficult now Soft tissue neck CT on 06/10 revealed progression of neoplastic processes/hypodense focus in the right left anterior floor of the mouth Speech therapy consult appreciated Okay for small sips of water and ice chips Oral hygiene q4h #T2DM Last A1c at 6.3% on 06/30/2025 Patient is normally on NovoLog U100 TIDwmeals Dose reduced to Lantus 15 u BID while inpatient SSI with target BSG range 110-150mg/dL, CF 15, carb ratio 5 BSG ACHS Adjust regimen as needed Pharmacy glycemic consult appreciated in setting of high-dose steroid use #Crohn's disease With a history of partial colectomy Continue mercaptopurine #GAMA CPAP HS #HTN (resolved) BP mildly elevated (173/100 on admission) ? Not currently on BP medications Patient was previously on irbesartan and amlodipine Hydralazine 5 mg IV q8h PRN for SBP >195 or DBP >95 Complex medical decision making in the setting of squamous cell carcinoma with new progressive metastasis to the spine and lungs. Patient also has several comorbidities at baseline with her underlying Crohn's disease, PEG tube feedings, diabetes, GAMA, and episodes of uncontrolled hypertension. Disposition: Continued stay for pain control; planned radiation oncology on 07/01 VTE PPx: High risk due to metastatic malignancy; Lovenox 40 mg SQ q24h Spoke on the phone with patient's daughter (Nisreen) on 06/30. Daughter reports she has been trying to get into contact with Dr. Perez regarding the "new picture" with progression of her mothers metastasis. Last they spoke with Dr. Perez, she was reportedly recommending that they move forward with chemotherapy every 3 weeks for 1-5 rounds, then reinitiate immunotherapy following this. Daughter confirms that she does have an upcoming PET scan on 07/07. She also confirms that there were plans for her to talk with palliative care on 07/04. Admission and Anticipated Discharge Date Admission Date: June 29, 2025 Supervising Physician Co-Signing Physician Notes Attending Attestation: Chart reviewed, care plan d/w YAYA Mcneal. I agree w/ the miller components of his documentation. Duc Taylor MD Subjective Mrs. Ramos is still having severe left scapular/shoulder pain with movements. Numbness and tingling going down the arm. She did have a heating pad placed on her left scapula just now, which has been helping. Additionally, she has a clogged PEG tube this morning. She reports that she had biopsies done of her floor tongue lesions with Dr. Coyle (who did her initial tongue surgery) at [facility]. At that time, they also drained a fluid collection. Explained that patient's pain is most likely attributable to this new metastasis to her spine. Patient is amenable to radiation therapy to assist with her T1/T2 lesion; previously followed with Dr. Renteria ([facility]) for radiation therapy. ROS: Patient endorses chills, and left shoulder/arm pain Patient denies fever overnight, chest pain, SOB, cough, pain around the PEG tube, abdominal pain, nausea, vomiting, or changes in urinary or bowel habits. Review of Systems Review of Systems: See HPI above Physical Exam Physical Exam: General: Mild distress secondary to L shoulder pain; pleasant affect; non-toxic appearing; cooperative; SpO2 94% on RA HEENT: normocephalic, atraumatic; PERRLA; vision and hearing intact; oral mucosa is dry and crusted Neck: supple; trachea midline; shrugging shoulders against resistance, and rotating neck bilaterally induces left shoulder pain Back: Left scapula is TTP Skin: warm, dry without signs of tenting; no cyanosis; no rashes, bruising, lesions, or erythema noted CV: chest wall NTP; RRR; S1/S2 normal; no murmurs/rubs/gallops; pulses intact and symmetric at radial, DP, and PT Lungs: no acute respiratory distress; symmetrical chest wall expansion; clear breath sounds across all lung nino w/o adventitious sounds; no wheezing ABD: Soft, NTP; PEG tube in place in the left lower quadrant without signs of erythema or acute infection; BS present; no rebound/guarding; no distention MSK: no tics or fasciculations; no edema noted in the LEs b/l, nonerythematous; 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 Results & Data Results & Data Vital Signs (Past 12 Hours) Vital Signs Temp Pulse Pulse Resp BP Pulse Ox O2 Del Method 06/30/25 07:21 36.5 C 88 16 117/74 94 Room Air 06/30/25 02:49 70 17 91 06/30/25 00:10 88 15 91 06/29/25 21:57 36.9 C 92 H 18 158/74 H 93 Room Air FiO2 06/30/25 07:21 06/30/25 02:49 21 06/30/25 00:10 21 06/29/25 21:57 PG Care Time/CCT Total # of Minutes Spent Total Time Spent with Patient: Total time spent is greater than 50% in coordination of care (as documented) at patient's floor/unit and/or counseling patient: Coding [place] [address] SUB INP/OBS CARE 3/50MIN Patient Type Established Medical Decision Making High Complexity Diagnoses Cancer related pain G89.3 Crohn disease K50.90 Left shoulder pain M25.512 Hypomagnesemia E83.42 PEG tube malfunction K94.23
[2025-06-30] MEDS ORDERED: NUTREN LIQD 2.0 1,000 ML BAG PEG SCH (12:00)
[2025-06-30] MEDS: PANCREAZE (LIPASE 4,200U) CAP PO ONE (13:04)
--- NOTE | 2025-06-30 14:29 | Pharmacy Report ---
Pharmacy Glycemic Short Note 2 - Date of Service June 30, 2025 - Glycemic Short BSG Results (Last 24 hours): 06/29/25 06/29/25 06/30/25 17:51 21:17 03:22 Glucose 119 H POC Glucose 177 H 233 H 06/30/25 06/30/25 09:39 13:11 Glucose POC Glucose 150 H 193 H OUTPATIENT ANTIDIABETIC REGIMEN: * Novolog SSI A1c = 6.3% (06/30/25) ASSESSMENT: * Carley is a 74 yo F with PMH of GAMA, T2DM, glaucoma, metabolic syndrome, Crohn's disease, PEG tube placement and metastatic tongue cancer. She presented on 06/29 for cancer related left shoulder and arm pain. PLAN FOR INPATIENT GLYCEMIC CONTROL: * Basal insulin * Lantus [] units SQ BID * Bolus insulin * NovoLog per scale ACHS or Q6hrs while NPO * Goal Range: Low [] mg/dL - High [] mg/dL * Correction Factor: [] mg/dL/unit * Nutritional / Prandial insulin per carb ratio of 1 unit per [] grams CHO consumed
--- NOTE | 2025-06-30 14:41 | Pharmacy Report ---
Pharmacy Glycemic Short Note 2 - Date of Service June 30, 2025 - Glycemic Short BSG Results (Last 24 hours): 06/29/25 06/29/25 06/30/25 17:51 21:17 03:22 Glucose 119 H POC Glucose 177 H 233 H 06/30/25 06/30/25 09:39 13:11 Glucose POC Glucose 150 H 193 H OUTPATIENT ANTIDIABETIC REGIMEN: * Novolog SSI A1c = 6.3% (06/30/25) ASSESSMENT: * Carley is a 74 yo F with PMH of GAMA, T2DM, glaucoma, metabolic syndrome, Crohn's disease, PEG tube placement and metastatic tongue cancer. She presented on 06/29 for cancer related left shoulder and arm pain. She has been started on dexamethasone 4 mg IV q8h. * Pharmacy has been consulted for glycemic management in the setting of high dose IV steroids. * Fasting BSG of 150 mg/dL is acceptable for patient on around the clock steroids. Continue Lantus 15 units BID. Note, morning dose was held per provider. * PEG tube not functioning this morning, therefore patient did not receive her morning dose of Nutren tube feeds. Unable to assess carb coverage at this time. Continue current orders for now. PLAN FOR INPATIENT GLYCEMIC CONTROL: * Basal insulin * Lantus 15 units SQ BID * Bolus insulin * NovoLog per scale ACHS or Q6hrs while NPO * Goal Range: Low 110 mg/dL - High 150 mg/dL * Correction Factor: 15 mg/dL/unit * Nutritional / Prandial insulin per carb ratio of 1 unit per 5 grams CHO consumed
--- NOTE | 2025-06-30 16:18 | Palliative Care Consultation ---
Date of Consultation June 30, 2025 Assessment & Plan (1) Cancer related pain: Pt c/o severe and constant left shoulder /back/ arm pain which radiates down L arm and increases with any movement. Pain is constant but also with occasional sharp stabbing pain in left shoulder when she moves it the wrong way. She stated pain is 10/10 at worst and only mildly improved with current medications, at best 6/10. She shared that she was taking 10mg Oxycodone q4h at home and this "only took the edge off". She shared that the pain is interfering with her daily activities. She shared that she is hopeful that radiation to the area (to start tomorrow) will help to palliate her pain. Pt was recently (06/27/25) prescribed transdermal fentanyl 25ucg patch which she shared has only modestly helped with her pain. SHe shared that she has had difficulty managing her pain because her doctor will only prescribe oxy for 3 days at a time. Per PDMP her average daily MME was 85.27, as combination of duragesic (25) and oxycodone. Review of MAR reveals PRN use of dialudid over past 24hrs of 7mg or 87.5 MME in addition to her duragesic 25 patch (60 MME). Despite this she continues to have intractable pain. Discussed increasing her dilaudid dose to offer better pain mgmt and then reassesing PRN use to dose find for adjustment of her long acting opiate (duragesic). Pt agreeable to this plan. continue Fentanyl 25 Mcg/Hr 1 patch TD Q72H CHARI continue Gabapentin 800 mg PO TID CHARI increase Hydromorphone HCl to 1- 2mg IV Q2H PRN for BTP Continue steroids per primary (2) Palliative care by specialist: Met with pt at bedside, no visitors present. Introduced Palliative Medicine and explained our role in advanced care planning, symptom management and navigation through the progression of life limiting disease. Patient was receptive to palliative services for goals of care discussions. Reviewed we are different from hospice, a home health nurse visiting service. (3) Counseling regarding goals of care: Ms Ramos is a pleasant woman who has been for over 55y and has a daughter the lives in [place] and a son who lives in [facility]. She lives independently with he spouse and they have four grand children. SHe shared that her goal in cancer treatment is to be able to return to living a life where she can enjoy time with her family and attend the sporting events of her grand children (ages 7, 9, 11, nd 17y). She shared that her spouse is resistant to discussing anything other than her getting better. She shared that she does wish to discuss prognosis with Dr. Perez, but up to now has only discussed hope for "successful treatments to get rid of the cancer". She asked for prognosis and what difference the treatments might make. I asked her what she had been told, and she shared that she has some issues understanding and remembering things she is told, so she would like to revisit this conversation when her daughter and spouse can be present. She shared that her daughter has children at home so she is only able to visit in evenings. Attempt made to call her daughter Nisreen Garcia to schedule ACP discussion, no answer. General VM left. Plan as above. History of Present Illness Reason for Consultation: symptom management/goals of care Requesting Physician: Nicola JAVIER Attending Physician: Duc Taylor MD History of Present Illness Mrs. Ramos is a 74-year-old female with PMH of GAMA, T2DM, glaucoma, metabolic syndrome, Crohn's disease, and PEG tube placement. She presented on 06/29 for left shoulder /back/ arm pain. She has been taking 10 mg oxycodone tablets every 4-6 hours at home as needed for pain, which helps a little bit, but it has grown increasingly worse this past week. Patient was prescribed a fentanyl patch (25 mcg) starting on 06/27/25, but this has not helped alleviate her pain. Patient currently follows with Dr. Perez ([facility]) with next immunotherapy next on Wednesday 07/11 for metastatic squamous cell carcinoma of head/neck initially diagnosed in 2023. Patient has a PEG tube and uses Nutren 2.0 TID. She ambulates with a walker at baseline, but reportedly has had more difficulty walking over the past week. No recent trauma. Allergies Allergy/AdvReac Type Severity Reaction Status Date / Time latex Allergy Intermediate Blisters Verified 06/20/25 12:59 Penicillins Allergy Intermediate Hives Verified 06/20/25 12:59 lisinopril Allergy Mild fluid Verified 06/20/25 12:59 retention [id number]-[id number]-UoY Reductase Allergy Verified 06/20/25 12:59 Inhibitor Home Medications Medication Instructions Recorded Confirmed Type Microlet Lancet (lancets) #200 ea 06/12/20 06/20/25 Rx CPAP Machine 04/19/21 06/20/25 History soft lens rinse,store solution 05/29/22 06/20/25 History (Bio true solution) blood-glucose meter (Contour Next #1 ea 02/21/23 06/20/25 Rx One Meter) blood-glucose sensor (Dexcom G7 01/19/24 06/20/25 History Sensor device) cyclosporine 0.05 % eye drops in a 1 drp OPB BID 10/26/24 06/29/25 History dropperette blood sugar diagnostic (Contour #400 ea 11/12/24 06/20/25 Rx Next Test Strips) insulin aspart U-100 100 unit/mL 0 sliding scale dose subcut 12/13/24 06/29/25 History (3 mL) subcutaneous pen (Novolog TIDWMEAL FlexPen U-100 Insulin aspart) pen needle, diabetic 31 gauge x #500 ea 03/21/25 06/20/25 Rx 3/16" latanoprostene bunod 0.024 % eye 1 drp ophthalmic (eye) QPM 04/13/25 06/29/25 History drops (Vyzulta) mercaptopurine 50 mg tablet 50 mg PO DAILY 04/13/25 06/29/25 History magnesium oxide 400 mg (241.3 mg 400 mg PO QAM #30 tabs 04/27/25 06/29/25 Rx magnesium) tablet ondansetron 4 mg disintegrating 4 mg PO Q8H PRN nausea and 05/25/25 06/29/25 Rx tablet vomiting #60 tabs potassium chloride 10 mEq 10 meq PO DAILY 05/25/25 06/29/25 History capsule,extended release buspirone 30 mg tablet 30 mg feeding tube TID 05/27/25 06/29/25 History cyanocobalamin (vitamin B-12) 1,000 mcg .Route MONTHLY 05/27/25 06/29/25 History 1,000 mcg/mL injection syringe gabapentin 800 mg tablet 800 mg feeding tube TID 05/27/25 06/29/25 History loperamide 2 mg tablet (Imodium 2 mg PO Q6H PRN Other 05/27/25 06/29/25 History A-D) mecobalamin (vitamin B12) 1,000 1,000 mcg PO DAILY 05/27/25 06/29/25 History mcg chewable tablet prochlorperazine maleate 10 mg 10 mg PO Q8H PRN n/v 05/27/25 06/29/25 History tablet oxycodone 5 mg tablet 10 mg PO .Q4-6H PRN Pain 06/20/25 06/29/25 History atorvastatin 20 mg tablet 20 mg PO DAILY 06/29/25 06/29/25 History fentanyl 25 mcg/hr transdermal 25 mcg transdermal .Q72H 06/29/25 06/29/25 History patch nystatin 100,000 unit/mL oral 0 ml PO QID 06/29/25 06/29/25 History suspension Patient History Medical History PEG tube malfunction Anemia Obesity Gout Hypertension Dyslipidemia associated with type 2 diabetes mellitus Diabetic peripheral neuropathy associated with type 2 diabetes mellitus Depression with anxiety Post-nasal drip Type 2 diabetes mellitus Spinal stenosis Glaucoma Metabolic syndrome Recurrent squamous cell carcinoma of tongue Surgery 04/2024 and 10/04/24; currently on chemo tx; follows with once per week (wednesdays); also current XRT with in [place] Hx of sepsis 2021- no residual/current issues Fatty liver Sleep apnea CPAP Crohn's disease Neck problem Cervical pitched nerve + narrowing Intermittent LUE radiculopathy and ROM limitations COPD (chronic obstructive pulmonary disease) "Mild" No inhaler Surgical History History of percutaneous endoscopic gastrostomy (11/29/24) Esophagogastroduodenoscopy with Percutaneous Endoscopic Gastrostomy (PEG) Tube - Malik Turner DO Port-A-Cath in place (11/01/24) Insertion Access Port with Fluoroscopy - Right Subclavian(Right) - Kishore Mulligan DO; MAC without issue S/P cholecystectomy S/P partial glossectomy 04/30/24: partial glossectomy with L selective neck dissection Dr. Coyle [facility]; 10/04/24: L suprahyoid neck dissection and partial glossectomy Hx of cataract extraction R/L Hx of bilateral breast reduction surgery S/P epidural steroid injection x4 [id number] History of colonoscopy History of bowel resection (~2003) 12 inches r/t Crohn's disease (1971) Re-do r/t Crohn's disease (2003)- also had gallbladder removed at this time History of appendectomy (1971) Family History Father Family history of diabetes mellitus Diabetes Stroke Daughter Breast cancer Uncle Diabetes Grandmother Diabetes Stroke Other No family history of adverse response to anesthesia Social History Smoking Status: Never smoker Tobacco Type: Cigarettes Age Started Using Tobacco: 1 (unknown); Age Quit Using Tobacco: 0 (unknown); packs per day: 1; Cigarettes Per Day: 1979; Second Hand Exposure: Yes; Do You Dip or Chew Tobacco: No; Hx Alcohol Use: No Hx Substance Use: No Preferred Language: Turkmen Communication Ability: Effective Visual Impairment: No Limitations Preschool Substitute Teacher Required: No Beliefs That Will Affect Care: None Current Living Situation: Spouse Other Information That Helps Us Care for You: No Feels Safe at Home: Yes Safety Concerns: Feels Safe At This Time Assistive Devices: Walker Review of Systems Review of Systems: All systems reviewed & are unremarkable except as noted in HPI & below Physical Exam Constitutional: WD/WN, vitals as above Eyes: PERRL, conjunctivae normal, anicteric sclerae ENMT: Ears: no hearing impairment Neck: trachea midline, no thyromegaly Respiratory: normal respiratory effort, lungs clear to auscultation Cardiovascular: RRR, no murmur, no edema Gastrointestinal (Abdomen): normal bowel sounds, soft, nontender, no hepatosplenomegaly Musculoskeletal: Tenderness to palpation of the upper thoracic spine. Pain on range of motion of the left arm. Skin: no rashes, warm and dry Neurologic: Decreased strength of the left arm. Numbness of the left thumb. Psychiatric: A+Ox3, euthymic affect Results & Data Vital Signs (Past 12 Hours) Vital Signs Temp Pulse Resp BP Pulse Ox O2 Del Method 06/30/25 07:21 36.5 C 88 16 117/74 94 Room Air Laboratory Results Abnormal lab results 06/29/25 06/29/25 06/30/25 Range/Units 17:51 21:17 03:22 RBC 3.35 L (4.20-5.40) M/uL Hgb 10.3 L (12.0-16.0) g/dl Hct 31.7 L (37.0-47.0) % RDW Std Deviation 47.2 H (36.4-46.3) fL MPV 9.1 L (9.4-12.4) fL Chloride 97 L (98-107) mmol/L Carbon Dioxide 36 H (21-32) mmol/L Creatinine 0.52 L (0.6-1.2) mg/dl BUN/Creatinine Ratio 28.8 H (10-20) Glucose 119 H (70-99(Fasting)) mg/dl POC Glucose 177 H 233 H (70-99) mg/dl Hemoglobin A1c 6.3 H (4.5-5.6) % 06/30/25 06/30/25 Range/Units 09:39 13:11 RBC (4.20-5.40) M/uL Hgb (12.0-16.0) g/dl Hct (37.0-47.0) % RDW Std Deviation (36.4-46.3) fL MPV (9.4-12.4) fL Chloride (98-107) mmol/L Carbon Dioxide (21-32) mmol/L Creatinine (0.6-1.2) mg/dl BUN/Creatinine Ratio (10-20) Glucose (70-99(Fasting)) mg/dl POC Glucose 150 H 193 H (70-99) mg/dl Hemoglobin A1c (4.5-5.6) % Diagnostic Findings Cervical Spine CT 06/29/25 11:12 CT cervical spine wo con CT DOSE: 483.99 mGy.cm CLINICAL HISTORY: 74 years-old Female with l arm pain. Acute neck pain without reported trauma. History of head and neck carcinoma COMPARISON: CT soft tissue neck 06/10/2025 TECHNIQUE: Multiple axial CT images of the cervical spine were obtained without contrast. A dose lowering technique was utilized adhering to the principles of ALARA. FINDINGS: Multilevel degenerative changes of the cervical spine with moderate mid to lower cervical spondylotic spurring. Moderate disc space narrowing at C6- C7. [id number] multilevel facet arthrosis. Mild wedge deformities at T1-T3 without retropulsion appear chronic. No acute cervical spine fracture or subluxation identified. Osteolytic skeletal lesion measuring 1.5 cm within the left aspect of the T1 vertebral body on image 39 at the costovertebral junction. Soft tissue component of this lesion extends into the left T1-T2 neural foramen. Left mastoid effusion. Heterogeneity of the thyroid. Previously noted lesions in the floor the mouth are not imaged. Layering left pleural effusion with intralobular septal thickening. Irregular nodules at the lung apices are again noted including an index 1.7 cm nodule in the left upper lobe. Several of these nodules appear to be slightly larger than prior. IMPRESSION: 1. No acute cervical spine fracture or subluxation. 2. Progressive pulmonary metastasis. 3. 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 4. Suggestion of pulmonary edema with small left pleural effusion. ACT 112: Negative or not required by law. The above report was generated using voice recognition software. It may contain grammatical, syntax or spelling errors. Electronically signed by: Og Abarca M.D. 06/29/2025 12:05 PM Chest X-Ray 06/29/25 11:12 XR chest 1V portable CLINICAL HISTORY: Chest pain, nonspecific COMPARISON STUDY: 11/01/2024 FINDINGS: Stable right chest port. Stable mild cardiomegaly without pulmonary vascular congestion. There are scattered nodular densities in both lungs, increased. There are possible trace pleural effusions. No pneumothorax. IMPRESSION: Increased bilateral pulmonary nodules with possible trace pleural effusions. ACT 112: Negative or not required by law. Electronically signed by: Ronald Alvaerz M.D. 06/29/2025 11:45 AM Shoulder X-Ray 06/29/25 11:12 XR shoulder LT min 2V routine CLINICAL HISTORY: l shoulder pain COMPARISON: 08/18/2019 FINDINGS: No acute fracture or dislocation seen. There are mild degenerative changes at the left shoulder. There are multiple pulmonary nodules at the left lung. IMPRESSION: No acute fracture seen. ACT 112: Negative or not required by law. Electronically signed by: Ronald Alvarez M.D. 06/29/2025 11:46 AM Thoracic Spine MRI 06/29/25 17:20 CR Exam(s): MRI T SPINE W/WO Contrast IV Amt: 8.5 ml kelly EXAM: MR Thoracic Spine Without and With Intravenous Contrast CLINICAL HISTORY: Reason for exam: T1/T2 metastic lesion; ? cord compression. OTHER: Other Notes: T1-T2 METASTATIC LESION? CHECK FOR CORD COMPRESSION, DIFFICULTY HOLDING STILL, UNEVENTFUL INJECTION 8.4 ML KELLY GIVEN VIA PORT BY PRASAD TECHNIQUE: Magnetic resonance images of the thoracic spine without and with intravenous contrast in multiple planes. CONTRAST: Patient received 8.5 ml kelly of IV contrast COMPARISON: No relevant prior studies available. FINDINGS: Vertebrae: There are 12 thoracic type vertebral bodies with increased thoracic kyphosis. There is a moderate sized enhancing soft tissue mass in the left T1 vertebral body extending to the posterior elements and to the left ventral epidural space and left C7-T1 and T1-T2 neural foramina. There are tiny enhancing lesions in the T7, T8 and T11 vertebral bodies. No acute fracture. Discs/spinal canal/neural foramina: No acute findings. No significant disc disease. No spinal canal stenosis. Spinal cord: Unremarkable. Normal signal. No abnormal enhancement. Soft tissues: Unremarkable. IMPRESSION: Moderate sized enhancing soft tissue mass in the left T1 vertebral body extending to the ventral epidural space and left C7-T1 and T1-T2 neural foramina concerning for metastatic disease. No evidence of pathologic fracture or spinal canal stenosis. Tiny enhancing lesions at T7, T8 and T11 vertebral bodies concerning for tiny metastatic lesions. Communications: Verify Receipt Electronically signed by: Mariah Dove MD 06/30/25 00:34 AM Medications Administered Current Inpatient Medications Atorvastatin Calcium (Atorvastatin 20 Mg Tab) 20 mg PO DAILY CHARI Stop: 07/30/25 08:59 Last Admin: 06/30/25 08:29 Dose: 20 mg Buspirone HCl (Buspirone 15 Mg Tab) 30 mg PEG TID CHARI Stop: 07/29/25 20:59 Last Admin: 06/30/25 14:09 Dose: 30 mg Dextrose (Dextrose 50% 50 Ml Syringe) 25 - 50 ml IV UD PRN; Protocol PRN Reason: Hypoglycemia Protocol Stop: 07/29/25 16:33 Enoxaparin Sodium (Enoxaparin Inj 40 Mg/0.4 Ml Syr) 40 mg SQ Q24H CHARI Stop: 07/29/25 20:59 Last Admin: 06/29/25 21:07 Dose: 40 mg Fentanyl (Fentanyl 25 Mcg/Hr Tdsy) 1 patch TD Q72H CHARI Stop: 07/13/25 20:59 Last Admin: 06/29/25 21:06 Dose: 1 patch Gabapentin (Gabapentin 800 Mg Tab) 800 mg PO TID CHARI Stop: 07/29/25 20:59 Last Admin: 06/30/25 14:09 Dose: 800 mg Glucagon (Glucagon For Inj 1 Mg Vial) 1 mg SQ UD PRN; Protocol PRN Reason: Hypoglycemia Protocol Stop: 07/29/25 16:33 Glucose (Glucose 40% Gel 15 Gm Tube) 15 - 30 gm PO UD PRN; Protocol PRN Reason: Hypoglycemia Protocol Stop: 07/29/25 16:33 Glucose (Glucose 10 Tab/Tube) 4 - 8 tab PO UD PRN; Protocol PRN Reason: Hypoglycemia Protocol Stop: 07/29/25 16:33 Heparin Sodium (Porcine) (Heparin 100 Unit/Ml 5ml Flush) 5 ml FLUSH PRN PRN PRN Reason: Flush Stop: 07/30/25 03:30 Last Admin: 06/30/25 05:23 Dose: 5 ml Hydralazine HCl (Hydralazine Hcl 20 Mg/Ml Vial) 5 mg IV Q8H PRN PRN Reason: hypertension Stop: 07/29/25 16:33 Hydromorphone HCl (Hydromorphone Inj 0.5 Mg/0.5 Ml Syr) 0.5 mg IV Q2H PRN PRN Reason: Moderate Pain (4,5,6) on NRS Stop: 07/13/25 16:33 Hydromorphone HCl (Hydromorphone Inj 1 Mg/Ml Syringe) 1 mg IV Q2H PRN PRN Reason: Severe Pain (7,8,9,10) on NRS Stop: 07/13/25 16:33 Last Admin: 06/30/25 15:51 Dose: 1 mg Acetaminophen (Ofirmev) 1,000 mg in 100 mls @ 400 mls/hr IV Q8H PRN PRN Reason: Fever/Mild Pain (Pain 1,2,3) Stop: 07/02/25 16:33 Dexamethasone 4 mg/ Syringe 1 mls @ 1 mls/min IV Q8H CHARI Stop: 07/30/25 07:59 Last Admin: 06/30/25 07:38 Dose: 1 mls/min Insulin Aspart (Insulin Aspart Per Unit Charge) 0 units SC 0800,1300,1700,2100 CHARI Stop: 07/29/25 16:59 Last Admin: 06/30/25 14:04 Dose: 14 units Insulin Aspart (Insulin Aspart Per Unit Charge) 0 units SC 0000 [facility] Stop: 07/01/25 00:01 Insulin Glargine (Lantus Per Unit Charge) 15 units SQ BID [facility] Stop: 07/29/25 16:59 Last Admin: 06/30/25 10:29 Dose: Not Given Magnesium Oxide (Magnesium Oxide 400 Mg Tab) 400 mg PO QAM [facility] Stop: 07/30/25 08:59 Last Admin: 06/30/25 08:30 Dose: 400 mg Mercaptopurine (Mercaptopurine 50 Mg Tab) 50 mg PO DAILY [facility]; Protocol Stop: 07/30/25 08:59 Last Admin: 06/30/25 08:28 Dose: 50 mg Miscellaneous (Fentanyl Patch Remove & Waste) 1 each N/A Q72H [facility] Stop: 07/29/25 20:58 Last Admin: 06/29/25 21:06 Dose: 1 each Miscellaneous (Check Fentanyl Patch Placement) 1 each N/A QS [facility] Stop: 07/29/25 16:33 Last Admin: 06/30/25 15:49 Dose: 1 each Miscellaneous (Latanoprostene Bunod [Vyzulta]: Order Awaiting Action) 1 each N/A QS [facility] Stop: 07/30/25 00:00 Last Admin: 06/30/25 15:49 Dose: Not Given Miscellaneous (Carbohydrates For Hypoglycemia ) 15 - 30 gm PO UD PRN PRN Reason: Hypoglycemia Protocol Stop: 07/29/25 16:33 Miscellaneous Information (Pharmacy Glycemic Mgmt Consult) 1 each N/A UD PRN PRN Reason: Consult Stop: 07/29/25 16:33 Nutritional Formula (Nutren Liqd 2.0 1,000 Ml Bag) 250 ml PEG TID@0800,1200,1700 [facility]; Protocol Stop: 07/30/25 16:59 Nutritional Formula (Prosource No Carb 30 Ml/Pkt) 60 ml PEG DAILY [facility] Stop: 07/30/25 17:59 Nystatin (Nystatin Powder 15gm Btl) 1 appln EXT BID PRN PRN Reason: Candidiasis Stop: 07/29/25 17:57 Last Admin: 06/29/25 21:07 Dose: 1 appln Ondansetron HCl (Ondansetron Inj 2 Mg/Ml 2 Ml Vial) 4 mg IV Q6H PRN PRN Reason: Nausea Stop: 07/29/25 16:33 Potassium Chloride (Potassium Chloride 10 Meq Tabcr) 10 meq PO DAILY CHARI Stop: 07/30/25 08:59 Last Admin: 06/30/25 08:29 Dose: 10 meq Sterile Water (Tube Feeding Water Flush) 60 ml GT TID CHARI Stop: 07/30/25 16:59 PG Care Time/CCT Total # of Minutes Spent Total Time Spent with Patient: Total time spent is greater than 50% in coordination of care (as documented) at patient's floor/unit and/or counseling patient: [place] [address] IN/OBS CONSULT LVL 5,80M Patient Type New History Expanded Problem Focused Exam Expanded Problem Focused Medical Decision Making High Complexity Diagnoses Cancer related pain G89.3 Palliative care by specialist Z51.5 Counseling regarding goals of care Z71.89
[2025-06-30] MEDS: NUTREN LIQD 2.0 1,000 ML BAG PEG SCH (17:28)
[2025-06-30] MEDS: TUBE FEEDING WATER FLUSH GT SCH (17:38)
[2025-06-30] MEDS: HYDROmorphone INJ 0.5 MG/0.5 ML SYR IV PRN (18:05)
[2025-06-30] MEDS: PROSOURCE NO CARB 30 ML/PKT PEG SCH (18:34)
[2025-06-30] MEDS: HYDROmorphone INJ 1 MG/ML SYRINGE IV PRN (20:00)
[2025-07-01] MEDS: INSULIN ASPART PER UNIT CHARGE SC SCH (00:04)
--- NOTE | 2025-07-01 11:06 | Hospitalist Progress Note ---
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 Pain is cancer related. #Cancer related pain | left shoulder pain Suspect progression of patient's left shoulder/scapular pain is due to the findings on imaging: - Progressive pulmonary metastasis - Osteolytic skeletal metastatic lesion at T1 with involvement of the left T1-T2 neural foramen Designated thoracic spine MRI did not reveal evidence of pathological fracture Radiation oncology consult appreciated SIM appointment on 07/01, with next scheduled appointment on 07/12 Continue Decadron 4 mg IV q8h with plan to discharge on prednisone taper Fentanyl patch increased from 25 mcg -> 37 mcg on 07/01 Monitor for better pain control over the next 24 hours Additional pain regimen as follows: - Gabapentin 800mg PEG TID - IV acetaminophen for pain 13 - IV Dilaudid 0.5-1.0 q2h for pain 410 Consider discharge on Roxanol rather than oxycodone Continuous pulse oximetry #PEG tube obstruction/malfunction (resolved) Alerted by nursing staff on the morning of 06/30 that patient's PEG tube had become clogged Initially, attempted to unclog with aspiration and warm water flush, but this was unsuccessful Discussed case with pharmacy, and Pancreaze 4200u was ordered Addendum: after several additional attempts with mechanical removal, the PEG tube obstruction eventually cleared without Pancreaze #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 Coyle) who did her resection x 2 Follows with [facility] for immunotherapy (Dr. Perez) Per conversations with patient, , and daughter, the plan is to discuss chemotherapy options upon discharge Dietitian consult appreciated for PEG tube feedings Patient is normally on Nutren 2.0 TID Communication order: All p.o. medications through the PEG tube #Worsening dysphagia Patient was previously able to swallow some pills, but is finding it more difficult now Soft tissue neck CT on 06/10 revealed progression of neoplastic processes/hypodense focus in the right left anterior floor of the mouth Speech therapy consult appreciated Okay for small sips of water and ice chips Oral hygiene q4h #T2DM Last A1c at 6.3% on 06/30/2025 Patient is normally on NovoLog U100 TIDwmeals Dose reduced to Lantus 15 u BID while inpatient SSI with target BSG range 110-150mg/dL, CF 15, carb ratio 5 BSG ACHS Adjust regimen as needed Pharmacy glycemic consult appreciated in setting of high-dose steroid use #Crohn's disease With a history of partial colectomy Continue mercaptopurine #GAMA CPAP HS #HTN (resolved) BP mildly elevated (173/100 on admission) ? Not currently on BP medications Patient was previously on irbesartan and amlodipine Hydralazine 5 mg IV q8h PRN for SBP >195 or DBP >95 Complex medical decision making in the setting of squamous cell carcinoma with new progressive metastasis to the spine and lungs. Patient also has several comorbidities at baseline with her underlying Crohn's disease, PEG tube feedings, diabetes, GAMA, and episodes of uncontrolled hypertension. Disposition: Continued stay for pain control VTE PPx: High risk due to metastatic malignancy; Lovenox 40 mg SQ q24h Patient's family ( "Sampson", and daughter "Nisreen") have been updated periodically throughout patient's hospital stay. Admission and Anticipated Discharge Date Admission Date: June 29, 2025 Supervising Physician Co-Signing Physician Notes Attending Attestation: Chart reviewed, care plan d/w PA Nicola Mcneal. I agree w/ the miller components of his documentation. Appreciate rad onc consult & assistance. Duc Taylor MD Subjective Mrs. Ramos reports she is feeling better today compared to yesterday. She is seen after her "sim" appointment with radiation oncology for pretreatment. at bedside. Patient is next scheduled for radiation on July 12. Patient reports that her pain is better controlled in the hospital, but she still has intense stabbing pain with certain movements of her arm. She also had trouble sleeping last night, and has been coughing up a thick mucus over the past couple days. While she believes that the IV Dilaudid 2 mg helped prior to her radiation oncology appointment, it wore off fairly quickly. She is amenable to going up on her current fentanyl patch dosage while in the hospital and monitoring for alleviation of pain prior to discharge. ROS: Patient endorses left shoulder/arm pain Patient denies fever overnight, chest pain, SOB, cough, pain around the PEG tube, abdominal pain, nausea, vomiting, or changes in urinary or bowel habits. Review of Systems Review of Systems: See HPI above Physical Exam Physical Exam: General: No acute distress; pleasant affect; at bedside; non-toxic appearing; cooperative; SpO2 97% on RA HEENT: normocephalic, atraumatic; PERRLA; vision and hearing intact; oral mucosa is dry and crusted Neck: supple; trachea midline; shrugging shoulders against resistance, and rotating neck bilaterally induces left shoulder pain Back: Left scapula is TTP Skin: warm, dry without signs of tenting; no cyanosis; no rashes, bruising, lesions, or erythema noted CV: chest wall NTP; RRR; S1/S2 normal; no murmurs/rubs/gallops; pulses intact and symmetric at radial, DP, and PT Lungs: no acute respiratory distress; symmetrical chest wall expansion; clear breath sounds across all lung nino w/o adventitious sounds; no wheezing ABD: Soft, NTP; PEG tube in place in the left lower quadrant without signs of erythema or acute infection; BS present; no rebound/guarding; no distention MSK: no tics or fasciculations; no edema noted in the LEs b/l, nonerythematous; 5/5 funding coordinator strength bilaterally Neuro: A&Ox3; normal mood and affect; hoarse voice; patient reports decrease sensation in the left hand compared to the right assessed via light touch at the fingers and elbows Results & Data Results & Data Vital Signs (Past 12 Hours) Vital Signs Temp Pulse Pulse Resp BP Pulse Ox O2 Del Method 07/01/25 07:51 36.5 C 81 16 150/92 H 97 Room Air 07/01/25 02:52 66 12 91 FiO2 07/01/25 07:51 07/01/25 02:52 21 PG Care Time/CCT Total # of Minutes Spent Total Time Spent with Patient: Total time spent is greater than 50% in coordination of care (as documented) at patient's floor/unit and/or counseling patient: Coding [place] [address] SUB INP/OBS CARE 3/50MIN Patient Type Established Medical Decision Making High Complexity Diagnoses Cancer related pain G89.3 Crohn disease K50.90 Left shoulder pain M25.512 Hypomagnesemia E83.42 PEG tube malfunction K94.23
[2025-07-01 13:19] LABS: Hematocrit (blood only) 32.7 % (37.0-47.0); Hemoglobin 10.5 g/dl (12.0-16.0); Immature Granulocytes # (auto) 0.04 K/uL (0.01-0.20); Immature Granulocytes % (auto) 0.4 %; Mean Corpuscular Hemoglobin 30.3 pg (25.0-34.0); Mean Corpuscular Volume 94.2 fL (80.0-100.0); Platelet Count 363 K/uL (130-400); RDW Standard Deviation 46.5 fL (36.4-46.3); Red Blood Count 3.47 M/uL (4.20-5.40); White Blood Count 9.59 K/ul (4.8-10.8)
--- NOTE | 2025-07-01 13:23 | Pharmacy Report ---
Pharmacy Glycemic Short Note 2 - Date of Service July 01, 2025 - Glycemic Short BSG Results (Last 24 hours): 06/30/25 06/30/25 06/30/25 17:14 20:51 23:53 POC Glucose 202 H 192 H 127 H 07/01/25 07/01/25 08:01 12:29 POC Glucose 161 H 205 H OUTPATIENT ANTIDIABETIC REGIMEN: * Novolog SSI A1c = 6.3% (06/30/25) ASSESSMENT: 07/01 * BSGs [phone] mg/dL yesterday, remains on Dex 4 mg IV q8 * BSG 161 mg/dL this morning with 15 units of lantus yesterday, 15 units this morning, will include scale for PM for additional. * Will continue with current Novolog parameters for now 06/30 * Carley is a 74 yo F with PMH of GAMA, T2DM, glaucoma, metabolic syndrome, Crohn's disease, PEG tube placement and metastatic tongue cancer. She presented on 06/29 for cancer related left shoulder and arm pain. She has been started on dexamethasone 4 mg IV q8h. * Pharmacy has been consulted for glycemic management in the setting of high dose IV steroids. * Fasting BSG of 150 mg/dL is acceptable for patient on around the clock steroids. Continue Lantus 15 units BID. Note, morning dose was held per provider. * PEG tube not functioning this morning, therefore patient did not receive her morning dose of Nutren tube feeds. Unable to assess carb coverage at this time. Continue current orders for now. PLAN FOR INPATIENT GLYCEMIC CONTROL: * Basal insulin * Lantus 15 units SQ qAM, 0-7-15 units HS * Bolus insulin * NovoLog per scale ACHS or Q6hrs while NPO * Goal Range: Low 110 mg/dL - High 150 mg/dL * Correction Factor: 15 mg/dL/unit * Nutritional / Prandial insulin per carb ratio of 1 unit per 5 grams CHO consumed
[2025-07-01 13:34] LABS: Anion Gap 7.0 (3-11); Blood Urea Nitrogen 26.0 mg/dl (6-23); Calcium 9.7 mg/dl (8.6-10.3); Carbon Dioxide 35.0 mmol/L (21-32); Chloride 97.0 mmol/L (98-107); Creatinine Clr Calc Pharmacy 90.3 ml/min; Glucose 192.0 mg/dl (70-99(Fasting)); Potassium 4.0 mmol/L (3.5-5.1); Sodium 139.0 mmol/L (136-145)
[2025-07-01] MEDS: [UNRECOGNIZED DRUG - REMARK] SCH (15:02)
[2025-07-01] MEDS: CHECK FENTANYL SCH (15:51)
[2025-07-01] MEDS: [UNRECOGNIZED DRUG - OTHER] SCH (15:51)
--- NOTE | 2025-07-01 18:56 | Communication Note ---
Date of Service: July 01, 2025 Palliative Medicine Brief Note Carley has just returned from RT sim Reports prn Dilaudid is not lasting very long TDF 25mcg helps but not enough Has used Dilaudid 13mg IV in past 24 hrs Discussed adjusting TDF and leaving the prn dilaudid IV doses unchanged, and resuming more of her oral oxycodone via PEG to help get her ready for dc back home Will increase to TDF 37.5mcg patch by adding the 12.5mcg patch to her current 25mcg dose I suspect she will need 50-75mcg TDF dose She is anticipating oncology follow up and states they want to continue chemo to "cure her cancer." SHe has her RT appts scheduled, begins in 2 weeks and will be OP visits. We agreed I will see her in med onc clinic within a week of dc, we will schedule when we are closer to a dc date. for now will see how she does thru weekend with TDF increase. d/w primary team and nursing. TS 35min Thank you for allowing us to participate in the ongoing care of this patient. Please page with any additional concerns. Yeny Arenas DNP Director, Palliative Medicine
[2025-07-01] MEDS: TUBE FEEDING WATER FLUSH GT SCH (20:58)
[2025-07-01] MEDS: LANTUS PER UNIT CHARGE SQ ONE (22:14)
[2025-07-02] MEDS: diphenhydrAMINE 50 MG/ML VIAL IV STA (05:43)
[2025-07-02 05:51] LABS: Hematocrit (blood only) 33.9 % (37.0-47.0); Hemoglobin 11.1 g/dl (12.0-16.0); Immature Granulocytes # (auto) 0.04 K/uL (0.01-0.20); Immature Granulocytes % (auto) 0.4 %; Mean Corpuscular Hemoglobin 30.4 pg (25.0-34.0); Mean Corpuscular Volume 92.9 fL (80.0-100.0); Platelet Count 389 K/uL (130-400); RDW Standard Deviation 46.0 fL (36.4-46.3); Red Blood Count 3.65 M/uL (4.20-5.40); White Blood Count 9.52 K/ul (4.8-10.8)
[2025-07-02 06:08] LABS: Anion Gap 8.0 (3-11); Blood Urea Nitrogen 23.0 mg/dl (6-23); Calcium 9.6 mg/dl (8.6-10.3); Carbon Dioxide 34.0 mmol/L (21-32); Chloride 97.0 mmol/L (98-107); Creatinine Clr Calc Pharmacy 90.3 ml/min; Glucose 149.0 mg/dl (70-99(Fasting)); Potassium 3.8 mmol/L (3.5-5.1); Sodium 139.0 mmol/L (136-145)
[2025-07-02] MEDS: LANTUS PER UNIT CHARGE SQ SCH ×2 (09:02→22:20)
[2025-07-02] MEDS: MoRPHine SULFATE 10 MG/0.5 ML UDP PO PRN (14:53)
[2025-07-02] MEDS ORDERED: NALOXONE HCL 0.4 MG/1 ML VIAL/CARP IV PRN (15:56)
--- NOTE | 2025-07-02 16:00 | Hospitalist Progress Note ---
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 Pain is cancer related. #Cancer related pain | left shoulder pain Suspect progression of patient's left shoulder/scapular pain is due to the findings on imaging: - Progressive pulmonary metastasis - Osteolytic skeletal metastatic lesion at T1 with involvement of the left T1-T2 neural foramen Designated thoracic spine MRI did not reveal evidence of pathological fracture Radiation oncology consult appreciated SIM appointment on 07/01, with next scheduled appointment on 07/12 Continue Decadron 4 mg IV q8h with plan to discharge on prednisone taper Fentanyl patch increased from 25 mcg -> 37 mcg on 07/01 Monitor for better pain control over the next 24 hours Note: Patient reports no improvement in her pain control with this increased dose Additional pain regimen as follows: - Gabapentin 800mg PEG TID - IV Acetaminophen for pain 13 - IV Dilaudid 1.0 mg q3h PRN for pain 4-6 - IV Dilaudid 2.0 mg q3h PRN for pain 7-10 Trial of Roxanol 10 mg p.o. (via PEG tube) x 1 However, patient reported no major change in her pain 1h after administering Continuous pulse oximetry Narcan as needed for oversedation/respiratory depression #PEG tube obstruction/malfunction (resolved) Alerted by nursing staff on the morning of 06/30 that patient's PEG tube had become clogged Initially, attempted to unclog with aspiration and warm water flush, but this was unsuccessful Discussed case with pharmacy, and Pancreaze 4200u was ordered Addendum: after several additional attempts with mechanical removal, the PEG tu be obstruction eventually cleared without Pancreaze #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 Coyle) who did her resection x 2 Follows with [facility] for immunotherapy (Dr. Perez) Per conversations with patient, , and daughter, the plan is to discuss chemotherapy options upon discharge Dietitian consult appreciated for PEG tube feedings Patient is normally on Nutren 2.0 TID Communication order: All p.o. medications through the PEG tube #Worsening dysphagia Patient was previously able to swallow some pills, but is finding it more difficult now Soft tissue neck CT on 06/10 revealed progression of neoplastic processes/hypodense focus in the right left anterior floor of the mouth Speech therapy consult appreciated Okay for small sips of water and ice chips Oral hygiene q4h #T2DM Last A1c at 6.3% on 06/30/2025 Patient is normally on NovoLog U100 TIDwmeals Dose reduced to Lantus 15 u BID while inpatient SSI with target BSG range 110-150mg/dL, CF 15, carb ratio 5 BSG ACHS Adjust regimen as needed Pharmacy glycemic consult appreciated in setting of high-dose steroid use #Crohn's disease With a history of partial colectomy Continue mercaptopurine #GAMA CPAP HS #HTN (resolved) BP mildly elevated (173/100 on admission) ? Not currently on BP medications Patient was previously on irbesartan and amlodipine Hydralazine 5 mg IV q8h PRN for SBP >195 or DBP >95 Complex medical decision making in the setting of squamous cell carcinoma with new progressive metastasis to the spine and lungs. Patient also has several comorbidities at baseline with her underlying Crohn's disease, PEG tube feed ings, diabetes, GAMA, and episodes of uncontrolled hypertension. Disposition: Continued stay for pain control VTE PPx: High risk due to metastatic malignancy; Lovenox 40 mg SQ q24h Patient's family ( "Sampson", and daughter "Nisreen") have been updated periodically throughout patient's hospital stay. Admission and Anticipated Discharge Date Admission Date: June 29, 2025 Supervising Physician Co-Signing Physician Notes Attending Attestation: Chart reviewed, care plan d/w YAYA Mcneal. I agree w/ the miller components of his documentation. Appreciate palliative care & rad onc assistance. Duc Taylor MD Subjective Mrs. Ramos reports she is "not doing so good" today. She is still having substantial pain in her left shoulder and scapula, which is worse with movements. She feels that while the Dilaudid helps, it tends to wear off and she is left in excruciating pain. She is unsure if her pain is better or worse when compared to yesterday, as she feels "confused". Most of the pain is a sharp stabbing pain that comes with all movements. She does not believe that heating pad helped at all yesterday. She was able to sleep well last night until the pain woke her up from sleep. She does not believe the increased dose of the fentanyl patch helped alleviate her pain overall, she would prefer to stay in the hospital until her pain regimen is adjusted to a point where she feels like she can controlled at home. ROS: Patient endorses left shoulder/arm pain. Patient denies fever overnight, chest pain, SOB, cough, pain around the PEG t ube, abdominal pain, nausea, vomiting, or changes in urinary or bowel habits. Review of Systems Review of Systems: See HPI above Physical Exam Physical Exam: General: Acute physical distress secondary to left shoulder pain; at bedside; non-toxic appearing; cooperative; SpO2 95% on RA HEENT: normocephalic, atraumatic; PERRLA; vision and hearing intact; oral mucosa is dry and crusted Neck: supple; trachea midline Back: Left scapula is TTP Skin: warm, dry without signs of tenting; no cyanosis; no rashes, bruising, lesions, or erythema noted CV: chest wall NTP; RRR; S1/S2 normal; no murmurs/rubs/gallops; pulses intact and symmetric at radial, DP, and PT Lungs: no acute respiratory distress; symmetrical chest wall expansion; clear breath sounds across all lung nino w/o adventitious sounds; no wheezing ABD: Soft, NTP; PEG tube in place in the left lower quadrant without signs of erythema or acute infection; BS present; no rebound/guarding; no distention MSK: no tics or fasciculations; no edema noted in the LEs b/l, nonerythematous; 5/5 pill maker strength bilaterally Neuro: A&Ox3; normal mood and affect; hoarse voice; patient reports decrease sensation in the left hand compared to the right assessed via light touch at the fingers and elbows Results & Data Results & Data Vital Signs (Past 12 Hours) Vital Signs Temp Pulse Resp BP Pulse Ox O2 Del Method 07/02/25 15:03 36.9 C 80 18 176/78 H 95 Room Air 07/02/25 09:00 Room Air 07/02/25 07:22 36.4 C L 68 16 174/95 H 94 Room Air PG Care Time/CCT Total # of Minutes Spent Total Time Spent with Patient: Total time spent is greater than 50% in coordination of care (as documented) at patient's floor/unit and/or counseling patient: Coding [place] [address] SUB INP/OBS CARE 3/50MIN Patient Type Established Medical Decision Making High Complexity Diagnoses Cancer related pain G89.3 Crohn disease K50.90 Left shoulder pain M25.512 Hypomagnesemia E83.42 PEG tube malfunction K94.23
[2025-07-02] MEDS: HYDROmorphone INJ 1 MG/ML SYRINGE IV PRN ×2 (16:46→19:37)
[2025-07-02] MEDS ORDERED: HYDROmorphone INJ 1 MG/ML SYRINGE IV PRN (17:23)
[2025-07-02] MEDS: LACTATED RINGER'S 1,000 ML IV SCH (17:35)
[2025-07-02] MEDS: NON-FORMULARY PATIENT'S OWN MED OP SCH (22:05)
[2025-07-03 06:00] LABS: Hematocrit (blood only) 36.8 % (37.0-47.0); Hemoglobin 11.6 g/dl (12.0-16.0); Mean Corpuscular Hemoglobin 29.6 pg (25.0-34.0); Mean Corpuscular Volume 93.9 fL (80.0-100.0); Platelet Count 406 K/uL (130-400); RDW Standard Deviation 46.3 fL (36.4-46.3); Red Blood Count 3.92 M/uL (4.20-5.40); White Blood Count 10.30 K/ul (4.8-10.8)
[2025-07-03 06:18] LABS: Anion Gap 8.0 (3-11); Blood Urea Nitrogen 20.0 mg/dl (6-23); Calcium 9.7 mg/dl (8.6-10.3); Carbon Dioxide 35.0 mmol/L (21-32); Chloride 96.0 mmol/L (98-107); Creatinine Clr Calc Pharmacy 95.5 ml/min; Glucose 154.0 mg/dl (70-99(Fasting)); Potassium 4.1 mmol/L (3.5-5.1); Sodium 139.0 mmol/L (136-145)
--- NOTE | 2025-07-03 11:34 | Hospitalist Progress Note ---
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 Pain is cancer related. #Cancer related pain | left shoulder pain Suspect patient's left shoulder/scapular pain is due to new findings on imaging - Progressive pulmonary metastasis - Osteolytic skeletal metastatic lesion at T1 with involvement of the left T1-T2 neural foramen Thoracic spine MRI did not reveal evidence of pathological fracture Radiation oncology consult appreciated SIM appointment on 07/01, with next scheduled appointment for T1/T2 lesion on 07/12 Decadron 4 mg IV q8h Fentanyl patch increased from 25 mcg -> 37 mcg on 07/01 Note: Patient reports no improvement in her pain control with this increased dose Current pain regimen: - Gabapentin 800mg p.o. TID - Acetaminophen 1000mg IV q8h for pain 13 - Dilaudid 2.0 mg p.o. q6h PRN for pain 4-6 - Dilaudid 4.0 mg p.o. q6h PRN for pain 7-10 - Baclofen 5mg p.o. TID PRN Trial of Roxanol 10 mg p.o. (via PEG tube) x 1 provided no significant pain relief Suspect pain is largely neuropathic in nature Initiate Cymbalta 20 mg p.o. QAM; patient informed that this might take 2 to 3 weeks before it fully begins to take effect Continuous pulse oximetry Narcan as needed for oversedation/respiratory depression Pain medications adjusted on 07/03: Dilaudid IV -> PO; initiate Cymbalta and baclofen If refractory, ? 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 Coyle) who did her resection x 2 Follows with [facility] for immunotherapy (Dr. Perez) Per conversations with patient, , and daughter, the plan is to discuss chemotherapy options upon discharge Dietitian consult appreciated for PEG tube feedings Patient is normally on Nutren 2.0 TID Communication order: All p.o. medications through the PEG tube #Worsening dysphagia Patient was previously able to swallow some pills, but is finding it more difficult now Soft tissue neck CT on 06/10 revealed progression of neoplastic processes/hypodense focus in the right left anterior floor of the mouth Speech therapy consult appreciated Okay for small sips of water and ice chips Oral hygiene q4h #T2DM Last A1c at 6.3% on 06/30/2025 Patient is normally on NovoLog U100 TIDwmeals Dose reduced to Lantus 15 u BID while inpatient SSI with target BSG range 110-150mg/dL, CF 15, carb ratio 5 BSG ACHS Adjust regimen as needed Pharmacy glycemic consult appreciated in setting of high-dose steroid use #Crohn's disease With a history of partial colectomy Continue mercaptopurine #GAMA CPAP HS #PEG tube obstruction/malfunction (resolved) On 06/30 #HTN (resolved) BP mildly elevated (173/100 on admission) ? Not currently on BP medications Patient was previously on irbesartan and amlodipine Hydralazine 5 mg IV q8h PRN for SBP >195 or DBP >95 Complex medical decision making in the setting of squamous cell carcinoma with new progressive metastasis to the spine and lungs. Patient also has several comorbidities at baseline with her underlying Crohn's disease, PEG tube feedings, diabetes, GAMA, and episodes of uncontrolled hypertension. Disposition: Continued stay for cancer related pain control; hopeful discharge once pain is controlled off of IV medications VTE PPx: High risk due to metastatic malignancy; Lovenox 40 mg SQ q24h Patient's family ( "Sampson", and daughter "Nisreen") have been updated periodically throughout patient's hospital stay. Admission and Anticipated Discharge Date Admission Date: June 29, 2025 Supervising Physician Co-Signing Physician Notes Attending Attestation: Chart reviewed, care plan d/w YAYA Mcneal. I agree w/ the miller components of his documentation. Appreciate palliative care & rad onc assistance. Still with considerable radicular pain despite multi-faceted approach to her pain control. Candidate for steroid injection at T1-T2 by pain management? Recommend consulting with pain on Friday. Duc Taylor MD Subjective Today is Mrs. Ramos's birthday. She is happy to report that she slept well last night, but did feel somewhat disoriented this morning. When asked about her left shoulder pain, she reports the pain is "still there". No changes in the characterization of pain since yesterday; still exacerbated by movements. She reports that they have previously discussed a nerve block, and thought this might be a good idea prior to being discharged home. She is amenable to trying p.o. Dilaudid today versus IV. ROS: Patient reports confusion this morning (resolved; says she felt "out of it" upon waking), dry mouth, left shoulder/upper back pain, and headache. Patient denies fevers overnight, changes in vision, chest pain, SOB, cough, abdominal pain, nausea, or vomiting. Review of Systems Review of Systems: See HPI above Physical Exam Physical Exam: General: No acute distress; laying in bed watching TV; non-toxic appearing; coop erative; SpO2 99% on 1L NC HEENT: normocephalic, atraumatic; PERRLA; vision and hearing intact; oral mucosa is dry and crusted Neck: supple; trachea midline Back: Left scapula is TTP; worse with active ROM Skin: warm, dry without signs of tenting; no cyanosis; no rashes, bruising, lesions, or erythema noted CV: chest wall NTP; RRR; S1/S2 normal; no murmurs/rubs/gallops; pulses intact and symmetric at radial, DP, and PT Lungs: no acute respiratory distress; symmetrical chest wall expansion; clear breath sounds across all lung nino w/o adventitious sounds; no wheezing ABD: Soft, NTP; PEG tube in place in the left lower quadrant without signs of erythema or acute infection; BS present; no rebound/guarding; no distention MSK: no tics or fasciculations; no edema noted in the LEs b/l, nonerythematous; 5/5 social services specialist strength bilaterally Neuro: A&Ox3; normal mood and affect; hoarse voice; patient reports decrease sensation in the left hand compared to the right assessed via light touch at the fingers and elbows Results & Data Results & Data Vital Signs (Past 12 Hours) Vital Signs Temp Pulse Resp BP Pulse Ox O2 Del Method O2 Flow Rate 07/03/25 08:45 Nasal Cannula 1 07/03/25 08:43 189/84 H 07/03/25 07:53 36.9 C 68 16 158/102 H 99 Nasal Cannula 1 07/03/25 00:30 97 Nasal Cannula 1 07/03/25 00:15 99 Nasal Cannula 2 PG Care Time/CCT Total # of Minutes Spent Total Time Spent with Patient: Total time spent is greater than 50% in coordination of care (as documented) at patient's floor/unit and/or counseling patient: Coding [place] [address] SUB INP/OBS CARE 3/50MIN Patient Type Established Medical Decision Making High Complexity Diagnoses Cancer related pain G89.3 Crohn disease K50.90 Left shoulder pain M25.512 Hypomagnesemia E83.42 PEG tube malfunction K94.23
[2025-07-03] MEDS: BACLOFEN 10 MG TAB PO PRN (12:07)
[2025-07-03] MEDS: HYDROmorphone INJ 0.5 MG/0.5 ML SYR IV STA (22:43)
[2025-07-04] MEDS: HYDROmorphone INJ 0.5 MG/0.5 ML SYR IV STA (03:31)
[2025-07-04] MEDS ORDERED: HYDROmorphone INJ 0.5 MG/0.5 ML SYR IV STA (03:32)
[2025-07-04] MEDS: LIDOCAINE 5% 1 PATCH TD STA (03:47)
[2025-07-04 06:02] LABS: Hematocrit (blood only) 37.2 % (37.0-47.0); Hemoglobin 12.1 g/dl (12.0-16.0); Mean Corpuscular Hemoglobin 30.0 pg (25.0-34.0); Mean Corpuscular Volume 92.1 fL (80.0-100.0); Platelet Count 422 K/uL (130-400); RDW Standard Deviation 45.3 fL (36.4-46.3); Red Blood Count 4.04 M/uL (4.20-5.40); White Blood Count 11.45 K/ul (4.8-10.8)
[2025-07-04 06:17] LABS: Anion Gap 9.0 (3-11); Blood Urea Nitrogen 20.0 mg/dl (6-23); Calcium 9.5 mg/dl (8.6-10.3); Carbon Dioxide 34.0 mmol/L (21-32); Chloride 92.0 mmol/L (98-107); Creatinine Clr Calc Pharmacy 93.8 ml/min; Glucose 168.0 mg/dl (70-99(Fasting)); Potassium 3.8 mmol/L (3.5-5.1); Sodium 135.0 mmol/L (136-145)
[2025-07-04] MEDS ORDERED: HYDROmorphone INJ 1 MG/ML SYRINGE IV PRN (06:24)
[2025-07-04] MEDS: HYDROmorphone INJ 2 MG/ML SYR/VIAL IV PRN (06:45)
[2025-07-04] MEDS: DICLOFENAC SOD 1% GEL 100 GM TUBE EXT SCH (10:45)
[2025-07-04] MEDS: POTASSIUM CHLORIDE 20 MEQ/15 ML UDC PO SCH (10:51)
--- NOTE | 2025-07-04 11:02 | Palliative Care Progress Note ---
Date of Service July 04, 2025 Assessment & Plan (1) Cancer related pain: Plan: Pt c/o severe and constant left shoulder /back/ arm pain which radiates down L arm and increases with any movement. Pain is constant but also with occasional sharp stabbing pain in left shoulder when she moves it the wrong way. She stated pain is 10/10 at worst and only mildly improved with current medications, at best 6/10. She shared that she was taking 10mg Oxycodone q4h at home and this "only took the edge off". Trial of Roxanol 10 mg p.o. (via PEG tube) x 1 provided no significant pain relief. She shared that the pain is interfering with her daily activities and she is hopeful that radiation to the area will help to palliate her pain. Pt was recently (06/27/25) prescribed transdermal fentanyl 25ucg patch which she shared has only modestly helped with her pain. She shared that she has had difficulty managing her pain because her doctor will only prescribe oxy for 3 days at a time. Per PDMP, her average daily MME at home was 85.27, as combination of duragesic (25) and oxycodone. 07/04: Review of previous 24hrs MAR reveals 121 MMEfrom dilaudid, in addition to her Duragesic 37mcg/hr (90 MME). Despite this she continues to have frequent BTP disturbing her rest. Discussed increasing her duragesic dose to offer better pain mgmt and decrease requirement of PRN opiates, possibly allowing her to sleep through the night. We also discussed resuming oral medications for BTP at opiate equivalent dose of the IV dilaudid. Pt agreeable to this plan. Discussed plan with attending team. Last 24h hour OMEs: 211 Dilaudid IV 6.5 mg = 81 OME Dilaudid PO 8 mg = 40 OME Duragesic 37.5mcg/hr = 90 OME Increased Fentanyl to 50Mcg/Hr 1 patch TD Q72H CHARI Added OxyIR 15mg per PEG Q6h PRN for BTP Discontinued Dilaudid IV Continue Gabapentin 800mg p.o. TID Continue Acetaminophen 1000mg IV q8h Continue Baclofen 5mg p.o. TID PRN Continue steroid taper per primary team (2) Palliative care by specialist: Plan: Palliative care will continue to follow for ongoing symptom management and patient/family support. (3) Counseling regarding goals of care: Plan: Today: Pt reinforced her hope to improve symptom management to allow for cancer directed treatments. She was unclear on timeline, but confirmed that she continues to hope for palliaition of pain with radiation that might allow her to continue with other cancer directed treatment options. She shared plan to receive radiation and follow up with Dr Perez and Dr Arenas as an outpt. 06/30: Ms Ramos is a pleasant woman who has been for over 55y and has a daughter the lives in [place] and a son who lives in [facility]. She lives independently with her spouse and they have four grand children. She shared that her goal in cancer treatment is to be able to return to living a life where she can enjoy time with her family and attend the sporting events of her grand children (ages 7, 9, 11, nd 17y). She shared that her spouse is resistant to discussing anything other than her getting better. She shared that she does wish to discuss prognosis with Dr. Perez, but up to now has only discussed hope for "successful treatments to get rid of the cancer". She asked for prognosis and what difference the treatments might make. I asked her what she had been told, and she shared that she has some issues understanding and remembering things she is told, so she would like to revisit this conversation when her daughter and spouse can be present. She shared that her daughter has children at home so she is only able to visit in evenings. Plan as above. Admission and Anticipated Discharge Date Admission Date: June 29, 2025 Subjective Assessed pt at bedside, she shared that she has frequent BTP that is keeping her from sleeping well. She shared that she has been awoken from deep sleep by BTP. She also c/o indigestion and belching while tube feeds are running. VSS. NAD on RA. Review of Systems Review of Systems: All systems reviewed & are unremarkable except as noted in Subjective Physical Exam Constitutional: WD/WN, vitals as above Eyes: PERRL, conjunctivae normal, anicteric sclerae ENMT: Ears: no hearing impairment Neck: trachea midline, no thyromegaly Respiratory: normal respiratory effort, lungs clear to auscultation Cardiovascular: RRR, no murmur, no edema Gastrointestinal (Abdomen): normal bowel sounds, soft, nontender, no hepatosplenomegaly Skin: no rashes, warm and dry Psychiatric: A+Ox3, euthymic affect Results & Data Vital Signs (Past 12 Hours) Vital Signs Temp Pulse Resp BP BP Pulse Ox O2 Del Method 07/04/25 07:31 36.7 C 60 16 150/78 H 92 Room Air 07/04/25 00:32 181/85 H 07/03/25 23:39 37.2 C 71 18 199/79 H 95 Room Air Laboratory Results Abnormal lab results 07/03/25 07/03/25 07/03/25 Range/Units 11:29 16:42 20:33 WBC (4.8-10.8) K/ul RBC (4.20-5.40) M/uL Plt Count (130-400) K/uL MPV (9.4-12.4) fL Sodium (136-145) mmol/L Chloride (98-107) mmol/L Carbon Dioxide (21-32) mmol/L Creatinine (0.6-1.2) mg/dl BUN/Creatinine Ratio (10-20) Glucose (70-99(Fasting)) mg/dl POC Glucose 241 H 153 H 175 H (70-99) mg/dl 07/04/25 07/04/25 Range/Units 05:18 07:28 WBC 11.45 H (4.8-10.8) K/ul RBC 4.04 L (4.20-5.40) M/uL Plt Count 422 H (130-400) K/uL MPV 8.9 L (9.4-12.4) fL Sodium 135 L (136-145) mmol/L Chloride 92 L (98-107) mmol/L Carbon Dioxide 34 H (21-32) mmol/L Creatinine 0.55 L (0.6-1.2) mg/dl BUN/Creatinine Ratio 36.4 H (10-20) Glucose 168 H (70-99(Fasting)) mg/dl POC Glucose 165 H (70-99) mg/dl Diagnostic Findings Cervical Spine CT 06/29/25 11:12 CT cervical spine wo con CT DOSE: 483.99 mGy.cm CLINICAL HISTORY: 74 years-old Female with l arm pain. Acute neck pain without reported trauma. History of head and neck carcinoma COMPARISON: CT soft tissue neck 06/10/2025 TECHNIQUE: Multiple axial CT images of the cervical spine were obtained without contrast. A dose lowering technique was utilized adhering to the principles of ALARA. FINDINGS: Multilevel degenerative changes of the cervical spine with moderate mid to lower cervical spondylotic spurring. Moderate disc space narrowing at C6- C7. [id number] multilevel facet arthrosis. Mild wedge deformities at T1-T3 without retropulsion appear chronic. No acute cervical spine fracture or subluxation identified. Osteolytic skeletal lesion measuring 1.5 cm within the left aspect of the T1 vertebral body on image 39 at the costovertebral junction. Soft tissue component of this lesion extends into the left T1-T2 neural foramen. Left mastoid effusion. Heterogeneity of the thyroid. Previously noted lesions in the floor the mouth are not imaged. Layering left pleural effusion with intralobular septal thickening. Irregular nodules at the lung apices are again noted including an index 1.7 cm nodule in the left upper lobe. Several of these nodules appear to be slightly larger than prior. IMPRESSION: 1. No acute cervical spine fracture or subluxation. 2. Progressive pulmonary metastasis. 3. 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 4. Suggestion of pulmonary edema with small left pleural effusion. ACT 112: Negative or not required by law. The above report was generated using voice recognition software. It may contain grammatical, syntax or spelling errors. Electronically signed by: Og Abarca M.D. 06/29/2025 12:05 PM Chest X-Ray 06/29/25 11:12 XR chest 1V portable CLINICAL HISTORY: Chest pain, nonspecific COMPARISON STUDY: 11/01/2024 FINDINGS: Stable right chest port. Stable mild cardiomegaly without pulmonary vascular congestion. There are scattered nodular densities in both lungs, increased. There are possible trace pleural effusions. No pneumothorax. IMPRESSION: Increased bilateral pulmonary nodules with possible trace pleural effusions. ACT 112: Negative or not required by law. Electronically signed by: Ronald Alvarez M.D. 06/29/2025 11:45 AM Shoulder X-Ray 06/29/25 11:12 XR shoulder LT min 2V routine CLINICAL HISTORY: l shoulder pain COMPARISON: 08/18/2019 FINDINGS: No acute fracture or dislocation seen. There are mild degenerative changes at the left shoulder. There are multiple pulmonary nodules at the left lung. IMPRESSION: No acute fracture seen. ACT 112: Negative or not required by law. Electronically signed by: Ronald Alvarez M.D. 06/29/2025 11:46 AM Thoracic Spine MRI 06/29/25 17:20 CR Exam(s): MRI T SPINE W/WO Contrast IV Amt: 8.5 ml kelly EXAM: MR Thoracic Spine Without and With Intravenous Contrast CLINICAL HISTORY: Reason for exam: T1/T2 metastic lesion; ? cord compression. OTHER: Other Notes: T1-T2 METASTATIC LESION? CHECK FOR CORD COMPRESSION, DIFFICULTY HOLDING STILL, UNEVENTFUL INJECTION 8.4 ML KELLY GIVEN VIA PORT BY PRASAD TECHNIQUE: Magnetic resonance images of the thoracic spine without and with intravenous contrast in multiple planes. CONTRAST: Patient received 8.5 ml kelly of IV contrast COMPARISON: No relevant prior studies available. FINDINGS: Vertebrae: There are 12 thoracic type vertebral bodies with increased thoracic kyphosis. There is a moderate sized enhancing soft tissue mass in the left T1 vertebral body extending to the posterior elements and to the left ventral epidural space and left C7-T1 and T1-T2 neural foramina. There are tiny enhancing lesions in the T7, T8 and T11 vertebral bodies. No acute fracture. Discs/spinal canal/neural foramina: No acute findings. No significant disc disease. No spinal canal stenosis. Spinal cord: Unremarkable. Normal signal. No abnormal enhancement. Soft tissues: Unremarkable. IMPRESSION: Moderate sized enhancing soft tissue mass in the left T1 vertebral body extending to the ventral epidural space and left C7-T1 and T1-T2 neural foramina concerning for metastatic disease. No evidence of pathologic fracture or spinal canal stenosis. Tiny enhancing lesions at T7, T8 and T11 vertebral bodies concerning for tiny metastatic lesions. Communications: Verify Receipt Electronically signed by: Mariah Dove MD 06/30/25 00:34 AM Medications Administered Current Inpatient Medications Atorvastatin Calcium (Atorvastatin 20 Mg Tab) 20 mg PO DAILY [facility] Stop: 07/30/25 08:59 Last Admin: 07/04/25 08:59 Dose: 20 mg Baclofen (Baclofen 10 Mg Tab) 5 mg PO TID PRN PRN Reason: Back spasms Stop: 08/02/25 13:59 Last Admin: 07/03/25 12:07 Dose: 5 mg Buspirone HCl (Buspirone 15 Mg Tab) 30 mg PEG TID CHARI Stop: 07/29/25 20:59 Last Admin: 07/04/25 08:59 Dose: 30 mg Dextrose (Dextrose 50% 50 Ml Syringe) 25 - 50 ml IV UD PRN; Protocol PRN Reason: Hypoglycemia Protocol Stop: 07/29/25 16:33 Diclofenac Sodium (Diclofenac Sod 1% Gel 100 Gm Tube) 4 gm EXT BID CHARI; Protocol Stop: 08/03/25 08:59 Last Admin: 07/04/25 10:45 Dose: Not Given Duloxetine HCl (Duloxetine Hcl 20 Mg Cap) 20 mg PO QAM [facility] Stop: 08/02/25 09:59 Last Admin: 07/04/25 09:00 Dose: 20 mg Enoxaparin Sodium (Enoxaparin Inj 40 Mg/0.4 Ml Syr) 40 mg SQ Q24H [facility] Stop: 07/29/25 20:59 Last Admin: 07/03/25 21:03 Dose: 40 mg Fentanyl (Fentanyl 50 Mcg/Hr Tdsy) 1 patch TD Q3D@0900 [facility] Stop: 07/18/25 09:29 Gabapentin (Gabapentin 800 Mg Tab) 800 mg PO TID [facility] Stop: 07/29/25 20:59 Last Admin: 07/04/25 10:51 Dose: 800 mg Glucagon (Glucagon For Inj 1 Mg Vial) 1 mg SQ UD PRN; Protocol PRN Reason: Hypoglycemia Protocol Stop: 07/29/25 16:33 Glucose (Glucose 40% Gel 15 Gm Tube) 15 - 30 gm PO UD PRN; Protocol PRN Reason: Hypoglycemia Protocol Stop: 07/29/25 16:33 Glucose (Glucose 10 Tab/Tube) 4 - 8 tab PO UD PRN; Protocol PRN Reason: Hypoglycemia Protocol Stop: 07/29/25 16:33 Heparin Sodium (Porcine) (Heparin 100 Unit/Ml 5ml Flush) 5 ml FLUSH PRN PRN PRN Reason: Flush Stop: 07/30/25 03:30 Last Admin: 07/03/25 11:01 Dose: 5 ml Hydralazine HCl (Hydralazine Hcl 20 Mg/Ml Vial) 5 mg IV Q8H PRN PRN Reason: hypertension Stop: 07/29/25 16:33 Hydromorphone HCl (Hydromorphone Inj 1 Mg/Ml Syringe) 1 mg IV Q3H PRN PRN Reason: Pain (pain 5-7) Stop: 07/18/25 06:23 Hydromorphone HCl (Hydromorphone Inj 2 Mg/Ml Syr/Vial) 2 mg IV Q3H PRN PRN Reason: Pain (8-10) Stop: 07/18/25 06:23 Last Admin: 07/04/25 06:45 Dose: 2 mg Dexamethasone 4 mg/ Syringe 1 mls @ 1 mls/min IV Q8H [facility] Stop: 07/30/25 07:59 Last Admin: 07/04/25 08:18 Dose: 1 mls/min Insulin Aspart (Insulin Aspart Per Unit Charge) 0 units SC 0800,1300,1700,2100 [facility] Stop: 07/29/25 16:59 Last Admin: 07/04/25 08:40 Dose: 2 units Insulin Glargine (Lantus Per Unit Charge) 15 units SQ QAM [facility] Stop: 07/29/25 16:59 Last Admin: 07/04/25 08:41 Dose: 15 units Insulin Glargine (Lantus Per Unit Charge) 0 units SQ HS [facility]; Protocol Stop: 08/01/25 20:59 Last Admin: 07/03/25 21:03 Dose: Not Given Magnesium Oxide (Magnesium Oxide 400 Mg Tab) 400 mg PO QAM [facility] Stop: 07/30/25 08:59 Last Admin: 07/04/25 08:59 Dose: 400 mg Mercaptopurine (Mercaptopurine 50 Mg Tab) 50 mg PO DAILY [facility]; Protocol Stop: 07/30/25 08:59 Last Admin: 07/04/25 08:58 Dose: 50 mg Miscellaneous (Carbohydrates For Hypoglycemia ) 15 - 30 gm PO UD PRN PRN Reason: Hypoglycemia Protocol Stop: 07/29/25 16:33 Miscellaneous (Remove Lidoderm Patch) 1 each N/A 1600 ONE Stop: 07/04/25 16:01 Miscellaneous (Fentanyl Patch Remove & Waste) 1 each N/A Q3D@0859 [facility] Stop: 08/06/25 08:58 Miscellaneous (Check Fentanyl Patch Placement) 1 each N/A QS [facility] Stop: 08/03/25 15:59 Miscellaneous Information (Pharmacy Glycemic Mgmt Consult) 1 each N/A UD PRN PRN Reason: Consult Stop: 07/29/25 16:33 Naloxone HCl (Naloxone Hcl 0.4 Mg/1 Ml Vial/Carp) 0.1 mg IV Q5M PRN PRN Reason: Oversedation/Resp Depression Non-Formulary Medication (Non-Formulary Patient's Own Med) 1 each OP HS CHARI Stop: 08/01/25 20:59 Last Admin: 07/03/25 21:01 Dose: 2 drops Nutritional Formula (Nutren Liqd 2.0 1,000 Ml Bag) 250 ml PEG TID@0800,1200,1700 [facility]; Protocol Stop: 07/30/25 16:59 Last Admin: 07/04/25 08:53 Dose: 250 ml Nutritional Formula (Prosource No Carb 30 Ml/Pkt) 60 ml PEG DAILY [facility]I Stop: 07/30/25 17:59 Last Admin: 07/04/25 09:01 Dose: 60 ml Nystatin (Nystatin Powder 15gm Btl) 1 appln EXT BID PRN PRN Reason: Candidiasis Stop: 07/29/25 17:57 Last Admin: 07/02/25 22:04 Dose: 1 appln Ondansetron HCl (Ondansetron Inj 2 Mg/Ml 2 Ml Vial) 4 mg IV Q6H PRN PRN Reason: Nausea Stop: 07/29/25 16:33 Potassium Chloride (Potassium Chloride 20 Meq/15 Ml Udc) 10 meq PO DAILY [facility] Stop: 08/03/25 08:59 Last Admin: 07/04/25 10:51 Dose: 10 meq Sterile Water (Tube Feeding Water Flush) 90 ml GT TID [facility] Stop: 07/31/25 20:59 Last Admin: 07/04/25 09:01 Dose: 90 ml PG Care Time/CCT Total # of Minutes Spent Total Time Spent with Patient: Total time spent is greater than 50% in coordination of care (as documented) at patient's floor/unit and/or counseling patient: Coding [place] [address] SUB INP/OBS CARE 3/50MIN Patient Type Established History Expanded Problem Focused Exam Expanded Problem Focused Medical Decision Making Moderate Complexity Diagnoses Cancer related pain G89.3 Palliative care by specialist Z51.5 Counseling regarding goals of care Z71.89
--- NOTE | 2025-07-04 11:20 | Hospitalist Progress Note ---
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 Pain is cancer related. #Cancer related pain | left shoulder pain Suspect patient's left shoulder/scapular pain is due to new findings on imaging PET scan 03/2025: Progressive pulmonary metastasis Thoracic spine MRI: Osteolytic skeletal metastatic lesion at T1 with involvement of the left T1-T2 neural foramen Radiation oncology consult appreciated --> SIM appointment on 07/01, with next scheduled appointment for T1/T2 lesion on 07/12 Decadron 4 mg IV q8h Fentanyl patch increased from 25 mcg -> 37 mcg--> 50mcg on 07/04 Current pain regimen:Gabapentin 800mg p.o. TID; Oxycodone 15mg PO q6h prn. Baclofen 5mg TID prn Initiate Cymbalta 20 mg p.o. 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 Coyle) who did her resection x 2 Follows with CCP for immunotherapy (Dr. Perez)--> Per conversations with patient, , and daughter, the plan is to discuss chemotherapy options upon discharge Dietitian consult appreciated for PEG tube feeding---> Patient is normally on Nutren 2.0 TID Communication order: All p.o. medications through the PEG tube #CAP CXR negative for pneumonia on admission. Jump in WBC to 11.45 but previously WNL. (could be secondary to underlying infx vs steroid use) W/ complaints of productive cough sputum sample obtained --> prelim showing + for staph aureus MRSA swab negative Start Keflex 500mg BID to cover for CAP. #Worsening dysphagia Patient was previously able to swallow some pills, but is finding it more difficult now Soft tissue neck CT on 06/10 revealed progression of neoplastic processes/hypodense focus in the right left anterior floor of the mouth Speech therapy consulted --> Okay for small sips of water and ice chips& Oral hygiene q4h #T2DM Last A1c at 6.3% on 06/30/2025 Patient is normally on NovoLog U100 TID w meals Dose reduced to Lantus 15 u BID while inpatient SSI with target BSG range 110-150mg/dL, CF 15, carb ratio 5 BSG ACHS; Adjust regimen as needed Pharmacy glycemic consult appreciated in setting of high-dose steroid use #Crohn's disease With a history of partial colectomy Continue mercaptopurine #GAMA CPAP HS #PEG tube obstruction/malfunction (resolved) On 06/30 #HTN BP remains elevated at 187/67. Not currently on BP medications Patient was previously on irbesartan and amlodipine --> resume low dose amlodipine. --> was previously on 5mg daily. Hydralazine 5 mg IV q8h PRN for SBP >195 or DBP >95 Disposition: Continued stay for cancer related pain control; hopeful discharge once pain is controlled off of IV medications VTE PPx: High risk due to metastatic malignancy; Lovenox 40 mg SQ q24h Discussed w/ palliative care 07/04. Admission and Anticipated Discharge Date Admission Date: June 29, 2025 Supervising Physician Co-Signing Physician Notes The patient was not seen by me. The chart was reviewed. Case discussed with YAYA Rogers. Agree with assessment and plan Subjective Carley was seen & examined this morning. She states she had a rough night of pain but this morning was feeling okay. Reports pain is still in her shoulder region. She denied any additional complaints Physical Exam Physical Exam: General: NAD, VS: BP 187/67; P86; T36.6C; R15 Resp: normal respiratory effort Extremities: no edema Neuro: A&O x3 Skin: intact, no lesions noted Results & Data Results & Data Vital Signs (Past 12 Hours) Vital Signs Temp Pulse Resp BP BP Pulse Ox O2 Del Method 07/04/25 07:31 36.7 C 60 16 150/78 H 92 Room Air 07/04/25 00:32 181/85 H 07/03/25 23:39 37.2 C 71 18 199/79 H 95 Room Air PG Care Time/CCT Total # of Minutes Spent Total Time Spent with Patient: Total time spent is greater than 50% in coordination of care (as documented) at patient's floor/unit and/or counseling patient: Coding Level of Care Code 74122 SUB INP/OBS CARE 2/35MIN Diagnoses Cancer related pain G89.3 Crohn disease K50.90 Left shoulder pain M25.512 Hypomagnesemia E83.42 PEG tube malfunction K94.23"
[2025-07-04] MEDS: REMOVE LIDODERM PATCH ONE (16:19)
[2025-07-05 06:29] LABS: Hematocrit (blood only) 35.8 % (37.0-47.0); Hemoglobin 12.1 g/dl (12.0-16.0); Mean Corpuscular Hemoglobin 31.1 pg (25.0-34.0); Mean Corpuscular Volume 92.0 fL (80.0-100.0); Platelet Count 405 K/uL (130-400); RDW Standard Deviation 46.5 fL (36.4-46.3); Red Blood Count 3.89 M/uL (4.20-5.40); White Blood Count 10.81 K/ul (4.8-10.8)
[2025-07-05 07:22] LABS: Anion Gap 10.0 (3-11); Blood Urea Nitrogen 29.0 mg/dl (6-23); Calcium 9.6 mg/dl (8.6-10.3); Carbon Dioxide 33.0 mmol/L (21-32); Chloride 93.0 mmol/L (98-107); Creatinine Clr Calc Pharmacy 81.8 ml/min; Glucose 114.0 mg/dl (70-99(Fasting)); Magnesium 1.7 mg/dl (1.7-2.4); Potassium 3.6 mmol/L (3.5-5.1); Sodium 136.0 mmol/L (136-145)
[2025-07-05 07:30] VITALS: PULSE 74; RESP 16; TEMP 97.9; O2SAT 95
--- NOTE | 2025-07-05 09:55 | Palliative Care Progress Note ---
Date of Service July 05, 2025 Assessment & Plan (1) Cancer related pain: Plan: Pt c/o severe and constant left shoulder /back/ arm pain which radiates down L arm and increases with any movement. Pain is constant but also with occasional sharp stabbing pain in left shoulder when she moves it the wrong way. She stated pain is 10/10 at worst and only mildly improved with current medications, at best 6/10. She shared that she was taking 10mg Oxycodone q4h at home and this "only took the edge off". Trial of Roxanol 10 mg p.o. (via PEG tube) x 1 provided no significant pain relief. She shared that the pain is interfering with her daily activities and she is hopeful that radiation to the area will help to palliate her pain. Pt was recently (06/27/25) prescribed transdermal fentanyl 25ucg patch which she shared has only modestly helped with her pain. She shared that she has had difficulty managing her pain because her doctor will only prescribe oxy for 3 days at a time. Per PDMP, her average daily MME at home was 85.27, as combination of duragesic (25) and oxycodone. This morning pt shared that pain has been well managed with combo of TD fentanyl and oxyIR, but that the oxy does not last long enough. Her pain is currently mild (2::10) and increases as expected with any movement. She has had persistent need for frequent PRN medication supporting need for increase in long acting TD fentanyl for more consistent coverage of her pain. Pt agreeable to both increase in TD fentanyl and narrowing of window for OxyIR from q6h PRN to q4h PRN. Pt likely to be discharged to home today with plan to follow up with Dr Arenas in outpt palliative clinic on 07/07. She has pain and intermittent difficulty with swallowing so will require liquid format of oxycodone for home use via PEG. Last 24h hour OMEs: 187.5 (previous 24hrs =211 OMEs) Oxycodone 45mg = 67.5 OME Duragesic 50mcg/hr = 120 OME Increased Fentanyl to 62Mcg/Hr 1 patch TD Q72H CHARI changed OxyIR to 15mg per PEG Q4h PRN for BTP Continue Gabapentin 800mg p.o. TID Continue Acetaminophen 1000mg IV q8h Continue Baclofen 5mg p.o. TID PRN Continue steroid taper per primary team (2) Pain from bone metastases: (3) Palliative care by specialist: Plan: Palliative care will continue to follow for ongoing symptom management and patient/family support. (4) Counseling regarding goals of care: Plan: Today: Pt and her spouse reinforced goals for ongoing life prolonging and cancer directed treatments at this time. Pt agreeable o follow with Dr Arenas, outpt Palliaitive Care clinic, for ongoing pain/symptom mgmt and navigation. 07/04: Pt reinforced her hope to improve symptom management to allow for cancer directed treatments. She was unclear on timeline, but confirmed that she continues to hope for palliation of pain with radiation that might allow her to continue with other cancer directed treatment options. She shared plan to receive radiation and follow up with Dr Perez and Dr Arenas as an outpt. 06/30: Ms Ramos is a pleasant woman who has been for over 55y and has a daughter the lives in [place] and a son who lives in [facility]. She lives independently with her spouse and they have four grand children. She shared that her goal in cancer treatment is to be able to return to living a life where she can enjoy time with her family and attend the sporting events of her grand children (ages 7, 9, 11, nd 17y). She shared that her spouse is resistant to discussing anything other than her getting better. She shared that she does wish to discuss prognosis with Dr. Perez, but up to now has only discussed hope for "successful treatments to get rid of the cancer". She asked for prognosis and what difference the treatments might make. I asked her what she had been told, and she shared that she has some issues understanding and remembering things she is told, so she would like to revisit this conversation when her daughter and spouse can be present. She shared that her daughter has children at home so she is only able to visit in evenings. Plan as above. Admission and Anticipated Discharge Date Admission Date: June 29, 2025 Subjective Assessed pt at bedside, she was awake and alert and spouse was visiting. She shared that she slept better last night and feels pain well managed. VSS. NAD on RA. Review of Systems Review of Systems: All systems reviewed & are unremarkable except as noted in Subjective Physical Exam Constitutional: WD/WN, vitals as above Eyes: PERRL, conjunctivae normal, anicteric sclerae ENMT: Ears: no hearing impairment Neck: trachea midline, no thyromegaly Respiratory: normal respiratory effort, lungs clear to auscultation Cardiovascular: RRR, no murmur, no edema Gastrointestinal (Abdomen): normal bowel sounds, soft, nontender, no hepatosplenomegaly Skin: no rashes, warm and dry Psychiatric: A+Ox3, euthymic affect Results & Data Vital Signs (Past 12 Hours) Vital Signs Temp Pulse Resp BP Pulse Ox O2 Del Method 07/05/25 07:44 Room Air 07/05/25 07:28 36.6 C 74 16 164/81 H 95 Room Air 07/04/25 23:11 36.8 C 83 18 130/76 94 Room Air Laboratory Results Abnormal lab results 07/04/25 07/04/25 07/05/25 Range/Units 16:31 20:35 06:00 WBC 10.81 H (4.8-10.8) K/ul RBC 3.89 L (4.20-5.40) M/uL Hct 35.8 L (37.0-47.0) % RDW Std Deviation 46.5 H (36.4-46.3) fL Plt Count 405 H (130-400) K/uL MPV 8.9 L (9.4-12.4) fL Chloride 93 L (98-107) mmol/L Carbon Dioxide 33 H (21-32) mmol/L BUN 29 H (6-23) mg/dl BUN/Creatinine Ratio 46.0 H (10-20) Glucose 114 H (70-99(Fasting)) mg/dl POC Glucose 218 H 188 H (70-99) mg/dl 07/05/25 Range/Units 07:46 WBC (4.8-10.8) K/ul RBC (4.20-5.40) M/uL Hct (37.0-47.0) % RDW Std Deviation (36.4-46.3) fL Plt Count (130-400) K/uL MPV (9.4-12.4) fL Chloride (98-107) mmol/L Carbon Dioxide (21-32) mmol/L BUN (6-23) mg/dl BUN/Creatinine Ratio (10-20) Glucose (70-99(Fasting)) mg/dl POC Glucose 103 H (70-99) mg/dl Diagnostic Findings Cervical Spine CT 06/29/25 11:12 CT cervical spine wo con CT DOSE: 483.99 mGy.cm CLINICAL HISTORY: 74 years-old Female with l arm pain. Acute neck pain without reported trauma. History of head and neck carcinoma COMPARISON: CT soft tissue neck 06/10/2025 TECHNIQUE: Multiple axial CT images of the cervical spine were obtained without contrast. A dose lowering technique was utilized adhering to the principles of ALARA. FINDINGS: Multilevel degenerative changes of the cervical spine with moderate mid to lower cervical spondylotic spurring. Moderate disc space narrowing at C6- C7. [id number] multilevel facet arthrosis. Mild wedge deformities at T1-T3 without retropulsion appear chronic. No acute cervical spine fracture or subluxation identified. Osteolytic skeletal lesion measuring 1.5 cm within the left aspect of the T1 vertebral body on image 39 at the costovertebral junction. Soft tissue component of this lesion extends into the left T1-T2 neural foramen. Left mastoid effusion. Heterogeneity of the thyroid. Previously noted lesions in the floor the mouth are not imaged. Layering left pleural effusion with intralobular septal thickening. Irregular nodules at the lung apices are again noted including an index 1.7 cm nodule in the left upper lobe. Several of these nodules appear to be slightly larger than prior. IMPRESSION: 1. No acute cervical spine fracture or subluxation. 2. Progressive pulmonary metastasis. 3. 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 4. Suggestion of pulmonary edema with small left pleural effusion. ACT 112: Negative or not required by law. The above report was generated using voice recognition software. It may contain grammatical, syntax or spelling errors. Electronically signed by: Og Abarca M.D. 06/29/2025 12:05 PM Chest X-Ray 06/29/25 11:12 XR chest 1V portable CLINICAL HISTORY: Chest pain, nonspecific COMPARISON STUDY: 11/01/2024 FINDINGS: Stable right chest port. Stable mild cardiomegaly without pulmonary vascular congestion. There are scattered nodular densities in both lungs, increased. There are possible trace pleural effusions. No pneumothorax. IMPRESSION: Increased bilateral pulmonary nodules with possible trace pleural effusions. ACT 112: Negative or not required by law. Electronically signed by: Ronald Alvarez M.D. 06/29/2025 11:45 AM Shoulder X-Ray 06/29/25 11:12 XR shoulder LT min 2V routine CLINICAL HISTORY: l shoulder pain COMPARISON: 08/18/2019 FINDINGS: No acute fracture or dislocation seen. There are mild degenerative changes at the left shoulder. There are multiple pulmonary nodules at the left lung. IMPRESSION: No acute fracture seen. ACT 112: Negative or not required by law. Electronically signed by: Ronald Alvarez M.D. 06/29/2025 11:46 AM Thoracic Spine MRI 06/29/25 17:20 CR Exam(s): MRI T SPINE W/WO Contrast IV Amt: 8.5 ml kelly EXAM: MR Thoracic Spine Without and With Intravenous Contrast CLINICAL HISTORY: Reason for exam: T1/T2 metastic lesion; ? cord compression. OTHER: Other Notes: T1-T2 METASTATIC LESION? CHECK FOR CORD COMPRESSION, DIFFICULTY HOLDING STILL, UNEVENTFUL INJECTION 8.4 ML KELLY GIVEN VIA PORT BY PRASAD TECHNIQUE: Magnetic resonance images of the thoracic spine without and with intravenous contrast in multiple planes. CONTRAST: Patient received 8.5 ml kelly of IV contrast COMPARISON: No relevant prior studies available. FINDINGS: Vertebrae: There are 12 thoracic type vertebral bodies with increased thoracic kyphosis. There is a moderate sized enhancing soft tissue mass in the left T1 vertebral body extending to the posterior elements and to the left ventral epidural space and left C7-T1 and T1-T2 neural foramina. There are tiny enhancing lesions in the T7, T8 and T11 vertebral bodies. No acute fracture. Discs/spinal canal/neural foramina: No acute findings. No significant disc disease. No spinal canal stenosis. Spinal cord: Unremarkable. Normal signal. No abnormal enhancement. Soft tissues: Unremarkable. IMPRESSION: Moderate sized enhancing soft tissue mass in the left T1 vertebral body extending to the ventral epidural space and left C7-T1 and T1-T2 neural foramina concerning for metastatic disease. No evidence of pathologic fracture or spinal canal stenosis. Tiny enhancing lesions at T7, T8 and T11 vertebral bodies concerning for tiny metastatic lesions. Communications: Verify Receipt Electronically signed by: Mariah Dove MD 06/30/25 00:34 AM PG Care Time/CCT Total # of Minutes Spent Total Time Spent with Patient: Total time spent is greater than 50% in coordination of care (as documented) at patient's floor/unit and/or counseling patient: Coding [place] [address] SUB INP/OBS CARE 2/35MIN Patient Type Established History Expanded Problem Focused Exam Expanded Problem Focused Medical Decision Making Moderate Complexity Diagnoses Cancer related pain G89.3 Pain from bone metastases G89.3; C79.51 Palliative care by specialist Z51.5 Counseling regarding goals of care Z71.89
[2025-07-05] MEDS: [UNRECOGNIZED DRUG - REMARK] SCH (10:29)
[2025-07-05 10:54] VITALS: BP 144/76
--- NOTE | 2025-07-05 11:28 | Discharge Summary ---
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 Pain is cancer related. #Cancer related pain | left shoulder pain Suspect patient's left shoulder/scapular pain is due to new findings on imaging PET scan 03/2025: Progressive pulmonary metastasis Thoracic spine MRI: Osteolytic skeletal metastatic lesion at T1 with involvement of the left T1-T2 neural foramen Radiation oncology consult appreciated --> SIM appointment on 07/01, with next scheduled appointment for T1/T2 lesion on 07/12 Decadron 4 mg IV q8h --> transition to Decadron 4mg BID on discharge until seen by rad onc in follow up. Fentanyl patch increased to 62mcg on 07/05 prior to dc. Current pain regimen:Gabapentin 800mg p.o. TID; Oxycodone 15mg PO q4h prn. Baclofen 5mg TID prn Initiate Cymbalta 20 mg p.o. QAM---> patient informed that this might take 2 to 3 weeks before it fully begins to take effect To follow up w/ palliative care on 07/21 outpatient. 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 Coyle) who did her resection x 2 Follows with CCP for immunotherapy (Dr. Perez)--> Per conversations with patient, , and daughter, the plan is to discuss chemotherapy options upon discharge Dietitian consult appreciated for PEG tube feeding---> Patient is normally on Nutren 2.0 TID All appointments for heme/onc placed on dc summary. #CAP CXR negative for pneumonia on admission. Jump in WBC to 11.45 but previously WNL. (could be secondary to underlying infx vs steroid use) W/ complaints of productive cough sputum sample obtained --> prelim showing + for staph aureus MRSA swab negative Start Keflex 500mg BID to cover for CAP for 7 day course. #Worsening dysphagia Patient was previously able to swallow some pills, but is finding it more difficult now Soft tissue neck CT on 06/10 revealed progression of neoplastic processes/hypodense focus in the right left anterior floor of the mouth Speech therapy consulted --> Okay for small sips of water and ice chips& Oral hygiene q4h #T2DM Last A1c at 6.3% on 06/30/2025 resume outpatient regimen on dc. #Crohn's disease With a history of partial colectomy Continue mercaptopurine #GAMA - CPAP HS #PEG tube obstruction/malfunction (resolved) - On 06/30 #HTN BP remains elevated at 187/67. Not currently on BP medications Patient was previously on irbesartan and amlodipine --> resume low dose amlodipine. --> was previously on 5mg daily. Discussed w/ palliative care, nurse navigator, and rad onc EMRE prior to dc 07/05. Updated at bedside 07/05 w/ dc instructions Admission HPI Per Admitting Provider Mrs. Ramos is a 74-year-old female with PMH of GAMA, T2DM, glaucoma, metabolic syndrome, Crohn's disease, and PEG tube placement. She presented on 06/29 for left shoulder and arm pain. Pain is located mainly in patient's left upper shoulder/back. Radiation down the arm. Worse with movements. Pain is constant, but she has sharp stabbing pain at times when she moves it the wrong way. 10/10 at worst. 6/10 at present after receiving morphine in the emergency department. She has been taking 10 mg oxycodone tablets every 4-6 hours at home as needed for pain, which helps a little bit, but it has grown increasingly worse this past week. Patient was also prescribed a fentanyl patch (25 mcg) starting on Friday, but this has not helped alleviate her pain. No chest pain. No other complaints at this time. Patient currently follows with Dr. Perez ([facility]) and is set to get immunotherapy next on Wednesday 07/11. She also has an upcoming appointment on Friday at 07/04 with palliative care. Patient is currently being treated for tongue and face cancer. She denies any smoking or tobacco use. Patient has a PEG tube and reports she uses Nutren 2.0 TID for food. She ambulates with a walker at baseline, but reportedly has had more difficulty walking over the past week. She feels off balance. No recent falls. No recent trauma to the left arm. Patient is mildly hypertensive at 154/90 at time admission; vitals otherwise stable. ED course: Morphine 4 mg IV x 2 ROS: Patient endorses severe left shoulder pain, thick sinus congestion, diarrhea once per day (attributes to Crohn's disease; sometimes does not make it to the bathroom), and numbness/tingling shooting down the left arm into her thumb. Patient denies fever, chills, night-sweats, dizziness, chest pain, pleuritic CP, cough, SOB, abdominal pain, N/V, or blood in the urine/stool. Discharge Exam General: NAD, VS: BP 144/76; P74; T36.6C; R16 Resp: normal respiratory effort Extremities: no edema Neuro: A&O x3 Skin: intact, no lesions noted Discharge Plan Discharge Items Patient Disposition: Home - Self-Care Reason For Visit: CANCER-RELATED PAIN Discharge Diagnosis: Cancer related pain Condition on Discharge: Fair Activity: Resume your previous activity Non-emergency contact: Primary Care Provider and Oncologist Call non-emergency contact if: you have any medication questions and your symptoms worsen Follow-up/Referrals: Melisa Vargas MD [Physician] - Lilian Godwin MD [Primary Care Provider] - (LEFT MESSAGE WITH PCP OFFICE TO CALL PATIENT TO SCHEDULE A HOSPITAL FOLLOW UP VISIT IN 7-10 DAYS.) Brook Arenas DNP [Nurse Practitioner] - Kellen Perez MD [Physician] - Diet: Nothing by Mouth Diet Comment: okay for ice chips & sips Addtl Attending Provider Instructions: Mrs. Ramos, Gregg were recently hospitalized for pain that is related to your cancer. You had your pain managed with palliative care and will continue to have this managed in the outpatient setting. Medications: Your medication list has been reviewed and reconciled upon discharge to ensure accuracy and continuity of care. An updated list of all your medications is included with your hospital discharge paperwork. Please review this list closely, and make note of any changes. Medications sent on discharge: Fentanyl patch 62mcg every 72 hours. A new patch does not need to be placed until 07/08/2025. Oxycodone Hcl 15mg every 4 hours as needed for breakthrough pain. Cymablta 20mg daily has been sent in to help manage your pain. Please take this once daily starting 07/06. Your blood pressure has been elevated during your hospital stay. Amlodipine 5mg has been re-prescribed to you on discharge. Please take this once daily starting 07/06. Cephalexin 500mg twice daily has been sent in for your positive sputum culture. Your next dose will be this evening, 07/05. This will be for 6 days. Pantoprazole 40mg twice daily has been sent in to help manage your upset stomach from your tube feeds. Your next dose will be this evening, 07/05. You have been on steroids while inpatient for management of your cancer related pain. Dexamethasone 4mg twice daily has been sent in on discharge. Your next dose will be this evening, 07/05. Please continue this and discuss with your radiation oncologist when the proper time is to start to decrease the steroids. Take your medications as instructed; do not skip a dose of your medicines. Make sure all of your doctors know every medicine you are taking (including mgin-hdf-nzeszaz medicines, vitamins, and supplements). Call your primary care provider before taking any new medicines (including over- the-counter medicines, vitamins, and supplements), because some of these may interact with your current medications, or may make your symptoms worse. Tell your primary care provider if you cannot afford your medications. Activity: You can do normal everyday activities as your body allows. Take rest breaks if you feel tired. Do not overexert. Stop activity if you have pain, shortness of breath or feel dizzy. Follow-up appointments: Make an appointment with your primary care physician within one week of discharge. A copy of this summary will be sent to them. Every time you see your primary care physician, or any other doctor, bring your medication list, and a list of questions. Port draw, infusion, and appt. with Dr. Perez on 07/11/2025 at 9am. A radiation appointment is scheduled on 07/12/2025 at 5:45pm A radiation appointment is scheduled on 07/14/2025 at 1:10pm A radiation appointment is scheduled on 07/18/2025 at 1:00pm Palliative follow up with Sis Arenas on 07/21/2025 at 11am. - If this a ppointment can be moved up, someone will call with an earlier date & time. In the event that you run out of your pain medication prior to this appointment, please call her office for a refill. Your PET scan was scheduled for yesterday, to reschedule the number is [phone] CONTACT YOUR PRIMARY CARE PROVIDER if you experience any of the following: Shortness of breath or difficulty breathing Fevers or chills Feeling tired with normal activity or experiencing dizziness or fainting Difficulty following your treatment plan, or difficulty taking medications CALL 911 OR GO TO THE EMERGENCY DEPARTMENT if you experience any of the following: Severe abdominal pain or nausea/vomiting Severe chest pain, or chest pain that radiates (moves) to your jaw or arm Sudden, severe shortness of breath or difficulty breathing Thank you for allowing us to participate in your care. Pending Studies at Discharge: No Stand-Alone Forms: [facility], Smoking Cessation Medications and DC Order Prescriptions: New oxycodone 5 mg/5 mL Solution 15 mg PO Q4H PRN (Reason: pain) Qty: 100 0RF amlodipine 5 mg Tablet 5 mg PO QAM Qty: 30 0RF cephalexin 500 mg Capsule 500 mg PO BID Qty: 12 0RF pantoprazole 40 mg Tablet,Delayed Release (Dr/Ec) 40 mg PO BID Qty: 60 0RF duloxetine 20 mg Capsule,Delayed Release(Dr/Ec) 20 mg PO QAM Qty: 30 0RF fentanyl 62.5 mcg/hour patch 72 hour 1 patch transdermal Q72H Qty: 5 0RF dexamethasone 4 mg tablet 4 mg PO BID Qty: 60 0RF Continued buspirone 30 mg tablet 30 mg feeding tube TID gabapentin 800 mg tablet 800 mg feeding tube TID prochlorperazine maleate 10 mg tablet 10 mg PO Q8H PRN (Reason: n/v) loperamide [Imodium A-D] 2 mg tablet 2 mg PO Q6H PRN (Reason: Other) Patient Comments: 06/29- otc unable to verify mecobalamin (vitamin B12) 1,000 mcg tablet,chewable 1,000 mcg PO DAILY Patient Comments: 06/29- otc unable to verify cyanocobalamin (vitamin B-12) 1,000 mcg/mL syringe 1,000 mcg .Route MONTHLY Patient Comments: Last filled 02/01 90 day supply Rx Instructions: [id number] mg intramuscularly monthly 1,000 mcg mercaptopurine 50 mg tablet 50 mg PO DAILY Vyzulta 0.024 % drops 1 drp ophthalmic (eye) QPM potassium chloride 10 mEq capsule, extended release 10 meq PO DAILY ondansetron 4 mg tablet,disintegrating 4 mg PO Q8H PRN (Reason: nausea and vomiting) Qty: 60 0RF cyclosporine 0.05 % dropperette 1 drp OPB BID Patient Comments: Last filled 01/27 90 day supply magnesium oxide 400 mg (241.3 mg magnesium) Tablet 400 mg PO QAM Qty: 30 0RF insulin aspart U-100 [Novolog FlexPen U-100 Insulin] 100 unit/mL (3 mL) insulin pen 0 sliding scale dose SQ TIDWMEAL MDD 60 Patient Comments: last filled 07/09/2024 atorvastatin 20 mg tablet 20 mg PO DAILY nystatin 100,000 unit/mL suspension 0 ml PO QID Patient Comments: last filled 04/27 3 day supply Discontinued oxycodone 5 mg tablet 10 mg PO .Q4-6H PRN (Reason: Pain) fentanyl 25 mcg/hr patch 72 hour 25 mcg transdermal .Q72H No Action (DME) lancets [Microlet Lancet] Misc See Rx Instructions .ROUTE .MEDSUPPLY Qty: 200 5RF Rx Instructions: Test blood sugars four times a day (DME) blood-glucose meter [Contour Next One Meter] Misc See Rx Instructions .ROUTE .MEDSUPPLY Qty: 1 0RF Rx Instructions: Test blood sugars 1 x times a day (DME) pen needle, diabetic 31 gauge x 3/16" needle See Dose Instructions .ROUTE .MEDSUPPLY Qty: 500 1RF Rx Instructions: use to inject insulin 5 times daily as directed (DME) Dexcom G7 Sensor Device See Rx Instructions .Route Rx Instructions: change every 10 days (DME) Bio true Solution See Rx Instructions .Route Rx Instructions: As directed; PRN (DME) CPAP Machine Misc See Rx Instructions .Route Rx Instructions: As directed (DME) Contour Next Test Strips Strip See Rx Instructions .ROUTE .MEDSUPPLY Qty: 400 1RF Rx Instructions: Test blood sugar four times daily Discharge Orders: Discharge Order (Routine); Ordered 07/05/25 Ordered By: Lata Dugan/Other Patient Handouts: Managing Type 2 Diabetes, Pain Medicines for Cancer Admission Data Admit Date/Time: 06/29/25 14:49 Attending Provider: Bony,Brennan R. Admit Provider: Duc Taylor Primary Care Provider: Lilian Godwin Other Providers: Melisa Vargas; Dorothea Marie; Brook Arenas Other Interventions: Discharge Summary Assessment (RN) Last Done: 07/05/25 12:26 Hospital Stay Data Consultations 06/29/25 15:43 Consult Radiation Oncology Routine 06/30/25 13:45 Consult Palliative Care Routine Diagnostic Imagining Performed 06/29/25 11:12 CT cervical spine wo con Stat 06/29/25 17:20 MR thoracic spine wo/w con Urgent 07/01/25 07:37 CT guide rad therapy chest Routine Pending Results Patient Have Any Pending Studies at Discharge: No Discharge Instructions Given to Patient (Per Discharging Provider) Mrs. Ramos, Gregg were recently hospitalized for pain that is related to your cancer. You had your pain managed with palliative care and will continue to have this managed in the outpatient setting. Medications: Your medication list has been reviewed and reconciled upon discharge to ensure accuracy and continuity of care. An updated list of all your medications is included with your hospital discharge paperwork. Please review this list closely, and make note of any changes. Medications sent on discharge: Fentanyl patch 62mcg every 72 hours. A new patch does not need to be placed until 07/08/2025. Oxycodone Hcl 15mg every 4 hours as needed for breakthrough pain. Cymablta 20mg daily has been sent in to help manage your pain. Please take this once daily starting 07/06. Your blood pressure has been elevated during your hospital stay. Amlodipine 5mg has been re-prescribed to you on discharge. Please take this once daily starting 07/06. Cephalexin 500mg twice daily has been sent in for your positive sputum culture. Your next dose will be this evening, 07/05. This will be for 6 days. Pantoprazole 40mg twice daily has been sent in to help manage your upset stomach from your tube feeds. Your next dose will be this evening, 07/05. You have been on steroids while inpatient for management of your cancer related pain. Dexamethasone 4mg twice daily has been sent in on discharge. Your next dose will be this evening, 07/05. Please continue this and discuss with your radiation oncologist when the proper time is to start to decrease the steroids. Take your medications as instructed; do not skip a dose of your medicines. Make sure all of your doctors know every medicine you are taking (including jqfi-chp-rpfbcjj medicines, vitamins, and supplements). Call your primary care provider before taking any new medicines (including over- the-counter medicines, vitamins, and supplements), because some of these may interact with your current medications, or may make your symptoms worse. Tell your primary care provider if you cannot afford your medications. Activity: You can do normal everyday activities as your body allows. Take rest breaks if you feel tired. Do not overexert. Stop activity if you have pain, shortness of breath or feel dizzy. Follow-up appointments: Make an appointment with your primary care physician within one week of discharge. A copy of this summary will be sent to them. Every time you see your primary care physician, or any other doctor, bring your medication list, and a list of questions. Port draw, infusion, and appt. with Dr. Perez on 07/11/2025 at 9am. A radiation appointment is scheduled on 07/12/2025 at 5:45pm A radiation appointment is scheduled on 07/14/2025 at 1:10pm A radiation appointment is scheduled on 07/18/2025 at 1:00pm Palliative follow up with Sis Arenas on 07/21/2025 at 11am. - If this appointment can be moved up, someone will call with an earlier date & time. In the event that you run out of your pain medication prior to this appointment, please call her office for a refill. Your PET scan was scheduled for yesterday, to reschedule the number is [phone] CONTACT YOUR PRIMARY CARE PROVIDER if you experience any of the following: Shortness of breath or difficulty breathing Fevers or chills Feeling tired with normal activity or experiencing dizziness or fainting Difficulty following your treatment plan, or difficulty taking medications CALL 911 OR GO TO THE EMERGENCY DEPARTMENT if you experience any of the following: Severe abdominal pain or nausea/vomiting Severe chest pain, or chest pain that radiates (moves) to your jaw or arm Sudden, severe shortness of breath or difficulty breathing Thank you for allowing us to participate in your care. Supervising Physician Co-Signing Physician Notes The patient was not seen by me. The chart was reviewed. Case discussed with YAYA Rogers. Agree with assessment and plan Total Time Total Time Spent Total Time Spent (In Minutes): 65 Total Time Includes: Examination of the Patient, Discharge Planning, Medication Reconciliation and Communication With Other Providers Coding Level of Care Code 70862 INP/OBS DISCH >30 MIN Diagnoses Cancer related pain G89.3 Crohn disease K50.90 Left shoulder pain M25.512 Hypomagnesemia E83.42 PEG tube malfunction K94.23
[2025-07-05] MEDS ORDERED: [UNRECOGNIZED DRUG - REMARK] SCH (16:00)
[2025-07-05] MEDS ORDERED: [UNRECOGNIZED DRUG - REMARK] SCH (16:00)
[2025-07-08] MEDS ORDERED: [UNRECOGNIZED DRUG - REMARK] SCH (10:00)
== END 2025-07-05 12:49 | disposition home or self-care (01) | DRG 947 ==
LOC: ED 10:49 → SUATTDRO 14:49 → 3E 14:49

== ENCOUNTER 2025-07-12 15:28 | Inpatient (IN) ==
[2025-07-12 16:13] LABS: Hematocrit (blood only) 36.5 % (37.0-47.0); Hemoglobin 11.9 g/dl (12.0-16.0); Mean Corpuscular Hemoglobin 29.9 pg (25.0-34.0); Mean Corpuscular Volume 91.7 fL (80.0-100.0); Platelet Count 288 K/uL (130-400); RDW Standard Deviation 47.6 fL (36.4-46.3); Red Blood Count 3.98 M/uL (4.20-5.40); White Blood Count 20.25 K/ul (4.8-10.8)
--- NOTE | 2025-07-12 16:16 | Emergency Department Note ---
Impression & Plan Sepsis, Pseudohyponatremia, Acute hyperglycemia, Acute dehydration, Drug side effects, Encephalopathy, Elevated lactic acid level ED Provider Note NAME: ERASTO ALVAREZ AGE: 75 SEX: F : 1950 ARRIVES VIA: Walk-In INFORMANT: Patient, family ED PROVIDER(S): Sean Castro DO CHIEF COMPLAINT: lethargy, abnormal labs HPI: This is a 75-year-old female with the PMHx of head and neck cancer on active chemotherapy, hyperlipidemia, hypertension, insulin-dependent type 2 diabetes, GAMA, and cancer related pain presenting to [facility] for further evaluation of increased lethargy. Patient is accompanied by her family who provide additional history. patient and family members are reporting increased weakness and fatigue that has been ongoing over the last 4 to 5 days. Noted to have significant hyperglycemia as well as hyponatremia on outpatient labs. Patient's leaf blender/oncologist recommended that she report to the emergency department. They attempted to direct admission without success. Patient has no complaints besides fatigue and weakness. She states that her cancer related pain has been better controlled. The family ember's thought this could be from metabolic derangements. She is on dexamethasone and this is suspected to be the cause of her electrolyte derangements. Patient is on new pain medications including a fentanyl patch. This was recently decreased as there was thoughts that may be her pain control was causing her symptoms. They deny fever or chills. No cough or congestion. Denies chest pain or palpitations. No shortness of breath. They deny abdominal pain, nausea and vomiting. No urinary complaints. No recent changes in bowel movements. Patient denies recent changes in medications or OTC supplements. Patient offers no other complaints, today. ADDITIONAL HISTORY OBTAINED: Per HPI Chronic Medical/Social Conditions Affecting Care: Per HPI PAST MEDICAL HISTORY: See Below PAST SURGICAL HISTORY: See Below FAMILY HISTORY: See Below SOCIAL HISTORY: See Below HOME MEDICATIONS: See Below ALLERGIES: See Below VITALS: See Below PHYSICAL EXAMINATION: GENERAL: Resting in bed, eye closed but responsive to verbal stimuli, alert, chronically ill appearing, well nourished, no distress, non-toxic EYE EXAM: normal conjunctiva. PERRL and EOM's grossly intact. OROPHARYNX: no exudate, no erythema, lips, buccal mucosa are normal. Tongue abnormality from prior surgery. Mucous membranes are dry. NECK: supple, no nuchal rigidity, no adenopathy, non-tender LUNGS: Clear to auscultation. Normal chest wall mechanics HEART: no murmurs, tachycardic rate, regular rhythm ABDOMEN: abdomen soft, non-tender, no masses, no rebound or guarding. BACK: Back is symmetrical on inspection and there is no deformity, no midline tenderness, no CVA tenderness. SKIN: no rashes and no bruising UPPER EXTREMITIES: upper extremities are grossly normal. LOWER EXTREMITIES: No pitting edema. NEURO EXAM: Normal sensorium, GCS 15, normal speech, no gross weakness of arms, no gross weakness of legs. MEDICAL DECISION MAKING: Differential diagnoses includes but not limited to chemotherapy side effect, cancer related pain, polypharmacy, metabolic derangements, dehydration, sepsis, bacteremic, viral URI, pneumonia, UTI In summary, this is a 75 year old female who presented with increased lethargy and weakness. Differential as above. Nursing notes and pertinent past medical records reviewed. Vital signs reviewed and the patient is tachycardic but otherwise afebrile and hemodynamically stable. History and presentation revealed ongoing treatment for head and neck cancer. Had labs that show significant electrolyte derangements including hyponatremia and hyperglycemia. Patient has been lethargic. Given tachycardia, there is concern for possible dehydration or even SIRS response. Could be related to chemotherapy. Low threshold for treatment for infectious disease as the patient is immunosuppressed on chemotherapy. Physical examination revealed no focal findings to suggest intracranial abnormalities. Did review outpatient workups with PET scan and MRI. She recently had a negative brain MRI and do not feel that further intracranial investigation is necessary. As a result of my initial evaluation, we will plan for laboratory evaluation and chest x-ray. Plan to begin IV fluid resuscitation. Diagnostics interpreted by me include EKG and cardiac monitoring as listed below: -Cardiac Monitoring: An order was placed for continuous cardiac monitoring. The monitor shows a rate of 80-100s with regular rhythm. -ECG: Normal sinus rhythm at a ventricular rate of [address] segment changes to suggest STEMI. Artifact noted in the precordial leads. Patient completed laboratory studies and imaging. Results independently interpreted by me are leukocytosis. Minimal anemia. Given the patient's leukocytosis as well as tachycardia, she meets SIRS criteria. Blood cultures were obtained and broad-spectrum antibiotics were started. We continued IV fluid resuscitation. Patient did have pseudohyponatremia in the setting of hyperglycemia. No anion gap metabolic acidosis or significant ketonuria to suggest DKA. Not suspicious of HHS. Do feel this is likely related to recent steroid use. Negative urinalysis for UTI. Negative viral swab. Chest x-ray was independently interpreted by me as stable multifocal patchy infiltrates. They appear similar to prior. Patient is here for multiple metabolic derangements and increased fatigue. She is not confused but she has been sleeping frequently. She is no longer requiring significant medications for pain. The patient is alert and oriented. She has mild tachycardia but she is otherwise hemodynamically stable. She has no complaints of chest pain or shortness of breath. Patient has not had a fever. I discussed extensively with the patient and her family members that we have multiple findings today. She does meet SIRS criteria with a significant leukocytosis as well as tachycardia. She is considered immunosuppressed given her ongoing chemotherapy. We did end up collecting a RVP, MRSA nares, and blood cultures. She was started on broad- spectrum antibiotics with cefepime. While she does have risk factors for possible gram-positive infection, I did not start vancomycin because I did not feel this is necessary. Some of these findings on the patient's vital signs as well as lab work could be explained by her malignancy and active chemotherapy. She has also been on relatively high dose dexamethasone. I do feel that some of the patient's electrolyte derangements could be secondary to dexamethasone use. She has hyperglycemia without significant anion gap acidosis. The patient is alkalotic. Patient does not have evidence of significant ketonuria. I do not believe the patient has DKA or HHS at this time. Do believe hyperglycemia is likely related to possible infection, steroid use and mild dehydration. She was managed with 1.5 L of IV crystalloid resuscitation. Patient was also found to have an elevated troponin without significant EKG changes. The patient's NSTEMI is likely type II KS in the setting of her sepsis and malignancy. I do not believe the patient has significant ACS at this point. Patient has no complaints of chest pain or shortness of breath. There is no evidence of anginal equivalents. Do feel that heparin infusion would be relatively high risk in this patient. I do not think this would ultimately change her outcome at this point. Heparin was deferred to the hospitalist team. Patient was initially recommended to admit to the hospitalist team at 1721. Patient was held in discussion with Nicola Pope at 1758. Ultimately, the decision was made to admit the patient for multifactorial encephalopathy with concerns for sepsis c/b electrolyte derangements including hyperglycemia and pseudohyponatremia as well as an elevated lactate. I discussed the case with the hospitalist service via telephone/TigerText and they are agreeable to admit the patient to their services. Based on the above, including the patient's age, coexisting illnesses, labs, imaging, and exam findings the decision to treat as an inpatient. I discussed the patient with the hospitalist team who recommended admission to their services. They received the medications, treatments, interventions indicated above and their condition remained guarded. I discussed my findings with the patient and their family and they understand and agree with the treatment plan. All patient / family questions were answered to their satisfaction. Consults/Care Managements Discussions: Per MDM ER treatment provided: See above Procedures: none Critical Care: None The chart was completed utilizing [employer] Speech voice recognition software. Grammatical errors, random word insertions, pronoun errors, and incomplete sentences are an occasional consequence of this system due to software limitations, ambient noise, and hardware issues. Any formal questions or concerns about the content, text, or information contained within the body of this dictation should be directly addressed to the physician for clarification. Past Med/Surg History Problem List (Updated 07/15/25 @ 08:57 by Sean Castro DO) Elevated lactic acid level (Acute) Encephalopathy (Acute) Drug side effects (Acute) Acute dehydration (Acute) Acute hyperglycemia (Acute) Pseudohyponatremia (Acute) Sepsis (Acute) Hyponatremia Hyperglycemia Thrush Lethargy Impaired swallowing Pain from bone metastases Left shoulder pain Cancer related pain Spinal cord lesion (Acute) Arm pain (Acute) Cellulitis Ex-smoker Counseling regarding advanced directives and goals of care Abnormal chest CT Cellulitis of face (Acute) Jerri infection (Acute) Jerri infection Salivary gland obstruction Cellulitis of face Multiple pulmonary nodules PEG (percutaneous endoscopic gastrostomy) adjustment/replacement/removal (12/13/24) Removal of Feeding Tube/placement new gastrostomy tube - Malik Turner DO Esophagogastroduodenoscopy - Malik Turner DO Hypokalemia Diabetes Arthritis Anemia Recurrent squamous cell carcinoma of tongue Obesity Post-nasal drip Injury of toe, right, superficial 05/2022 Depression with anxiety Left lumbar radiculopathy GAMA (obstructive sleep apnea) Binge eating disorder Mixed hyperlipidemia Metabolic syndrome Glaucoma Spinal stenosis Diabetic peripheral neuropathy associated with type 2 diabetes mellitus (Acute) Dyslipidemia associated with type 2 diabetes mellitus (Acute) Hypertension (Acute) Loss of protective sensation of skin of foot (Acute) Type 2 diabetes mellitus (Acute) Medical History PEG tube malfunction Anemia Obesity Gout Hypertension Dyslipidemia associated with type 2 diabetes mellitus Diabetic peripheral neuropathy associated with type 2 diabetes mellitus Depression with anxiety Post-nasal drip Type 2 diabetes mellitus Spinal stenosis Glaucoma Metabolic syndrome Recurrent squamous cell carcinoma of tongue Surgery 04/2024 and 10/04/24; currently on chemo tx; follows with once per week (wednesdays); also current XRT with in [place] Hx of sepsis 2021- no residual/current issues Fatty liver Sleep apnea CPAP Crohn's disease Neck problem Cervical pitched nerve + narrowing Intermittent LUE radiculopathy and ROM limitations COPD (chronic obstructive pulmonary disease) "Mild" No inhaler Surgical History History of percutaneous endoscopic gastrostomy (11/29/24) Esophagogastroduodenoscopy with Percutaneous Endoscopic Gastrostomy (PEG) Tube - Malik Turner DO Port-A-Cath in place (11/01/24) Insertion Access Port with Fluoroscopy - Right Subclavian(Right) - Kishore Mulligan DO; MAC without issue S/P cholecystectomy S/P partial glossectomy 04/30/24: partial glossectomy with L selective neck dissection Dr. Coyle [facility]; 10/04/24: L suprahyoid neck dissection and partial glossectomy Hx of cataract extraction R/L Hx of bilateral breast reduction surgery S/P epidural steroid injection x4 [id number] History of colonoscopy History of bowel resection (~2003) 12 inches r/t Crohn's disease (1971) Re-do r/t Crohn's disease (2003)- also had gallbladder removed at this time History of appendectomy (1971) Family History Father Family history of diabetes mellitus Diabetes Stroke Daughter Breast cancer Uncle Diabetes Grandmother Diabetes Stroke Other No family history of adverse response to anesthesia Social History Smoking Status: Never smoker Tobacco Type: Cigarettes Age Started Using Tobacco: 1 (unknown); Age Quit Using Tobacco: 0 (unknown); packs per day: 1; Cigarettes Per Day: 1980; Second Hand Exposure: No; Do You Dip or Chew Tobacco: No; Hx Alcohol Use: No Hx Substance Use: No Preferred Language: Kazakh Communication Ability: Effective Visual Impairment: No Limitations Food Service Attendant Required: No Beliefs That Will Affect Care: None Current Living Situation: Spouse Feels Safe at Home: Yes Assistive Devices: Cane and Walker Allergies Allergies Allergy/AdvReac Type Severity Reaction Status Date / Time latex Allergy Intermediate Blisters Verified 07/12/25 17:59 Penicillins Allergy Intermediate Hives Verified 07/12/25 17:59 lisinopril AdvReac Intermediate fluid Verified 07/12/25 17:59 retention [id number]-[id number]-[id number] Reductase AdvReac Intermediate "FILLED UP Verified 07/12/25 17:59 Inhibitor WITH FLUID" Home Meds Home Medications Medication Instructions Recorded Confirmed CPAP Machine 04/19/21 06/20/25 soft lens rinse,store solution 05/29/22 06/20/25 (Bio true solution) blood-glucose sensor (Dexcom G7 01/19/24 06/20/25 Sensor device) cyclosporine 0.05 % eye drops in a 1 drp OPB BID 10/26/24 07/12/25 dropperette insulin aspart U-100 100 unit/mL 0 sliding scale dose subcut 12/13/24 07/12/25 (3 mL) subcutaneous pen (Novolog TIDWMEAL FlexPen U-100 Insulin aspart) latanoprostene bunod 0.024 % eye 1 drp ophthalmic (eye) QPM 04/13/25 07/12/25 drops (Vyzulta) mercaptopurine 50 mg tablet 50 mg feeding tube DAILY 04/13/25 07/12/25 potassium chloride 10 mEq 10 meq feeding tube DAILY 05/25/25 07/12/25 capsule,extended release buspirone 30 mg tablet 30 mg feeding tube TID 05/27/25 07/12/25 gabapentin 800 mg tablet 800 mg feeding tube TID 05/27/25 07/12/25 loperamide 2 mg tablet (Imodium 2 mg PO Q6H PRN Other 05/27/25 07/12/25 A-D) mecobalamin (vitamin B12) 1,000 1,000 mcg DAILY 05/27/25 07/12/25 mcg chewable tablet prochlorperazine maleate 10 mg 10 mg feeding tube Q6H PRN n/v 05/27/25 07/12/25 tablet atorvastatin 20 mg tablet 20 mg feeding tube DAILY 06/29/25 07/12/25 amlodipine 5 mg tablet 5 mg feeding tube QAM 07/12/25 07/12/25 cyanocobalamin (vitamin B-12) 1,000 mcg IM MONTHLY 07/12/25 07/12/25 1,000 mcg/mL injection solution magnesium oxide 400 mg (241.3 mg 400 mg feeding tube QAM 07/12/25 07/12/25 magnesium) tablet olanzapine 2.5 mg tablet 2.5 mg feeding tube DIRECTED 07/12/25 07/12/25 ondansetron 4 mg disintegrating 4 mg PO BID nausea and vomiting 07/12/25 07/12/25 tablet ondansetron 8 mg disintegrating 8 mg feeding tube Q8H PRN 07/12/25 07/12/25 tablet NAUSEA/VOMITING Previous Rx's Medication Instructions Recorded Microlet Lancet (lancets) #200 ea 06/12/20 blood-glucose meter (Contour Next #1 ea 02/21/23 One Meter) blood sugar diagnostic (Contour #400 ea 11/12/24 Next Test Strips) pen needle, diabetic 31 gauge x #500 ea 03/21/25 3/16" duloxetine 20 mg capsule,delayed 20 mg PO QAM #30 caps 07/05/25 release pantoprazole 40 mg tablet,delayed 40 mg PO BID #60 tabs 07/05/25 release fentanyl 50 mcg/hr transdermal 1 patch transdermal Q72H cancer 07/07/25 patch pain 1 month #10 ea dexamethasone 1 mg tablet See Taper feeding tube BID #26 tabs 07/14/25 hydromorphone 2 mg tablet 4 mg (2 x 2 mg) PO Q6H PRN 07/14/25 (Dilaudid) Cancer-related Pain #30 tabs nystatin 100,000 unit/mL oral 5 ml PO QID Oropharyngeal 07/14/25 suspension candidiasis #60 mL Results & Data (ED) Vital Signs Vital Signs - 24 hr 07/12/25 15:31 07/12/25 16:16 07/12/25 17:30 Temperature 36.7 C Temperature Source Temporal Artery Scan Pulse Rate 108 H Pulse Rate [Apical] 107 H Respiratory Rate 20 30 H Respiratory Effort / Characteristics Non-Labored Non-Labored Spontaneous Respiratory Depth Normal Respiratory Pattern Regular Blood Pressure 130/70 Blood Pressure [Left Arm] 154/81 H Blood Pressure Mean 90 Blood Pressure Mean [Left Arm] 105 Blood Pressure Position [Left Arm] Lying Pulse Oximetry 94 92 94 Oxygen Delivery Method Room Air Room Air Room Air Sepsis Recent Fever Within 48 Hours No Sepsis New/Unexplained Change in Mental Status No Sepsis Action Taken by Nursing No Action Required Laboratory Data 07/14/25 04:27 07/14/25 04:27 Lab Results 07/12/25 07/12/25 07/12/25 Range/Units 15:54 15:56 16:13 WBC 20.25 H (4.8-10.8) K/ul RBC 3.98 L (4.20-5.40) M/uL Hgb 11.9 L (12.0-16.0) g/dl Hct 36.5 L (37.0-47.0) % MCV 91.7 (80.0-100.0) fL MCH 29.9 (25.0-34.0) pg MCHC 32.6 (32.0-36.0) g/dL RDW Std Deviation 47.6 H (36.4-46.3) fL RDW Coeff of Nelia 14.1 (11.5-14.5) % Plt Count 288 (130-400) K/uL MPV 9.3 L (9.4-12.4) fL Immature Gran % (Auto) 0.7 % Neut % (Auto) 96.4 % Lymph % (Auto) 1.2 % [place] % (Auto) 1.6 % Eos % (Auto) 0.0 % Baso % (Auto) 0.1 % Neut # (Auto) 19.52 H (1.40-6.50) K/uL Lymph # (Auto) 0.24 L (1.20-3.40) K/uL [place] # (Auto) 0.32 (0.11-0.59) K/uL Eos # (Auto) 0.00 (0.00-0.50) K/uL Baso # (Auto) 0.03 (0.00-0.20) K/uL Immature Gran # (Auto) 0.14 (0.01-0.20) K/uL PT 11.3 (9.0-12.0) Seconds INR 1.1 (0.9-1.1) VBG pH 7.45 H (7.36-7.41) VBG pCO2 45 (38-50) mmHg VBG pO2 46 mmHg VBG HCO3 31 mmol/L VBG O2 Saturation 74.9 % VBG Base Excess 6.4 mEq/L Sodium 129 L (136-145) mmol/L Potassium 4.0 (3.5-5.1) mmol/L Chloride 92 L (98-107) mmol/L Carbon Dioxide 30 (21-32) mmol/L Anion Gap 7 (3-11) BUN 26 H (6-23) mg/dl Creatinine 0.60 (0.6-1.2) mg/dl Est Cr Clr Drug Dosing 86.4 ml/min eGFR 92.39 BUN/Creatinine Ratio 43.3 H (10-20) Glucose 406 H* (70-99(Fasting)) mg/dl POC Glucose 383 H* (70-99) mg/dl Lactate 3.2 H* (0.4-2.0) mmol/L Calcium 8.6 (8.6-10.3) mg/dl Magnesium 1.8 (1.7-2.4) mg/dl Total Bilirubin 0.7 (0.2-1.0) mg/dl AST 15 (13-39) U/L ALT 10 (7-52) U/L Alkaline Phosphatase 72 (34-104) U/L Troponin I High Sens 638.1 H* (0-14) pg/ml Total Protein 6.0 (6.0-8.3) gm/dl Albumin 3.0 L (3.4-5.0) gm/dl Globulin 3.0 (2.5-4.0) gm/dl Albumin/Globulin Ratio 1.0 (0.9-2) Lipase 8 L (11-82) U/L Procalcitonin 0.03 (0-0.5) ng/ml TSH 0.259 L (0.300-4.500) uIu/ml Free T4 1.14 (0.61-1.60) ng/dl Urine Color Urine Appearance (Clear) Urine pH (4.5-7.5) Ur Specific Wolbach (1.000-1.030) Urine Protein (Negative) Urine Glucose (UA) (Negative) Urine Ketones (Negative) Urine Blood (Negative) Urine Nitrite (Negative) Urine Bilirubin (Negative) Urine Urobilinogen (Negative) Ur Leukocyte Esterase (Negative) Urine Comment Nasal Screen MRSA (PCR) (Negative) Adenovirus (PCR) (NotDetected) B. pertussis DNA (PCR) (NotDetected) B.parapertussis DNA PCR (NotDetected) C. pneumoniae DNA (PCR) (NotDetected) Coronavirus OC43 (PCR) (NotDetected) Coronavirus HKU1 (PCR) (NotDetected) Coronavirus 229E (PCR) (NotDetected) SARS-CoV-2 (PCR) (NotDetected) Coronavirus NL63 (PCR) (NotDetected) Human Metapneumovir PCR (NotDetected) Influenza Type A (PCR) (NotDetected) Influenza Type B (PCR) (NotDetected) M. pneumoniae (PCR) (NotDetected) Parainfluenza 1 (PCR) (NotDetected) Parainfluenza 2 (PCR) (NotDetected) Parainfluenza 3 (PCR) (NotDetected) Parainfluenza 4 (PCR) (NotDetected) RSV (PCR) (NotDetected) Entero/Rhino (PCR) (NotDetected) 07/12/25 07/12/25 Range/Units 17:22 18:08 WBC (4.8-10.8) K/ul RBC (4.20-5.40) M/uL Hgb (12.0-16.0) g/dl Hct (37.0-47.0) % MCV (80.0-100.0) fL MCH (25.0-34.0) pg MCHC (32.0-36.0) g/dL RDW Std Deviation (36.4-46.3) fL RDW Coeff of Nelia (11.5-14.5) % Plt Count (130-400) K/uL MPV (9.4-12.4) fL Immature Gran % (Auto) % Neut % (Auto) % Lymph % (Auto) % [place] % (Auto) % Eos % (Auto) % Baso % (Auto) % Neut # (Auto) (1.40-6.50) K/uL Lymph # (Auto) (1.20-3.40) K/uL [place] # (Auto) (0.11-0.59) K/uL Eos # (Auto) (0.00-0.50) K/uL Baso # (Auto) (0.00-0.20) K/uL Immature Gran # (Auto) (0.01-0.20) K/uL PT (9.0-12.0) Seconds INR (0.9-1.1) VBG pH (7.36-7.41) VBG pCO2 (38-50) mmHg VBG pO2 mmHg VBG HCO3 mmol/L VBG O2 Saturation % VBG Base Excess mEq/L Sodium (136-145) mmol/L Potassium (3.5-5.1) mmol/L Chloride (98-107) mmol/L Carbon Dioxide (21-32) mmol/L Anion Gap (3-11) BUN (6-23) mg/dl Creatinine (0.6-1.2) mg/dl Est Cr Clr Drug Dosing ml/min eGFR BUN/Creatinine Ratio (10-20) Glucose (70-99(Fasting)) mg/dl POC Glucose (70-99) mg/dl Lactate (0.4-2.0) mmol/L Calcium (8.6-10.3) mg/dl Magnesium (1.7-2.4) mg/dl Total Bilirubin (0.2-1.0) mg/dl AST (13-39) U/L ALT (7-52) U/L Alkaline Phosphatase (34-104) U/L Troponin I High Sens 854.5 H* D (0-14) pg/ml Total Protein (6.0-8.3) gm/dl Albumin (3.4-5.0) gm/dl Globulin (2.5-4.0) gm/dl Albumin/Globulin Ratio (0.9-2) Lipase (11-82) U/L Procalcitonin (0-0.5) ng/ml TSH (0.300-4.500) uIu/ml Free T4 (0.61-1.60) ng/dl Urine Color Yellow Urine Appearance Clear (Clear) Urine pH 7.0 (4.5-7.5) Ur Specific Wolbach 1.015 (1.000-1.030) Urine Protein Negative (Negative) Urine Glucose (UA) 3+ H (Negative) Urine Ketones Negative (Negative) Urine Blood Negative (Negative) Urine Nitrite Negative (Negative) Urine Bilirubin Negative (Negative) Urine Urobilinogen Negative (Negative) Ur Leukocyte Esterase Negative (Negative) Urine Comment Nasal Screen MRSA (PCR) Negative (Negative) Adenovirus (PCR) Not Detected (NotDetected) B. pertussis DNA (PCR) Not Detected (NotDetected) B.parapertussis DNA PCR Not Detected (NotDetected) C. pneumoniae DNA (PCR) Not Detected (NotDetected) Coronavirus OC43 (PCR) Not Detected (NotDetected) Coronavirus HKU1 (PCR) Not Detected (NotDetected) Coronavirus 229E (PCR) Not Detected (NotDetected) SARS-CoV-2 (PCR) Not Detected (NotDetected) Coronavirus NL63 (PCR) Not Detected (NotDetected) Human Metapneumovir PCR Not Detected (NotDetected) Influenza Type A (PCR) Not Detected (NotDetected) Influenza Type B (PCR) Not Detected (NotDetected) M. pneumoniae (PCR) Not Detected (NotDetected) Parainfluenza 1 (PCR) Not Detected (NotDetected) Parainfluenza 2 (PCR) Not Detected (NotDetected) Parainfluenza 3 (PCR) Not Detected (NotDetected) Parainfluenza 4 (PCR) Not Detected (NotDetected) RSV (PCR) Not Detected (NotDetected) Entero/Rhino (PCR) Not Detected (NotDetected) Administered Medications Discontinued Medications Amlodipine Besylate (Amlodipine Besylate 5 Mg Tab) 5 mg PEG QAM [facility] Stop: 08/12/25 08:59 Last Admin: 07/14/25 07:55 Dose: 5 mg Documented By: jason Admin: 07/13/25 08:51 Dose: 5 mg Documented By: SONALI Aspirin (Aspirin Chew 324 Mg) 324 mg PO NOW STA Stop: 07/12/25 16:57 Last Admin: 07/12/25 17:39 Dose: 324 mg Documented By: TERESSA Atorvastatin Calcium (Atorvastatin 20 Mg Tab) 20 mg PEG DAILY CHARI Stop: 08/12/25 08:59 Last Admin: 07/14/25 07:54 Dose: 20 mg Documented By: jason Admin: 07/13/25 08:52 Dose: 20 mg Documented By: SONALI Buspirone HCl (Buspirone 15 Mg Tab) 30 mg PEG TID CHARI Stop: 08/11/25 21:59 Last Admin: 07/14/25 14:16 Dose: 30 mg Documented By: jason Admin: 07/14/25 07:55 Dose: 30 mg Documented By: jason Admin: 07/13/25 20:47 Dose: 30 mg Documented By: Admin: 07/13/25 13:33 Dose: 30 mg Documented By: Admin: 07/13/25 08:53 Dose: 30 mg Documented By: Admin: 07/12/25 22:35 Dose: 30 mg Documented By: SAE Cefepime HCl (Cefepime 2,000 Mg/20 Ml Iv Push) Confirm Administered Dose 2,000 mg IV .ST-MED ONE Stop: 07/12/25 19:30 Last Admin: 07/12/25 20:04 Dose: Not Given Documented By: VASILEJ Dexamethasone (Dexamethasone 1 Mg Tab) 2 mg PO BID CHARI Stop: 08/11/25 21:59 Last Admin: 07/14/25 07:54 Dose: 2 mg Documented By: jason Admin: 07/13/25 20:46 Dose: 2 mg Documented By: Admin: 07/13/25 08:53 Dose: 2 mg Documented By: Admin: 07/12/25 22:35 Dose: 2 mg Documented By: SAE Duloxetine HCl (Duloxetine Hcl 20 Mg Cap) 20 mg PO QAM CHARI Stop: 08/12/25 08:59 Last Admin: 07/14/25 07:53 Dose: 20 mg Documented By: jason Admin: 07/13/25 09:15 Dose: 20 mg Documented By: SONALI Enoxaparin Sodium (Enoxaparin Inj 40 Mg/0.4 Ml Syr) 40 mg SQ HS CHARI Stop: 08/11/25 21:59 Last Admin: 07/13/25 20:46 Dose: 40 mg Documented By: Admin: 07/12/25 22:35 Dose: 40 mg Documented By: SAE Gabapentin (Gabapentin 800 Mg Tab) 800 mg PO TID CHARI Stop: 08/11/25 21:59 Last Admin: 07/14/25 14:16 Dose: 800 mg Documented By: jason Admin: 07/14/25 07:53 Dose: 800 mg Documented By: jason Admin: 07/13/25 20:46 Dose: 800 mg Documented By: Admin: 07/13/25 13:33 Dose: 800 mg Documented By: Admin: 07/13/25 09:15 Dose: 800 mg Documented By: Admin: 07/12/25 22:36 Dose: 800 mg Documented By: SAE Hydromorphone HCl (Hydromorphone Hcl 2 Mg Tab) 2 mg PO Q6H PRN PRN Reason: Moderate Pain (Scale 4, 5, 6) Stop: 07/27/25 18:11 Last Admin: 07/14/25 09:55 Dose: 2 mg Documented By: jason Parenteral Electrolytes (Plasma-Lyte A Ph 7.4) 1,000 mls @ 999 mls/hr IV .Q1H1M ONE Stop: 07/12/25 17:01 Last Infusion: 07/12/25 17:54 Dose: Infused Documented By: Admin: 07/12/25 16:30 Dose: 999 mls/hr Documented By: price Cefepime HCl (Maxipime 2000mg) 2,000 mg in 20 mls @ 5 mls/min IV NOW STA; Protocol Stop: 07/12/25 16:59 Last Admin: 07/12/25 20:01 Dose: 5 mls/min Documented By: MJJ Parenteral Electrolytes (Plasma-Lyte A Ph 7.4) 500 mls @ 999 mls/hr IV .Q31M ONE Stop: 07/12/25 17:41 Last Infusion: 07/12/25 18:13 Dose: Infused Documented By: Admin: 07/12/25 17:28 Dose: 999 mls/hr Documented By: TERESSA Parenteral Electrolytes (Plasma-Lyte A Ph 7.4) 1,000 mls @ 80 mls/hr IV .[id number] CHARI Stop: 07/14/25 10:14 Last Infusion: 07/14/25 14:30 Dose: Infused Documented By: jason Admin: 07/14/25 03:45 Dose: 80 mls/hr Documented By: Infusion: 07/13/25 21:56 Dose: Infused Documented By: Admin: 07/13/25 09:26 Dose: 80 mls/hr Documented By: Infusion: 07/13/25 09:26 Dose: Infused Documented By: Infusion: 07/13/25 07:19 Dose: 80 mls/hr Documented By: Admin: 07/12/25 22:35 Dose: 80 mls/hr Documented By: SAE Insulin Aspart (Insulin Aspart Per Unit Charge) 0 units SC Q6 [facility] Stop: 08/11/25 21:59 Last Admin: 07/13/25 16:20 Dose: Not Given Documented By: Admin: 07/13/25 06:41 Dose: 1 units Documented By: SAE Co-signed By: MARCELO Admin: 07/12/25 22:56 Dose: 8 units Documented By: SAE Co-signed By: MPC Insulin Aspart (Insulin Aspart Per Unit Charge) 0 units SC ACHS [facility]; Protocol Stop: 08/11/25 21:59 Last Admin: 07/14/25 08:35 Dose: 11 units Documented By: jason Co-signed By: delon Admin: 07/13/25 21:47 Dose: 4 units Documented By: SHABANA Co-signed By: BREONNA Admin: 07/13/25 16:54 Dose: 11 units Documented By: SONALI Co-signed By: SAE(2) Admin: 07/13/25 13:49 Dose: 15 units Documented By: SONALI Co-signed By: LAF Insulin Aspart (Insulin Aspart Per Unit Charge) 0 units SC 0730,1230,1630,2100 [facility]; Protocol Stop: 08/13/25 12:29 Last Admin: 07/14/25 12:22 Dose: 20 units Documented By: jason Co-signed By: DTT Insulin Glargine (Lantus Per Unit Charge) 12 units SQ BID [facility] Stop: 08/11/25 21:59 Last Admin: 07/14/25 08:35 Dose: 12 units Documented By: jason Co-signed By: delon Admin: 07/13/25 21:47 Dose: 12 units Documented By: SHABANA Co-signed By: BREONNA Admin: 07/13/25 08:54 Dose: 12 units Documented By: SONALI Co-signed By: SAE(2) Admin: 07/12/25 22:55 Dose: 12 units Documented By: SAE Co-signed By: RAMONA Lansoprazole (Lansoprazole 30 Mg Soltab) 30 mg PO BID CHARI; Protocol Stop: 08/12/25 08:59 Last Admin: 07/14/25 07:56 Dose: 30 mg Documented By: jason Admin: 07/13/25 20:46 Dose: 30 mg Documented By: Admin: 07/13/25 09:11 Dose: 30 mg Documented By: SONALI Magnesium Oxide (Magnesium Oxide 400 Mg Tab) 400 mg PEG QAM [facility]I Stop: 08/12/25 08:59 Last Admin: 07/14/25 07:54 Dose: 400 mg Documented By: jason Admin: 07/13/25 08:52 Dose: 400 mg Documented By: SONALI Mercaptopurine (Mercaptopurine 50 Mg Tab) 50 mg PO DAILY CHARI Stop: 08/12/25 08:59 Last Admin: 07/14/25 07:56 Dose: 50 mg Documented By: jason Co-signed By: KIMBERLY Admin: 07/13/25 09:24 Dose: 50 mg Documented By: SONALI Co-signed By: SAE(2) Miscellaneous (Check Fentanyl Patch Placement) 1 each N/A QS [facility] Stop: 08/12/25 00:00 Last Admin: 07/14/25 07:47 Dose: 1 each Documented By: jason Admin: 07/14/25 00:26 Dose: 1 each Documented By: Admin: 07/13/25 16:03 Dose: 1 each Documented By: Admin: 07/13/25 09:11 Dose: 1 each Documented By: Admin: 07/12/25 23:01 Dose: 1 each Documented By: SAE Miscellaneous (Latanoprostene Bunod [Vyzulta]: Order Awaiting Action) 1 each N/A QS [facility] Stop: 08/12/25 07:59 Last Admin: 07/14/25 07:11 Dose: Not Given Documented By: jason Admin: 07/14/25 00:30 Dose: Not Given Documented By: Admin: 07/13/25 16:03 Dose: Not Given Documented By: Admin: 07/13/25 08:50 Dose: Not Given Documented By: SONALI Nutritional Formula (Nutren Liqd 2.0 1,000 Ml Bag) 1,000 ml PEG TID@0800,1300,1700 [facility]I; Protocol Stop: 08/12/25 12:59 Last Admin: 07/13/25 13:31 Dose: 1,000 ml Documented By: SONALI Nutritional Formula (Prosource No Carb 30 Ml/Pkt) 60 ml PEG DAILY@2000 [facility]I Stop: 08/12/25 19:59 Last Admin: 07/13/25 20:45 Dose: 60 ml Documented By: SHABANA Nutritional Formula (Nutren Liqd 2.0 1,000 Ml Bag) 1,000 ml PEG TID@0800,1200,1700 [facility]I; Protocol Stop: 08/12/25 12:59 Last Admin: 07/14/25 07:47 Dose: 250 ml Documented By: jason Admin: 07/13/25 16:55 Dose: 1,000 ml Documented By: SONALI Nutritional Formula (Nutren Liqd 2.0 1,000 Ml Bag) 1,000 ml PEG TID@0800,1300,1700 [facility]; Protocol Stop: 08/12/25 16:59 Last Admin: 07/14/25 12:03 Dose: 250 ml Documented By: jason Nystatin (Nystatin Susp 500,000 U/5 Ml Udc) 5 ml PO QID [facility]I Stop: 07/22/25 21:59 Last Admin: 07/14/25 14:15 Dose: 5 ml Documented By: jason Admin: 07/14/25 07:55 Dose: 5 ml Documented By: jason Admin: 07/13/25 20:46 Dose: 5 ml Documented By: Admin: 07/13/25 16:55 Dose: 5 ml Documented By: Admin: 07/13/25 13:32 Dose: 5 ml Documented By: Admin: 07/13/25 08:57 Dose: 5 ml Documented By: Admin: 07/12/25 22:36 Dose: 5 ml Documented By: ESG Olanzapine (Olanzapine 2.5 Mg Tab) 2.5 mg PEG HS CHARI Stop: 07/15/25 21:01 Last Admin: 07/13/25 20:47 Dose: 2.5 mg Documented By: SHABANA Oxycodone HCl (Oxycodone Hcl Soln 5 Mg/5 Ml Udc) 15 mg PO Q4H PRN PRN Reason: breakthrough cancer pain Stop: 07/26/25 21:59 Last Admin: 07/13/25 12:07 Dose: 15 mg Documented By: Admin: 07/13/25 02:50 Dose: 15 mg Documented By: SAE Pantoprazole Sodium (Pantoprazole 40 Mg Tab) 40 mg PO BID CHARI Stop: 08/11/25 21:59 Last Admin: 07/12/25 22:36 Dose: 40 mg Documented By: SAE Potassium Chloride (Potassium Chloride 20 Meq/15 Ml Udc) 10 meq PEG DAILY CHARI Stop: 08/12/25 08:59 Last Admin: 07/14/25 08:41 Dose: 10 meq Documented By: jason Admin: 07/13/25 08:56 Dose: 10 meq Documented By: SONALI Sterile Water (Tube Feeding Water Flush) 90 ml GT TID@0800,1200,1700 [facility]; Protocol Stop: 08/12/25 12:59 Last Admin: 07/14/25 12:02 Dose: 180 ml Documented By: jason Admin: 07/14/25 07:48 Dose: 180 ml Documented By: jason Admin: 07/13/25 16:55 Dose: 90 ml Documented By: Admin: 07/13/25 13:31 Dose: 90 ml Documented By: SONALI Imaging Data Radiologist's Impression: Chest X-Ray 07/12/25 16:01 EXAM: X-ray chest one-view portable CLINICAL HISTORY: Weakness PRIORS: 06/29/2025 TECHNIQUE: Frontal view chest FINDINGS: A right sided catheter present, unchanged with distal tip at the atriocaval junction. Atherosclerotic disease of the aortic knob. Heart size within normal limits. Multiple bilateral patchy opacifications or nodular densities throughout the chest, less or improved. No large confluent opacification or pleural effusion. No acute osseous abnormality or pneumothorax. IMPRESSION: Bilateral patchy opacifications or nodular densities, improved in the interval with no pleural effusion. Electronically signed by Jessica Leger 07-12-2025 5:17 PM Discharge Plan Visit Data Chief Complaint: Abnormal Labs/Diagnostic Testing Stated Complaint: HIGH SUGAR, FATIGUE, LOW SODIUM ED Provider: Sean Castro Discharge Problem: Sepsis, Pseudohyponatremia, Acute hyperglycemia, Acute dehydration, Drug side effects, Encephalopathy, Elevated lactic acid level Patient Disposition: Admitted As Inpatient Condition: Serious Discharge Instructions Interventions: ED Discharge Assessment Last Done: 07/12/25 21:31
[2025-07-12] MEDS: PLASMA-LYTE A 1,000 ML IV ONE (16:30)
[2025-07-12 16:32] LABS: Base Excess VBG 6.4 mEq/L; HCO3 VBG 31 mmol/L; Oxygen Saturation VBG 74.9 %; PCO2 VBG 45 mmHg (38-50); PO2 VBG 46 mmHg; pH VBG 7.45 (7.36-7.41)
[2025-07-12 16:39] LABS: Alanine Aminotransferase 10.0 U/L (7-52); Albumin Globulin Ratio 1.0 (0.9-2); Albumin Level 3.0 gm/dl (3.4-5.0); Alkaline Phosphatase 72.0 U/L (34-104); Anion Gap 7.0 (3-11); Bilirubin,Total 0.7 mg/dl (0.2-1.0); Blood Urea Nitrogen 26.0 mg/dl (6-23); Calcium 8.6 mg/dl (8.6-10.3); Carbon Dioxide 30.0 mmol/L (21-32); Chloride 92.0 mmol/L (98-107); Creatinine Clr Calc Pharmacy 86.4 ml/min; Globulin 3.0 gm/dl (2.5-4.0); Glucose 406.0 mg/dl (70-99(Fasting)); Lipase 8.0 U/L (11-82); Magnesium 1.8 mg/dl (1.7-2.4); Potassium 4.0 mmol/L (3.5-5.1); Sodium 129.0 mmol/L (136-145); Total Protein 6.0 gm/dl (6.0-8.3)
[2025-07-12 16:40] LABS: INR 1.1 (0.9-1.1); Prothrombin Time 11.3 Seconds (9.0-12.0)
[2025-07-12 16:53] LABS: Thyroid Stimulating Hormone 0.259 uIu/ml (0.300-4.500)
--- NOTE | 2025-07-12 17:18 | XRay Report ---
EXAM: X-ray chest one-view portable CLINICAL HISTORY: Weakness PRIORS: 06/29/2025 TECHNIQUE: Frontal view chest FINDINGS: A right sided catheter present, unchanged with distal tip at the atriocaval junction. Atherosclerotic disease of the aortic knob. Heart size within normal limits. Multiple bilateral patchy opacifications or nodular densities throughout the chest, less or improved. No large confluent opacification or pleural effusion. No acute osseous abnormality or pneumothorax. IMPRESSION: Bilateral patchy opacifications or nodular densities, improved in the interval with no pleural effusion. Electronically signed by Jessica Leger 07-12-2025 5:17 PM
[2025-07-12] MEDS: PLASMA-LYTE A 500 ML IV ONE (17:28)
[2025-07-12] MEDS: ASPIRIN CHEW 324 MG PO STA (17:39)
--- NOTE | 2025-07-12 17:45 | History & Physical Report ---
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 #Increased lethargy | ?infection Initially attributed to increased pain medications for cancer-related pain, but patient's family reported she was still sleeping majority of the day even after cutting back these medications Leading DDx on admission includes infection, metabolic encephalopathy (with hyperglycemia contributory), progression of metastasis, or side effect of pain medications No clear source of infection identified on arrival CXR with b/l patchy opacifications (improvement from prior) Patient was also discharged on a course of Keflex x 7 days UA negative Biofire negative Additional potential sources include patient's PEG tube and port Leukocytosis at 20.25, but in the setting of steroid use with chemotherapy PCT WNL Lactate 3.2 on arrival, repeat pending BCx x 2 drawn in the ED Cefepime 2000mg IV x 1 Not neutropenic, with multiple other possibilities contributing to lethargy Will defer additional antibiotics at this time If patient develops fevers overnight, recommend adding on MRSA coverage (IV Dapto 6mg/kg x 1) and will reassess in the AM PT/OT evaluations appreciated #Cancer related pain Fentanyl patch 50mcg daily Current pain regimen:Gabapentin 800mg p.o. TID; Oxycodone 15mg PO q4h prn. Baclofen 5mg TID prn Cymbalta 20 mg p.o. QAM Decrease Decadron 4 mg -> 2 mg p.o. BID (with plan to taper off) This was being taken for patient's T1/T2 lesion until she could be seen by radiation oncology However, unclear if iatrogenic adrenal suppression is at play Known history of adrenal metastasis Will plan for washout of this medication and obtaining a morning cortisol level #Elevated troponin | type II NSTEMI Troponin elevated at 638 -> 854.5 on arrival Trend q6h to peak Aspirin 324 mg p.o. x 1 Clinically, patient denies CP, SOB, pleuritic CP Suspect type II NSTEMI in the setting of malignancy Echocardiogram ordered, pending Continuous telemetry monitoring #Oral candidiasis White exudates appreciated on the palatine tonsils bilaterally; however, no exudates appreciated on the oropharynx (lower suspicion for esophageal involvement, but unclear) Initiate nystatin suspension QID In the setting of dysphagia, instruction provided for patient to NOT swallow this medication, but rather swish and spit out medication #Hyponatremia Na level 129 on arrival Suspect pseudohyponatremia in setting of hyperglycemia Plasma-Lyte 1500 mL IV x 1 Recheck a.m. BMP #Recurrent squamous cell carcinoma of tongue with metastasis | PEG tube status Follows with ENT (Dr. Coyle) who did her resection x 2 Brain MRI on 07/11 showed an enhancing lesion in the left occiptal bone, concerning for mets, but no other acute intracranial abnormalities involving the brain Follows with [facility] for chemotherapy / immunotherapy (Dr. Perez) First chemo session was on Wednesday 07/11 Dietitian consult appreciated for PEG tube feedings Patient is normally on Nutren 2.0 TID Communication order: All p.o. medications through the PEG tube #Worsening dysphagia Okay for small sips of water and ice chips Oral hygiene q4h #T2DM | hyperglycemia Last A1c at 6.3% on 06/30/2025 Hyperglycemic at 406 on arrival No evidence of ketonuria on UA; do not suspect this is DKA or HHS at this time Glucose down to 264 after IVF in the ED Suspect hyperglycemia is due to steroid use Taper off dexamethasone (as above) Patient is normally on NovoLog U100 TID w/ meals Dose reduced to Lantus 12 u BID while inpatient (in the setting of poor oral intake) SSI with target BSG range 110-150mg/dL, CF 15, carb ratio 5 BSG ACHS Adjust regimen as needed Pharmacy glycemic consult appreciated in setting of high-dose steroid use #Crohn's disease With a history of partial colectomy Continue mercaptopurine #GAMA CPAP HS #HTN BP mildly elevated (154/81 on admission) Not currently on BP medications Patient was previously on irbesartan and amlodipine Hydralazine 5 mg IV q8h PRN for SBP >195 or DBP >95 Complex medical decision making in the setting of squamous cell carcinoma with progressive metastasis to the spine and lungs. Patient also has several comorbidities at baseline with her underlying Crohn's disease, PEG tube feedings, diabetes, GAMA, and hypertension. Disposition: Admit to [facility] VTE PPx: High risk due to metastatic malignancy; Lovenox 40 mg SQ q24h Patient's family ( "Sampson", and daughter "Nisreen") updates at bedside on 07/12. History of Present Illness Chief Complaint: Abnormal Labs/Diagnostic Testing Primary Care Provider: Lilian Godwin MD Mrs. Ramos is a 74-year-old female with PMH of GAMA, T2DM, glaucoma, metabolic syndrome, Crohn's disease, and PEG tube placement. She presented on 07/[address] [facility] behest of her oncologist (Dr. Perez) for increased lethargy and low sodium levels (127) on outpatient labs. Patient also received steroids before receiving chemotherapy and immunotherapy yesterday on 07/11. Most of the history is obtained from patient's daughter (Nisreen) at bedside. Daughter reports that ever since she was discharged last Friday (07/05), she has been sleeping more than she has been awake. Initially, the family thought that it might be due to her pain medications. She was discharged on fentanyl patch 62 mcg, as well as liquid oxycodone. However, these medications were dialed back over the weekend, and she was still extremely lethargic. For instance, her son visited from [place] this past week, and she was asleep for most of the visit. Patient had a PET scan yesterday to assess for progression of her known metastasis. She also had a brain MRI yesterday due to increased confusion. Patient reports that yesterday she was "seeing dogs chasing a cat", and believes she has been hearing things. She endorses confusion. Family is concerned for potential infection, as she has had drainage from around her PEG site tube, and has history of a PEG site infection. She also has a history of cellulitis and salivary gland infections this past summer. No prior history of MRSA infections. No prior history of port infections (port was placed/September). Patient also underwent her first chemotherapy session yesterday; per daughter, she slept through the entire treatment. Patient's pain is under better control today compared to when she left the hospital on Friday. She still endorses 7 out of 10 pain in her left scapular region at present, which is exacerbated by movements. She has been unable to have her radiation for the lesions at T1 and T2 due to having chemotherapy this past week. She is also having pain at the site of her punch biopsy that was taken from her tongue. Patient is mildly tachycardic at 108 bpm at time of admission; vitals otherwise stable. ED course: Cefepime 2000 mg IV Aspirin 324 mg p.o. Plasma-Lyte 1500 mL IV ROS: Patient endorses headache, confusion, memory deficits, visual hallucinations,and increased urinary frequency (went 4x during chemo yesterday). Patient denies SOB, pleuritic CP, cough, chest pain, abdominal pain, burning with urination, dysuria, rashes, bruises, and tick bites. Allergies Allergy/AdvReac Type Severity Reaction Status Date / Time latex Allergy Intermediate Blisters Verified 07/12/25 17:59 Penicillins Allergy Intermediate Hives Verified 07/12/25 17:59 lisinopril AdvReac Intermediate fluid Verified 07/12/25 17:59 retention Thdnziy-YUY-LwK Reductase AdvReac Intermediate "FILLED UP Verified 07/12/25 17:59 Inhibitor WITH FLUID" Home Medications Medication Instructions Recorded Confirmed Type CPAP Machine 04/19/21 06/20/25 History soft lens rinse,store solution 05/29/22 06/20/25 History (Bio true solution) blood-glucose meter (Contour Next #1 ea 02/21/23 06/20/25 Rx One Meter) blood-glucose sensor (Dexcom G7 01/19/24 06/20/25 History Sensor device) cyclosporine 0.05 % eye drops in a 1 drp OPB BID 10/26/24 07/12/25 History dropperette latanoprostene bunod 0.024 % eye 1 drp ophthalmic (eye) QPM 04/13/25 07/12/25 History drops (Vyzulta) mercaptopurine 50 mg tablet 50 mg feeding tube DAILY 04/13/25 07/12/25 History potassium chloride 10 mEq 10 meq feeding tube DAILY 05/25/25 07/12/25 History capsule,extended release buspirone 30 mg tablet 30 mg feeding tube TID 05/27/25 07/12/25 History gabapentin 800 mg tablet 800 mg feeding tube TID 05/27/25 07/12/25 History loperamide 2 mg tablet (Imodium 2 mg PO Q6H PRN Other 05/27/25 07/12/25 History A-D) mecobalamin (vitamin B12) 1,000 1,000 mcg DAILY 05/27/25 07/12/25 History mcg chewable tablet prochlorperazine maleate 10 mg 10 mg feeding tube Q6H PRN n/v 05/27/25 07/12/25 History tablet atorvastatin 20 mg tablet 20 mg feeding tube DAILY 06/29/25 07/12/25 History duloxetine 20 mg capsule,delayed 20 mg PO QAM #30 caps 07/05/25 07/12/25 Rx release pantoprazole 40 mg tablet,delayed 40 mg PO BID #60 tabs 07/05/25 07/12/25 Rx release fentanyl 50 mcg/hr transdermal 1 patch transdermal Q72H cancer 07/07/25 07/12/25 Rx patch pain 1 month #10 ea amlodipine 5 mg tablet 5 mg feeding tube QAM 07/12/25 07/12/25 History cyanocobalamin (vitamin B-12) 1,000 mcg IM MONTHLY 07/12/25 07/12/25 History 1,000 mcg/mL injection solution magnesium oxide 400 mg (241.3 mg 400 mg feeding tube QAM 07/12/25 07/12/25 History magnesium) tablet olanzapine 2.5 mg tablet 2.5 mg feeding tube DIRECTED 07/12/25 07/12/25 History ondansetron 4 mg disintegrating 4 mg PO BID nausea and vomiting 07/12/25 07/12/25 History tablet ondansetron 8 mg disintegrating 8 mg feeding tube Q8H PRN 07/12/25 07/12/25 History tablet NAUSEA/VOMITING dexamethasone 1 mg tablet See Taper feeding tube BID #26 tabs 07/14/25 Rx nystatin 100,000 unit/mL oral 5 ml PO QID Oropharyngeal 07/14/25 Rx suspension candidiasis #60 mL Microlet Lancet (lancets) #400 ea 07/18/25 Rx blood sugar diagnostic (Contour #400 ea 07/18/25 Rx Next Test Strips) insulin aspart U-100 100 unit/mL See Rx Instructions subcut 07/18/25 Rx (3 mL) subcutaneous pen (Novolog TIDWMEAL #60 mL FlexPen U-100 Insulin aspart) pen needle, diabetic 31 gauge x #500 ea 07/18/25 Rx 3/16" dexamethasone 0.5 mg tablet 1 mg (2 x 0.5 mg) PO BID cancer 07/21/25 07/21/25 Rx pain 2 days #8 tabs hydromorphone 2 mg tablet 4 mg (2 x 2 mg) PO Q6H PRN 07/21/25 07/21/25 Rx (Dilaudid) Cancer-related Pain 1 month #150 tabs Past Med/Surg History Problem List (Updated 07/21/25 @ 10:42 by Brook Arenas, GISSELLE) Palliative care by specialist Elevated lactic acid level (Acute) Encephalopathy (Acute) Drug side effects (Acute) Acute dehydration (Acute) Acute hyperglycemia (Acute) Pseudohyponatremia (Acute) Sepsis (Acute) Thrush Lethargy Impaired swallowing Pain from bone metastases Left shoulder pain Cancer related pain Spinal cord lesion (Acute) Arm pain (Acute) Cellulitis Ex-smoker Counseling regarding advanced directives and goals of care Abnormal chest CT Cellulitis of face (Acute) Jerri infection (Acute) Jerri infection Salivary gland obstruction Cellulitis of face Multiple pulmonary nodules PEG (percutaneous endoscopic gastrostomy) adjustment/replacement/removal (12/13/24) Removal of Feeding Tube/placement new gastrostomy tube - Malik Turner DO Esophagogastroduodenoscopy - Malik Turner, DO Hypokalemia Diabetes Arthritis Anemia Recurrent squamous cell carcinoma of tongue Obesity Post-nasal drip Injury of toe, right, superficial 05/2022 Depression with anxiety Left lumbar radiculopathy GAMA (obstructive sleep apnea) Binge eating disorder Mixed hyperlipidemia Metabolic syndrome Glaucoma Spinal stenosis Diabetic peripheral neuropathy associated with type 2 diabetes mellitus (Acute) Dyslipidemia associated with type 2 diabetes mellitus (Acute) Hypertension (Acute) Loss of protective sensation of skin of foot (Acute) Type 2 diabetes mellitus (Acute) Medical History PEG tube malfunction Anemia Obesity Gout Hypertension Dyslipidemia associated with type 2 diabetes mellitus Diabetic peripheral neuropathy associated with type 2 diabetes mellitus Depression with anxiety Post-nasal drip Type 2 diabetes mellitus Spinal stenosis Glaucoma Metabolic syndrome Recurrent squamous cell carcinoma of tongue Surgery 04/2024 and 10/04/24; currently on chemo tx; follows with once per week (wednesdays); also current XRT with in [facility] of sepsis 2021- no residual/current issues Fatty liver Sleep apnea CPAP Crohn's disease Neck problem Cervical pitched nerve + narrowing Intermittent LUE radiculopathy and ROM limitations COPD (chronic obstructive pulmonary disease) "Mild" No inhaler Surgical History History of percutaneous endoscopic gastrostomy (11/29/24) Esophagogastroduodenoscopy with Percutaneous Endoscopic Gastrostomy (PEG) Tube - Malik Turner DO Port-A-Cath in place (11/01/24) Insertion Access Port with Fluoroscopy - Right Subclavian(Right) - Kishore Mulligan DO; MAC without issue S/P cholecystectomy S/P partial glossectomy 04/30/24: partial glossectomy with L selective neck dissection Dr. Coyle [facility], 1928–1983; 10/04/24: L suprahyoid neck dissection and partial glossectomy Hx of cataract extraction R/L Hx of bilateral breast reduction surgery S/P epidural steroid injection x4 [id number] History of colonoscopy History of bowel resection (~2003) 12 inches r/t Crohn's disease (1971) Re-do r/t Crohn's disease (2003)- also had gallbladder removed at this time History of appendectomy (1971) Family History Father Family history of diabetes mellitus Diabetes Stroke Daughter Breast cancer Uncle Diabetes Grandmother Diabetes Stroke Other No family history of adverse response to anesthesia Social History Smoking Status: Never smoker Tobacco Type: Cigarettes Age Started Using Tobacco: 1 (unknown); Age Quit Using Tobacco: 0 (unknown); packs per day: 1; Cigarettes Per Day: 1979; Second Hand Exposure: No; Do You Dip or Chew Tobacco: No; Hx Alcohol Use: No Hx Substance Use: No Preferred Language: Setswana Communication Ability: Effective Visual Impairment: No Limitations Motion Picture Camera Operator Required: No Beliefs That Will Affect Care: None Current Living Situation: Spouse Feels Safe at Home: Yes Assistive Devices: Cane and Walker Review of Systems Review of Systems: See HPI above Physical Exam Physical Exam: General: No acute distress; lethargic; family bedside; pleasant affect; non- toxic appearing; cooperative; SpO2 94% on RA HEENT: normocephalic, atraumatic; PERRLA; white exudates appreciated on the palatine tonsils bilaterally; oropharynx is coral pink without signs of erythema or exudates; vision and hearing intact; oral mucosa is dry and crusted Neck: supple; trachea midline Back: Left scapula is TTP; worse with active ROM Skin: warm, dry without signs of tenting; no cyanosis; no rashes, bruising, lesions, or erythema noted CV: chest wall NTP; right chest wall port site without signs of clear erythema, drainage, or infection; RRR; S1/S2 normal; no murmurs/rubs/gallops; pulses i ntact and symmetric at radial, DP, and PT Lungs: no acute respiratory distress; symmetrical chest wall expansion; clear breath sounds across all lung nino w/o adventitious sounds; no wheezing ABD: Soft, NTP; PEG tube in place in the left lower quadrant without signs of erythema or acute infection; BS present; no rebound/guarding; no distention MSK: no tics or fasciculations; no edema noted in the LEs b/l, nonerythematous; 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 Neuro: A&Ox3; normal mood and affect; hoarse voice; patient reports decrease sensation in the left hand compared to the right assessed via light touch at the fingers and elbows Results & Data Results & Data Vital Signs (Past 12 Hours) Vital Signs Temp Pulse Pulse Resp BP BP Pulse Ox 07/12/25 17:30 107 H 30 H 154/81 H 94 07/12/25 16:16 92 07/12/25 15:31 36.7 C 108 H 20 130/70 94 O2 Del Method 07/12/25 17:30 Room Air 07/12/25 16:16 Room Air 07/12/25 15:31 Room Air Laboratory Results Abnormal lab results 07/12/25 07/12/25 07/12/25 Range/Units 15:54 15:56 16:13 WBC 20.25 H (4.8-10.8) K/ul RBC 3.98 L (4.20-5.40) M/uL Hgb 11.9 L (12.0-16.0) g/dl Hct 36.5 L (37.0-47.0) % RDW Std Deviation 47.6 H (36.4-46.3) fL MPV 9.3 L (9.4-12.4) fL VBG pH 7.45 H (7.36-7.41) Sodium 129 L (136-145) mmol/L Chloride 92 L (98-107) mmol/L BUN 26 H (6-23) mg/dl BUN/Creatinine Ratio 43.3 H (10-20) Glucose 406 H* (70-99(Fasting)) mg/dl POC Glucose 383 H* (70-99) mg/dl Lactate 3.2 H* (0.4-2.0) mmol/L Troponin I High Sens 638.1 H* (0-14) pg/ml Albumin 3.0 L (3.4-5.0) gm/dl Lipase 8 L (11-82) U/L TSH 0.259 L (0.300-4.500) uIu/ml Diagnostic Findings Chest X-Ray 07/12/25 16:01 EXAM: X-ray chest one-view portable CLINICAL HISTORY: Weakness PRIORS: 06/29/2025 TECHNIQUE: Frontal view chest FINDINGS: A right sided catheter present, unchanged with distal tip at the atriocaval junction. Atherosclerotic disease of the aortic knob. Heart size within normal limits. Multiple bilateral patchy opacifications or nodular densities throughout the chest, less or improved. No large confluent opacification or pleural effusion. No acute osseous abnormality or pneumothorax. IMPRESSION: Bilateral patchy opacifications or nodular densities, improved in the interval with no pleural effusion. Electronically signed by Jessica Leger 07-12-2025 5:17 PM ECG Additional Comments: ECG revealed NSR at 85 bpm; QTc 426 Code Status & VTE Plan VTE Prophylaxis Plan VTE Prophylaxis will be ordered: Yes Supervising Physician Co-Signing Physician Notes I personally saw and examined the patient. I independently reviewed the labs, EKG, imaging, problem list, medication list, past medical history and family history. I verified all miller points and agree with Nicola Mcneal PA-C with the following exceptions and/or additions: 75 year old female with metastatic squamous cell carcinoma on chemotherapy presents to the ER for increased lethargy O/E HS RRR, no mumrurs, Chest CTAB, Abdo SNT A/P Unclear definitive cause of lethargy at this time. Elevated troponin consistent with type 2 NSTEMi without chest pain, TTE ordered. No definitive infection found but blood cultures pending. Possible opiates contributing. Possible osmotic diuresis with glucosuria due to uncontrolled diabetes on steroids - consider weaning this. PG Care Time/CCT Total # of Minutes Spent Total Time Spent with Patient: Total time spent is greater than 50% in coordination of care (as documented) at patient's floor/unit and/or counseling patient: Coding [place] [address] INT INP/OBS CARE 3/75MIN Patient Type Established Medical Decision Making High Complexity Diagnoses Lethargy R53.83 Pain from bone metastases G89.3; C79.51 Thrush B37.0 Hyperglycemia R73.9 Hyponatremia E87.1
[2025-07-12 17:46] LABS: Appearance Urine Clear (Clear); Glucose Urine UA 3+ (Negative)
[2025-07-12 18:16] LABS: T4 Free Thyroxine 1.14 ng/dl (0.61-1.60)
[2025-07-12 18:21] LABS: Immature Granulocytes # (auto) 0.14 K/uL (0.01-0.20); Immature Granulocytes % (auto) 0.7 %
[2025-07-12 18:36] LABS: Chlamydia pneumoniae PCR Not Detected (NotDetected); Coronavirus 229E PCR Not Detected (NotDetected); Coronavirus CoV-2 (COVID19)PCR Not Detected (NotDetected); Coronavirus HKU1 PCR Not Detected (NotDetected); Coronavirus NL63 PCR Not Detected (NotDetected); Coronavirus OC43PCR Not Detected (NotDetected); Human Metapneumovirus PCR Not Detected (NotDetected); Parainfluenza Virus 1 PCR Not Detected (NotDetected); Parainfluenza Virus 2 PCR Not Detected (NotDetected); Parainfluenza Virus 3 PCR Not Detected (NotDetected); Parainfluenza Virus 4 PCR Not Detected (NotDetected); Respiratory Syncytial VirusPCR Not Detected (NotDetected); Rhinovirus/Enterovirus PCR Not Detected (NotDetected)
[2025-07-12] MEDS: CEFEPIME 2000MG 2,000 MG/20 ML SYR IV STA (20:01)
[2025-07-12] MEDS: CEFEPIME 2,000 MG/20 ML IV PUSH IV ONE (20:04)
[2025-07-12] MEDS ORDERED: PROCHLORPERAZINE MALEATE 10 MG TAB PO PRN (22:00)
[2025-07-12] MEDS ORDERED: GLUCOSE 40% GEL 15 GM TUBE PO PRN (22:00)
[2025-07-12] MEDS ORDERED: GLUCOSE 10 TAB/TUBE PO PRN (22:00)
[2025-07-12] MEDS ORDERED: ACETAMINOPHEN 1,000 MG/100 ML VIAL IV PRN (22:00)
[2025-07-12] MEDS ORDERED: PHARMACY GLYCEMIC MGMT CONSULT PRN (22:00)
[2025-07-12] MEDS ORDERED: ONDANSETRON 8MG OD TAB PEG PRN (22:00)
[2025-07-12] MEDS ORDERED: GLUCAGON FOR INJ 1 MG VIAL SQ PRN (22:00)
[2025-07-12] MEDS ORDERED: DEXTROSE 50% 50 ML SYRINGE IV PRN (22:00)
[2025-07-12] MEDS ORDERED: CARBOHYDRATES FOR HYPOGLYCEMIA PO PRN (22:00)
[2025-07-12] MEDS ORDERED: ARTIFICIAL TEARS OP PRN (22:17)
[2025-07-12] MEDS: ENOXAPARIN INJ 40 MG/0.4 ML SYR SQ SCH (22:35)
[2025-07-12] MEDS: busPIRone 15 MG TAB PEG SCH (22:35)
[2025-07-12] MEDS: PLASMA-LYTE A 1,000 ML IV SCH (22:35)
[2025-07-12] MEDS: NYSTATIN SUSP 500,000 U/5 ML UDC PO SCH (22:36)
[2025-07-12] MEDS: GABAPENTIN 800 MG TAB PO SCH (22:36)
[2025-07-12] MEDS: LANTUS PER UNIT CHARGE SQ SCH (22:55)
[2025-07-12] MEDS: INSULIN ASPART PER UNIT CHARGE SC SCH (22:56)
[2025-07-13] MEDS ORDERED: HEPARIN 100 UNIT/ML 5ML FLUSH FLUSH PRN (02:58)
[2025-07-13 04:59] LABS: Hematocrit (blood only) 34.4 % (37.0-47.0); Hemoglobin 11.2 g/dl (12.0-16.0); Mean Corpuscular Hemoglobin 29.9 pg (25.0-34.0); Mean Corpuscular Volume 91.7 fL (80.0-100.0); Platelet Count 240 K/uL (130-400); RDW Standard Deviation 47.5 fL (36.4-46.3); Red Blood Count 3.75 M/uL (4.20-5.40); White Blood Count 17.47 K/ul (4.8-10.8)
[2025-07-13 05:15] LABS: Anion Gap 6.0 (3-11); Blood Urea Nitrogen 20.0 mg/dl (6-23); Calcium 8.2 mg/dl (8.6-10.3); Carbon Dioxide 34.0 mmol/L (21-32); Chloride 93.0 mmol/L (98-107); Creatinine Clr Calc Pharmacy 101.6 ml/min; Glucose 170.0 mg/dl (70-99(Fasting)); Potassium 3.9 mmol/L (3.5-5.1); Sodium 133.0 mmol/L (136-145)
[2025-07-13 05:32] LABS: Immature Granulocytes # (auto) 0.11 K/uL (0.01-0.20); Immature Granulocytes % (auto) 0.6 %; RBC Morphology Unremarkable
[2025-07-13] MEDS ORDERED: Nursing to Pharmacy Communication SCH (08:00)
--- NOTE | 2025-07-13 08:10 | Hospitalist Progress Note ---
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 #Increased lethargy (improving) Initially attributed to increased pain medications for cancer-related pain, but patient's family reported she was still sleeping majority of the day even after cutting back these medications Leading DDx on admission includes infection, metabolic encephalopathy (with hyperglycemia as primary contributor), dehydration, and side effect of pain medications (among other etologies) No clear source of infection identified on arrival CXR with b/l patchy opacifications (improvement from prior) Patient was also discharged on a course of Keflex x 7 days UA negative Biofire negative Additional potential sources include patient's PEG tube and port Leukocytosis in the setting of steroid use with chemotherapy PCT WNL Lactate 3.2->3.1->2.7 BCx x 2 drawn in the ED; NGTD on 07/13 Cefepime 2000mg IV x 1 Not neutropenic, with multiple other possibilities contributing to lethargy Will defer additional antibiotics at this time If patient develops fevers overnight, recommend adding on MRSA coverage (IV Dapto 6mg/kg x 1) PT/OT evaluations appreciated #Cancer related pain Fentanyl patch 50mcg daily Gabapentin 800mg p.o. TID Baclofen 5mg TID prn Cymbalta 20 mg p.o. QAM Decrease Decadron 4 mg -> 2 mg p.o. BID (with plan to taper off) This was being taken for patient's T1/T2 lesion until she could be seen by radiation oncology However, unclear if iatrogenic adrenal suppression is at play Known history of adrenal metastasis Will plan for washout of this medication and obtaining a morning cortisol level Trial of change in pain meds on 07/13: - Stop oxycodone 15 mg p.o. q4h - Dilaudid 2.0 mg p.o. q6h PRN for pain 4-6 - Dilaudid 4.0 mg p.o. q6h PRN for pain 7-10 #Elevated troponin | type II NSTEMI Troponin trend: 638 -> 854.5 -> 588 -> 577 Aspirin 324 mg p.o. x 1 in the ED Clinically, patient denies CP, SOB, pleuritic CP Suspect type II NSTEMI in the setting of malignancy Echocardiogram ordered; results still pending on 07/13 Continuous telemetry monitoring #Oral candidiasis White exudates appreciated on the palatine tonsils bilaterally; however, no exudates appreciated on the oropharynx (lower suspicion for esophageal involvement, but unclear) Initiate nystatin suspension QID In the setting of dysphagia, instruction provided for patient to NOT swallow this medication, but rather swish and spit out medication #Hyponatremia (improving) Na 129 -> 133 Suspect pseudohyponatremia in setting of hyperglycemia Plasma-Lyte at 80mL/hr x 3L (set to end on morning of 07/14) Trend BMP #Recurrent squamous cell carcinoma of tongue with metastasis | PEG tube status Follows with ENT (Dr. Coyle) who did her resection x 2 Brain MRI on 07/11 showed an enhancing lesion in the left occiptal bone, concerning for mets, but no other acute intracranial abnormalities involving the brain Follows with [facility] for chemotherapy / immunotherapy (Dr. Perez) First chemo session was on Wednesday 07/11 Dietitian consult appreciated for PEG tube feedings Patient is normally on Nutren 2.0 TID Communication order: All p.o. medications through the PEG tube #Worsening dysphagia Okay for small sips of water and ice chips Oral hygiene q4h #T2DM | hyperglycemia (improving) Last A1c at 6.3% on 06/30/2025 Hyperglycemic at 406 on arrival No evidence of ketonuria on UA; do not suspect this is DKA or HHS Suspect hyperglycemia is due to steroid use Taper off dexamethasone (as above) Patient is normally on NovoLog U100 TID w/ meals Dose reduced to Lantus 12 u BID while inpatient (in the setting of poor oral intake) SSI with target BSG range 110-150mg/dL, CF 15, carb ratio 5 BSG ACHS Adjust regimen as needed Pharmacy glycemic consult appreciated in setting of high-dose steroid use #Crohn's disease With a history of partial colectomy Continue mercaptopurine #GAMA CPAP HS #HTN BP mildly elevated (154/81 on admission) Not currently on BP medications Patient was previously on irbesartan and amlodipine Hydralazine 5 mg IV q8h PRN for SBP >195 or DBP >95 Complex medical decision making in the setting of squamous cell carcinoma with progressive metastasis to the spine and lungs. Patient also has several comorbidities at baseline with her underlying Crohn's disease, PEG tube feedings, diabetes, GAMA, and hypertension. Disposition: Continued stay on PCU telemetry; hopeful discharge home in next 1-2 days VTE PPx: High risk due to metastatic malignancy; Lovenox 40 mg SQ q24h Patient's family ( "Sampson", and daughter "Nisreen") updated periodically throughout hospital stay. Admission and Anticipated Discharge Date Admission Date: July 12, 2025 Supervising Physician Co-Signing Physician Notes The patient was not seen by me. The chart was reviewed. Case discussed with YAYA Quiroz. Agree with assessment and plan Subjective Mrs. Ramos is more alert and oriented today when compared to yesterday. She was able to get up and ambulate to the nurses station with PT and OT today. She did feel off balance, however her at bedside reports that she has been more awake compared to the past few days. Patient has difficulty describing her pain. She is unsure if the fentanyl patch has been helping at all. She does feel that whenever she takes oxycodone, it makes her loopy and "out of it". She feels like the pain medication is contributing to her symptoms. She reports she did not have any fevers overnight. ROS: Patient endorses left shoulder/scapula pain, cough, and mild pleuritic CP. Patient denies fevers, chest pain, difficulty swallowing, headaches, SOB, abdominal pain, or numbness or tingling going down the arms or legs. Review of Systems Review of Systems: See HPI above Physical Exam Physical Exam: General: No acute distress; bedside; pleasant affect; non-toxic appearing; cooperative; SpO2 96% on RA HEENT: normocephalic, atraumatic; PERRLA; white exudates appreciated on the palatine tonsils bilaterally; oropharynx is coral pink without signs of erythema or exudates; vision and hearing intact; oral mucosa is dry and crusted Neck: supple; trachea midline Back: Left scapula is TTP; worse with active ROM Skin: warm, dry without signs of tenting; no cyanosis; no rashes, bruising, lesions, or erythema noted CV: chest wall NTP; right chest wall port site without signs of clear erythema, drainage, or infection; RRR; S1/S2 normal; no murmurs/rubs/gallops; pulses intact and symmetric at radial, DP, and PT Lungs: no acute respiratory distress; symmetrical chest wall expansion; clear breath sounds across all lung nino w/o adventitious sounds; no wheezing ABD: Soft, NTP; PEG tube in place in the left lower quadrant without signs of erythema or acute infection; BS present; no rebound/guarding; no distention MSK: no tics or fasciculations; no edema noted in the LEs b/l, nonerythematous; 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 Neuro: A&Ox3; normal mood and affect; hoarse voice; patient reports decrease sensation in the left hand compared to the right assessed via light touch at the fingers and elbows Results & Data Results & Data Vital Signs (Past 12 Hours) Vital Signs Temp Pulse Resp BP Pulse Ox O2 Del Method 07/13/25 06:06 61 13 94 07/13/25 05:00 70 14 95 07/13/25 04:03 71 19 90 07/13/25 04:00 131/74 07/13/25 03:57 64 22 91 07/13/25 03:24 68 21 92 07/13/25 03:15 67 12 93 07/13/25 03:00 154/91 H 07/13/25 02:57 76 20 95 07/13/25 02:12 70 13 95 07/13/25 02:00 152/81 H 07/13/25 01:51 68 13 96 07/13/25 01:06 73 10 L 93 07/13/25 01:00 147/83 H 07/13/25 00:48 74 10 L 94 07/13/25 00:03 74 15 94 07/13/25 00:00 159/69 H 07/12/25 23:57 74 14 93 07/12/25 23:12 75 13 94 07/12/25 23:00 166/85 H 07/12/25 23:00 80 07/12/25 22:55 82 17 96 07/12/25 22:54 82 15 96 07/12/25 22:06 36.6 C 96 H 17 95 07/12/25 22:00 157/87 H 07/12/25 21:54 81 19 94 07/12/25 21:50 176/86 H 07/12/25 21:33 78 13 93 07/12/25 21:31 Room Air 07/12/25 21:12 78 20 93 07/12/25 21:06 78 16 93 07/12/25 21:00 150/80 H 07/12/25 20:51 79 18 94 07/12/25 20:42 77 15 93 07/12/25 20:30 76 13 93 07/12/25 20:21 82 22 95 PG Care Time/CCT Total # of Minutes Spent Total Time Spent with Patient: Total time spent is greater than 50% in coordination of care (as documented) at patient's floor/unit and/or counseling patient: Coding [place] [address] SUB INP/OBS CARE 3/50MIN Patient Type Established Medical Decision Making High Complexity Diagnoses Lethargy R53.83 Pain from bone metastases G89.3; C79.51 Thrush B37.0 Hyperglycemia R73.9 Hyponatremia E87.1
--- NOTE | 2025-07-13 08:27 | Oncology Consultation ---
Date of Consultation July 13, 2025 Assessment & Plan (1) Hyponatremia: (2) Hyperglycemia: (3) Impaired swallowing: Plan -Management of hyperglycemia, electrolyte abnormalities per primary team. Follow-up with ne outpatient upon discharge from hospital. History of Present Illness Reason for Consultation: Metastatic head and neck cancer Attending Physician: Brennan Lovett MD History of Present Illness 75-year-old female with metastatic head and neck cancer status post cycle 1 of carboplatin, paclitaxel and pembrolizumab admitted for Change in mental status, generalized weakness, electrolyte abnormalities and hyperglycemia. Allergies Allergy/AdvReac Type Severity Reaction Status Date / Time latex Allergy Intermediate Blisters Verified 07/12/25 17:59 Penicillins Allergy Intermediate Hives Verified 07/12/25 17:59 lisinopril AdvReac Intermediate fluid Verified 07/12/25 17:59 retention Vbcthin-HON-RtU Reductase AdvReac Intermediate "FILLED UP Verified 07/12/25 17:59 Inhibitor WITH FLUID" Home Medications Medication Instructions Recorded Confirmed Type Microlet Lancet (lancets) #200 ea 06/12/20 06/20/25 Rx CPAP Machine 04/19/21 06/20/25 History soft lens rinse,store solution 05/29/22 06/20/25 History (Bio true solution) blood-glucose meter (Contour Next #1 ea 02/21/23 06/20/25 Rx One Meter) blood-glucose sensor (Dexcom G7 01/19/24 06/20/25 History Sensor device) cyclosporine 0.05 % eye drops in a 1 drp OPB BID 10/26/24 07/12/25 History dropperette blood sugar diagnostic (Contour #400 ea 11/12/24 06/20/25 Rx Next Test Strips) insulin aspart U-100 100 unit/mL 0 sliding scale dose subcut 12/13/24 07/12/25 History (3 mL) subcutaneous pen (Novolog TIDWMEAL FlexPen U-100 Insulin aspart) pen needle, diabetic 31 gauge x #500 ea 03/21/25 06/20/25 Rx 3/16" latanoprostene bunod 0.024 % eye 1 drp ophthalmic (eye) QPM 04/13/25 07/12/25 History drops (Vyzulta) mercaptopurine 50 mg tablet 50 mg feeding tube DAILY 04/13/25 07/12/25 History potassium chloride 10 mEq 10 meq feeding tube DAILY 05/25/25 07/12/25 History capsule,extended release buspirone 30 mg tablet 30 mg feeding tube TID 05/27/25 07/12/25 History gabapentin 800 mg tablet 800 mg feeding tube TID 05/27/25 07/12/25 History loperamide 2 mg tablet (Imodium 2 mg PO Q6H PRN Other 05/27/25 07/12/25 History A-D) mecobalamin (vitamin B12) 1,000 1,000 mcg DAILY 05/27/25 07/12/25 History mcg chewable tablet prochlorperazine maleate 10 mg 10 mg feeding tube Q6H PRN n/v 05/27/25 07/12/25 History tablet atorvastatin 20 mg tablet 20 mg feeding tube DAILY 06/29/25 07/12/25 History duloxetine 20 mg capsule,delayed 20 mg PO QAM #30 caps 07/05/25 07/12/25 Rx release pantoprazole 40 mg tablet,delayed 40 mg PO BID #60 tabs 07/05/25 07/12/25 Rx release fentanyl 50 mcg/hr transdermal 1 patch transdermal Q72H cancer 07/07/25 07/12/25 Rx patch pain 1 month #10 ea amlodipine 5 mg tablet 5 mg feeding tube QAM 07/12/25 07/12/25 History cyanocobalamin (vitamin B-12) 1,000 mcg IM MONTHLY 07/12/25 07/12/25 History 1,000 mcg/mL injection solution magnesium oxide 400 mg (241.3 mg 400 mg feeding tube QAM 07/12/25 07/12/25 History magnesium) tablet olanzapine 2.5 mg tablet 2.5 mg feeding tube DIRECTED 07/12/25 07/12/25 History ondansetron 4 mg disintegrating 4 mg PO BID nausea and vomiting 07/12/25 07/12/25 History tablet ondansetron 8 mg disintegrating 8 mg feeding tube Q8H PRN 07/12/25 07/12/25 History tablet NAUSEA/VOMITING dexamethasone 1 mg tablet See Taper feeding tube BID #26 tabs 07/14/25 Rx hydromorphone 2 mg tablet 4 mg (2 x 2 mg) PO Q6H PRN 07/14/25 Rx (Dilaudid) Cancer-related Pain #30 tabs nystatin 100,000 unit/mL oral 5 ml PO QID Oropharyngeal 07/14/25 Rx suspension candidiasis #60 mL Patient History Medical History PEG tube malfunction Anemia Obesity Gout Hypertension Dyslipidemia associated with type 2 diabetes mellitus Diabetic peripheral neuropathy associated with type 2 diabetes mellitus Depression with anxiety Post-nasal drip Type 2 diabetes mellitus Spinal stenosis Glaucoma Metabolic syndrome Recurrent squamous cell carcinoma of tongue Surgery 04/2024 and 10/04/24; currently on chemo tx; follows with once per week (wednesdays); also current XRT with in [place] Hx of sepsis 2021- no residual/current issues Fatty liver Sleep apnea CPAP Crohn's disease Neck problem Cervical pitched nerve + narrowing Intermittent LUE radiculopathy and ROM limitations COPD (chronic obstructive pulmonary disease) "Mild" No inhaler Surgical History History of percutaneous endoscopic gastrostomy (11/29/24) Esophagogastroduodenoscopy with Percutaneous Endoscopic Gastrostomy (PEG) Tube - Malik Turner DO Port-A-Cath in place (11/01/24) Insertion Access Port with Fluoroscopy - Right Subclavian(Right) - Kishore Mulligan DO; MAC without issue S/P cholecystectomy S/P partial glossectomy 04/30/24: partial glossectomy with L selective neck dissection Dr. Coyle [facility]; 10/04/24: L suprahyoid neck dissection and partial glossectomy Hx of cataract extraction R/L Hx of bilateral breast reduction surgery S/P epidural steroid injection x4 [id number] History of colonoscopy History of bowel resection (~2003) 12 inches r/t Crohn's disease (1971) Re-do r/t Crohn's disease (2003)- also had gallbladder removed at this time History of appendectomy (1971) Family History Father Family history of diabetes mellitus Diabetes Stroke Daughter Breast cancer Uncle Diabetes Grandmother Diabetes Stroke Other No family history of adverse response to anesthesia Social History Smoking Status: Never smoker Tobacco Type: Cigarettes Age Started Using Tobacco: 1 (unknown); Age Quit Using Tobacco: 0 (unknown); packs per day: 1; Cigarettes Per Day: 1980; Second Hand Exposure: No; Do You Dip or Chew Tobacco: No; Hx Alcohol Use: No Hx Substance Use: No Preferred Language: Malay Communication Ability: Effective Visual Impairment: No Limitations Exercise Rider Required: No Beliefs That Will Affect Care: None Current Living Situation: Spouse Feels Safe at Home: Yes Assistive Devices: Cane and Walker Results & Data Vital Signs (Past 12 Hours) Vital Signs Temp Pulse Resp BP Pulse Ox O2 Del Method 07/13/25 06:06 61 13 94 07/13/25 05:00 70 14 95 07/13/25 04:03 71 19 90 07/13/25 04:00 131/74 07/13/25 03:57 64 22 91 07/13/25 03:24 68 21 92 07/13/25 03:15 67 12 93 07/13/25 03:00 154/91 H 07/13/25 02:57 76 20 95 07/13/25 02:12 70 13 95 07/13/25 02:00 152/81 H 07/13/25 01:51 68 13 96 07/13/25 01:06 73 10 L 93 07/13/25 01:00 147/83 H 07/13/25 00:48 74 10 L 94 07/13/25 00:03 74 15 94 07/13/25 00:00 159/69 H 07/12/25 23:57 74 14 93 07/12/25 23:12 75 13 94 07/12/25 23:00 166/85 H 07/12/25 23:00 80 07/12/25 22:55 82 17 96 07/12/25 22:54 82 15 96 07/12/25 22:06 36.6 C 96 H 17 95 07/12/25 22:00 157/87 H 07/12/25 21:54 81 19 94 07/12/25 21:50 176/86 H 07/12/25 21:33 78 13 93 07/12/25 21:31 Room Air 07/12/25 21:12 78 20 93 07/12/25 21:06 78 16 93 07/12/25 21:00 150/80 H 07/12/25 20:51 79 18 94 07/12/25 20:42 77 15 93 07/12/25 20:30 76 13 93
[2025-07-13] MEDS: MAGNESIUM OXIDE 400 MG TAB PEG SCH (08:52)
[2025-07-13] MEDS: ATORVASTATIN 20 MG TAB PEG SCH (08:52)
[2025-07-13] MEDS: POTASSIUM CHLORIDE 20 MEQ/15 ML UDC PEG SCH (08:56)
[2025-07-13] MEDS ORDERED: POTASSIUM CHLORIDE 10 MEQ TABCR PO SCH (09:00)
[2025-07-13] MEDS: LANSOPRAZOLE 30 MG SOLTAB PO SCH (09:11)
[2025-07-13] MEDS: MERCAPTOPURINE 50 MG TAB PO SCH (09:24)
--- NOTE | 2025-07-13 13:23 | Pharmacy Report ---
Pharmacy Glycemic Short Note 2 - Date of Service July 13, 2025 - Glycemic Short BSG Results (Last 24 hours): 07/12/25 07/12/25 07/12/25 15:54 15:56 19:52 Glucose 406 H* POC Glucose 383 H* 264 H 07/12/25 07/13/25 07/13/25 22:51 01:31 04:31 Glucose 170 H POC Glucose 260 H 219 H 07/13/25 06:09 Glucose POC Glucose 159 H OUTPATIENT ANTIDIABETIC REGIMEN: * U-100 Novolog sliding scale * HbA1c: 6.3% (06/30/25) ASSESSMENT: * Carley is a 75 year old female with T2DM who presents to the hospital with increased lethargy * Glucose on arrival was 406 - she received 8 units of insulin aspart and initiated on regimen of insulin glargine 12 units BID * Glucose has come down this AM to around 170 * Carley will be receiving tube feeds through the PEG tube starting at 1300 today * Spoke with dietitian - boluses at 0800, 1200, and 1700 * Will utilize ACHS timing for insulin to cover for boluses * Stressors: * Steroids outpatient being tapered - down to 2mg BID from 4mg BID outpatient * Recent hospitalization in which she received a bit higher dose of insulin glargine - decreased from last hospitalization as steroid dose has decreased * Trend glucose and adjust as necessary PLAN FOR INPATIENT GLYCEMIC CONTROL: * Basal insulin * Lantus 12 units SQ BID * Bolus insulin * NovoLog per scale ACHS or Q6hrs while NPO * Goal Range: Low 110 mg/dL - High 150 mg/dL * Correction Factor: 15 mg/dL/unit * Nutritional / Prandial insulin per carb ratio of 1 unit per 5 grams CHO consumed
[2025-07-13] MEDS: NUTREN LIQD 2.0 1,000 ML BAG PEG SCH ×2 (13:31→16:55)
[2025-07-13] MEDS: TUBE FEEDING WATER FLUSH GT SCH (13:31)
[2025-07-13] MEDS: INSULIN ASPART PER UNIT CHARGE SC SCH (13:49)
--- NOTE | 2025-07-13 18:59 | XCELERA ---
[id number]
[2025-07-13] MEDS: PROSOURCE NO CARB 30 ML/PKT PEG SCH (20:45)
[2025-07-13] MEDS: OLANZAPINE 2.5 MG TAB PEG SCH (20:47)
[2025-07-14 04:57] VITALS: RESP 16
[2025-07-14 05:09] LABS: Hematocrit (blood only) 32.2 % (37.0-47.0); Hemoglobin 10.7 g/dl (12.0-16.0); Mean Corpuscular Hemoglobin 30.8 pg (25.0-34.0); Mean Corpuscular Volume 92.8 fL (80.0-100.0); Platelet Count 195 K/uL (130-400); RDW Standard Deviation 47.8 fL (36.4-46.3); Red Blood Count 3.47 M/uL (4.20-5.40); White Blood Count 12.89 K/ul (4.8-10.8)
[2025-07-14 05:21] LABS: Anion Gap 5.0 (3-11); Blood Urea Nitrogen 21.0 mg/dl (6-23); Calcium 8.2 mg/dl (8.6-10.3); Carbon Dioxide 33.0 mmol/L (21-32); Chloride 95.0 mmol/L (98-107); Creatinine Clr Calc Pharmacy 105.8 ml/min; Glucose 156.0 mg/dl (70-99(Fasting)); Potassium 3.7 mmol/L (3.5-5.1); Sodium 133.0 mmol/L (136-145)
[2025-07-14 05:25] LABS: Immature Granulocytes # (auto) 0.06 K/uL (0.01-0.20); Immature Granulocytes % (auto) 0.5 %; Polychromasia 1+
--- NOTE | 2025-07-14 06:03 | Electrocardiogram Report ---
Test Reason : Blood Pressure : */* mmHG Vent. Rate : 85 BPM Atrial Rate : 85 BPM P-R Int : 192 ms QRS Dur : 96 ms QT Int : 358 ms P-R-T Axes : 49 35 49 degrees QTcB Int : 426 ms Normal sinus rhythm Possible Anterior infarct , age undetermined Nonspecific T wave abnormality Abnormal ECG When compared with ECG of 29-Jun-2025 11:09, VA interval has decreased Borderline criteria for Anterior infarct are now Present Confirmed by Sonny Yee ([id number]) on 07/14/2025 6:03:38 AM Referred By: Kellen Perez Confirmed By: Sonny Yee
[2025-07-14 07:46] VITALS: BP 112/71; TEMP 98.1; O2SAT 98
[2025-07-14] MEDS: NUTREN LIQD 2.0 1,000 ML BAG PEG SCH (12:03)
[2025-07-14] MEDS: INSULIN ASPART PER UNIT CHARGE SC SCH (12:22)
[2025-07-14] MEDS ORDERED: INSULIN ASPART PER UNIT CHARGE SC SCH ×2 (13:00→16:30)
--- NOTE | 2025-07-14 13:16 | Discharge Summary ---
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 #Increased lethargy (improving) Initially attributed to increased pain medications for cancer-related pain, but patient's family reported she was still sleeping majority of the day even after cutting back these medications Leading DDx on admission includes infection, metabolic encephalopathy (with hyperglycemia as primary contributor), dehydration, and side effect of pain medications (among other etologies) No clear source of infection identified on arrival CXR with b/l patchy opacifications (improvement from prior) Patient was also discharged on a course of Keflex x 7 days UA negative Biofire negative Additional potential sources include patient's PEG tube and port Leukocytosis in the setting of steroid use with chemotherapy PCT WNL Lactate 3.2->3.1->2.7 BCx x 2 drawn on 07/12; NGTD on 07/14 Cefepime 2000mg IV x 1 Not neutropenic, with multiple other possibilities contributing to lethargy Will defer additional antibiotics at this time PT/OT evaluations appreciated; will plan for return home with assistance of spouse (who does near and 14/04 care) #Cancer related pain Fentanyl patch 50mcg daily Gabapentin 800mg p.o. TID Baclofen 5mg TID prn Cymbalta 20 mg p.o. QAM Decrease Decadron 4 mg -> 2 mg p.o. BID (with plan to taper off gradually on discharge) This medication was being taken for patient's T1/T2 lesion, until she could have radiation on 07/20 However, unclear if iatrogenic adrenal suppression is at play Known history of adrenal metastasis Will plan for gradual washout of this medication prior to obtaining cortisol levels Pain medication changes on discharge - Stop oxycodone 15 mg p.o. q4h - Dilaudid 2.0 mg p.o. q6h PRN for pain 4-6 - Dilaudid 4.0 mg p.o. q6h PRN for pain 7-10 #Elevated troponin | ?type II NSTEMI Troponin trend: 638 -> 854.5 -> 588 -> 577 Aspirin 324 mg p.o. x 1 in the ED Clinically, patient denies CP, SOB, pleuritic CP Echocardiogram on 07/13 revealed LVEF at 60 to 65% with no regional wall motion abnormalities Suspect type II NSTEMI in the setting of malignancy #Oral candidiasis (improving) White exudates appreciated on the palatine tonsils bilaterally; however, no exudates appreciated on the oropharynx (lower suspicion for esophageal involvement, but unclear) Continue nystatin suspension QID x 3 days In the setting of dysphagia, patient was instructed to NOT swallow this medication, but rather swish and spit out medication #Hyponatremia (improving) Na 127 -> 129 -> 133 Suspect pseudohyponatremia in setting of hyperglycemia Trend BMP as an OP #Recurrent squamous cell carcinoma of tongue with metastasis | PEG tube status Follows with ENT (Dr. Coyle) who did her resection x 2 Brain MRI on 07/11 showed an enhancing lesion in the left occiptal bone, concerning for mets; no other acute intracranial abnormalities involving the brain Follows with [facility] for chemotherapy / immunotherapy (Dr. Perez) First chemo session was on Wednesday 07/11 Upcoming radiation oncology appointment on Friday 07/20 (Dr. Vargas) Patient is normally on Nutren 2.0 TID All p.o. medications except protonix and duloxetine through the PEG tube #Dysphagia Okay for small sips of water and ice chips Oral hygiene q4h #T2DM | hyperglycemia (improving) Last A1c at 6.3% on 06/30/2025 Hyperglycemic at 406 on arrival No evidence of ketonuria on UA; do not suspect this is DKA or HHS Suspect hyperglycemia is due to steroid use Taper dexamethasone (as above) Patient is normally on NovoLog U100 TID w/ meals Dose reduced to Lantus 12 u BID while inpatient (in the setting of poor oral intake) SSI with target BSG range 110-150mg/dL, CF 15, carb ratio 5 BSG ACHS Adjust regimen as needed Pharmacy glycemic consult appreciated in setting of high-dose steroid use #Crohn's disease With a history of partial colectomy Continue mercaptopurine #GAMA CPAP HS Complex medical decision making in the setting of squamous cell carcinoma with progressive metastasis to the spine and lungs. Patient also has several comorbidities at baseline with her underlying Crohn's disease, PEG tube feedings, diabetes, GAMA, and hypertension. Date of discharge 07/14: Patient is mildly tachycardic around 98 bpm; vitals otherwise stable; SpO2 98% on RA Mrs. Ramos is doing "better" today compared to yesterday. She reports that her left scapula pain is a 5 out of 10 this morning under better control in the hospital. Patient's (Keo) at bedside reports that she has been more alert and oriented over the past 2 days, and has been eating less pain medication. While at home, she would need pain medicine every several hours, but she has been able to go throughout the night without pain meds, and did not require pain meds until 10 AM this morning. Patient is still having trouble getting up and walking around, and she did feel off balance last night. This morning, she was able to ambulate to the bathroom with help. While the patient did report some blood in her stool last night, nursing staff visualized hemorrhoid, as well as a small rectal tear. Overall, the patient reports that she would be open to going home today, as she feels her pain is controlled with her adjustments in pain medications, and she feels like her lethargy is improving. ROS: Patient endorses left scapular pain, feeling off balance with walking, and cough. Patient denies fevers overnight, chest pain, pleuritic CP, SOB, difficulty swallowing, abdominal pain, N/V/D, burning with urination, or numbness or tingling in the arms or legs. Disposition: Discharge home with spouse Patient's family ( "Sampson", and daughter "Nisreen") updated periodically throughout hospital stay. Notes For Next Care Provider Patient hospitalized from 07/12 - 07/14 for increased lethargy in the setting of metastatic cancer. While she did undergo her first chemotherapy session on Wednesday 07/11, family reported that she was having lethargy in the week leading up to her cancer treatment. Suspect multifactorial: (1) metabolic encephalopathy due to hyperglycemia, (2) dehydration, (3) current pain regimen. On discharge, changes to pain regimen included discontinuing her Roxanol in favor of trying hydrocodone 2 to 4 mg p.o. as needed for cancer-related pain every 6 hours. Recommend follow-up BMP within the next week to reassess her sodium levels (which improved after glucose went down). Upcoming appointments include radiation oncology on 07/20, and palliative care on 07/21. Admission HPI Per Admitting Provider Mrs. Ramos is a 74-year-old female with PMH of GAMA, T2DM, glaucoma, metabolic syndrome, Crohn's disease, and PEG tube placement. She presented on 07/12 at the behest of her oncologist (Dr. Perez) for increased lethargy and low sodium levels (127) on outpatient labs. Patient also received steroids before receiving chemotherapy and immunotherapy yesterday on 07/11. Most of the history is obtained from patient's daughter (Nisreen) at bedside. Daughter reports that ever since she was discharged last Friday (07/05), she has been sleeping more than she has been awake. Initially, the family thought that it might be due to her pain medications. She was discharged on fentanyl patch 62 mcg, as well as liquid oxycodone. However, these medications were dialed back over the weekend, and she was still extremely lethargic. For instance, her son visited from [place] this past week, and she was asleep for most of the visit. Patient had a PET scan yesterday to assess for progression of her known metastasis. She also had a brain MRI yesterday due to increased confusion. Patient reports that yesterday she was "seeing dogs chasing a cat", and believes she has been hearing things. She endorses confusion. Family is concerned for potential infection, as she has had drainage from around her PEG site tube, and has history of a PEG site infection. She also has a history of cellulitis and salivary gland infections this past summer. No prior history of MRSA infections. No prior history of port infections (port was placed/September). Patient also underwent her first chemotherapy session yesterday; per daughter, she slept through the entire treatment. Patient's pain is under better control today compared to when she left the hospital on Friday. She still endorses 7 out of 10 pain in her left scapular region at present, which is exacerbated by movements. She has been unable to have her radiation for the lesions at T1 and T2 due to having chemotherapy this past week. She is also having pain at the site of her punch biopsy that was taken from her tongue. Patient is mildly tachycardic at 108 bpm at time of admission; vitals otherwise stable. ED course: Cefepime 2000 mg IV Aspirin 324 mg p.o. Plasma-Lyte 1500 mL IV ROS: Patient endorses headache, confusion, memory deficits, visual hallucinations,and increased urinary frequency (went 4x during chemo yesterday). Patient denies SOB, pleuritic CP, cough, chest pain, abdominal pain, burning with urination, dysuria, rashes, bruises, and tick bites. Admission Exam Per Admitting Provider General: No acute distress; lethargic; family bedside; pleasant affect; non- toxic appearing; cooperative; SpO2 94% on RA HEENT: normocephalic, atraumatic; PERRLA; white exudates appreciated on the palatine tonsils bilaterally; oropharynx is coral pink without signs of erythema or exudates; vision and hearing intact; oral mucosa is dry and crusted Neck: supple; trachea midline Back: Left scapula is TTP; worse with active ROM Skin: warm, dry without signs of tenting; no cyanosis; no rashes, bruising, lesions, or erythema noted CV: chest wall NTP; right chest wall port site without signs of clear erythema, drainage, or infection; RRR; S1/S2 normal; no murmurs/rubs/gallops; pulses intact and symmetric at radial, DP, and PT Lungs: no acute respiratory distress; symmetrical chest wall expansion; clear breath sounds across all lung nino w/o adventitious sounds; no wheezing ABD: Soft, NTP; PEG tube in place in the left lower quadrant without signs of erythema or acute infection; BS present; no rebound/guarding; no distention MSK: no tics or fasciculations; no edema noted in the LEs b/l, nonerythematous; 5/5 drug room clerk strength bilaterally Neuro: A&Ox3; normal mood and affect; hoarse voice; patient reports decrease sensation in the left hand compared to the right assessed via light touch at the fingers and elbows Discharge Exam General: NAD; (Keo) at bedside; pleasant affect; non-toxic appearing; cooperative; SpO2 98% on RA HEENT: normocephalic, atraumatic; PERRLA; oral mucosa is coral pink; no exudates appreciated, but she does have some dry crusting on the lateral palatine tonsil; vision and hearing intact Neck: supple; trachea midline Back: Left scapula is TTP Skin: warm, dry without signs of tenting; no cyanosis; no rashes, bruising, lesions, or erythema noted CV: chest wall NTP; right chest wall port site without erythema, drainage, or infection; surrounding port site is NTP; RRR; S1/S2 normal; no murmurs/rubs/gallops; pulses intact and symmetric at radial, DP, and PT Lungs: no acute respiratory distress; symmetrical chest wall expansion; clear breath sounds across all lung nino w/o adventitious sounds; no wheezing ABD: Soft, NTP; PEG tube in place in the left lower quadrant without signs of erythema or acute infection; palpating around the PEG tube does not elicit pain; BS present; no rebound/guarding; no distention MSK: no tics or fasciculations; no edema noted in the LEs b/l, nonerythematous; 5/5 drug room clerk strength bilaterally Neuro: A&Ox3; normal mood and affect; hoarse voice; patient reports decrease sensation in the left hand compared to the right assessed via light touch at the fingers and elbows Discharge Plan Discharge Items Patient Disposition: Home - Home Health Services Reason For Visit: LETHARGY Discharge Diagnosis: Metabolic encephalopathy (due to hyperglycemia), dehydration, lethargy Activity: As commented below Activity Comment: Gradually increase your previous activities as tolerated; fall HH PT/OT rec Non-emergency contact: Primary Care Provider and Oncologist Call non-emergency contact if: you have any medication questions, your symptoms worsen, your pain is not controlled and you have a fever Follow-up/Referrals: Lilian Godwin MD [Primary Care Provider] - Diet: Carb Consistent or DM2 Diet Comment: PEG Tube Addtl Attending Provider Instructions: You were hospitalized at [facility] from 07/12 - 07/14 for increased lethargy. On arrival, you had a full infection workup, however all labs and imaging turned out to be negative. Your lethargy gradually improved without the use of antibiotics. At time of discharge, the blood cultures obtained on arrival revealed no growth to date x 36 hours. It is suspected that your increased lethargy over the past week was multifactorial. One of the main contributors was an elevated glucose level, also called "hyperglycemia". On arrival, your glucose was 406. For reference, a normal glucose is around 70-120. Your glucose levels quickly improved after receiving large amounts of IV fluid in the emergency department, as well as insulin. It is suspected that the steroids you are currently on (dexamethasone 4 mg twice daily) contributed to your high glucose levels. This can lead to something called "metabolic encephalopathy". During her hospital stay, we tapered down on your dexamethasone dosage to 2 mg twice daily, which helped to better control your glucose levels. Upon discharge, we recommend that you continue to taper down using the following instructions that have been sent to your pharmacy: Dexamethasone taper: Continue to take dexamethasone 2 mg twice daily via PEG tube x 3 days (i.e. on Friday, Friday, and Friday of this week) After that, dropped down to dexamethasone 1 mg twice daily via PEG tube x 7 days before discontinuing Your blood-work showed that you were fairly dehydrated on arrival, which may be another contributor to your lethargy. We recommend you increase your fluid intake at home as tolerated. Lastly, it is likely your pain medications played a role in your lethargy. During your last hospitalization, you reported more energy while being on the pill version of hydromorphone ("Dilaudid"). We tried removing your oxycodone while in the hospital, and given you Dilaudid as an alternative. You reported that your pain was well-controlled on the Dilaudid. We will plan to send a prescription for Dilaudid 2 mg tablets to your pharmacy. Please take 1 or 2 of these tablets every 6 hours as needed for your cancer-related pain. You may also continue to use your current fentanyl patch 50 mcg as previously prescribed. New prescriptions sent to your pharmacy: - Dexamethasone taper (see above) - Nystatin suspension 5 mL (rinse and spit this suspension 4 times daily x 3 days for oral thrush) - Hydromorphone ("Dilaudid") 2mg tablets as needed for cancer-related pain You may take 1 to 2 tablets every 6 hours as needed for pain Please note that hydromorphone is an opioid analgesic. Please do not operate heavy machinery or drive a vehicle while taking. Please plan to follow-up with your PCP in the next 7 to 10 days for a transitional care appointment. Please keep your upcoming appointments with radiation oncology on 07/20 and palliative care medicine on 07/21. If you develop any new or worsening symptoms, such as fever, chills, intractable left scapular/arm pain, fainting episodes, trouble breathing, or chest pain, please return to the emergency department immediately. It was a pleasure take care of you. Please reach out with any questions or concerns. Sincerely, The Hospital medicine team at [facility] Pending Studies at Discharge: No Stand-Alone Forms: My [facility] Medications and DC Order Prescriptions: New nystatin 100,000 unit/mL Suspension 5 ml PO QID Qty: 60 0RF Rx Instructions: Rinse and spit out 5mL of suspension up to 4 times daily for the next 3 days hydromorphone [Dilaudid] 2 mg Tablet 4 mg PO Q6H PRN (Reason: Cancer-related Pain) Qty: 30 0RF Rx Instructions: Take 1-2 tablets every 6 hours as needed for cancer related pain dexamethasone 1 mg tablet See Taper feeding tube BID Qty: 26 0RF Taper: Taper, Blank 2 mg TWICE A DAY for 3 Days 1 mg TWICE A DAY for 7 Days Continued (DME) lancets [Microlet Lancet] Misc See Rx Instructions .ROUTE .MEDSUPPLY Qty: 200 5RF Rx Instructions: Test blood sugars four times a day (DME) blood-glucose meter [Contour Next One Meter] Misc See Rx Instructions .ROUTE .MEDSUPPLY Qty: 1 0RF Rx Instructions: Test blood sugars 1 x times a day (DME) pen needle, diabetic 31 gauge x 3/16" needle See Dose Instructions .ROUTE .MEDSUPPLY Qty: 500 1RF Rx Instructions: use to inject insulin 5 times daily as directed (DME) Dexcom G7 Sensor Device See Rx Instructions .Route Rx Instructions: change every 10 days (DME) Bio true Solution See Rx Instructions .Route Rx Instructions: As directed; PRN (DME) CPAP Machine Misc See Rx Instructions .Route Rx Instructions: As directed (DME) Contour Next Test Strips Strip See Rx Instructions .ROUTE .MEDSUPPLY Qty: 400 1RF Rx Instructions: Test blood sugar four times daily buspirone 30 mg tablet 30 mg feeding tube TID gabapentin 800 mg tablet 800 mg feeding tube TID prochlorperazine maleate 10 mg tablet 10 mg feeding tube Q6H PRN (Reason: n/v) loperamide [Imodium A-D] 2 mg tablet 2 mg PO Q6H PRN (Reason: Other) Patient Comments: 06/29- otc unable to verify mecobalamin (vitamin B12) 1,000 mcg tablet,chewable 1,000 mcg DAILY Patient Comments: 06/29- otc unable to verify Rx Instructions: VIA FEEDING TUBE mercaptopurine 50 mg tablet 50 mg feeding tube DAILY Vyzulta 0.024 % drops 1 drp ophthalmic (eye) QPM potassium chloride 10 mEq capsule, extended release 10 meq feeding tube DAILY fentanyl 50 mcg/hr patch 72 hour 1 patch transdermal Q72H 30 Days Qty: 10 0RF Rx Instructions: CHANGED 07/11/25 EVENING cyclosporine 0.05 % dropperette 1 drp OPB BID Patient Comments: Last filled 01/27 90 day supply olanzapine 2.5 mg tablet 2.5 mg feeding tube DIRECTED Rx Instructions: TAKEN DAY (07/11/25) OF CHEMO, THEN 4 DAYS AFTER. PER PT'S DAUGHTER "THIS WILL NOT BE DONE WITH NEXT RX". ondansetron 8 mg tablet,disintegrating 8 mg feeding tube Q8H PRN (Reason: NAUSEA/VOMITING) cyanocobalamin (vitamin B-12) 1,000 mcg/mL Solution 1,000 mcg IM MONTHLY amlodipine 5 mg tablet 5 mg feeding tube QAM magnesium oxide 400 mg (241.3 mg magnesium) tablet 400 mg feeding tube QAM ondansetron 4 mg tablet,disintegrating 4 mg PO BID insulin aspart U-100 [Novolog FlexPen U-100 Insulin] 100 unit/mL (3 mL) insulin pen 0 sliding scale dose SQ TIDWMEAL MDD 60 Patient Comments: last filled 07/09/2024 atorvastatin 20 mg tablet 20 mg feeding tube DAILY pantoprazole 40 mg Tablet,Delayed Release (Dr/Ec) 40 mg PO BID Qty: 60 0RF Rx Instructions: DO NOT CRUSH duloxetine 20 mg Capsule,Delayed Release(Dr/Ec) 20 mg PO QAM Qty: 30 0RF Rx Instructions: DO NOT CRUSH Discontinued oxycodone 5 mg/5 mL solution 15 mg feeding tube Q4H PRN (Reason: breakthrough cancer pain) dexamethasone 4 mg tablet 4 mg feeding tube BID nystatin 100,000 unit/mL suspension 0 ml PO QID Patient Comments: last filled 04/27 3 day supply Discharge Orders: Discharge Order (Routine); Ordered 07/14/25 Ordered By: Nicola Dugan/Other Patient Handouts: High Blood Sugar (Hyperglycemia) Admission Data Admit Date/Time: 07/12/25 19:14 Attending Provider: Mj Cummings Admit Provider: Duc Boucher Primary Care Provider: Lilian Godwin Other Providers: Alycia Alexandre; [facility],Home Healthcare; [facility] Hospital Stay Data Consultations 07/12/25 17:31 ED Decision to Admit Stat Discharge Instructions Given to Patient (Per Discharging Provider) You were hospitalized at [facility] from 07/12 - 07/14 for increased lethargy. On arrival, you had a full infection workup, however all labs and imaging turned out to be negative. Your lethargy gradually improved without the use of antibiotics. At time of discharge, the blood cultures obtained on arrival revealed no growth to date x 36 hours. It is suspected that your increased lethargy over the past week was multifactorial. One of the main contributors was an elevated glucose level, als o called "hyperglycemia". On arrival, your glucose was 406. For reference, a normal glucose is around 70-120. Your glucose levels quickly improved after receiving large amounts of IV fluid in the emergency department, as well as insulin. It is suspected that the steroids you are currently on (dexamethasone 4 mg twice daily) contributed to your high glucose levels. This can lead to something called "metabolic encephalopathy". During her hospital stay, we tapered down on your dexamethasone dosage to 2 mg twice daily, which helped to better control your glucose levels. Upon discharge, we recommend that you continue to taper down using the following instructions that have been sent to your pharmacy: Dexamethasone taper: Continue to take dexamethasone 2 mg twice daily via PEG tube x 3 days (i.e. on Friday, Friday, and Friday of this week) After that, dropped down to dexamethasone 1 mg twice daily via PEG tube x 7 days before discontinuing Your blood-work showed that you were fairly dehydrated on arrival, which may be another contributor to your lethargy. We recommend you increase your fluid intake at home as tolerated. Lastly, it is likely your pain medications played a role in your lethargy. During your last hospitalization, you reported more energy while being on the pill version of hydromorphone ("Dilaudid"). We tried removing your oxycodone while in the hospital, and given you Dilaudid as an alternative. You reported that your pain was well-controlled on the Dilaudid. We will plan to send a prescription for Dilaudid 2 mg tablets to your pharmacy. Please take 1 or 2 of these tablets every 6 hours as needed for your cancer-related pain. You may also continue to use your current fentanyl patch 50 mcg as previously prescribed. New prescriptions sent to your pharmacy: - Dexamethasone taper (see above) - Nystatin suspension 5 mL (rinse and spit this suspension 4 times daily x 3 days for oral thrush) - Hydromorphone ("Dilaudid") 2mg tablets as needed for cancer-related pain You may take 1 to 2 tablets every 6 hours as needed for pain Please note that hydromorphone is an opioid analgesic. Please do not operate heavy machinery or drive a vehicle while taking. Please plan to follow-up with your PCP in the next 7 to 10 days for a transitional care appointment. Please keep your upcoming appointments with radiation oncology on 07/20 and palliative care medicine on 07/21. If you develop any new or worsening symptoms, such as fever, chills, intractable left scapular/arm pain, fainting episodes, trouble breathing, or chest pain, please return to the emergency department immediately. It was a pleasure take care of you. Please reach out with any questions or concerns. Sincerely, The Hospital medicine team at [facility] Total Time Total Time Spent Total Time Spent (In Minutes): 50 Coding Level of Care Code 58477 INP/OBS DISCH >30 MIN Diagnoses Lethargy R53.83 Pain from bone metastases G89.3; C79.51 Thrush B37.0 Hyperglycemia R73.9 Hyponatremia E87.1
[2025-07-14 14:05] VITALS: PULSE 79
[2025-07-14] MEDS ORDERED: LANTUS PER UNIT CHARGE SQ SCH (21:00)
== END 2025-07-14 15:26 | disposition home health service (06) | DRG 70 ==
LOC: ED 15:28 → SUATTDRO 19:14 → 1E 19:14 → 2S 07-13 18:36

== ENCOUNTER 2025-07-31 15:01 | Inpatient (IN) ==
[2025-07-31] MEDS: SODIUM CHLORIDE 0.9% 1,000 ML IV SCH (16:45)
[2025-07-31 17:01] LABS: Hematocrit (blood only) 31.7 % (37.0-47.0); Hemoglobin 10.5 g/dl (12.0-16.0); Immature Granulocytes # (auto) 0.16 K/uL (0.01-0.20); Immature Granulocytes % (auto) 1.7 %; Mean Corpuscular Hemoglobin 30.3 pg (25.0-34.0); Mean Corpuscular Volume 91.4 fL (80.0-100.0); Platelet Count 403 K/uL (130-400); RDW Standard Deviation 50.9 fL (36.4-46.3); Red Blood Count 3.47 M/uL (4.20-5.40); White Blood Count 9.20 K/ul (4.8-10.8)
[2025-07-31 17:15] LABS: Alanine Aminotransferase 10.0 U/L (7-52); Albumin Globulin Ratio 0.9 (0.9-2); Albumin Level 2.9 gm/dl (3.4-5.0); Alkaline Phosphatase 82.0 U/L (34-104); Anion Gap 10.0 (3-11); Bilirubin,Total 0.5 mg/dl (0.2-1.0); Blood Urea Nitrogen 16.0 mg/dl (6-23); Calcium 9.6 mg/dl (8.6-10.3); Carbon Dioxide 34.0 mmol/L (21-32); Chloride 87.0 mmol/L (98-107); Creatinine Clr Calc Pharmacy 104.6 ml/min; Globulin 3.4 gm/dl (2.5-4.0); Glucose 316.0 mg/dl (70-99(Fasting)); Lipase 56.0 U/L (11-82); Magnesium 1.4 mg/dl (1.7-2.4); Potassium 3.6 mmol/L (3.5-5.1); Sodium 131.0 mmol/L (136-145); Total Protein 6.3 gm/dl (6.0-8.3)
[2025-07-31 17:28] LABS: INR 1.1 (0.9-1.1); Prothrombin Time 11.5 Seconds (9.0-12.0)
[2025-07-31] MEDS: MAGNESIUM SULFATE / D5W 1 GM/100 ML BAG IV SCH (17:38)
--- NOTE | 2025-07-31 20:06 | XRay Report ---
Chest radiograph, one view History: Shortness of breath Comparison: 07/12/2025 Findings: Single AP view of the chest performed. Numerous rounded nodular opacities throughout both lungs again seen and appear increased. Right chest wall port with catheter tip at the mid SVC. Blunted left costophrenic angle. No pneumothorax. The cardiomediastinal silhouette is within normal limits. Normal pulmonary vascularity. No visualized bony or soft tissue abnormality. Impression: Blunted left costophrenic angle, may represent new small pleural effusion and/or atelectasis. Numerous nodular densities increased from prior. Electronically signed by Joaquín Appiah 07-31-2025 8:06 PM
[2025-07-31] MEDS: OPTIRAY 320 125ml IV ONE (20:43)
--- NOTE | 2025-07-31 20:54 | Emergency Department Note ---
Impression & Plan Generalized weakness, Fatigue, Hyperglycemia, Hypomagnesemia, Hyponatremia, Pulmonary embolism, Metastasis to lung ED Provider Note ED Provider Note NAME: ERASTO ALVAREZ AGE:75 SEX: Female : 1950 ARRIVES VIA: private vehicle INFORMANT: Patient ED PROVIDER(s): Keira Leon DO CHIEF COMPLAINT: weak, fatigue, elevated blood sugar HPI: This is a 75-year-old female presents the emergency department due to concern by family for increased weakness and fatigue, intermittent confusion, and concern for elevated blood sugar readings. They state symptoms are similar to her presentation 2 weeks ago when she was admitted although not quite as severe. They state at that time she was also found to have other electrolyte abnormalities and there was concern she might have an occult infection. They state patient typically takes everything through her feeding tube, she does still swallow some pills by mouth. They deny noting any fevers or chills. Patient complains of pain in the upper back and left lateral rib pain which the family states is not new and has been an ongoing complaint of hers. They state she has seen Dr. Guerrero with palliative care. She follows with Dr. Perez of oncology. She had chemotherapy and immunotherapy 3 weeks ago and is scheduled to have another treatment again tomorrow. Due to their concern they did contact the on-call oncology nurse who instructed them to come here for further evaluation. PAST MEDICAL HISTORY:See Below PAST SURGICAL HISTORY:See Below FAMILY HISTORY:See Below SOCIAL HISTORY:See Below HOME MEDICATIONS:See Below ALLERGIES:See Below VITALS:See Below PHYSICAL EXAMINATION: GENERAL: alert, unwell appearing, well nourished, no distress, non-toxic EYE EXAM: normal conjunctiva, PERRL and EOM's grossly intact OROPHARYNX: no exudate, no erythema, lips, buccal mucosa, and tongue normal and mucous membranes are dry NECK: supple, no nuchal rigidity, no adenopathy, non-tender LUNGS: Decreased bilaterally to auscultation. Normal chest wall mechanics, no w/r/r -patient noted to be mildly hypoxic by nursing staff and placed on oxygen via nasal cannula HEART: no murmurs, S1 normal and S2 normal ABDOMEN: abdomen soft, non-tender, normo-active bowel sounds, no masses, no rebound or guarding. Well-appearing PEG tube in upper abdomen without surrounding erythema or drainage BACK: Back is symmetrical on inspection and there is no deformity, no midline tenderness, no CVA tenderness. BUTTOCK: Small area of early skin breakdown noted to medial aspect of left buttock SKIN: no rashes, petechiae, orbruising UPPER EXTREMITIES: upper extremities are grossly normal. FROM, nml pulses b/l. LOWER EXTREMITIES: No pitting edema. FROM, nml pulses b/l. NEURO EXAM: Normal sensorium, cranial nerves II-XII grossly intact, normal speech, no facial droop,nogross weakness of arms, no gross weakness of legs. Gross sensation intact. No ataxia. Vital Signs: reviewed and remarkable Differential Diagnosis: dehydration, stroke, anemia, hypoglycemia, hyponatremia, hypernatremia, urinary tract infection, pneumonia, bronchitis, sepsis, gastroenteritis, additional abdominal pathology, metabolic abnormalities, as well as others were considered MEDICAL DECISION MAKING: This a 75-year-old female with known malignancy presents the emergency department due to several days of increasing weakness and fatigue, intermittent confusion, and concern by family for possible dehydration. Patient is receiving active treatment by oncology. Patient noted to be mildly tachycardic however hemodynamically stable and afebrile on arrival. Labs drawn and sent, IV established, patient monitored on telemetry. She was started on gentle IV fluids to provide rehydration. Patient noted to have mild hyponatremia as well as significant hypomagnesemia. She was started on IV magnesium repletion. Patient noted to have hyperglycemia, no evidence of DKA. After further discussion with family at bedside, we opted perform chest x-ray additionally. This appeared worse compared to a prior chest x-ray from a few weeks ago. In light of this as well as mild hypoxia noted by nursing staff and tachycardia noted by family, patient sent for CT angiography of the chest. Case discussed with the hospitalist team for further evaluation and management. Did receive a phone call from radiology who noted patient did have a right upper lobe PE as well as worsening metastatic disease and small evolving pleural effusions. No evidence of right heart strain. Admitting hospitalist was updated on these findings. Consultation(s): 2229: DIscussed with Dr. Castellanos, [facility] hospitalist team, for additional evaluation and mgmt. 2321: Received call from reading radiologist with [facility], patient with a right upper lobe PE, no evidence of right heart strain. Patient also appears to have worsening metastatic disease to bilateral lungs. ER Treatment Provided: See below Diagnostics Interpreted By Me: -ECG: Sinus tachycardia 113, normal axis, normal intervals, PVC noted, no acute ST/T wave changes -Cardiac Monitoring: An order was placed for continuous cardiac monitoring. The monitor shows a rate of 103 with sinus tachycardia rhythm. -Laboratory studies: As stated above and show below. -Imaging studies: X-ray Chest: A single view study of the chest was reviewed and was negative for cardiomegaly, pulmonary edema, or wide mediastinum. Appearance of multiple bilateral pulmonary nodules versus metastases. Triage Nursing Note Reviewed Prior/Outside Records Reviewed -recent discharge summary reviewed Past Med/Surg History Problem List (Updated 08/01/25 @ 00:32 by Keira Leon DO) Metastasis to lung (Acute) Pulmonary embolism (Acute) Hyponatremia (Acute) Hypomagnesemia (Acute) Hyperglycemia (Acute) Fatigue (Acute) Generalized weakness (Acute) Palliative care by specialist Elevated lactic acid level (Acute) Encephalopathy (Acute) Drug side effects (Acute) Acute dehydration (Acute) Acute hyperglycemia (Acute) Pseudohyponatremia (Acute) Sepsis (Acute) Thrush Lethargy Impaired swallowing Pain from bone metastases Left shoulder pain Cancer related pain Spinal cord lesion (Acute) Arm pain (Acute) Cellulitis Ex-smoker Counseling regarding advanced directives and goals of care Abnormal chest CT Cellulitis of face (Acute) Jerri infection (Acute) Jerri infection Salivary gland obstruction Cellulitis of face Multiple pulmonary nodules PEG (percutaneous endoscopic gastrostomy) adjustment/replacement/removal (12/13/24) Removal of Feeding Tube/placement new gastrostomy tube - Malik Turner DO Esophagogastroduodenoscopy - Malik Turner DO Hypokalemia Diabetes Arthritis Anemia Recurrent squamous cell carcinoma of tongue Obesity Post-nasal drip Injury of toe, right, superficial 05/2022 Depression with anxiety Left lumbar radiculopathy GAMA (obstructive sleep apnea) Binge eating disorder Mixed hyperlipidemia Metabolic syndrome Glaucoma Spinal stenosis Diabetic peripheral neuropathy associated with type 2 diabetes mellitus (Acute) Dyslipidemia associated with type 2 diabetes mellitus (Acute) Hypertension (Acute) Loss of protective sensation of skin of foot (Acute) Type 2 diabetes mellitus (Acute) Medical History PEG tube malfunction Anemia Obesity Gout Hypertension Dyslipidemia associated with type 2 diabetes mellitus Diabetic peripheral neuropathy associated with type 2 diabetes mellitus Depression with anxiety Post-nasal drip Type 2 diabetes mellitus Spinal stenosis Glaucoma Metabolic syndrome Recurrent squamous cell carcinoma of tongue Surgery 04/2024 and 10/04/24; currently on chemo tx; follows with once per week (wednesdays); also current XRT with in [place] Hx of sepsis 2021- no residual/current issues Fatty liver Sleep apnea CPAP Crohn's disease Neck problem Cervical pitched nerve + narrowing Intermittent LUE radiculopathy and ROM limitations COPD (chronic obstructive pulmonary disease) "Mild" No inhaler Surgical History History of percutaneous endoscopic gastrostomy (11/29/24) Esophagogastroduodenoscopy with Percutaneous Endoscopic Gastrostomy (PEG) Tube - Malik Turner DO Port-A-Cath in place (11/01/24) Insertion Access Port with Fluoroscopy - Right Subclavian(Right) - Kishore Mulligan DO; MAC without issue S/P cholecystectomy S/P partial glossectomy 04/30/24: partial glossectomy with L selective neck dissection Dr. Coyle [facility]; 10/04/24: L suprahyoid neck dissection and partial glossectomy Hx of cataract extraction R/L Hx of bilateral breast reduction surgery S/P epidural steroid injection x4 [id number] History of colonoscopy History of bowel resection (~2003) 12 inches r/t Crohn's disease (1971) Re-do r/t Crohn's disease (2003)- also had gallbladder removed at this time History of appendectomy (1971) Family History Father Family history of diabetes mellitus Diabetes Stroke Daughter Breast cancer Uncle Diabetes Grandmother Diabetes Stroke Other No family history of adverse response to anesthesia Social History Smoking Status: Former smoker Tobacco Type: Cigarettes Age Started Using Tobacco: 1 (unknown); Age Quit Using Tobacco: 0 (unknown); packs per day: 1; Cigarettes Per Day: 1979; Second Hand Exposure: No; Do You Dip or Chew Tobacco: No; Hx Alcohol Use: No Hx Substance Use: No Preferred Language: Ghanaian Communication Ability: Effective Visual Impairment: No Limitations Graphics Edit Technician Required: No Beliefs That Will Affect Care: None Current Living Situation: Spouse Feels Safe at Home: Yes Assistive Devices: Cane and Walker Allergies Allergies Allergy/AdvReac Type Severity Reaction Status Date / Time latex Allergy Intermediate Blisters Verified 07/12/25 17:59 Penicillins Allergy Intermediate Hives Verified 07/12/25 17:59 lisinopril AdvReac Intermediate fluid Verified 07/12/25 17:59 retention [id number] Reductase AdvReac Intermediate "FILLED UP Verified 07/12/25 17:59 Inhibitor WITH FLUID" Home Meds Home Medications Medication Instructions Recorded Confirmed CPAP Machine 04/19/21 06/20/25 soft lens rinse,store solution 05/29/22 06/20/25 (Bio true solution) blood-glucose sensor (Dexcom G7 01/19/24 06/20/25 Sensor device) cyclosporine 0.05 % eye drops in a 0 drp OPB BID 10/26/24 07/31/25 dropperette latanoprostene bunod 0.024 % eye 0 drp ophthalmic (eye) QPM 04/13/25 07/31/25 drops (Vyzulta) mercaptopurine 50 mg tablet 50 mg feeding tube DAILY 04/13/25 07/31/25 buspirone 30 mg tablet 30 mg feeding tube TID 05/27/25 07/31/25 gabapentin 800 mg tablet 800 mg feeding tube TID 05/27/25 07/31/25 loperamide 2 mg tablet (Imodium 2 mg PO Q6H PRN Other 05/27/25 07/31/25 A-D) prochlorperazine maleate 10 mg 10 mg feeding tube Q6H PRN n/v 05/27/25 07/31/25 tablet magnesium oxide 400 mg (241.3 mg 400 mg feeding tube QAM 07/12/25 07/31/25 magnesium) tablet olanzapine 2.5 mg tablet 2.5 mg feeding tube DIRECTED 07/12/25 07/31/25 PRN n/v ondansetron 4 mg disintegrating 4 mg PO BID nausea and vomiting 07/12/25 07/31/25 tablet cyanocobalamin (vitamin B-12) 1,000 mcg IM .Q 2 weeks 07/29/25 07/31/25 1,000 mcg/mL injection solution dexamethasone 1 mg tablet 1 mg feeding tube DAILY 07/29/25 07/31/25 hydromorphone 2 mg tablet 2 - 4 mg PO Q6H PRN Cancer-related 07/31/25 07/31/25 (Dilaudid) Pain Previous Rx's Medication Instructions Recorded blood-glucose meter (Contour Next #1 ea 02/21/23 One Meter) duloxetine 20 mg capsule,delayed 20 mg PO QAM #30 caps 07/05/25 release pantoprazole 40 mg tablet,delayed 40 mg PO BID #60 tabs 07/05/25 release fentanyl 50 mcg/hr transdermal 1 patch transdermal Q72H cancer 07/07/25 patch pain 1 month #10 ea blood sugar diagnostic (Contour #400 ea 07/18/25 Next Test Strips) insulin aspart U-100 100 unit/mL See Rx Instructions subcut 07/18/25 (3 mL) subcutaneous pen (Novolog TIDWMEAL #60 mL FlexPen U-100 Insulin aspart) pen needle, diabetic 31 gauge x #500 ea 07/18/2512/05" Microlet Lancet (lancets) #300 ea 07/28/25 Results & Data (ED) Vital Signs Vital Signs - 24 hr 07/31/25 15:11 07/31/25 16:08 07/31/25 16:52 Temperature 36.7 C Temperature Source Temporal Artery Scan Pulse Rate 117 H 104 H Pulse Rate [Apical] 99 H Pulse Rhythm [Apical] Pulse Strength [Apical] Respiratory Rate 20 18 Respiratory Effort / Characteristics Non-Labored Spontaneous Respiratory Depth Normal Respiratory Pattern Blood Pressure 108/72 Blood Pressure [Left Arm] 143/85 H Blood Pressure Mean 84 Blood Pressure Mean [Left Arm] 104 Blood Pressure Position [Left Arm] Sitting Pulse Oximetry 91 93 Oxygen Delivery Method Room Air Nasal Cannula Oxygen Flow Rate 2 Sepsis Recent Fever Within 48 Hours No Sepsis New/Unexplained Change in Mental Status N/A Sepsis Action Taken by Nursing No Action Required 07/31/25 18:00 07/31/25 20:00 07/31/25 22:00 Temperature Temperature Source Pulse Rate Pulse Rate [Apical] 94 H 96 H 96 H Pulse Rhythm [Apical] Regular Regular Pulse Strength [Apical] Normal Normal Respiratory Rate 18 26 H 22 Respiratory Effort / Characteristics Non-Labored Spontaneous Spontaneous Spontaneous Respiratory Depth Normal Normal Normal Respiratory Pattern Regular Regular Blood Pressure Blood Pressure [Left Arm] 147/99 H 132/77 132/77 Blood Pressure Mean Blood Pressure Mean [Left Arm] 115 95 95 Blood Pressure Position [Left Arm] Lying Pulse Oximetry 94 92 92 Oxygen Delivery Method Room Air Room Air Room Air Oxygen Flow Rate Sepsis Recent Fever Within 48 Hours Sepsis New/Unexplained Change in Mental Status Sepsis Action Taken by Nursing 08/01/25 00:09 08/01/25 00:28 Temperature Temperature Source Pulse Rate 101 H Pulse Rate [Apical] 101 H Pulse Rhythm [Apical] Pulse Strength [Apical] Respiratory Rate 16 Respiratory Effort / Characteristics Respiratory Depth Respiratory Pattern Blood Pressure Blood Pressure [Left Arm] 157/88 H Blood Pressure Mean Blood Pressure Mean [Left Arm] 111 Blood Pressure Position [Left Arm] Pulse Oximetry 97 Oxygen Delivery Method Oxygen Flow Rate Sepsis Recent Fever Within 48 Hours Sepsis New/Unexplained Change in Mental Status Sepsis Action Taken by Nursing Laboratory Data 07/31/25 15:50 07/31/25 15:50 Lab Results 07/31/25 07/31/25 Range/Units 15:13 15:50 WBC 9.20 (4.8-10.8) K/ul RBC 3.47 L (4.20-5.40) M/uL Hgb 10.5 L (12.0-16.0) g/dl Hct 31.7 L (37.0-47.0) % MCV 91.4 (80.0-100.0) fL MCH 30.3 (25.0-34.0) pg MCHC 33.1 (32.0-36.0) g/dL RDW Std Deviation 50.9 H (36.4-46.3) fL RDW Coeff of Nelia 15.8 H (11.5-14.5) % Plt Count 403 H (130-400) K/uL MPV 9.4 (9.4-12.4) fL Immature Gran % (Auto) 1.7 % Neut % (Auto) 87.0 % Lymph % (Auto) 5.2 % [place] % (Auto) 5.8 % Eos % (Auto) 0.1 % Baso % (Auto) 0.2 % Neut # (Auto) 8.00 H (1.40-6.50) K/uL Lymph # (Auto) 0.48 L (1.20-3.40) K/uL [place] # (Auto) 0.53 (0.11-0.59) K/uL Eos # (Auto) 0.01 (0.00-0.50) K/uL Baso # (Auto) 0.02 (0.00-0.20) K/uL Immature Gran # (Auto) 0.16 (0.01-0.20) K/uL Absolute Nucleated RBC 0.05 (0.00-0.12) K/uL Nucleated RBC % (auto) 0.5 % PT 11.5 (9.0-12.0) Seconds INR 1.1 (0.9-1.1) Sodium 131 L (136-145) mmol/L Potassium 3.6 (3.5-5.1) mmol/L Chloride 87 L (98-107) mmol/L Carbon Dioxide 34 H (21-32) mmol/L Anion Gap 10 (3-11) BUN 16 (6-23) mg/dl Creatinine 0.49 L (0.6-1.2) mg/dl Est Cr Clr Drug Dosing 104.6 ml/min eGFR 97.01 BUN/Creatinine Ratio 32.7 H (10-20) Glucose 316 H* (70-99(Fasting)) mg/dl POC Glucose 269 H (70-99) mg/dl Calcium 9.6 (8.6-10.3) mg/dl Magnesium 1.4 L (1.7-2.4) mg/dl Total Bilirubin 0.5 (0.2-1.0) mg/dl AST 12 L (13-39) U/L ALT 10 (7-52) U/L Alkaline Phosphatase 82 (34-104) U/L Total Protein 6.3 (6.0-8.3) gm/dl Albumin 2.9 L (3.4-5.0) gm/dl Globulin 3.4 (2.5-4.0) gm/dl Albumin/Globulin Ratio 0.9 (0.9-2) Lipase 56 (11-82) U/L Administered Medications Hydromorphone HCl (Hydromorphone Inj 0.5 Mg/0.5 Ml Syr) 0.5 mg IV Q15M PRN PRN Reason: Pain Stop: 08/14/25 22:14 Last Admin: 07/31/25 23:45 Dose: 0.5 mg Documented By: mls Sodium Chloride (Nss) 1,000 mls @ 125 mls/hr IV .Q8H CHARI Stop: 08/03/25 16:44 Last Admin: 07/31/25 16:45 Dose: 125 mls/hr Documented By: CC Discontinued Medications Buspirone HCl (Buspirone 15 Mg Tab) 30 mg PEG NOW STA Stop: 07/31/25 23:00 Last Admin: 08/01/25 00:06 Dose: 30 mg Documented By: mls Gabapentin (Gabapentin 250 Mg/5 Ml 470 Ml Btl) 800 mg PEG NOW STA Stop: 07/31/25 23:13 Last Admin: 07/31/25 23:58 Dose: 800 mg Documented By: shyanne Hydromorphone HCl (Hydromorphone Hcl 2 Mg Tab) 2 mg PO NOW STA Stop: 07/31/25 23:00 Last Admin: 08/01/25 00:11 Dose: Not Given Documented By: shyanne Magnesium Sulfate/Dextrose (Magnesium Sulfate / D5w) 1 gm in 100 mls @ 100 mls/hr IV Q1H CHARI Stop: 07/31/25 19:26 Last Infusion: 07/31/25 19:41 Dose: Infused Documented By: wendie Admin: 07/31/25 18:39 Dose: 100 mls/hr Documented By: scooter Infusion: 07/31/25 18:39 Dose: Infused Documented By: [facility] [place] Admin: 07/31/25 17:38 Dose: 100 mls/hr Documented By: wendie Ioversol (Optiray 320 125ml) 115 ml IV ONCE ONE Stop: 07/31/25 20:43 Last Admin: 07/31/25 20:43 Dose: 115 ml Documented By: MAX Lansoprazole (Lansoprazole 30 Mg Soltab) 30 mg PEG NOW STA Stop: 07/31/25 23:14 Last Admin: 08/01/25 00:10 Dose: 30 mg Documented By: shyanne Ondansetron HCl (Ondansetron Oral Soln 0.8 Mg/1 Ml) 4 mg PEG NOW STA Stop: 07/31/25 23:13 Last Admin: 08/01/25 00:02 Dose: 4 mg Documented By: shyanne Imaging Data Radiologist's Impression: Chest X-Ray 07/31/25 19:22 Chest radiograph, one view History: Shortness of breath Comparison: 07/12/2025 Findings: Single AP view of the chest performed. Numerous rounded nodular opacities throughout both lungs again seen and appear increased. Right chest wall port with catheter tip at the mid SVC. Blunted left costophrenic angle. No pneumothorax. The cardiomediastinal silhouette is within normal limits. Normal pulmonary vascularity. No visualized bony or soft tissue abnormality. Impression: Blunted left costophrenic angle, may represent new small pleural effusion and/or atelectasis. Numerous nodular densities increased from prior. Electronically signed by Joaquín Appiah 07-31-2025 8:06 PM Chest CTA 07/31/25 19:58 CR Exam(s): CTA CHEST IV Amt: 115 ml optiray 320 EXAM: CT Angiography Chest With Intravenous Contrast CLINICAL HISTORY: Reason for exam: PE, sob, hypoxia, hx ca. TECHNIQUE: Axial computed tomographic angiography images of the chest with intravenous contrast. Automated exposure control was utilized for the study. A dose lowering technique was utilized adhering to the principles of ALARA. MIP reconstructed images were created and reviewed. COMPARISON: No relevant prior studies available. FINDINGS: Pulmonary arteries: There is a pulmonary embolism noted in a right upper lobe pulmonary artery segment. The RV/LV ratio is 0.9 Aorta: There are atherosclerotic changes.. No thoracic aortic aneurysm. Lungs: There are bilateral pulmonary nodular opacities. Pleural space: There is a small left pleural effusion with a trace right pleural effusion.. No pneumothorax. Heart: Heart is normal in size.. Bones/joints: There are marked degenerative changes in the spine.. Soft tissues: Unremarkable. Lymph nodes: No enlarged lymph nodes. IMPRESSION: There is a pulmonary embolism noted in a right upper lobe pulmonary artery segment There are bilateral pulmonary nodular opacities which have markedly increased in size and number compared to previous examination. This may represent metastatic disease. There is a small left pleural effusion with a trace right pleural effusion Communications: Call Doctor Pulmonary Embolism Electronically signed by: Wally Woodward MD 07/31/25 23:24 PM Discharge Plan Visit Data Chief Complaint: Referred by Doctor Stated Complaint: HARD TIME REGULATING BS ON CHEMO DOC REFERRAL ED Provider: Keira Leon Discharge Problem: Generalized weakness, Fatigue, Hyperglycemia, Hypomagnesemia, Hyponatremia, Pulmonary embolism, Metastasis to lung Patient Disposition: Being Evaluated by Hospitalist Condition: Fair Forms Stand Alone Forms: My [employer] Prescriptions Prescriptions: No Action dexamethasone 1 mg tablet 1 mg feeding tube DAILY Taper: Taper, Blank 2 mg TWICE A DAY for 3 Days 1 mg TWICE A DAY for 7 Days Patient Comments: 07/31- per daughter 08/01 is her last dose (DME) blood-glucose meter [facility] M[facility] See Rx Instructions .ROUTE .MEDSUPPLY Qty: 1 0RF Rx Instructions: Test blood sugars 1 x times a day (DME) Contour Next Test Strips Strip See Rx Instructions .ROUTE .MEDSUPPLY Qty: 400 3RF Rx Instructions: Test blood sugar four times daily (DME) pen needle, diabetic 31 gauge x 3/16" needle See Dose Instructions .ROUTE .MEDSUPPLY Qty: 500 3RF Rx Instructions: use to inject insulin 5 times daily as directed insulin aspart U-100 [Novolog FlexPen U-100 Insulin] 100 unit/mL (3 mL) insulin pen See Rx Instructions SQ TIDWMEAL MDD 60 Qty: 60 3RF Rx Instructions: sliding scale dosing TDD 60 units subcutaneously 3 times per day with meals; (DME) lancets [Microlet Lancet] Misc See Rx Instructions .ROUTE .MEDSUPPLY Qty: 300 3RF Rx Instructions: Test blood sugars Three times a day (DME) Dexcom G7 Sensor Device See Rx Instructions .Route Rx Instructions: change every 10 days (DME) Bio true Solution See Rx Instructions .Route Rx Instructions: As directed; PRN (DME) CPAP Machine Misc See Rx Instructions .Route Rx Instructions: As directed buspirone 30 mg tablet 30 mg feeding tube TID gabapentin 800 mg tablet 800 mg feeding tube TID prochlorperazine maleate 10 mg tablet 10 mg feeding tube Q6H PRN (Reason: n/v) loperamide [Imodium A-D] 2 mg tablet 2 mg PO Q6H PRN (Reason: Other) Patient Comments: 06/29- otc unable to verify mercaptopurine 50 mg tablet 50 mg feeding tube DAILY Vyzulta 0.024 % drops 0 drp ophthalmic (eye) QPM Patient Comments: 07/31- not currently using medication fentanyl 50 mcg/hr patch 72 hour 1 patch transdermal Q72H 30 Days Qty: 10 0RF cyclosporine 0.05 % dropperette 0 drp OPB BID Patient Comments: 07/31- not currently using medication olanzapine 2.5 mg tablet 2.5 mg feeding tube DIRECTED PRN (Reason: n/v) Rx Instructions: TAKEN DAY (07/11/25) OF CHEMO, THEN 4 DAYS AFTER. PER PT'S DAUGHTER "THIS WILL NOT BE DONE WITH NEXT RX". magnesium oxide 400 mg (241.3 mg magnesium) tablet 400 mg feeding tube QAM ondansetron 4 mg tablet,disintegrating 4 mg PO BID cyanocobalamin (vitamin B-12) 1,000 mcg/mL solution 1,000 mcg IM .Q 2 weeks Patient Comments: 07/31-scheduled for this Friday pantoprazole 40 mg Tablet,Delayed Release (Dr/Ec) 40 mg PO BID Qty: 60 0RF Rx Instructions: DO NOT CRUSH duloxetine 20 mg Capsule,Delayed Release(Dr/Ec) 20 mg PO QAM Qty: 30 0RF Rx Instructions: DO NOT CRUSH hydromorphone [Dilaudid] 2 mg tablet 2 - 4 mg PO Q6H PRN (Reason: Cancer-related Pain) Rx Instructions: Take 1-2 tablets every 6 hours as needed for cancer related pain Referrals Referrals: Lilian Godwin MD [Primary Care Provider] -
--- NOTE | 2025-07-31 23:03 | History & Physical Report ---
Date of Service July 31, 2025 Assessment & Plan (1) Pulmonary embolism: (2) Metastasis to lung: (3) Hyponatremia: (4) Hypomagnesemia: (5) Cancer related pain: (6) GAMA (obstructive sleep apnea): Plan 75yo female with metastatic head and neck cancer presenting with cough, lethargy and confusion. Patient with hypomagnesemia, mild hyponatremia and hyperglycemia. #Pulmonary Embolism - patient found with new PE in the RUL. No right heart strain. PESI score - Class V associated with very high risk of mortality, largely due malignancy as well as elevated HR on arrival. Normal shock index -Admit to PCU -Initiate heparin gtt. Discussed with patient's daughter. Patient with recent PET scan and MRI of the brain. She has a lesion in the occipital bone but does not seem to have any active brain lesions -Check 2D echo #Metastatic head and neck cancer - increased size of pulmonary lesions. Patient follows with Oncology. First chemotherapy treatment was 3 weeks ago. Patient with PEG tube in place. She receives tube feeds and protein supplementation as well as most medications via PEG. She does take some medications by mouth if unable to be crushed. -Pain control with Tylenol 1gm IV q 8 hours, Dilaudid 2-4mg po q 6 hours as needed by tiered pain scale -Continue Fentanyl 50mcg patch - last placed yesterday -Continue Gabapentin 800mg po TID -Dexamethasone 1mg po daily to complete recent course - last dose is tomorrow 08/01 -Sean Stafford PRN -Hematology consultation appreciated -Licensed Embalmer Consultation appreciated - states that patient receives Nutren 2.0 3 cans per day (08:00, 12:00 and 16:00) then a protein supplement at the end of the day. Also gives free water flushes 20-30mL before and after each feed. Has been giving Pedialyte as well. #Wound left buttock -Wound care BID -Turn q 2 hours -Heel precautions #Diarrhea -Check stool PCR -Check stool c. diff #Anxiety/Mental Health -Continue Duloxetine 20mg po qAM #Diabetes - with hyperglycemia -Lantus 12u BID -ISS -Goal blood sugar 110 - 160 -Pharmacy glycemic management consultation appreciated #Hypomagnesemia -2gm Mg ordered -Monitor labs in AM #Crohns -Continue Mercaptopurine 50mg po daily Heparin gtt DNR per discussion with patient History of Present Illness Chief Complaint: fatigue, cough, hyperglycemia Primary Care Provider: Lilian Godwin MD Carley Ramos is a 75yo female with history of metastatic head and neck cancer s/p previous resection, chemotherapy and XRT. Patient follows with Dr. Perez for immunotherapy. Known metastatic lesion to the thoracic spine status post 5 treatments of XRT. Patient with PEG tube in place, receiving tube feeds and protein supplements. Patient was recently admitted to [facility] from 07/12 - 07/14 after presenting with lethargy. Thought to be secondary to medications possibly. She was treated with Keflex x 7 days for possible pneumonia. She had elevation of troponin - suspected Type II NSTEMI in setting of malignancy. Also with hyponatremia with initial Na of 127. Patient was ultimately discharged home with a Dexamethasone taper, Nystatin suspension and PO dilaudid. She returns today with complaint of cough productive for clear sputum. Also with hyperglycemia - daughter reports blood sugars at home have been 250-300 which is atypical for her. Also with periods of confusion and increased lethargy. Also with episode of non-bloody diarrhea today. Daughter states that patient was clammy and sweaty yesterday as well. No fever, chills, urinary complaints. She does have a wound on her left buttock - no drainage or evidence of infection. In the ER patient with tachycardia, hypoxic briefly (not documented) placed on NC 2L. ER Course: NSS Magnesium x 2gm Dilaudidd 0.5mg IV Gabapentin 800mg zofran 4mg Buspirone 30mg Lansoprazole 30mg Heparin gtt initiated Allergies Allergy/AdvReac Type Severity Reaction Status Date / Time latex Allergy Intermediate Blisters Verified 07/12/25 17:59 Penicillins Allergy Intermediate Hives Verified 07/12/25 17:59 lisinopril AdvReac Intermediate fluid Verified 07/12/25 17:59 retention [id number] Reductase AdvReac Intermediate "FILLED UP Verified 07/12/25 17:59 Inhibitor WITH FLUID" Home Medications Medication Instructions Recorded Confirmed Type CPAP Machine 04/19/21 06/20/25 History soft lens rinse,store solution 05/29/22 06/20/25 History (Bio true solution) blood-glucose meter (Contour Next #1 ea 02/21/23 06/20/25 Rx One Meter) blood-glucose sensor (Dexcom G7 01/19/24 06/20/25 History Sensor device) cyclosporine 0.05 % eye drops in a 0 drp OPB BID 10/26/24 07/31/25 History dropperette latanoprostene bunod 0.024 % eye 0 drp ophthalmic (eye) QPM 04/13/25 07/31/25 History drops (Vyzulta) mercaptopurine 50 mg tablet 50 mg feeding tube DAILY 04/13/25 07/31/25 History buspirone 30 mg tablet 30 mg feeding tube TID 05/27/25 07/31/25 History gabapentin 800 mg tablet 800 mg feeding tube TID 05/27/25 07/31/25 History loperamide 2 mg tablet (Imodium 2 mg PO Q6H PRN Other 05/27/25 07/31/25 History A-D) prochlorperazine maleate 10 mg 10 mg feeding tube Q6H PRN n/v 05/27/25 07/31/25 History tablet duloxetine 20 mg capsule,delayed 20 mg PO QAM #30 caps 07/05/25 07/31/25 Rx release pantoprazole 40 mg tablet,delayed 40 mg PO BID #60 tabs 07/05/25 07/31/25 Rx release fentanyl 50 mcg/hr transdermal 1 patch transdermal Q72H cancer 07/07/25 07/31/25 Rx patch pain 1 month #10 ea magnesium oxide 400 mg (241.3 mg 400 mg feeding tube QAM 07/12/25 07/31/25 History magnesium) tablet olanzapine 2.5 mg tablet 2.5 mg feeding tube DIRECTED 07/12/25 07/31/25 History PRN n/v ondansetron 4 mg disintegrating 4 mg PO BID nausea and vomiting 07/12/25 History tablet blood sugar diagnostic (Contour #400 ea 07/18/25 Rx Next Test Strips) insulin aspart U-100 100 unit/mL See Rx Instructions subcut 07/18/25 07/31/25 Rx (3 mL) subcutaneous pen (Novolog TIDWMEAL #60 mL FlexPen U-100 Insulin aspart) pen needle, diabetic 31 gauge x #500 ea 07/18/25 Rx 3/16" Microlet Lancet (lancets) #300 ea 07/28/25 Rx cyanocobalamin (vitamin B-12) 1,000 mcg IM .Q 2 weeks 07/29/25 07/31/25 History 1,000 mcg/mL injection solution dexamethasone 1 mg tablet 1 mg feeding tube DAILY 07/29/25 07/31/25 History hydromorphone 2 mg tablet 2 - 4 mg PO Q6H PRN Cancer-related 07/31/25 07/31/25 History (Dilaudid) Pain Past Med/Surg History Problem List Metastasis to lung (Acute) Pulmonary embolism (Acute) Hyponatremia (Acute) Hypomagnesemia (Acute) Hyperglycemia (Acute) Fatigue (Acute) Generalized weakness (Acute) Palliative care by specialist Elevated lactic acid level (Acute) Encephalopathy (Acute) Drug side effects (Acute) Acute dehydration (Acute) Acute hyperglycemia (Acute) Pseudohyponatremia (Acute) Sepsis (Acute) Thrush Lethargy Impaired swallowing Pain from bone metastases Left shoulder pain Cancer related pain Spinal cord lesion (Acute) Arm pain (Acute) Cellulitis Ex-smoker Counseling regarding advanced directives and goals of care Abnormal chest CT Cellulitis of face (Acute) Jerri infection (Acute) Jerri infection Salivary gland obstruction Cellulitis of face Multiple pulmonary nodules PEG (percutaneous endoscopic gastrostomy) adjustment/replacement/removal (12/13/24) Removal of Feeding Tube/placement new gastrostomy tube - Malik Turner DO Esophagogastroduodenoscopy - Malik Turner DO Hypokalemia Diabetes Arthritis Anemia Recurrent squamous cell carcinoma of tongue Obesity Post-nasal drip Injury of toe, right, superficial 05/2022 Depression with anxiety Left lumbar radiculopathy GAMA (obstructive sleep apnea) Binge eating disorder Mixed hyperlipidemia Metabolic syndrome Glaucoma Spinal stenosis Diabetic peripheral neuropathy associated with type 2 diabetes mellitus (Acute) Dyslipidemia associated with type 2 diabetes mellitus (Acute) Hypertension (Acute) Loss of protective sensation of skin of foot (Acute) Type 2 diabetes mellitus (Acute) Medical History Hyponatremia Hyperglycemia Counseling regarding goals of care PEG tube malfunction Hypomagnesemia heme/onc monitoring and supplementing Crohn disease Anemia Obesity Gout Hypertension Dyslipidemia associated with type 2 diabetes mellitus Diabetic peripheral neuropathy associated with type 2 diabetes mellitus Depression with anxiety Post-nasal drip Type 2 diabetes mellitus Spinal stenosis Glaucoma Metabolic syndrome Recurrent squamous cell carcinoma of tongue Surgery 04/2024 and 10/04/24; currently on chemo tx; follows with once per week (wednesdays); also current XRT with in [place] Hx of sepsis 2021- no residual/current issues Fatty liver Sleep apnea CPAP Crohn's disease Neck problem Cervical pitched nerve + narrowing Intermittent LUE radiculopathy and ROM limitations COPD (chronic obstructive pulmonary disease) "Mild" No inhaler Surgical History History of percutaneous endoscopic gastrostomy (11/29/24) Esophagogastroduodenoscopy with Percutaneous Endoscopic Gastrostomy (PEG) Tube - Malik Turner DO Port-A-Cath in place (11/01/24) Insertion Access Port with Fluoroscopy - Right Subclavian(Right) - Kishore Mulligan DO; MAC without issue S/P cholecystectomy S/P partial glossectomy 04/30/24: partial glossectomy with L selective neck dissection Dr. Coyle [facility]; 10/04/24: L suprahyoid neck dissection and partial glossectomy Hx of cataract extraction R/L Hx of bilateral breast reduction surgery S/P epidural steroid injection x4 [id number] History of colonoscopy History of bowel resection (~2003) 12 inches r/t Crohn's disease (1971) Re-do r/t Crohn's disease (2003)- also had gallbladder removed at this time History of appendectomy (1971) Family History Father Family history of diabetes mellitus Diabetes Stroke Daughter Breast cancer Uncle Diabetes Grandmother Diabetes Stroke Other No family history of adverse response to anesthesia Social History Smoking Status: Former smoker Tobacco Type: Cigarettes Age Started Using Tobacco: 0 (unknown); Age Quit Using Tobacco: 0 (unknown); packs per day: 1; Cigarettes Per Day: 1979; Second Hand Exposure: No; Do You Dip or Chew Tobacco: No; Hx Alcohol Use: No Hx Substance Use: No Preferred Language: Belarusian Communication Ability: Effective Visual Impairment: No Limitations Proof Plate Maker Required: No Beliefs That Will Affect Care: None Current Living Situation: Spouse Feels Safe at Home: Yes Assistive Devices: Cane and Walker Review of Systems Review of Systems: All systems reviewed & are unremarkable except as noted in HPI & below Physical Exam Physical Exam: General: patient somnolent, arousable, answers some questions, family at bedside ( and daughter) provide majority of history Skin: warm, dry, intact, no rashes or lesions HEENT: NC/AT, PERRL, EOMI, anicteric sclera, conjunctiva without injection, external ear normal to inspection and nontender, nares patent, moist mucus membranes, dentition intact, no oropharyngeal lesions, neck supple, trachea midline, no LAD, no thyromegaly, no JVD Heart: +S1/S2, regular, tachycardic, 3/6 SHANTELL at right 2nd ICS Lungs: crackles present in left lung, no wheeze Abd: +BS, soft, NT/ND, no masses/organomegaly/ascites Ext: warm, 2+ pulses in UE/LE bilaterally, no clubbing/cyanosis or edema Neuro: nonfocal Results & Data Results & Data Vital Signs (Past 12 Hours) Vital Signs Temp Pulse Pulse Resp BP BP Pulse Ox 07/31/25 22:00 96 H 22 132/77 92 07/31/25 20:00 96 H 26 H 132/77 92 07/31/25 18:00 94 H 18 147/99 H 94 07/31/25 16:52 99 H 18 143/85 H 93 07/31/25 16:08 104 H 07/31/25 15:11 36.7 C 117 H 20 108/72 91 O2 Del Method O2 Flow Rate 07/31/25 22:00 Room Air 07/31/25 20:00 Room Air 07/31/25 18:00 Room Air 07/31/25 16:52 Nasal Cannula 2 07/31/25 16:08 07/31/25 15:11 Room Air Laboratory Results Laboratory Results WBC 9.20 K/ul (4.8-10.8) 07/31/25 15:50 RBC 3.47 M/uL (4.20-5.40) L 07/31/25 15:50 Hgb 10.5 g/dl (12.0-16.0) L 07/31/25 15:50 Hct 31.7 % (37.0-47.0) L 07/31/25 15:50 MCV 91.4 fL (80.0-100.0) 07/31/25 15:50 MCH 30.3 pg (25.0-34.0) 07/31/25 15:50 MCHC 33.1 g/dL (32.0-36.0) 07/31/25 15:50 RDW Std Deviation 50.9 fL (36.4-46.3) H 07/31/25 15:50 RDW Coeff of Nelia 15.8 % (11.5-14.5) H 07/31/25 15:50 Plt Count 403 K/uL (130-400) H 07/31/25 15:50 MPV 9.4 fL (9.4-12.4) 07/31/25 15:50 Immature Gran % (Auto) 1.7 % 07/31/25 15:50 Neut % (Auto) 87.0 % 07/31/25 15:50 Lymph % (Auto) 5.2 % 07/31/25 15:50 Gilchrist % (Auto) 5.8 % 07/31/25 15:50 Eos % (Auto) 0.1 % 07/31/25 15:50 Baso % (Auto) 0.2 % 07/31/25 15:50 Neut # (Auto) 8.00 K/uL (1.40-6.50) H 07/31/25 15:50 Lymph # (Auto) 0.48 K/uL (1.20-3.40) L 07/31/25 15:50 Gilchrist # (Auto) 0.53 K/uL (0.11-0.59) 07/31/25 15:50 Eos # (Auto) 0.01 K/uL (0.00-0.50) 07/31/25 15:50 Baso # (Auto) 0.02 K/uL (0.00-0.20) 07/31/25 15:50 Immature Gran # (Auto) 0.16 K/uL (0.01-0.20) 07/31/25 15:50 Absolute Nucleated RBC 0.05 K/uL (0.00-0.12) 07/31/25 15:50 Nucleated RBC % (auto) 0.5 % 07/31/25 15:50 PT 11.5 Seconds (9.0-12.0) 07/31/25 15:50 INR 1.1 (0.9-1.1) 07/31/25 15:50 APTT 26 Seconds (21-31) 08/01/25 00:23 PTT Ratio 1.0 08/01/25 00:23 Sodium 131 mmol/L (136-145) L 07/31/25 15:50 Potassium 3.6 mmol/L (3.5-5.1) 07/31/25 15:50 Chloride 87 mmol/L (98-107) L 07/31/25 15:50 Carbon Dioxide 34 mmol/L (21-32) H 07/31/25 15:50 Anion Gap 10 (3-11) 07/31/25 15:50 BUN 16 mg/dl (6-23) 07/31/25 15:50 Creatinine 0.49 mg/dl (0.6-1.2) L 07/31/25 15:50 Est Cr Clr Drug Dosing 104.6 ml/min 07/31/25 15:50 eGFR 97.01 07/31/25 15:50 BUN/Creatinine Ratio 32.7 (10-20) H 07/31/25 15:50 Glucose 316 mg/dl (70-99(Fasting)) H* 07/31/25 15:50 POC Glucose 273 mg/dl (70-99) H 08/01/25 01:32 Calcium 9.6 mg/dl (8.6-10.3) 07/31/25 15:50 Magnesium 1.4 mg/dl (1.7-2.4) L 07/31/25 15:50 Total Bilirubin 0.5 mg/dl (0.2-1.0) 07/31/25 15:50 AST 12 U/L (13-39) L 07/31/25 15:50 ALT 10 U/L (7-52) 07/31/25 15:50 Alkaline Phosphatase 82 U/L (34-104) 07/31/25 15:50 B-Natriuretic Peptide 54 pg/ml (0-100) 07/31/25 15:50 Total Protein 6.3 gm/dl (6.0-8.3) 07/31/25 15:50 Albumin 2.9 gm/dl (3.4-5.0) L 07/31/25 15:50 Globulin 3.4 gm/dl (2.5-4.0) 07/31/25 15:50 Albumin/Globulin Ratio 0.9 (0.9-2) 07/31/25 15:50 Lipase 56 U/L (11-82) 07/31/25 15:50 Procalcitonin 0.05 ng/ml (0-0.5) 07/31/25 15:50 Impressions Chest X-Ray 07/31/25 19:22 Chest radiograph, one view History: Shortness of breath Comparison: 07/12/2025 Findings: Single AP view of the chest performed. Numerous rounded nodular opacities throughout both lungs again seen and appear increased. Right chest wall port with catheter tip at the mid SVC. Blunted left costophrenic angle. No pneumothorax. The cardiomediastinal silhouette is within normal limits. Normal pulmonary vascularity. No visualized bony or soft tissue abnormality. Impression: Blunted left costophrenic angle, may represent new small pleural effusion and/or atelectasis. Numerous nodular densities increased from prior. Electronically signed by Joaquín Appiah 07-31-2025 8:06 PM Chest CTA 07/31/25 19:58 CR Exam(s): CTA CHEST IV Amt: 115 ml optiray 320 EXAM: CT Angiography Chest With Intravenous Contrast CLINICAL HISTORY: Reason for exam: PE, sob, hypoxia, hx ca. TECHNIQUE: Axial computed tomographic angiography images of the chest with intravenous contrast. Automated exposure control was utilized for the study. A dose lowering technique was utilized adhering to the principles of ALARA. MIP reconstructed images were created and reviewed. COMPARISON: No relevant prior studies available. FINDINGS: Pulmonary arteries: There is a pulmonary embolism noted in a right upper lobe pulmonary artery segment. The RV/LV ratio is 0.9 Aorta: There are atherosclerotic changes.. No thoracic aortic aneurysm. Lungs: There are bilateral pulmonary nodular opacities. Pleural space: There is a small left pleural effusion with a trace right pleural effusion.. No pneumothorax. Heart: Heart is normal in size.. Bones/joints: There are marked degenerative changes in the spine.. Soft tissues: Unremarkable. Lymph nodes: No enlarged lymph nodes. IMPRESSION: There is a pulmonary embolism noted in a right upper lobe pulmonary artery segment There are bilateral pulmonary nodular opacities which have markedly increased in size and number compared to previous examination. This may represent metastatic disease. There is a small left pleural effusion with a trace right pleural effusion Communications: Call Doctor Pulmonary Embolism Electronically signed by: Wally Woodward MD 07/31/25 23:24 PM PG Care Time/CCT Total # of Minutes Spent Total Time Spent with Patient: Total time spent is greater than 50% in coordination of care (as documented) at patient's floor/unit and/or counseling patient: Coding Level of Care Code 29369 INT INP/OBS CARE 3/75MIN Diagnoses Pulmonary embolism I26.99 Metastasis to lung C78.00 Hyponatremia E87.1 Hypomagnesemia E83.42 Cancer related pain G89.3 GAMA (obstructive sleep apnea) G47.33
--- NOTE | 2025-07-31 23:25 | CT Scan Report ---
Exam(s): CTA CHEST IV Amt: 115 ml optiray 320 EXAM: CT Angiography Chest With Intravenous Contrast CLINICAL HISTORY: Reason for exam: PE, sob, hypoxia, hx ca. TECHNIQUE: Axial computed tomographic angiography images of the chest with intravenous contrast. Automated exposure control was utilized for the study. A dose lowering technique was utilized adhering to the principles of ALARA. MIP reconstructed images were created and reviewed. COMPARISON: No relevant prior studies available. FINDINGS: Pulmonary arteries: There is a pulmonary embolism noted in a right upper lobe pulmonary artery segment. The RV/LV ratio is 0.9 Aorta: There are atherosclerotic changes.. No thoracic aortic aneurysm. Lungs: There are bilateral pulmonary nodular opacities. Pleural space: There is a small left pleural effusion with a trace right pleural effusion.. No pneumothorax. Heart: Heart is normal in size.. Bones/joints: There are marked degenerative changes in the spine.. Soft tissues: Unremarkable. Lymph nodes: No enlarged lymph nodes. IMPRESSION: There is a pulmonary embolism noted in a right upper lobe pulmonary artery segment There are bilateral pulmonary nodular opacities which have markedly increased in size and number compared to previous examination. This may represent metastatic disease. There is a small left pleural effusion with a trace right pleural effusion Communications: Call Doctor Pulmonary Embolism Electronically signed by: Wally Woodward MD 07/31/25 23:24 PM
[2025-07-31] MEDS ORDERED: Heparin IV Adult Wt-Based Standard w/ INITIAL Bolus Protocol IV STA (23:32)
[2025-07-31] MEDS: HYDROmorphone INJ 0.5 MG/0.5 ML SYR IV PRN (23:45)
[2025-07-31] MEDS ORDERED: ONDANSETRON INJ 2 MG/ML 2 ML VIAL IV PRN (23:45)
[2025-07-31] MEDS: GABAPENTIN 250 MG/5 ML 470 ML BTL PEG STA (23:58)
[2025-08-01] MEDS: ONDANSETRON ORAL SOLN 0.8 MG/1 ML PEG STA (00:02)
[2025-08-01] MEDS: busPIRone 15 MG TAB PEG STA (00:06)
[2025-08-01] MEDS: LANSOPRAZOLE 30 MG SOLTAB PEG STA (00:10)
[2025-08-01 01:14] LABS: Partial Thromboplastin Time 26 Seconds (21-31)
[2025-08-01] MEDS ORDERED: DEXTROSE 50% 50 ML SYRINGE IV PRN (01:43)
[2025-08-01] MEDS ORDERED: CARBOHYDRATES FOR HYPOGLYCEMIA PO PRN (01:43)
[2025-08-01] MEDS ORDERED: GLUCOSE 40% GEL 15 GM TUBE PO PRN (01:43)
[2025-08-01] MEDS ORDERED: GLUCAGON FOR INJ 1 MG VIAL SQ PRN (01:43)
[2025-08-01] MEDS ORDERED: GLUCOSE 10 TAB/TUBE PO PRN (01:43)
[2025-08-01] MEDS ORDERED: PHARMACY GLYCEMIC MGMT CONSULT PRN (01:43)
[2025-08-01] MEDS: Heparin IV Adult Wt-Based Standard *NO* INITIAL Bolus Protocol IV STA (01:54)
[2025-08-01] MEDS: HEPARIN 25000 UNIT/500 ML D5W 25,000 UNITS/500 ML BAG IV SCH (01:54)
[2025-08-01] MEDS: MAGNESIUM SULFATE / D5W 1 GM/100 ML BAG IV SCH (02:52)
[2025-08-01] MEDS: INSULIN ASPART PER UNIT CHARGE SC SCH (02:52)
--- NOTE | 2025-08-01 08:13 | Oncology Consultation ---
Date of Consultation August 01, 2025 Assessment & Plan (1) Recurrent squamous cell carcinoma of tongue: (2) Metastasis to lung: Plan Not doing well clinically, Complaining of pain and appears to be more lethargic. CT chest obtained during current admission concerning for disease progression. Although may be too early to see a response from chemoimmunotherapy treatment, explained to patient and her that disease appears to be very aggressive. At this time, she is currently considering discontinuing systemic therapy due to decline in her performance status but would like to discuss further with her family. I will check in on her tomorrow to see if she decides to discontinue systemic therapy. If she does not, we will plan to continue with concurrent chemo immunotherapy treatment upon discharge from hospital. Regarding PE, she could be discharged home on Eliquis. History of Present Illness Reason for Consultation: Metastatic head and neck cancer Attending Physician: Elliott Peña MD History of Present Illness 75-year-old female with metastatic head and neck cancer for which she is received cycle 1 of chemoimmunotherapy treatment with carboplatin, paclitaxel and pembrolizumab on 07/11/2025. She presented with fatigue and hyperglycemia. CT chest which was obtained due to hypoxia revealed pulmonary embolism and right upper lobe pulmonary artery, bilateral pulmonary nodule opacities which have markedly increased in size and number compared to previous examination.She complains of left shoulder pain Allergies Allergy/AdvReac Type Severity Reaction Status Date / Time latex Allergy Intermediate Blisters Verified 07/12/25 17:59 Penicillins Allergy Intermediate Hives Verified 07/12/25 17:59 lisinopril AdvReac Intermediate fluid Verified 07/12/25 17:59 retention Mkibtsw-QRS-EkL Reductase AdvReac Intermediate "FILLED UP Verified 07/12/25 17:59 Inhibitor WITH FLUID" Home Medications Medication Instructions Recorded Confirmed Type CPAP Machine 04/19/21 06/20/25 History soft lens rinse,store solution 05/29/22 06/20/25 History (Bio true solution) blood-glucose meter (Contour Next #1 ea 02/21/23 06/20/25 Rx One Meter) blood-glucose sensor (Dexcom G7 01/19/24 06/20/25 History Sensor device) cyclosporine 0.05 % eye drops in a 0 drp OPB BID 10/26/24 07/31/25 History dropperette latanoprostene bunod 0.024 % eye 0 drp ophthalmic (eye) QPM 04/13/25 07/31/25 History drops (Vyzulta) mercaptopurine 50 mg tablet 50 mg feeding tube DAILY 04/13/25 07/31/25 History buspirone 30 mg tablet 30 mg feeding tube TID 05/27/25 07/31/25 History gabapentin 800 mg tablet 800 mg feeding tube TID 05/27/25 07/31/25 History loperamide 2 mg tablet (Imodium 2 mg PO Q6H PRN Other 05/27/25 07/31/25 History A-D) prochlorperazine maleate 10 mg 10 mg feeding tube Q6H PRN n/v 05/27/25 07/31/25 History tablet duloxetine 20 mg capsule,delayed 20 mg PO QAM #30 caps 07/05/25 07/31/25 Rx release pantoprazole 40 mg tablet,delayed 40 mg PO BID #60 tabs 07/05/25 07/31/25 Rx release fentanyl 50 mcg/hr transdermal 1 patch transdermal Q72H cancer 07/07/25 07/31/25 Rx patch pain 1 month #10 ea magnesium oxide 400 mg (241.3 mg 400 mg feeding tube QAM 07/12/25 07/31/25 History magnesium) tablet olanzapine 2.5 mg tablet 2.5 mg feeding tube DIRECTED 07/12/25 07/31/25 History PRN n/v ondansetron 4 mg disintegrating 4 mg PO BID nausea and vomiting 07/12/25 07/31/25 History tablet blood sugar diagnostic (Contour #400 ea 07/18/25 Rx Next Test Strips) insulin aspart U-100 100 unit/mL See Rx Instructions subcut 07/18/25 07/31/25 Rx (3 mL) subcutaneous pen (Novolog TIDWMEAL #60 mL FlexPen U-100 Insulin aspart) pen needle, diabetic 31 gauge x #500 ea 07/18/25 Rx 3/16" Microlet Lancet (lancets) #300 ea 07/28/25 Rx cyanocobalamin (vitamin B-12) 1,000 mcg IM .Q 2 weeks 07/29/25 07/31/25 History 1,000 mcg/mL injection solution dexamethasone 1 mg tablet 1 mg feeding tube DAILY 07/29/25 07/31/25 History hydromorphone 2 mg tablet 2 - 4 mg PO Q6H PRN Cancer-related 07/31/25 07/31/25 History (Dilaudid) Pain Patient History Medical History Hyponatremia Hyperglycemia Counseling regarding goals of care PEG tube malfunction Hypomagnesemia heme/onc monitoring and supplementing Crohn disease Anemia Obesity Gout Hypertension Dyslipidemia associated with type 2 diabetes mellitus Diabetic peripheral neuropathy associated with type 2 diabetes mellitus Depression with anxiety Post-nasal drip Type 2 diabetes mellitus Spinal stenosis Glaucoma Metabolic syndrome Recurrent squamous cell carcinoma of tongue Surgery 04/2024 and 10/04/24; currently on chemo tx; follows with once per week (wednesdays); also current XRT with in [place] Hx of sepsis 2021- no residual/current issues Fatty liver Sleep apnea CPAP Crohn's disease Neck problem Cervical pitched nerve + narrowing Intermittent LUE radiculopathy and ROM limitations COPD (chronic obstructive pulmonary disease) "Mild" No inhaler Surgical History History of percutaneous endoscopic gastrostomy (11/29/24) Esophagogastroduodenoscopy with Percutaneous Endoscopic Gastrostomy (PEG) Tube - Malik Turner DO Port-A-Cath in place (11/01/24) Insertion Access Port with Fluoroscopy - Right Subclavian(Right) - Kishore Mulligan DO; MAC without issue S/P cholecystectomy S/P partial glossectomy 04/30/24: partial glossectomy with L selective neck dissection Dr. Coyle [facility]; 10/04/24: L suprahyoid neck dissection and partial glossectomy Hx of cataract extraction R/L Hx of bilateral breast reduction surgery S/P epidural steroid injection x4 [id number] History of colonoscopy History of bowel resection (~2003) 12 inches r/t Crohn's disease (1971) Re-do r/t Crohn's disease (2003)- also had gallbladder removed at this time History of appendectomy (1971) Family History Father Family history of diabetes mellitus Diabetes Stroke Daughter Breast cancer Uncle Diabetes Grandmother Diabetes Stroke Other No family history of adverse response to anesthesia Social History Smoking Status: Former smoker Tobacco Type: Cigarettes Age Started Using Tobacco: 1 (unknown); Age Quit Using Tobacco: 0 (unknown); packs per day: 1; Cigarettes Per Day: 1980; Second Hand Exposure: No; Do You Dip or Chew Tobacco: No; Hx Alcohol Use: No Hx Substance Use: No Preferred Language: Icelandic Communication Ability: Effective Visual Impairment: No Limitations Senior Programmer Required: No Beliefs That Will Affect Care: None Current Living Situation: Spouse Feels Safe at Home: Yes Assistive Devices: Walker Results & Data Vital Signs (Past 12 Hours) Vital Signs Temp Pulse Pulse Resp BP Pulse Ox O2 Del Method 08/01/25 08:00 36.4 C L 100 H 18 141/87 H 95 Room Air 08/01/25 05:15 36.3 C L 107 H 20 157/91 H 96 Nasal Cannula 08/01/25 01:43 Nasal Cannula 08/01/25 01:43 36.3 C L 97 H 15 137/61 96 Nasal Cannula 08/01/25 00:28 101 H 16 157/88 H 97 08/01/25 00:09 101 H 07/31/25 22:00 96 H 22 132/77 92 Room Air O2 Flow Rate 08/01/25 08:00 08/01/25 05:15 08/01/25 01:43 3 08/01/25 01:43 3 08/01/25 00:28 08/01/25 00:09 07/31/25 22:00
[2025-08-01] MEDS: LANTUS PER UNIT CHARGE SQ SCH (08:25)
[2025-08-01] MEDS: NYSTATIN POWDER 15GM BTL EXT SCH (08:28)
[2025-08-01] MEDS: MERCAPTOPURINE 50 MG TAB PO SCH (08:28)
[2025-08-01] MEDS: busPIRone 15 MG TAB PEG SCH (08:29)
[2025-08-01] MEDS: LANSOPRAZOLE 30 MG SOLTAB PEG SCH (08:30)
[2025-08-01] MEDS: GABAPENTIN 250 MG/5 ML 470 ML BTL PEG SCH (08:30)
[2025-08-01] MEDS ORDERED: ONDANSETRON 4 MG OD TAB PO SCH (09:00)
[2025-08-01 09:30] LABS: Hematocrit (blood only) 29.7 % (37.0-47.0); Hemoglobin 9.9 g/dl (12.0-16.0); Mean Corpuscular Hemoglobin 30.6 pg (25.0-34.0); Mean Corpuscular Volume 91.7 fL (80.0-100.0); Platelet Count 396 K/uL (130-400); RDW Standard Deviation 51.0 fL (36.4-46.3); Red Blood Count 3.24 M/uL (4.20-5.40); White Blood Count 9.87 K/ul (4.8-10.8)
[2025-08-01 10:11] LABS: ANTI-Xa, UFH(UnfractionatedHep 0.40 IU/ml (0.3-0.7)
[2025-08-01 10:30] LABS: Albumin Level 2.5 gm/dl (3.4-5.0); Anion Gap 8.0 (3-11); Bilirubin,Total 0.4 mg/dl (0.2-1.0); Calcium 8.7 mg/dl (8.6-10.3); Carbon Dioxide 35.0 mmol/L (21-32); Chloride 91.0 mmol/L (98-107); Potassium 3.5 mmol/L (3.5-5.1); Sodium 134.0 mmol/L (136-145)
[2025-08-01 10:36] LABS: Alanine Aminotransferase 9.0 U/L (7-52); Alkaline Phosphatase 75.0 U/L (34-104); Blood Urea Nitrogen 12.0 mg/dl (6-23); Creatinine Clr Calc Pharmacy 98.0 ml/min; Glucose 208.0 mg/dl (70-99(Fasting)); Total Protein 5.6 gm/dl (6.0-8.3)
[2025-08-01] MEDS ORDERED: PROSOURCE NO CARB 30 ML/PKT PEG SCH (12:00)
[2025-08-01] MEDS ORDERED: TUBE FEEDING WATER FLUSH GT SCH (12:00)
[2025-08-01] MEDS: NUTREN LIQD 2.0 1,000 ML BAG PEG SCH (13:01)
--- NOTE | 2025-08-01 15:03 | Pharmacy Report ---
Pharmacy Glycemic Short Note 2 - Date of Service August 01, 2025 - Glycemic Short BSG Results (Last 24 hours): 07/31/25 07/31/25 08/01/25 15:13 15:50 01:32 Glucose 316 H* POC Glucose 269 H 273 H 08/01/25 08/01/25 08/01/25 07:11 09:00 11:09 Glucose 208 H POC Glucose 211 H 224 H OUTPATIENT ANTIDIABETIC REGIMEN: * Novolog sliding scale TID with meals (max of 60 units daily) HbA1c: 6.3% on 06/30/25 ASSESSMENT: * EG is a 75 year old female with metastatic head and neck cancer was admitted last evening with a new PE, hypomagnesemia, and hyperglycemia. Pharmacy was consulted for glycemic management while she is admitted. * BSG early this morning was 273mg/dL. Patient was made NPO. Lantus 12 units SQ BID was started and a weight based bolus insulin regimen with a stress of 3 was ordered. * Of note: She is currently on a heparin drip in d5w and is on a po dexamethasone taper (today is the last day and she received 1mg this morning). PLAN FOR INPATIENT GLYCEMIC CONTROL: * Hold outpatient diabetes medications * Basal insulin * Lantus 12 units SQ BID * Bolus insulin * NovoLog per scale ACHS or Q6hrs while NPO * Goal Range: Low 110 mg/dL - High 140 mg/dL * Correction Factor: 20 mg/dL/unit * Nutritional / Prandial insulin per carb ratio of 1 unit per 7 grams CHO consumed
--- NOTE | 2025-08-01 15:19 | XCELERA ---
[id number]
[2025-08-01 17:36] LABS: ANTI-Xa, UFH(UnfractionatedHep 0.57 IU/ml (0.3-0.7)
--- NOTE | 2025-08-01 17:57 | Hospitalist Progress Note ---
Date of Service August 01, 2025 Assessment & Plan (1) Pulmonary embolism: (2) Metastasis to lung: (3) Hyponatremia: (4) Hypomagnesemia: (5) Cancer related pain: (6) GAMA (obstructive sleep apnea): Plan 75yo female with metastatic head and neck cancer presenting with cough, lethargy and confusion. Patient with hypomagnesemia, mild hyponatremia and hyperglycemia. #Pulmonary Embolism - patient found with new PE in the RUL. No right heart strain. PESI score - Class V associated with very high risk of mortality, largely due malignancy as well as elevated HR on arrival. Normal shock index -Admit to PCU -Initiate heparin gtt. Discussed with patient's daughter. Patient with recent PET scan and MRI of the brain. She has a lesion in the occipital bone but does not seem to have any active brain lesions -Echo completed, read Pending -continue heparin, now therapeutic, no evidence of bleed #Metastatic head and neck cancer - increased size of pulmonary lesions. Patient follows with Oncology. First chemotherapy treatment was 3 weeks ago. Patient with PEG tube in place. She receives tube feeds and protein supplementation as well as most medications via PEG. She does take some medications by mouth if unable to be crushed. -Pain control with Tylenol 1gm IV q 8 hours, Dilaudid 2-4mg po q 6 hours as needed by tiered pain scale -Continue Fentanyl 50mcg patch - last placed yesterday -Continue Gabapentin 800mg po TID -Dexamethasone 1mg po daily to complete recent course - last dose is tomorrow 08/01 -Sean Stafford PRN -Hematology consultation appreciated, pending at this time -Monologist Consultation appreciated - See orders #Wound left buttock -Wound care BID -Turn q 2 hours -Heel precautions #Diarrhea -Check stool PCR for cdiff, no sample as of yet. #Anxiety/Mental Health -Continue Duloxetine 20mg po qAM - stable #Diabetes - with hyperglycemia -Lantus 12u BID -ISS -Goal blood sugar 110 - 160, approaching goal range -Pharmacy glycemic management consultation appreciated #Hypomagnesemia -2gm Mg given yesterday -Monitor labs in AM #Crohns -Continue Mercaptopurine 50mg po daily #Code Status DNR per discussion with patient Admission and Anticipated Discharge Date Admission Date: July 31, 2025 Subjective Doing okay this morning. Still with persistent mostly left shoulder pain however she is getting relief from the breakthrough Dilaudid medications. Otherwise seems to be able to eat a limited amount. Tolerating medications. No new events or concerns per patient or nursing staff. Physical Exam Physical Exam: General: patient somnolent, arousable, answers some questions, family at [facility] ( and daughter) provide majority of history Skin: warm, dry, intact, no rashes or lesions HEENT: NC/AT, PERRL, EOMI, MMM Sclear anicteric Heart: RRR NL S1/S2, 2/6 SHANTELL at right 2nd ICS though [place] Lungs: crackles present in left lung, no wheeze anteriorly Abd: +BS, soft, NT/ND, no masses/organomegaly/ascites Ext: warm, 2+ pulses in UE/LE bilaterally, no clubbing/cyanosis or edema Neuro: nonfocal Results & Data Results & Data Vital Signs (Past 12 Hours) Vital Signs Temp Pulse Pulse Resp BP Pulse Ox O2 Del Method 08/01/25 17:42 94 H 08/01/25 15:12 36.6 C 99 H 18 151/93 H 98 Nasal Cannula 08/01/25 11:38 36.7 C 112 H 18 95 Nasal Cannula 08/01/25 08:00 93 H 08/01/25 08:00 Nasal Cannula 08/01/25 08:00 36.4 C L 100 H 18 141/87 H 95 Room Air O2 Flow Rate 08/01/25 17:42 08/01/25 15:12 3 08/01/25 11:38 08/01/25 08:00 08/01/25 08:00 3 08/01/25 08:00 Laboratory Results 08/01/25 08/01/25 08/01/25 16:56 16:03 11:09 WBC RBC Hgb Hct MCV MCH MCHC RDW Std Deviation RDW Coeff of Nelia Plt Count MPV Absolute Nucleated RBC Nucleated RBC % (auto) APTT PTT Ratio Heparin Anti-Xa, Unfract 0.57 Sodium Potassium Chloride Carbon Dioxide Anion Gap BUN Creatinine Est Cr Clr Drug Dosing eGFR BUN/Creatinine Ratio Glucose POC Glucose 214 H 224 H Calcium Phosphorus Total Bilirubin Direct Bilirubin AST ALT Alkaline Phosphatase B-Natriuretic Peptide Total Protein Albumin Procalcitonin Nasal Screen MRSA (PCR) 08/01/25 08/01/25 08/01/25 09:00 07:11 04:54 WBC 9.87 RBC 3.24 L Hgb 9.9 L Hct 29.7 L MCV 91.7 MCH 30.6 MCHC 33.3 RDW Std Deviation 51.0 H RDW Coeff of Nelia 15.6 H Plt Count 396 MPV 9.2 L Absolute Nucleated RBC 0.05 Nucleated RBC % (auto) 0.5 APTT PTT Ratio Heparin Anti-Xa, Unfract 0.40 Sodium 134 L Potassium 3.5 Chloride 91 L Carbon Dioxide 35 H Anion Gap 8 BUN 12 Creatinine 0.45 L Est Cr Clr Drug Dosing 98.0 eGFR 99.02 BUN/Creatinine Ratio 26.7 H Glucose 208 H POC Glucose 211 H Calcium 8.7 Phosphorus 3.7 Total Bilirubin 0.4 Direct Bilirubin 0.0 AST 11 L ALT 9 Alkaline Phosphatase 75 B-Natriuretic Peptide Total Protein 5.6 L Albumin 2.5 L Procalcitonin Nasal Screen MRSA (PCR) Negative 08/01/25 08/01/25 07/31/25 01:32 00:23 15:50 WBC RBC Hgb Hct MCV MCH MCHC RDW Std Deviation RDW Coeff of Nelia Plt Count MPV Absolute Nucleated RBC Nucleated RBC % (auto) APTT 26 PTT Ratio 1.0 Heparin Anti-Xa, Unfract Sodium Potassium Chloride Carbon Dioxide Anion Gap BUN Creatinine Est Cr Clr Drug Dosing eGFR BUN/Creatinine Ratio Glucose POC Glucose 273 H Calcium Phosphorus Total Bilirubin Direct Bilirubin AST ALT Alkaline Phosphatase B-Natriuretic Peptide 54 Total Protein Albumin Procalcitonin 0.05 Nasal Screen MRSA (PCR) PG Care Time/CCT Total # of Minutes Spent Total Time Spent with Patient: Total time spent is greater than 50% in coordination of care (as documented) at patient's floor/unit and/or counseling patient: Coding Level of Care Code 51198 SUB INP/OBS CARE 2/35MIN Diagnoses Pulmonary embolism I26.99 Metastasis to lung C78.00 Hyponatremia E87.1 Hypomagnesemia E83.42 Cancer related pain G89.3 GAMA (obstructive sleep apnea) G47.33
[2025-08-01] MEDS: PROSOURCE NO CARB 30 ML/PKT PEG SCH (21:29)
[2025-08-02 07:06] LABS: Hematocrit (blood only) 29.8 % (37.0-47.0); Hemoglobin 9.9 g/dl (12.0-16.0); Immature Granulocytes # (auto) 0.17 K/uL (0.01-0.20); Immature Granulocytes % (auto) 1.7 %; Mean Corpuscular Hemoglobin 30.3 pg (25.0-34.0); Mean Corpuscular Volume 91.1 fL (80.0-100.0); Platelet Count 416 K/uL (130-400); RDW Standard Deviation 51.9 fL (36.4-46.3); Red Blood Count 3.27 M/uL (4.20-5.40); White Blood Count 10.03 K/ul (4.8-10.8)
[2025-08-02 07:27] LABS: Anion Gap 8.0 (3-11); Blood Urea Nitrogen 12.0 mg/dl (6-23); Calcium 8.9 mg/dl (8.6-10.3); Carbon Dioxide 37.0 mmol/L (21-32); Chloride 88.0 mmol/L (98-107); Creatinine Clr Calc Pharmacy 142.3 ml/min; Glucose 164.0 mg/dl (70-99(Fasting)); Magnesium 1.6 mg/dl (1.7-2.4); Potassium 3.4 mmol/L (3.5-5.1); Sodium 133.0 mmol/L (136-145)
[2025-08-02 07:37] LABS: ANTI-Xa, UFH(UnfractionatedHep 0.42 IU/ml (0.3-0.7)
[2025-08-02] MEDS: INSULIN ASPART PER UNIT CHARGE SC SCH ×2 (09:03→22:39)
[2025-08-02] MEDS ORDERED: BENZONATATE 100 MG CAPSULE PO PRN (09:13)
[2025-08-02] MEDS: PROCHLORPERAZINE MALEATE 10 MG TAB PO PRN (09:33)
[2025-08-02] MEDS: ONDANSETRON INJ 2 MG/ML 2 ML VIAL IV PRN (12:50)
[2025-08-02] MEDS: POTASSIUM CHLORIDE / WTR 10 MEQ/100 ML PLCT IV SCH (13:37)
[2025-08-02 14:26] LABS: Cdiff Toxin B Gene (2yr or >) Negative Cdiff Gene (Neg)
[2025-08-02 14:54] LABS: Adenovirus F 40/41 PCR Not Detected (NotDetected); Campylobacter PCR Not Detected (NotDetected); Enteroaggregative E.coli(EAEC) Not Detected (NotDetected); Shiga-like Toxin E.coli (STEC) Not Detected (NotDetected); Vibrio species PCR Not Detected (NotDetected)
--- NOTE | 2025-08-02 17:35 | Hospitalist Progress Note ---
Date of Service August 02, 2025 Assessment & Plan (1) Pulmonary embolism: (2) Metastasis to lung: (3) Hyponatremia: (4) Hypomagnesemia: (5) Cancer related pain: (6) GAMA (obstructive sleep apnea): Plan 75yo female with metastatic head and neck cancer presenting with cough, lethargy and confusion. Patient with hypomagnesemia, mild hyponatremia and hyperglycemia. #Pulmonary Embolism - patient found with new PE in the RUL. No right heart strain. PESI score - Class V associated with very high risk of mortality, largely due malignancy as well as elevated HR on arrival. Normal shock index -Admit to PCU -Initiate heparin gtt. Discussed with patient's daughter. Patient with recent PET scan and MRI of the brain. She has a lesion in the occipital bone but does not seem to have any active brain lesions -Echo completed, no clear evidence of cor pulmonale, mild right hear reduced function noted -continue heparin, now therapeutic, no evidence of bleed, transition to oral anticoagulant as breathing and volume status/PO status stabilize #Episodic Respiratory Distress -Stable oxygen requirement, brief increase in requirements earlier today, continue to monitor, low threshold to repeat CT #Metastatic head and neck cancer - increased size of pulmonary lesions. Patient follows with Oncology. First chemotherapy treatment was 3 weeks ago. Patient with PEG tube in place. She receives tube feeds and protein supplementation as well as most medications via PEG. She does take some medications by mouth if unable to be crushed. -Pain control with Tylenol 1gm IV q 8 hours, Dilaudid 2-4mg po q 6 hours as needed by tiered pain scale -Continue Fentanyl 50mcg patch - last placed yesterday -Continue Gabapentin 800mg po TID -Dexamethasone 1mg po daily to complete recent course - last dose is tomorrow 08/01 -Zofran, Compazine PRN -Hematology consultation appreciated, pending at this time -Court Reporter Consultation appreciated - See orders #Wound left buttock -Wound care BID -Turn q 2 hours -WCT following #Diarrhea -Check stool PCR for cdiff, negative today, this worsened along with elevated blood sugars after Nutren and Prosure restarted #Tube Feed -will reach out to RD to see what formula she was on at home, consideration for alternatives to address intolerance and/or hyperglycemia #Anxiety/Mental Health -Continue Duloxetine 20mg po qAM - stable #Diabetes - with hyperglycemia -Lantus 12u BID -ISS -Goal blood sugar 110 - 160, approaching goal range -Pharmacy glycemic management consultation appreciated, bolus IV correction today, now WNL -See tube feed as above #Hypomagnesemia -2gm Mg given yesterday -Monitor labs in AM #Crohns -Continue Mercaptopurine 50mg po daily #Code Status DNR per discussion with patient Admission and Anticipated Discharge Date Admission Date: July 31, 2025 Subjective Overall pain management with current regimen. No changes required at this time. Having a significant number of very liquidy stools through the day today. No fever chills or abdominal pain. Prior to this had quite significant cough and nausea. Several weeks after that she had a brief episode where her breathing was much more challenge after a brief period of increased oxygen she returned back to her baseline. Otherwise no new events or concerns per nursing staff or patient. I did review her records to see what her previous formula was as she just restarted tube feeds yesterday and the diarrhea seems to coincide with this. No record as to what TF formula she is actually on home. Physical Exam Physical Exam: General: patient somnolent, arousable, answers some questions, family at bedside ( and daughter) provide majority of history Skin: warm, dry, intact, no rashes or lesions HEENT: NC/AT, PERRL, EOMI, MMM Sclear anicteric Heart: RRR NL S1/S2, 2/6 SHANTELL at right 2nd ICS though [place] Lungs: crackles present in left lung, no wheeze anteriorly Abd: +BS, soft, NT/ND, no masses/organomegaly/ascites Ext: warm, 2+ pulses in UE/LE bilaterally, no clubbing/cyanosis or edema Neuro: nonfocal Results & Data Results & Data Vital Signs (Past 12 Hours) Vital Signs Temp Pulse Pulse Resp BP BP Pulse Ox 08/02/25 16:34 88 L 08/02/25 16:30 93 08/02/25 16:25 88 L 08/02/25 16:06 95 08/02/25 16:04 95 08/02/25 15:40 99 08/02/25 15:40 99 08/02/25 15:33 08/02/25 15:15 36.7 C 104 H 20 153/99 H 97 08/02/25 14:31 122 H 11/11/25 11:08 36.6 C 112 H 20 138/80 91 08/02/25 08:00 08/02/25 08:00 91 H 08/02/25 07:29 36.7 C 97 H 18 154/79 H 93 O2 Del Method O2 Flow Rate 08/02/25 16:34 Nasal Cannula 2 08/02/25 16:30 Nasal Cannula 3 08/02/25 16:25 Nasal Cannula 2 08/02/25 16:06 Nasal Cannula 2 08/02/25 16:04 Nasal Cannula 2 08/02/25 15:40 Nasal Cannula 5 08/02/25 15:40 Nasal Cannula 5 08/02/25 15:33 Nasal Cannula 2 08/02/25 15:15 Nasal Cannula 5 08/02/25 14:31 08/02/25 11:08 Nasal Cannula 2 08/02/25 08:00 Nasal Cannula 2 08/02/25 08:00 08/02/25 07:29 Nasal Cannula 2 Laboratory Results 08/02/25 08/02/25 08/02/25 16:36 12:15 11:37 WBC RBC Hgb Hct MCV MCH MCHC RDW Std Deviation RDW Coeff of Nelia Plt Count MPV Immature Gran % (Auto) Neut % (Auto) Lymph % (Auto) Bath % (Auto) Eos % (Auto) Baso % (Auto) Neut # (Auto) Lymph # (Auto) Bath # (Auto) Eos # (Auto) Baso # (Auto) Immature Gran # (Auto) Absolute Nucleated RBC Nucleated RBC % (auto) Heparin Anti-Xa, Unfract Sodium Potassium Chloride Carbon Dioxide Anion Gap BUN Creatinine Est Cr Clr Drug Dosing eGFR BUN/Creatinine Ratio Glucose POC Glucose 138 H 351 H* Calcium Magnesium C-Reactive Protein Procalcitonin Stl C. cayetanensis PCR Not Detected Stool Rotavirus A PCR Not Detected Stl Adenov F 40/41 PCR Not Detected Stool Astrovirus (PCR) Not Detected Stool Campylobacter PCR Not Detected Stl C. diff Tox B Gene Negative Cdiff Gene Stl C. diff 027-NAP1-BI NEGATIVE Stool Cryptosporidium PCR Not Detected Stl E.coli Shiga Tox PCR Not Detected Stl Enterotoxigenic E PCR Not Detected Stool EPEC (PCR) Not Detected Stool EAEC (PCR) Not Detected Stl E. histolytica PCR Not Detected Stool Giardia Lamblia PCR Not Detected Stool Salmonella PCR Not Detected Stool Sapovirus (PCR) Not Detected Stl P. shigelloides PCR Not Detected Stl Shigella/EIEC PCR Not Detected St Y.enterocolitica PCR Not Detected Stool Vibrio (PCR) Not Detected Stl Vibrio cholerae PCR Not Detected Stl Norovirus GI/GII PCR Not Detected 08/02/25 08/02/25 08/02/25 11:29 07:39 06:41 WBC 10.03 RBC 3.27 L Hgb 9.9 L Hct 29.8 L MCV 91.1 MCH 30.3 MCHC 33.2 RDW Std Deviation 51.9 H RDW Coeff of Nelia 15.8 H Plt Count 416 H MPV 9.0 L Immature Gran % (Auto) 1.7 Neut % (Auto) 84.9 Lymph % (Auto) 5.5 Bath % (Auto) 7.2 Eos % (Auto) 0.4 Baso % (Auto) 0.3 Neut # (Auto) 8.52 H Lymph # (Auto) 0.55 L Bath # (Auto) 0.72 H Eos # (Auto) 0.04 Baso # (Auto) 0.03 Immature Gran # (Auto) 0.17 Absolute Nucleated RBC 0.02 Nucleated RBC % (auto) 0.2 Heparin Anti-Xa, Unfract 0.42 Sodium 133 L Potassium 3.4 L Chloride 88 L Carbon Dioxide 37 H Anion Gap 8 BUN 12 Creatinine 0.36 L Est Cr Clr Drug Dosing 142.3 eGFR 104.49 BUN/Creatinine Ratio 33.3 H Glucose 164 H POC Glucose 334 H* 163 H Calcium 8.9 Magnesium 1.6 L C-Reactive Protein 13.84 H Procalcitonin 0.02 Stl C. cayetanensis PCR Stool Rotavirus A PCR Stl Adenov F 40/41 PCR Stool Astrovirus (PCR) Stool Campylobacter PCR Stl C. diff Tox B Gene Stl C. diff 027-NAP1-BI Stool Cryptosporidium PCR Stl E.coli Shiga Tox PCR Stl Enterotoxigenic E PCR Stool EPEC (PCR) Stool EAEC (PCR) Stl E. histolytica PCR Stool Giardia Lamblia PCR Stool Salmonella PCR Stool Sapovirus (PCR) Stl P. shigelloides PCR Stl Shigella/EIEC PCR St Y.enterocolitica PCR Stool Vibrio (PCR) Stl Vibrio cholerae PCR Stl Norovirus GI/GII PCR 08/01/25 08/01/25 20:37 16:56 WBC RBC Hgb Hct MCV MCH MCHC RDW Std Deviation RDW Coeff of Nelia Plt Count MPV Immature Gran % (Auto) Neut % (Auto) Lymph % (Auto) Bath % (Auto) Eos % (Auto) Baso % (Auto) Neut # (Auto) Lymph # (Auto) Bath # (Auto) Eos # (Auto) Baso # (Auto) Immature Gran # (Auto) Absolute Nucleated RBC Nucleated RBC % (auto) Heparin Anti-Xa, Unfract 0.57 Sodium Potassium Chloride Carbon Dioxide Anion Gap BUN Creatinine Est Cr Clr Drug Dosing eGFR BUN/Creatinine Ratio Glucose POC Glucose 256 H Calcium Magnesium C-Reactive Protein Procalcitonin Stl C. cayetanensis PCR Stool Rotavirus A PCR Stl Adenov F PCR Stool Astrovirus (PCR) Stool Campylobacter PCR Stl C. diff Tox B Gene Stl C. diff 027-NAP1-BI Stool Cryptosporidium PCR Stl E.coli Shiga Tox PCR Stl Enterotoxigenic E PCR Stool EPEC (PCR) Stool EAEC (PCR) Stl E. histolytica PCR Stool Giardia Lamblia PCR Stool Salmonella PCR Stool Sapovirus (PCR) Stl P. shigelloides PCR Stl Shigella/EIEC PCR St Y.enterocolitica PCR Stool Vibrio (PCR) Stl Vibrio cholerae PCR Stl Norovirus GI/GII PCR Diagnostic Findings 08/02/25 08/02/25 08/02/25 16:36 12:15 11:37 WBC RBC Hgb Hct MCV MCH MCHC RDW Std Deviation RDW Coeff of Nelia Plt Count MPV Immature Gran % (Auto) Neut % (Auto) Lymph % (Auto) Bath % (Auto) Eos % (Auto) Baso % (Auto) Neut # (Auto) Lymph # (Auto) Bath # (Auto) Eos # (Auto) Baso # (Auto) Immature Gran # (Auto) Absolute Nucleated RBC Nucleated RBC % (auto) Heparin Anti-Xa, Unfract Sodium Potassium Chloride Carbon Dioxide Anion Gap BUN Creatinine Est Cr Clr Drug Dosing eGFR BUN/Creatinine Ratio Glucose POC Glucose 138 H 351 H* Calcium Magnesium C-Reactive Protein Procalcitonin Stl C. cayetanensis PCR Not Detected Stool Rotavirus A PCR Not Detected Stl Adenov F PCR Not Detected Stool Astrovirus (PCR) Not Detected Stool Campylobacter PCR Not Detected Stl C. diff Tox B Gene Negative Cdiff Gene Stl C. diff 027-NAP1-BI NEGATIVE Stool Cryptosporidium PCR Not Detected Stl E.coli Shiga Tox PCR Not Detected Stl Enterotoxigenic E PCR Not Detected Stool EPEC (PCR) Not Detected Stool EAEC (PCR) Not Detected Stl E. histolytica PCR Not Detected Stool Giardia Lamblia PCR Not Detected Stool Salmonella PCR Not Detected Stool Sapovirus (PCR) Not Detected Stl P. shigelloides PCR Not Detected Stl Shigella/EIEC PCR Not Detected St Y.enterocolitica PCR Not Detected Stool Vibrio (PCR) Not Detected Stl Vibrio cholerae PCR Not Detected Stl Norovirus GI/GII PCR Not Detected 08/02/25 08/02/25 08/02/25 11:29 07:39 06:41 WBC 10.03 RBC 3.27 L Hgb 9.9 L Hct 29.8 L MCV 91.1 MCH 30.3 MCHC 33.2 RDW Std Deviation 51.9 H RDW Coeff of Nelia 15.8 H Plt Count 416 H MPV 9.0 L Immature Gran % (Auto) 1.7 Neut % (Auto) 84.9 Lymph % (Auto) 5.5 Bath % (Auto) 7.2 Eos % (Auto) 0.4 Baso % (Auto) 0.3 Neut # (Auto) 8.52 H Lymph # (Auto) 0.55 L Bath # (Auto) 0.72 H Eos # (Auto) 0.04 Baso # (Auto) 0.03 Immature Gran # (Auto) 0.17 Absolute Nucleated RBC 0.02 Nucleated RBC % (auto) 0.2 Heparin Anti-Xa, Unfract 0.42 Sodium 133 L Potassium 3.4 L Chloride 88 L Carbon Dioxide 37 H Anion Gap 8 BUN 12 Creatinine 0.36 L Est Cr Clr Drug Dosing 142.3 eGFR 104.49 BUN/Creatinine Ratio 33.3 H Glucose 164 H POC Glucose 334 H* 163 H Calcium 8.9 Magnesium 1.6 L C-Reactive Protein 13.84 H Procalcitonin 0.02 Stl C. cayetanensis PCR Stool Rotavirus A PCR Stl Adenov F PCR Stool Astrovirus (PCR) Stool Campylobacter PCR Stl C. diff Tox B Gene Stl C. diff 027-NAP1-BI Stool Cryptosporidium PCR Stl E.coli Shiga Tox PCR Stl Enterotoxigenic E PCR Stool EPEC (PCR) Stool EAEC (PCR) Stl E. histolytica PCR Stool Giardia Lamblia PCR Stool Salmonella PCR Stool Sapovirus (PCR) Stl P. shigelloides PCR Stl Shigella/EIEC PCR St Y.enterocolitica PCR Stool Vibrio (PCR) Stl Vibrio cholerae PCR Stl Norovirus GI/GII PCR 08/01/25 08/01/25 20:37 16:56 WBC RBC Hgb Hct MCV MCH MCHC RDW Std Deviation RDW Coeff of Nelia Plt Count MPV Immature Gran % (Auto) Neut % (Auto) Lymph % (Auto) Bath % (Auto) Eos % (Auto) Baso % (Auto) Neut # (Auto) Lymph # (Auto) Bath # (Auto) Eos # (Auto) Baso # (Auto) Immature Gran # (Auto) Absolute Nucleated RBC Nucleated RBC % (auto) Heparin Anti-Xa, Unfract 0.57 Sodium Potassium Chloride Carbon Dioxide Anion Gap BUN Creatinine Est Cr Clr Drug Dosing eGFR BUN/Creatinine Ratio Glucose POC Glucose 256 H Calcium Magnesium C-Reactive Protein Procalcitonin Stl C. cayetanensis PCR Stool Rotavirus A PCR Stl Adenov F 40 PCR Stool Astrovirus (PCR) Stool Campylobacter PCR Stl C. diff Tox B Gene Stl C. diff 027-NAP1-BI Stool Cryptosporidium PCR Stl E.coli Shiga Tox PCR Stl Enterotoxigenic E PCR Stool EPEC (PCR) Stool EAEC (PCR) Stl E. histolytica PCR Stool Giardia Lamblia PCR Stool Salmonella PCR Stool Sapovirus (PCR) Stl P. shigelloides PCR Stl Shigella/EIEC PCR St Y.enterocolitica PCR Stool Vibrio (PCR) Stl Vibrio cholerae PCR Stl Norovirus GI/GII PCR PG Care Time/CCT Total # of Minutes Spent Total Time Spent with Patient: Total time spent is greater than 50% in coordination of care (as documented) at patient's floor/unit and/or counseling patient: Coding Level of Care Code 04047 SUB INP/OBS CARE 3/50MIN Diagnoses Pulmonary embolism I26.99 Metastasis to lung C78.00 Hyponatremia E87.1 Hypomagnesemia E83.42 Cancer related pain G89.3 GAMA (obstructive sleep apnea) G47.33
[2025-08-02] MEDS ORDERED: Nursing to Pharmacy Communication SCH (19:15)
[2025-08-02] MEDS: DEXTROSE 10% 250 ML IV SCH (20:07)
[2025-08-03] MEDS: INSULIN ASPART PER UNIT CHARGE SC SCH (02:09)
[2025-08-03] MEDS: LANTUS PER UNIT CHARGE SC ONE ×2 (02:10→09:02)
[2025-08-03 06:52] LABS: Hematocrit (blood only) 31.3 % (37.0-47.0); Hemoglobin 10.7 g/dL (12.0-16.0); Immature Granulocytes # (auto) 0.15 K/uL (0.01-0.20); Immature Granulocytes % (auto) 1.3 %; Mean Corpuscular Hemoglobin 30.7 pg (25.0-34.0); Mean Corpuscular Volume 89.7 fL (80.0-100.0); Platelet Count 493 K/uL (130-400); RDW Standard Deviation 50.6 fL (36.4-46.3); Red Blood Count 3.49 M/uL (4.20-5.40); White Blood Count 11.79 K/ul (4.8-10.8)
[2025-08-03 07:10] LABS: Alanine Aminotransferase 10.0 U/L (7-52); Albumin Globulin Ratio 0.9 (0.9-2); Albumin Level 2.9 gm/dl (3.4-5.0); Alkaline Phosphatase 84.0 U/L (34-104); Anion Gap 8.0 (3-11); Bilirubin,Total 0.5 mg/dl (0.2-1.0); Blood Urea Nitrogen 12.0 mg/dl (6-23); Calcium 9.6 mg/dl (8.6-10.3); Carbon Dioxide 39.0 mmol/L (21-32); Chloride 83.0 mmol/L (98-107); Creatinine Clr Calc Pharmacy 136.8 ml/min; Globulin 3.4 gm/dl (2.5-4.0); Glucose 167.0 mg/dl (70-99(Fasting)); Magnesium 1.4 mg/dl (1.7-2.4); Potassium 3.2 mmol/L (3.5-5.1); Sodium 130.0 mmol/L (136-145); Total Protein 6.3 gm/dl (6.0-8.3)
[2025-08-03 07:14] LABS: ANTI-Xa, UFH(UnfractionatedHep 0.43 IU/ml (0.3-0.7)
[2025-08-03] MEDS: OPTIRAY 320 100ml IV ONE (11:55)
[2025-08-03] MEDS: SODIUM CHLORIDE 0.9% 500 ML IV ONE ×2 (12:20→15:40)
[2025-08-03] MEDS: BANATROL TF 60 ML LIQUID PKT PEG SCH (12:20)
--- NOTE | 2025-08-03 12:44 | CT Scan Report ---
CT SCAN OF THE ABDOMEN AND PELVIS WITH IV CONTRAST CLINICAL HISTORY: Abdominal pain. SIRS. Tongue cancer. COMPARISON STUDY: CT of the abdomen and pelvis January 01, 2025. PET/CT July 07, 2025. TECHNIQUE: Following the IV administration of 94 cc of Optiray 320, CT scan of the abdomen and pelvi s is performed from the lung bases to the proximal femora. Images are reviewed in the axial, sagittal , and coronal planes. IV contrast was administered without complication. A dose lowering technique wa s utilized adhering to the principles of ALARA. FINDINGS: Numerous pulmonary metastases and bilateral pleural effusions, left larger than right, are better depicted on the chest CT which will be reported separately. There is a lytic anterior left eig hth rib lesion with associated pathologic fracture. No pneumatosis, free air or portal venous gas is present. Gastrostomy tube is in place. There are no suspicious hepatic lesions. The right adrenal gla nd and pancreas are unremarkable. A 2.2 cm left adrenal nodule has increased in size from earlier exa ms. There is no hydronephrosis. Small bilateral renal calculi are noted. There are no ureteral calcul i. There is no hydronephrosis. The bladder is moderately distended. There is no evidence for a bowel obstruction status post right hemicolectomy. The colon and rectum are mildly dilated and fluid-filled . No transition point is identified. Major vasculature is patent. A 1.2 cm left perirectal implant on image 382 is new since prior exams. There is a possible 1.1 cm left gluteal implant on image 425. In determinate 1.8 cm subcutaneous left abdominal nodule on image 296 is present. A 1 cm mesenteric impl ant/node on image 255 also appears new. IMPRESSION: 1. Extensive pulmonary metastases and bilateral pleural effusions, left larger than right, which are better depicted on the chest CT which will be reported separately. 2. Progression of metastatic disease within the abdomen and pelvis since PET/CT of July 07, 2025, including a left adrenal metastasis and several implants. 3. No evidence for a bowel obstruction. Mildly dilated fluid-filled colon and rectum could indicate a diarrheal state. 4. Distended bladder. Small bilateral renal calculi. No ureteral calculi. No hydronephrosis. 5. Gastrostomy tube in place. ACT 112: Negative or not required by law. Electronically signed by: Musa Dennis M.D. 08/03/2025 12:43 PM
--- NOTE | 2025-08-03 12:56 | CT Scan Report ---
CT chest diagnostic wo con CT DOSE: 2217.17 mGy.cm CLINICAL HISTORY: 75 years-old Female with SIRS/Follow-up. Follow-up study patient with numerous pul monary nodules TECHNIQUE: Multiaxial CT images of the chest were performed without contrast. A dose lowering techni que was utilized adhering to the principles of ALARA. COMPARISON: CTA chest 07/31/2025, PET CT 07/07/2025 FINDINGS: The pulmonary emboli described on yesterday's study cannot be evaluated on this noncontrast scan. There is heterogeneity and prominence of the thyroid redemonstrated with adjacent inflammatory stranding which demonstrated hypermetabolic uptake within the right thyroid lobe and thyroid isthmus on prior study. Right IJ Yulguv-l-Bseb catheter distal tip terminates in the mid SVC. Heart is kelby l in size pericardial effusion. Bzut-tn-[id number] coronary artery calcifications. No thoracic aortic a neurysm. Subcentimeter mediastinal lymph nodes have increased in size from prior, for example there i s a pretracheal 7 mm lymph node on image 76 series 6 which previously measured 3 mm. Trace right with small moderate left pleural effusions have increased in size from prior. Numerous ir regular pulmonary and pleural-based nodules. The lungs are redemonstrated. There is an index 3.5 x 3. 1 cm lesion within the right upper lobe on image 67, previously 2.8 x 2.2 cm on the prior exam. A iraida trally cavitary 2.8 x 1.2 similar nodule of the lingula on image 99 previously measured 2.1 x 1.3 cm. 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 Partial opacification of the bronchi within the lung bases. No acute upper a bdominal abnormality. Unchanged small hypodensity left hepatic lobe on image 50 series 2 which is lik leonel benign. Unremarkable soft tissues. Destructive osteolytic lesion at T1 has increased in size. Thi s lesion extends into the left T1-T2 neural foramen and epidural space. A subpleural nodule is noted at the level of the right lung base on image 189 series 6, not definitively seen from prior, also lik leonel metastatic. IMPRESSION: 1. Progressive metastatic disease in the chest compared to the PET/CT from 07/07/2025 as detailed abo ve. 2. The osteolytic skeletal metastatic lesion at T1 also demonstrates epidural extension of disease wi th involvement of the left T1-T2 neural foramen. 3. Trace right and moderate left pleural effusions have increased in size. ACT 112: Negative or not required by law. Electronically signed by: gO Abarca M.D. 08/03/2025 12:55 PM
--- NOTE | 2025-08-03 13:03 | Pharmacy Report ---
Pharmacy Glycemic Short Note 2 - Date of Service August 03, 2025 - Glycemic Short BSG Results (Last 24 hours): 08/02/25 08/02/25 08/02/25 16:36 17:38 20:38 Glucose POC Glucose 138 H 113 H 142 H 08/02/25 08/03/25 08/03/25 22:29 01:49 06:19 Glucose 167 H POC Glucose 198 H 241 H 08/03/25 08/03/25 07:13 10:59 Glucose POC Glucose 161 H 313 H* OUTPATIENT ANTIDIABETIC REGIMEN: * Novolog sliding scale TID with meals (max of 60 units daily) HbA1c: 6.3% on 06/30/25 ASSESSMENT: 08/03: * Carley received a total of 30 units of insulin yesterday (12 units were basal and 18 units were bolus)--BSGs were [phone]/dL. Of note patient refused afternoon and evening TF boluses so HS Lantus was held. * Fasting BSG was 161mg/dL this morning. She received a total of 14 units of Lantus this morning and further dosing was increased to 15units SQ BID. * She continues on TID 250ml bolus doses of Nutren as well as the heparin drip. 08/01: * EG is a 75 year old female with metastatic head and neck cancer was admitted last evening with a new PE, hypomagnesemia, and hyperglycemia. Pharmacy was consulted for glycemic management while she is admitted. * BSG early this morning was 273mg/dL. Patient was made NPO. Lantus 12 units SQ BID was started and a weight based bolus insulin regimen with a stress of 3 was ordered. * Of note: She is currently on a heparin drip in d5w and is on a po dexamethasone taper (today is the last day and she received 1mg this morning). PLAN FOR INPATIENT GLYCEMIC CONTROL: * Hold outpatient diabetes medications * Basal insulin * Lantus 15 units SQ BID * Bolus insulin * NovoLog per scale ACHS or Q6hrs while NPO * Goal Range: Low 110 mg/dL - High 140 mg/dL * With bolus doses of TF (at 0800, 1200, 1700) -Correction Factor: 25 mg/dL/unit -Nutritional / Prandial insulin per carb ratio of 1 unit per 7 grams CHO consumed * At 2200 -Correction Factor: 25 mg/dL/unit -Nutritional / Prandial insulin per carb ratio of 1 unit per 9 grams CHO consumed
[2025-08-03] MEDS: ACETAMINOPHEN 1,000 MG/100 ML VIAL IV PRN (13:49)
[2025-08-03] MEDS: MAGNESIUM SULFATE / D5W 1 GM/100 ML BAG IV SCH (14:51)
[2025-08-03 14:53] LABS: Hematocrit (blood only) 32.3 % (37.0-47.0); Hemoglobin 11.0 g/dL (12.0-16.0); Immature Granulocytes # (auto) 0.18 K/uL (0.01-0.20); Immature Granulocytes % (auto) 1.4 %; Mean Corpuscular Hemoglobin 30.1 pg (25.0-34.0); Mean Corpuscular Volume 88.3 fL (80.0-100.0); Platelet Count 509 K/uL (130-400); RDW Standard Deviation 49.5 fL (36.4-46.3); Red Blood Count 3.66 M/uL (4.20-5.40); White Blood Count 12.75 K/ul (4.8-10.8)
--- NOTE | 2025-08-03 17:01 | Hospitalist Progress Note ---
Date of Service August 03, 2025 Assessment & Plan (1) Pulmonary embolism: (2) Metastasis to lung: (3) Hyponatremia: (4) Hypomagnesemia: (5) Cancer related pain: (6) GAMA (obstructive sleep apnea): Plan 75yo female with metastatic head and neck cancer presenting with cough, lethargy and confusion. Patient with hypomagnesemia, mild hyponatremia and hyperglycemia. #SIRS/Sepsis - Indolently progressive over the last 24-36 hours. Now with an increase in lactic acid which has been chronically elevated. No actual fevers but increasingly tachycardic - CT scan of the chest and abdomen showed no clear source there. Blood cultures were obtained will restart cefepime empirically. - Additional normal saline bolus and reflex lactic acid blood pressures in the interim renain WNL #Pulmonary Embolism - patient found with new PE in the RUL. No right heart strain. PESI score - Class V associated with very high risk of mortality, largely due malignancy as well as elevated HR on arrival. Normal shock index -Admit to PCU -Initiate heparin gtt. Discussed with patient's daughter. Patient with recent PET scan and MRI of the brain. She has a lesion in the occipital bone but does not seem to have any active brain lesions -Echo completed, no clear evidence of cor pulmonale, mild right hear reduced function noted -continue heparin, now therapeutic, no evidence of bleed, transition to oral anticoagulant as breathing and volume status/PO status stabilize #Episodic Respiratory Distress -Stable oxygen requirement, brief increase in requirements earlier today, continue to monitor, low threshold to repeat CT, see above for progressive metastasis #Metastatic head and neck cancer - increased size of pulmonary lesions. Patient follows with Oncology. First chemotherapy treatment was 3 weeks ago. Patient with PEG tube in place. She receives tube feeds and protein supplementation as well as most medications via PEG. She does take some medications by mouth if unable to be crushed. -Pain control with Tylenol 1gm IV q 8 hours, Dilaudid 2-4mg po q 6 hours as needed by tiered pain scale -Continue Fentanyl 50mcg patch - last placed yesterday -Continue Gabapentin 800mg po TID -Dexamethasone 1mg po daily to complete recent course - last dose is tomorrow 08/01 -Zofran, Compazine PRN -Hematology consultation appreciated, pending at this time -Beef Breaker Consultation appreciated - See orders #Wound left buttock -Wound care BID -Turn q 2 hours -WCT following #Diarrhea -Check stool PCR for cdiff, negative today, this worsened along with elevated blood sugars after Nutren and Prosure restarted #Tube Feed -will reach out to RD to see what formula she was on at home, consideration for alternatives to address intolerance and/or hyperglycemia #Anxiety/Mental Health -Continue Duloxetine 20mg po qAM - stable #Diabetes - with hyperglycemia -Lantus 12u BID -ISS -Goal blood sugar 110 - 160, approaching goal range -Pharmacy glycemic management consultation appreciated, bolus IV correction today, now WNL -See tube feed as above #Hypomagnesemia -2gm Mg given yesterday -Monitor labs in AM #Crohns -Continue Mercaptopurine 50mg po daily #Code Status DNR per discussion with patient Admission and Anticipated Discharge Date Admission Date: July 31, 2025 Subjective Has been much less interactive through the day yesterday and today. Although she still is refusing bolus feeds on several occasions. Needed to be maintained with the 10 the last night through the night. Still having some loose stools. Diffuse mild localizable abdominal pain. No fevers or chills. Generalized malaise. Pain in the shoulder seems to be controlled but the Dilaudid and narcotic dose is quite high. Spending most of the day sleeping and less interactive per nursing staff. No other events or concerns. Physical Exam Physical Exam: General: patient somnolent, arousable, answers some questions, family at bedside ( and daughter) provide majority of history Skin: warm, dry, intact, no rashes or lesions HEENT: NC/AT, PERRL, EOMI, MMM Sclear anicteric Heart: RRR NL S1/S2, 2/6 SHANTELL at right 2nd ICS though [place] Lungs: crackles present on posterior examination of the left base, no wheeze or crackles anteriorly Abd: +BS, soft, NT/ND, no masses/organomegaly/ascites Ext: warm, 2+ pulses in UE/LE bilaterally, no clubbing/cyanosis or edema Neuro: nonfocal somnolent but appropriately arousable., Results & Data Results & Data Vital Signs (Past 12 Hours) Vital Signs Temp Pulse Pulse Resp BP Pulse Ox O2 Del Method 08/03/25 15:33 36.4 C L 107 H 20 128/79 97 Nasal Cannula 08/03/25 11:42 36.4 C L 128 H 19 138/82 91 Room Air 08/03/25 08:00 Nasal Cannula 08/03/25 08:00 Nasal Cannula 08/03/25 08:00 106 H 08/03/25 07:48 36.5 C 105 H 20 159/93 H 94 Nasal Cannula O2 Flow Rate 08/03/25 15:33 08/03/25 11:42 08/03/25 08:00 3 08/03/25 08:00 3 08/03/25 08:00 08/03/25 07:48 3 Laboratory Results 08/03/25 09:20 Aerobic Blood Culture - Pending Blood Anaerobic Blood Culture - Pending 08/03/25 09:42 Aerobic Blood Culture - Pending Blood Anaerobic Blood Culture - Pending 08/03/25 08/03/25 08/03/25 16:13 14:30 10:59 WBC 12.75 H RBC 3.66 L Hgb 11.0 L Hct 32.3 L MCV 88.3 MCH 30.1 MCHC 34.1 RDW Std Deviation 49.5 H RDW Coeff of Nelia 15.7 H Plt Count 509 H MPV 9.0 L Immature Gran % (Auto) 1.4 Neut % (Auto) 89.4 Lymph % (Auto) 3.4 [place] % (Auto) 5.5 Eos % (Auto) 0.1 Baso % (Auto) 0.2 Neut # (Auto) 11.40 H Lymph # (Auto) 0.43 L [place] # (Auto) 0.70 H Eos # (Auto) 0.01 Baso # (Auto) 0.03 Immature Gran # (Auto) 0.18 Absolute Nucleated RBC 0.02 Nucleated RBC % (auto) 0.2 Heparin Anti-Xa, Unfract Sodium Potassium Chloride Carbon Dioxide Anion Gap BUN Creatinine Est Cr Clr Drug Dosing eGFR BUN/Creatinine Ratio Glucose POC Glucose 221 H 313 H* Lactate 3.4 H* Calcium Magnesium Total Bilirubin AST ALT Alkaline Phosphatase C-Reactive Protein Total Protein Albumin Globulin Albumin/Globulin Ratio Procalcitonin 08/03/25 08/03/25 08/03/25 07:13 06:19 01:49 WBC 11.79 H RBC 3.49 L Hgb 10.7 L Hct 31.3 L MCV 89.7 MCH 30.7 MCHC 34.2 RDW Std Deviation 50.6 H RDW Coeff of Nelia 15.9 H Plt Count 493 H MPV 9.0 L Immature Gran % (Auto) 1.3 Neut % (Auto) 87.0 Lymph % (Auto) 4.8 [place] % (Auto) 6.4 Eos % (Auto) 0.2 Baso % (Auto) 0.3 Neut # (Auto) 10.26 H Lymph # (Auto) 0.57 L [place] # (Auto) 0.76 H Eos # (Auto) 0.02 Baso # (Auto) 0.03 Immature Gran # (Auto) 0.15 Absolute Nucleated RBC 0.02 Nucleated RBC % (auto) 0.2 Heparin Anti-Xa, Unfract 0.43 Sodium 130 L Potassium 3.2 L Chloride 83 L Carbon Dioxide 39 H Anion Gap 8 BUN 12 Creatinine 0.35 L Est Cr Clr Drug Dosing 136.8 eGFR 105.21 BUN/Creatinine Ratio 34.3 H Glucose 167 H POC Glucose 161 H 241 H Lactate Calcium 9.6 Magnesium 1.4 L Total Bilirubin 0.5 AST 12 L ALT 10 Alkaline Phosphatase 84 C-Reactive Protein 15.08 H Total Protein 6.3 Albumin 2.9 L Globulin 3.4 Albumin/Globulin Ratio 0.9 Procalcitonin 0.05 08/02/25 08/02/25 08/02/25 22:29 20:38 17:38 WBC RBC Hgb Hct MCV MCH MCHC RDW Std Deviation RDW Coeff of Nelia Plt Count MPV Immature Gran % (Auto) Neut % (Auto) Lymph % (Auto) [place] % (Auto) Eos % (Auto) Baso % (Auto) Neut # (Auto) Lymph # (Auto) [place] # (Auto) Eos # (Auto) Baso # (Auto) Immature Gran # (Auto) Absolute Nucleated RBC Nucleated RBC % (auto) Heparin Anti-Xa, Unfract Sodium Potassium Chloride Carbon Dioxide Anion Gap BUN Creatinine Est Cr Clr Drug Dosing eGFR BUN/Creatinine Ratio Glucose POC Glucose 198 H 142 H 113 H Lactate Calcium Magnesium Total Bilirubin AST ALT Alkaline Phosphatase C-Reactive Protein Total Protein Albumin Globulin Albumin/Globulin Ratio Procalcitonin Diagnostic Findings Abdomen/Pelvis CT 08/03/25 10:50 CT SCAN OF THE ABDOMEN AND PELVIS WITH IV CONTRAST CLINICAL HISTORY: Abdominal pain. SIRS. Tongue cancer. COMPARISON STUDY: CT of the abdomen and pelvis January 01, 2025. PET/CT July 07, 2025. TECHNIQUE: Following the IV administration of 94 cc of Optiray 320, CT scan of the abdomen and pelvis is performed from the lung bases to the proximal femora. Images are reviewed in the axial, sagittal, and coronal planes. IV contrast was administered without complication. A dose lowering technique was utilized adhering to the principles of ALARA. FINDINGS: Numerous pulmonary metastases and bilateral pleural effusions, left larger than right, are better depicted on the chest CT which will be reported separately. There is a lytic anterior left eighth rib lesion with associated pathologic fracture. No pneumatosis, free air or portal venous gas is present. Gastrostomy tube is in place. There are no suspicious hepatic lesions. The right adrenal gland and pancreas are unremarkable. A 2.2 cm left adrenal nodule has increased in size from earlier exams. There is no hydronephrosis. Small bilateral renal calculi are noted. There are no ureteral calculi. There is no hydronephrosis. The bladder is moderately distended. There is no evidence for a bowel obstruction status post right hemicolectomy. The colon and rectum are mildly dilated and fluid-filled. No transition point is identified. Major vasculature is patent. A 1.2 cm left perirectal implant on image 382 is new since prior exams. There is a possible 1.1 cm left gluteal implant on image 425. Indeterminate 1.8 cm subcutaneous left abdominal nodule on image 296 is present. A 1 cm mesenteric implant/node on image 255 also appears new. IMPRESSION: 1. Extensive pulmonary metastases and bilateral pleural effusions, left larger than right, which are better depicted on the chest CT which will be reported separately. 2. Progression of metastatic disease within the abdomen and pelvis since PET/CT of July 07, 2025, including a left adrenal metastasis and several implants. 3. No evidence for a bowel obstruction. Mildly dilated fluid-filled colon and rectum could indicate a diarrheal state. 4. Distended bladder. Small bilateral renal calculi. No ureteral calculi. No hydronephrosis. 5. Gastrostomy tube in place. ACT 112: Negative or not required by law. Electronically signed by: Musa Dennis M.D. 08/03/2025 12:[address] 08/03/25 10:50 CT chest diagnostic wo con CT DOSE: 2217.17 mGy.cm CLINICAL HISTORY: 75 years-old Female with SIRS/Follow-up. Follow-up study patient with numerous pulmonary nodules TECHNIQUE: Multiaxial CT images of the chest were performed without contrast. A dose lowering technique was utilized adhering to the principles of ALARA. COMPARISON: CTA chest 07/31/2025, PET CT 07/07/2025 FINDINGS: The pulmonary emboli described on yesterday's study cannot be evaluated on this noncontrast scan. There is heterogeneity and prominence of the thyroid redemonstrated with adjacent inflammatory stranding which demonstrated hypermetabolic uptake within the right thyroid lobe and thyroid isthmus on prior study. Right IJ [id number] catheter distal tip terminates in the mid SVC. Heart is normal in size pericardial effusion. Bsxj-my-coghbtel coronary artery calcifications. No thoracic aortic aneurysm. Subcentimeter mediastinal lymph nodes have increased in size from prior, for example there is a pretracheal 7 mm lymph node on image 76 series 6 which previously measured 3 mm. Trace right with small moderate left pleural effusions have increased in size from prior. Numerous irregular pulmonary and pleural-based nodules. The lungs are redemonstrated. There is an index 3.5 x 3.1 cm lesion within the right upper lobe on image 67, previously 2.8 x 2.2 cm on the prior exam. A centrally cavitary 2.8 x 1.2 similar nodule of the lingula on image 99 previously measured 2.1 x 1.3 cm. Intralobular septal thickening is also new/progressed from prior which may represent associated lymphangitic carcinomatosis. Partial opacification of the bronchi within the lung bases. No acute upper abdominal abnormality. Unchanged small hypodensity left hepatic lobe on image 50 series 2 which is likely benign. Unremarkable soft tissues. Destructive osteolytic lesion at T1 has increased in size. This lesion extends into the left T1-T2 neural foramen and epidural space. A subpleural nodule is noted at the level of the right lung base on image 189 series 6, not definitively seen from prior, also likely metastatic. IMPRESSION: 1. Progressive metastatic disease in the chest compared to the PET/CT from 07/07/2025 as detailed above. 2. The osteolytic skeletal metastatic lesion at T1 also demonstrates epidural extension of disease with involvement of the left T1-T2 neural foramen. 3. Trace right and moderate left pleural effusions have increased in size. ACT 112: Negative or not required by law. Electronically signed by: Og Abarca M.D. 08/03/2025 12:55 PM PG Care Time/CCT Total # of Minutes Spent Total Time Spent with Patient: Total time spent is greater than 50% in coordination of care (as documented) at patient's floor/unit and/or counseling patient: Coding Level of Care Code 77122 SUB INP/OBS CARE 3/50MIN Diagnoses Pulmonary embolism I26.99 Metastasis to lung C78.00 Hyponatremia E87.1 Hypomagnesemia E83.42 Cancer related pain G89.3 GAMA (obstructive sleep apnea) G47.33
--- NOTE | 2025-08-03 17:06 | Hematology/Oncology Prog Note ---
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 Imaging shows significant disease progression. Explained to them that given her current performance status and significant disease progression, would recommend consideration for hospice. Patient and family agreed with hospice. Given significant decline recommend comfort measures only. Will reach out to palliative care to help transition patient to [facility]. Admission and Anticipated Discharge Date Admission Date: July 31, 2025 Subjective Patient very lethargic patient very lethargic. Had CT CAP which showed significant disease progression since PET/CT about a month ago. Results & Data Vital Signs (Past 12 Hours) Vital Signs Temp Pulse Pulse Resp BP Pulse Ox O2 Del Method 08/03/25 15:33 36.4 C L 107 H 20 128/79 97 Nasal Cannula 08/03/25 11:42 36.4 C L 128 H 19 138/82 91 Room Air 08/03/25 08:00 Nasal Cannula 08/03/25 08:00 Nasal Cannula 08/03/25 08:00 106 H 08/03/25 07:48 36.5 C 105 H 20 159/93 H 94 Nasal Cannula O2 Flow Rate 08/03/25 15:33 08/03/25 11:42 08/03/25 08:00 3 08/03/25 08:00 3 08/03/25 08:00 08/03/25 07:48 3
[2025-08-03] MEDS: CEFEPIME 2000MG 2,000 MG/20 ML SYR IV SCH (17:49)
[2025-08-03] MEDS: MoRPHine SULFATE 4 MG/ML 1 ML CARP\\VIAL IV STA (19:50)
[2025-08-03] MEDS ORDERED: HALOPERIDOL ORAL SOLN 2 MG/ML PO PRN (19:53)
[2025-08-03] MEDS ORDERED: HYDROmorphone INJ 0.5 MG/0.5 ML SYR IV PRN (19:53)
--- NOTE | 2025-08-03 20:29 | Palliative Care Consultation ---
Date of Consultation August 03, 2025 Assessment & Plan (1) Cancer related pain: (2) Generalized weakness: (3) Counseling regarding advanced directives and goals of care: I had a telephonic ACP with Nisreen/dtr x2 for total time 30min She and pt met with Dr Perez and have elected a move to PERL DEVELOPER Her brother is en route, ETA tomorrow Carley has been lethargic and not interactive She has been in worsening pain We discussed PERL DEVELOPER - agreed to stop JOE, stop non essentials, labs, insulin. Nisreen would like heparin left on for now bc brother arrives tomorrow and she worries clots will form overnight if heparin is stopped and pt will before her son arrives Kourtney KO from my team will meet with family tomorrow. Carley has while awake been verbalizing "Im gong to soon," or"do you think I am going to tonight?" etc. She is beginning to feel her body shutting down and growing weaker. (4) Palliative care by specialist: (5) Spinal cord lesion: (6) Pain from bone metastases: (7) Lethargy: (8) Recurrent squamous cell carcinoma of tongue: Plan As above Thank you for allowing us to participate in the ongoing care of this patient. Please page with any additional concerns. Yeny Arenas DNP Director, Palliative Medicine History of Present Illness Reason for Consultation: PERL DEVELOPER Attending Physician: Elliott Peña MD History of Present Illness Carley is a 75yo female with met head and neck cancer now admitted with worsening lethargy. Her CT CAP which showed significant disease progression since PET/CT about a month ago. I spoke with her daughter/caregiver Nisreen, she shared that pt is now end stage.They spoke with Dr Perez and have made the decision to move to comfort care. Nisreen had several questions about comfort care, what meds could be used, what will be next steps She shares Carley been lethargic and not awake very much, not taking much PO, overall has been in a steadily declining state. Her pain has been increasing She has been more dyspneic Allergies Allergy/AdvReac Type Severity Reaction Status Date / Time latex Allergy Intermediate Blisters Verified 07/12/25 17:59 Penicillins Allergy Intermediate Hives Verified 07/12/25 17:59 lisinopril AdvReac Intermediate fluid Verified 07/12/25 17:59 retention Cfwahrw-STE-DvP Reductase AdvReac Intermediate "FILLED UP Verified 07/12/25 17:59 Inhibitor WITH FLUID" Home Medications Medication Instructions Recorded Confirmed Type CPAP Machine 04/19/21 06/20/25 History soft lens rinse,store solution 05/29/22 06/20/25 History (Bio true solution) blood-glucose meter (Contour Next #1 ea 02/21/23 06/20/25 Rx One Meter) blood-glucose sensor (Dexcom G7 01/19/24 06/20/25 History Sensor device) cyclosporine 0.05 % eye drops in a 0 drp OPB BID 10/26/24 07/31/25 History dropperette latanoprostene bunod 0.024 % eye 0 drp ophthalmic (eye) QPM 04/13/25 07/31/25 History drops (Vyzulta) mercaptopurine 50 mg tablet 50 mg feeding tube DAILY 04/13/25 07/31/25 History buspirone 30 mg tablet 30 mg feeding tube TID 05/27/25 07/31/25 History gabapentin 800 mg tablet 800 mg feeding tube TID 05/27/25 07/31/25 History loperamide 2 mg tablet (Imodium 2 mg PO Q6H PRN Other 05/27/25 07/31/25 History A-D) prochlorperazine maleate 10 mg 10 mg feeding tube Q6H PRN n/v 05/27/25 07/31/25 History tablet duloxetine 20 mg capsule,delayed 20 mg PO QAM #30 caps 07/05/25 07/31/25 Rx release pantoprazole 40 mg tablet,delayed 40 mg PO BID #60 tabs 07/05/25 07/31/25 Rx release fentanyl 50 mcg/hr transdermal 1 patch transdermal Q72H cancer 07/07/25 07/31/25 Rx patch pain 1 month #10 ea magnesium oxide 400 mg (241.3 mg 400 mg feeding tube QAM 07/12/25 07/31/25 History magnesium) tablet olanzapine 2.5 mg tablet 2.5 mg feeding tube DIRECTED 07/12/25 07/31/25 History PRN n/v ondansetron 4 mg disintegrating 4 mg PO BID nausea and vomiting 07/12/25 07/31/25 History tablet blood sugar diagnostic (Contour #400 ea 07/18/25 Rx Next Test Strips) insulin aspart U-100 100 unit/mL See Rx Instructions subcut 07/18/25 07/31/25 Rx (3 mL) subcutaneous pen (Novolog TIDWMEAL #60 mL FlexPen U-100 Insulin aspart) pen needle, diabetic 31 gauge x #500 ea 07/18/25 Rx 3/16" Microlet Lancet (lancets) #300 ea 07/28/25 Rx cyanocobalamin (vitamin B-12) 1,000 mcg IM .Q 2 weeks 07/29/25 07/31/25 History 1,000 mcg/mL injection solution dexamethasone 1 mg tablet 1 mg feeding tube DAILY 07/29/25 07/31/25 History hydromorphone 2 mg tablet 2 - 4 mg PO Q6H PRN Cancer-related 07/31/25 07/31/25 History (Dilaudid) Pain Patient History Medical History Hyponatremia Hyperglycemia Counseling regarding goals of care PEG tube malfunction Hypomagnesemia heme/onc monitoring and supplementing Crohn disease Anemia Obesity Gout Hypertension Dyslipidemia associated with type 2 diabetes mellitus Diabetic peripheral neuropathy associated with type 2 diabetes mellitus Depression with anxiety Post-nasal drip Type 2 diabetes mellitus Spinal stenosis Glaucoma Metabolic syndrome Recurrent squamous cell carcinoma of tongue Surgery 04/2024 and 10/04/24; currently on chemo tx; follows with once per week (wednesdays); also current XRT with in [facility] of sepsis 2021- no residual/current issues Fatty liver Sleep apnea CPAP Crohn's disease Neck problem Cervical pitched nerve + narrowing Intermittent LUE radiculopathy and ROM limitations COPD (chronic obstructive pulmonary disease) "Mild" No inhaler Surgical History History of percutaneous endoscopic gastrostomy (11/29/24) Esophagogastroduodenoscopy with Percutaneous Endoscopic Gastrostomy (PEG) Tube - Malik Turner DO Port-A-Cath in place (11/01/24) Insertion Access Port with Fluoroscopy - Right Subclavian(Right) - Kishore Mulligan DO; MAC without issue S/P cholecystectomy S/P partial glossectomy 04/30/24: partial glossectomy with L selective neck dissection Dr. Coyle [facility] [place]; 10/04/24: L suprahyoid neck dissection and partial glossectomy Hx of cataract extraction R/L Hx of bilateral breast reduction surgery S/P epidural steroid injection x4 [id number] History of colonoscopy History of bowel resection (~2003) 12 inches r/t Crohn's disease (1971) Re-do r/t Crohn's disease (2003)- also had gallbladder removed at this time History of appendectomy (1971) Family History Father Family history of diabetes mellitus Diabetes Stroke Daughter Breast cancer Uncle Diabetes Grandmother Diabetes Stroke Other No family history of adverse response to anesthesia Social History Smoking Status: Former smoker Tobacco Type: Cigarettes Age Started Using Tobacco: 0 (unknown); Age Quit Using Tobacco: 0 (unknown); packs per day: 1; Cigarettes Per Day: 1979; Second Hand Exposure: No; Do You Dip or Chew Tobacco: No; Hx Alcohol Use: No Hx Substance Use: No Preferred Language: Stateless Communication Ability: Effective Visual Impairment: No Limitations Software Engineer Developer Required: No Beliefs That Will Affect Care: None Current Living Situation: Spouse Feels Safe at Home: Yes Assistive Devices: Walker Review of Systems Review of Systems: Unobtainable due to reduced consciousness Physical Exam Physical Exam: deferred/telemed Results & Data Vital Signs (Past 12 Hours) Vital Signs Temp Pulse Resp BP Pulse Ox O2 Del Method O2 Flow Rate 08/03/25 19:31 36.7 C 133 H 19 158/87 H 96 Nasal Cannula 6 08/03/25 15:33 36.4 C L 107 H 20 128/79 97 Nasal Cannula 08/03/25 11:42 36.4 C L 128 H 19 138/82 91 Room Air Laboratory Results 08/03/25 08/03/25 08/03/25 Range/Units 20:02 17:14 16:13 WBC (4.8-10.8) K/ul RBC (4.20-5.40) M/uL Hgb (12.0-16.0) g/dl Hct (37.0-47.0) % MCV (80.0-100.0) fL MCH (25.0-34.0) pg MCHC (32.0-36.0) g/dL RDW Std Deviation (36.4-46.3) fL RDW Coeff of Nelia (11.5-14.5) % Plt Count (130-400) K/uL MPV (9.4-12.4) fL Immature Gran % (Auto) % Neut % (Auto) % Lymph % (Auto) % [place] % (Auto) % Eos % (Auto) % Baso % (Auto) % Neut # (Auto) (1.40-6.50) K/uL Lymph # (Auto) (1.20-3.40) K/uL [place] # (Auto) (0.11-0.59) K/uL Eos # (Auto) (0.00-0.50) K/uL Baso # (Auto) (0.00-0.20) K/uL Immature Gran # (Auto) (0.01-0.20) K/uL Absolute Nucleated RBC (0.00-0.12) K/uL Nucleated RBC % (auto) % PT (9.0-12.0) Seconds INR (0.9-1.1) APTT (21-31) Seconds PTT Ratio Heparin Anti-Xa, Unfract (0.3-0.7) IU/ml Sodium (136-145) mmol/L Potassium (3.5-5.1) mmol/L Chloride (98-107) mmol/L Carbon Dioxide (21-32) mmol/L Anion Gap (3-11) BUN (6-23) mg/dl Creatinine (0.6-1.2) mg/dl Est Cr Clr Drug Dosing ml/min eGFR BUN/Creatinine Ratio (10-20) Glucose (70-99(Fasting)) mg/dl POC Glucose 231 H 221 H (70-99) mg/dl Lactate 1.7 (0.4-2.0) mmol/L Calcium (8.6-10.3) mg/dl Phosphorus (2.5-4.9) mg/dl Magnesium (1.7-2.4) mg/dl Total Bilirubin (0.2-1.0) mg/dl Direct Bilirubin (0-0.2) mg/dl AST (13-39) U/L ALT (7-52) U/L Alkaline Phosphatase (34-104) U/L C-Reactive Protein (0-0.5) mg/dl B-Natriuretic Peptide (0-100) pg/ml Total Protein (6.0-8.3) gm/dl Albumin (3.4-5.0) gm/dl Globulin (2.5-4.0) gm/dl Albumin/Globulin Ratio (0.9-2) Lipase (11-82) U/L Procalcitonin (0-0.5) ng/ml Nasal Screen MRSA (PCR) (Negative) Stl C. cayetanensis PCR (NotDetected) Stool Rotavirus A PCR (NotDetected) Stl Adenov F 40/41 PCR (NotDetected) Stool Astrovirus (PCR) (NotDetected) Stool Campylobacter PCR (NotDetected) Stl C. diff Tox B Gene (Neg) Stl C. diff 027-NAP1-BI Stool Cryptosporidium PCR (NotDetected) Stl E.coli Shiga Tox PCR (NotDetected) Stl Enterotoxigenic E PCR (NotDetected) Stool EPEC (PCR) (NotDetected) Stool EAEC (PCR) (NotDetected) Stl E. histolytica PCR (NotDetected) Stool Giardia Lamblia PCR (NotDetected) Stool Salmonella PCR (NotDetected) Stool Sapovirus (PCR) (NotDetected) Stl P. shigelloides PCR (NotDetected) Stl Shigella/EIEC PCR (NotDetected) St Y.enterocolitica PCR (NotDetected) Stool Vibrio (PCR) (NotDetected) Stl Vibrio cholerae PCR (NotDetected) Stl Norovirus GI/GII PCR (NotDetected) 08/03/25 08/03/25 08/03/25 Range/Units 14:30 10:59 07:13 WBC 12.75 H (4.8-10.8) K/ul RBC 3.66 L (4.20-5.40) M/uL Hgb 11.0 L (12.0-16.0) g/dl Hct 32.3 L (37.0-47.0) % MCV 88.3 (80.0-100.0) fL MCH 30.1 (25.0-34.0) pg MCHC 34.1 (32.0-36.0) g/dL RDW Std Deviation 49.5 H (36.4-46.3) fL RDW Coeff of Nelia 15.7 H (11.5-14.5) % Plt Count 509 H (130-400) K/uL MPV 9.0 L (9.4-12.4) fL Immature Gran % (Auto) 1.4 % Neut % (Auto) 89.4 % Lymph % (Auto) 3.4 % [place] % (Auto) 5.5 % Eos % (Auto) 0.1 % Baso % (Auto) 0.2 % Neut # (Auto) 11.40 H (1.40-6.50) K/uL Lymph # (Auto) 0.43 L (1.20-3.40) K/uL [place] # (Auto) 0.70 H (0.11-0.59) K/uL Eos # (Auto) 0.01 (0.00-0.50) K/uL Baso # (Auto) 0.03 (0.00-0.20) K/uL Immature Gran # (Auto) 0.18 (0.01-0.20) K/uL Absolute Nucleated RBC 0.02 (0.00-0.12) K/uL Nucleated RBC % (auto) 0.2 % PT (9.0-12.0) Seconds INR (0.9-1.1) APTT (21-31) Seconds PTT Ratio Heparin Anti-Xa, Unfract (0.3-0.7) IU/ml Sodium (136-145) mmol/L Potassium (3.5-5.1) mmol/L Chloride (98-107) mmol/L Carbon Dioxide (21-32) mmol/L Anion Gap (3-11) BUN (6-23) mg/dl Creatinine (0.6-1.2) mg/dl Est Cr Clr Drug Dosing ml/min eGFR BUN/Creatinine Ratio (10-20) Glucose (70-99(Fasting)) mg/dl POC Glucose 313 H* 161 H (70-99) mg/dl Lactate 3.4 H* (0.4-2.0) mmol/L Calcium (8.6-10.3) mg/dl Phosphorus (2.5-4.9) mg/dl Magnesium (1.7-2.4) mg/dl Total Bilirubin (0.2-1.0) mg/dl Direct Bilirubin (0-0.2) mg/dl AST (13-39) U/L ALT (7-52) U/L Alkaline Phosphatase (34-104) U/L C-Reactive Protein (0-0.5) mg/dl B-Natriuretic Peptide (0-100) pg/ml Total Protein (6.0-8.3) gm/dl Albumin (3.4-5.0) gm/dl Globulin (2.5-4.0) gm/dl Albumin/Globulin Ratio (0.9-2) Lipase (11-82) U/L Procalcitonin (0-0.5) ng/ml Nasal Screen MRSA (PCR) (Negative) Stl C. cayetanensis PCR (NotDetected) Stool Rotavirus A PCR (NotDetected) Stl Adenov F 40/41 PCR (NotDetected) Stool Astrovirus (PCR) (NotDetected) Stool Campylobacter PCR (NotDetected) Stl C. diff Tox B Gene (Neg) Stl C. diff 027-NAP1-BI Stool Cryptosporidium PCR (NotDetected) Stl E.coli Shiga Tox PCR (NotDetected) Stl Enterotoxigenic E PCR (NotDetected) Stool EPEC (PCR) (NotDetected) Stool EAEC (PCR) (NotDetected) Stl E. histolytica PCR (NotDetected) Stool Giardia Lamblia PCR (NotDetected) Stool Salmonella PCR (NotDetected) Stool Sapovirus (PCR) (NotDetected) Stl P. shigelloides PCR (NotDetected) Stl Shigella/EIEC PCR (NotDetected) St Y.enterocolitica PCR (NotDetected) Stool Vibrio (PCR) (NotDetected) Stl Vibrio cholerae PCR (NotDetected) Stl Norovirus GI/GII PCR (NotDetected) 08/03/25 08/03/25 08/02/25 Range/Units 06:19 01:49 22:29 WBC 11.79 H (4.8-10.8) K/ul RBC 3.49 L (4.20-5.40) M/uL Hgb 10.7 L (12.0-16.0) g/dl Hct 31.3 L (37.0-47.0) % MCV 89.7 (80.0-100.0) fL MCH 30.7 (25.0-34.0) pg MCHC 34.2 (32.0-36.0) g/dL RDW Std Deviation 50.6 H (36.4-46.3) fL RDW Coeff of Nelia 15.9 H (11.5-14.5) % Plt Count 493 H (130-400) K/uL MPV 9.0 L (9.4-12.4) fL Immature Gran % (Auto) 1.3 % Neut % (Auto) 87.0 % Lymph % (Auto) 4.8 % [place] % (Auto) 6.4 % Eos % (Auto) 0.2 % Baso % (Auto) 0.3 % Neut # (Auto) 10.26 H (1.40-6.50) K/uL Lymph # (Auto) 0.57 L (1.20-3.40) K/uL [place] # (Auto) 0.76 H (0.11-0.59) K/uL Eos # (Auto) 0.02 (0.00-0.50) K/uL Baso # (Auto) 0.03 (0.00-0.20) K/uL Immature Gran # (Auto) 0.15 (0.01-0.20) K/uL Absolute Nucleated RBC 0.02 (0.00-0.12) K/uL Nucleated RBC % (auto) 0.2 % PT (9.0-12.0) Seconds INR (0.9-1.1) APTT (21-31) Seconds PTT Ratio Heparin Anti-Xa, Unfract 0.43 (0.3-0.7) IU/ml Sodium 130 L (136-145) mmol/L Potassium 3.2 L (3.5-5.1) mmol/L Chloride 83 L (98-107) mmol/L Carbon Dioxide 39 H (21-32) mmol/L Anion Gap 8 (3-11) BUN 12 (6-23) mg/dl Creatinine 0.35 L (0.6-1.2) mg/dl Est Cr Clr Drug Dosing 136.8 ml/min eGFR 105.21 BUN/Creatinine Ratio 34.3 H (10-20) Glucose 167 H (70-99(Fasting)) mg/dl POC Glucose 241 H 198 H (70-99) mg/dl Lactate (0.4-2.0) mmol/L Calcium 9.6 (8.6-10.3) mg/dl Phosphorus (2.5-4.9) mg/dl Magnesium 1.4 L (1.7-2.4) mg/dl Total Bilirubin 0.5 (0.2-1.0) mg/dl Direct Bilirubin (0-0.2) mg/dl AST 12 L (13-39) U/L ALT 10 (7-52) U/L Alkaline Phosphatase 84 (34-104) U/L C-Reactive Protein 15.08 H (0-0.5) mg/dl B-Natriuretic Peptide (0-100) pg/ml Total Protein 6.3 (6.0-8.3) gm/dl Albumin 2.9 L (3.4-5.0) gm/dl Globulin 3.4 (2.5-4.0) gm/dl Albumin/Globulin Ratio 0.9 (0.9-2) Lipase (11-82) U/L Procalcitonin 0.05 (0-0.5) ng/ml Nasal Screen MRSA (PCR) (Negative) Stl C. cayetanensis PCR (NotDetected) Stool Rotavirus A PCR (NotDetected) Stl Adenov F 40/41 PCR (NotDetected) Stool Astrovirus (PCR) (NotDetected) Stool Campylobacter PCR (NotDetected) Stl C. diff Tox B Gene (Neg) Stl C. diff 027-NAP1-BI Stool Cryptosporidium PCR (NotDetected) Stl E.coli Shiga Tox PCR (NotDetected) Stl Enterotoxigenic E PCR (NotDetected) Stool EPEC (PCR) (NotDetected) Stool EAEC (PCR) (NotDetected) Stl E. histolytica PCR (NotDetected) Stool Giardia Lamblia PCR (NotDetected) Stool Salmonella PCR (NotDetected) Stool Sapovirus (PCR) (NotDetected) Stl P. shigelloides PCR (NotDetected) Stl Shigella/EIEC PCR (NotDetected) St Y.enterocolitica PCR (NotDetected) Stool Vibrio (PCR) (NotDetected) Stl Vibrio cholerae PCR (NotDetected) Stl Norovirus GI/GII PCR (NotDetected) 08/02/25 08/02/25 08/02/25 Range/Units 20:38 17:38 16:36 WBC (4.8-10.8) K/ul RBC (4.20-5.40) M/uL Hgb (12.0-16.0) g/dl Hct (37.0-47.0) % MCV (80.0-100.0) fL MCH (25.0-34.0) pg MCHC (32.0-36.0) g/dL RDW Std Deviation (36.4-46.3) fL RDW Coeff of Nelia (11.5-14.5) % Plt Count (130-400) K/uL MPV (9.4-12.4) fL Immature Gran % (Auto) % Neut % (Auto) % Lymph % (Auto) % [place] % (Auto) % Eos % (Auto) % Baso % (Auto) % Neut # (Auto) (1.40-6.50) K/uL Lymph # (Auto) (1.20-3.40) K/uL [place] # (Auto) (0.11-0.59) K/uL Eos # (Auto) (0.00-0.50) K/uL Baso # (Auto) (0.00-0.20) K/uL Immature Gran # (Auto) (0.01-0.20) K/uL Absolute Nucleated RBC (0.00-0.12) K/uL Nucleated RBC % (auto) % PT (9.0-12.0) Seconds INR (0.9-1.1) APTT (21-31) Seconds PTT Ratio Heparin Anti-Xa, Unfract (0.3-0.7) IU/ml Sodium (136-145) mmol/L Potassium (3.5-5.1) mmol/L Chloride (98-107) mmol/L Carbon Dioxide (21-32) mmol/L Anion Gap (3-11) BUN (6-23) mg/dl Creatinine (0.6-1.2) mg/dl Est Cr Clr Drug Dosing ml/min eGFR BUN/Creatinine Ratio (10-20) Glucose (70-99(Fasting)) mg/dl POC Glucose 142 H 113 H 138 H (70-99) mg/dl Lactate (0.4-2.0) mmol/L Calcium (8.6-10.3) mg/dl Phosphorus (2.5-4.9) mg/dl Magnesium (1.7-2.4) mg/dl Total Bilirubin (0.2-1.0) mg/dl Direct Bilirubin (0-0.2) mg/dl AST (13-39) U/L ALT (7-52) U/L Alkaline Phosphatase (34-104) U/L C-Reactive Protein (0-0.5) mg/dl B-Natriuretic Peptide (0-100) pg/ml Total Protein (6.0-8.3) gm/dl Albumin (3.4-5.0) gm/dl Globulin (2.5-4.0) gm/dl Albumin/Globulin Ratio (0.9-2) Lipase (11-82) U/L Procalcitonin (0-0.5) ng/ml Nasal Screen MRSA (PCR) (Negative) Stl C. cayetanensis PCR (NotDetected) Stool Rotavirus A PCR (NotDetected) Stl Adenov F 40/41 PCR (NotDetected) Stool Astrovirus (PCR) (NotDetected) Stool Campylobacter PCR (NotDetected) Stl C. diff Tox B Gene (Neg) Stl C. diff 027-NAP1-BI Stool Cryptosporidium PCR (NotDetected) Stl E.coli Shiga Tox PCR (NotDetected) Stl Enterotoxigenic E PCR (NotDetected) Stool EPEC (PCR) (NotDetected) Stool EAEC (PCR) (NotDetected) Stl E. histolytica PCR (NotDetected) Stool Giardia Lamblia PCR (NotDetected) Stool Salmonella PCR (NotDetected) Stool Sapovirus (PCR) (NotDetected) Stl P. shigelloides PCR (NotDetected) Stl Shigella/EIEC PCR (NotDetected) St Y.enterocolitica PCR (NotDetected) Stool Vibrio (PCR) (NotDetected) Stl Vibrio cholerae PCR (NotDetected) Stl Norovirus GI/GII PCR (NotDetected) 08/02/25 08/02/25 08/02/25 Range/Units 12:15 11:37 11:29 WBC (4.8-10.8) K/ul RBC (4.20-5.40) M/uL Hgb (12.0-16.0) g/dl Hct (37.0-47.0) % MCV (80.0-100.0) fL MCH (25.0-34.0) pg MCHC (32.0-36.0) g/dL RDW Std Deviation (36.4-46.3) fL RDW Coeff of Nelia (11.5-14.5) % Plt Count (130-400) K/uL MPV (9.4-12.4) fL Immature Gran % (Auto) % Neut % (Auto) % Lymph % (Auto) % [place] % (Auto) % Eos % (Auto) % Baso % (Auto) % Neut # (Auto) (1.40-6.50) K/uL Lymph # (Auto) (1.20-3.40) K/uL [place] # (Auto) (0.11-0.59) K/uL Eos # (Auto) (0.00-0.50) K/uL Baso # (Auto) (0.00-0.20) K/uL Immature Gran # (Auto) (0.01-0.20) K/uL Absolute Nucleated RBC (0.00-0.12) K/uL Nucleated RBC % (auto) % PT (9.0-12.0) Seconds INR (0.9-1.1) APTT (21-31) Seconds PTT Ratio Heparin Anti-Xa, Unfract (0.3-0.7) IU/ml Sodium (136-145) mmol/L Potassium (3.5-5.1) mmol/L Chloride (98-107) mmol/L Carbon Dioxide (21-32) mmol/L Anion Gap (3-11) BUN (6-23) mg/dl Creatinine (0.6-1.2) mg/dl Est Cr Clr Drug Dosing ml/min eGFR BUN/Creatinine Ratio (10-20) Glucose (70-99(Fasting)) mg/dl POC Glucose 351 H* 334 H* (70-99) mg/dl Lactate (0.4-2.0) mmol/L Calcium (8.6-10.3) mg/dl Phosphorus (2.5-4.9) mg/dl Magnesium (1.7-2.4) mg/dl Total Bilirubin (0.2-1.0) mg/dl Direct Bilirubin (0-0.2) mg/dl AST (13-39) U/L ALT (7-52) U/L Alkaline Phosphatase (34-104) U/L C-Reactive Protein (0-0.5) mg/dl B-Natriuretic Peptide (0-100) pg/ml Total Protein (6.0-8.3) gm/dl Albumin (3.4-5.0) gm/dl Globulin (2.5-4.0) gm/dl Albumin/Globulin Ratio (0.9-2) Lipase (11-82) U/L Procalcitonin (0-0.5) ng/ml Nasal Screen MRSA (PCR) (Negative) Stl C. cayetanensis PCR Not Detected (NotDetected) Stool Rotavirus A PCR Not Detected (NotDetected) Stl Adenov F 40/41 PCR Not Detected (NotDetected) Stool Astrovirus (PCR) Not Detected (NotDetected) Stool Campylobacter PCR Not Detected (NotDetected) Stl C. diff Tox B Gene Negative Cdiff Gene (Neg) Stl C. diff 027-NAP1-BI NEGATIVE Stool Cryptosporidium PCR Not Detected (NotDetected) Stl E.coli Shiga Tox PCR Not Detected (NotDetected) Stl Enterotoxigenic E PCR Not Detected (NotDetected) Stool EPEC (PCR) Not Detected (NotDetected) Stool EAEC (PCR) Not Detected (NotDetected) Stl E. histolytica PCR Not Detected (NotDetected) Stool Giardia Lamblia PCR Not Detected (NotDetected) Stool Salmonella PCR Not Detected (NotDetected) Stool Sapovirus (PCR) Not Detected (NotDetected) Stl P. shigelloides PCR Not Detected (NotDetected) Stl Shigella/EIEC PCR Not Detected (NotDetected) St Y.enterocolitica PCR Not Detected (NotDetected) Stool Vibrio (PCR) Not Detected (NotDetected) Stl Vibrio cholerae PCR Not Detected (NotDetected) Stl Norovirus GI/GII PCR Not Detected (NotDetected) 08/02/25 08/02/25 08/01/25 Range/Units 07:39 06:41 20:37 WBC 10.03 (4.8-10.8) K/ul RBC 3.27 L (4.20-5.40) M/uL Hgb 9.9 L (12.0-16.0) g/dl Hct 29.8 L (37.0-47.0) % MCV 91.1 (80.0-100.0) fL MCH 30.3 (25.0-34.0) pg MCHC 33.2 (32.0-36.0) g/dL RDW Std Deviation 51.9 H (36.4-46.3) fL RDW Coeff of Nelia 15.8 H (11.5-14.5) % Plt Count 416 H (130-400) K/uL MPV 9.0 L (9.4-12.4) fL Immature Gran % (Auto) 1.7 % Neut % (Auto) 84.9 % Lymph % (Auto) 5.5 % [place] % (Auto) 7.2 % Eos % (Auto) 0.4 % Baso % (Auto) 0.3 % Neut # (Auto) 8.52 H (1.40-6.50) K/uL Lymph # (Auto) 0.55 L (1.20-3.40) K/uL [place] # (Auto) 0.72 H (0.11-0.59) K/uL Eos # (Auto) 0.04 (0.00-0.50) K/uL Baso # (Auto) 0.03 (0.00-0.20) K/uL Immature Gran # (Auto) 0.17 (0.01-0.20) K/uL Absolute Nucleated RBC 0.02 (0.00-0.12) K/uL Nucleated RBC % (auto) 0.2 % PT (9.0-12.0) Seconds INR (0.9-1.1) APTT (21-31) Seconds PTT Ratio Heparin Anti-Xa, Unfract 0.42 (0.3-0.7) IU/ml Sodium 133 L (136-145) mmol/L Potassium 3.4 L (3.5-5.1) mmol/L Chloride 88 L (98-107) mmol/L Carbon Dioxide 37 H (21-32) mmol/L Anion Gap 8 (3-11) BUN 12 (6-23) mg/dl Creatinine 0.36 L (0.6-1.2) mg/dl Est Cr Clr Drug Dosing 142.3 ml/min eGFR 104.49 BUN/Creatinine Ratio 33.3 H (10-20) Glucose 164 H (70-99(Fasting)) mg/dl POC Glucose 163 H 256 H (70-99) mg/dl Lactate (0.4-2.0) mmol/L Calcium 8.9 (8.6-10.3) mg/dl Phosphorus (2.5-4.9) mg/dl Magnesium 1.6 L (1.7-2.4) mg/dl Total Bilirubin (0.2-1.0) mg/dl Direct Bilirubin (0-0.2) mg/dl AST (13-39) U/L ALT (7-52) U/L Alkaline Phosphatase (34-104) U/L C-Reactive Protein 13.84 H (0-0.5) mg/dl B-Natriuretic Peptide (0-100) pg/ml Total Protein (6.0-8.3) gm/dl Albumin (3.4-5.0) gm/dl Globulin (2.5-4.0) gm/dl Albumin/Globulin Ratio (0.9-2) Lipase (11-82) U/L Procalcitonin 0.02 (0-0.5) ng/ml Nasal Screen MRSA (PCR) (Negative) Stl C. cayetanensis PCR (NotDetected) Stool Rotavirus A PCR (NotDetected) Stl Adenov F 40/41 PCR (NotDetected) Stool Astrovirus (PCR) (NotDetected) Stool Campylobacter PCR (NotDetected) Stl C. diff Tox B Gene (Neg) Stl C. diff [id number] Stool Cryptosporidium PCR (NotDetected) Stl E.coli Shiga Tox PCR (NotDetected) Stl Enterotoxigenic E PCR (NotDetected) Stool EPEC (PCR) (NotDetected) Stool EAEC (PCR) (NotDetected) Stl E. histolytica PCR (NotDetected) Stool Giardia Lamblia PCR (NotDetected) Stool Salmonella PCR (NotDetected) Stool Sapovirus (PCR) (NotDetected) Stl P. shigelloides PCR (NotDetected) Stl Shigella/EIEC PCR (NotDetected) St Y.enterocolitica PCR (NotDetected) Stool Vibrio (PCR) (NotDetected) Stl Vibrio cholerae PCR (NotDetected) Stl Norovirus GI/GII PCR (NotDetected) 08/01/25 08/01/25 08/01/25 Range/Units 16:56 16:03 11:09 WBC (4.8-10.8) K/ul RBC (4.20-5.40) M/uL Hgb (12.0-16.0) g/dl Hct (37.0-47.0) % MCV (80.0-100.0) fL MCH (25.0-34.0) pg MCHC (32.0-36.0) g/dL RDW Std Deviation (36.4-46.3) fL RDW Coeff of Nelia (11.5-14.5) % Plt Count (130-400) K/uL MPV (9.4-12.4) fL Immature Gran % (Auto) % Neut % (Auto) % Lymph % (Auto) % [place] % (Auto) % Eos % (Auto) % Baso % (Auto) % Neut # (Auto) (1.40-6.50) K/uL Lymph # (Auto) (1.20-3.40) K/uL [place] # (Auto) (0.11-0.59) K/uL Eos # (Auto) (0.00-0.50) K/uL Baso # (Auto) (0.00-0.20) K/uL Immature Gran # (Auto) (0.01-0.20) K/uL Absolute Nucleated RBC (0.00-0.12) K/uL Nucleated RBC % (auto) % PT (9.0-12.0) Seconds INR (0.9-1.1) APTT (21-31) Seconds PTT Ratio Heparin Anti-Xa, Unfract 0.57 (0.3-0.7) IU/ml Sodium (136-145) mmol/L Potassium (3.5-5.1) mmol/L Chloride (98-107) mmol/L Carbon Dioxide (21-32) mmol/L Anion Gap (3-11) BUN (6-23) mg/dl Creatinine (0.6-1.2) mg/dl Est Cr Clr Drug Dosing ml/min eGFR BUN/Creatinine Ratio (10-20) Glucose (70-99(Fasting)) mg/dl POC Glucose 214 H 224 H (70-99) mg/dl Lactate (0.4-2.0) mmol/L Calcium (8.6-10.3) mg/dl Phosphorus (2.5-4.9) mg/dl Magnesium (1.7-2.4) mg/dl Total Bilirubin (0.2-1.0) mg/dl Direct Bilirubin (0-0.2) mg/dl AST (13-39) U/L ALT (7-52) U/L Alkaline Phosphatase (34-104) U/L C-Reactive Protein (0-0.5) mg/dl B-Natriuretic Peptide (0-100) pg/ml Total Protein (6.0-8.3) gm/dl Albumin (3.4-5.0) gm/dl Globulin (2.5-4.0) gm/dl Albumin/Globulin Ratio (0.9-2) Lipase (11-82) U/L Procalcitonin (0-0.5) ng/ml Nasal Screen MRSA (PCR) (Negative) Stl C. cayetanensis PCR (NotDetected) Stool Rotavirus A PCR (NotDetected) Stl Adenov F 40/41 PCR (NotDetected) Stool Astrovirus (PCR) (NotDetected) Stool Campylobacter PCR (NotDetected) Stl C. diff Tox B Gene (Neg) Stl C. diff 027-NAP1-BI Stool Cryptosporidium PCR (NotDetected) Stl E.coli Shiga Tox PCR (NotDetected) Stl Enterotoxigenic E PCR (NotDetected) Stool EPEC (PCR) (NotDetected) Stool EAEC (PCR) (NotDetected) Stl E. histolytica PCR (NotDetected) Stool Giardia Lamblia PCR (NotDetected) Stool Salmonella PCR (NotDetected) Stool Sapovirus (PCR) (NotDetected) Stl P. shigelloides PCR (NotDetected) Stl Shigella/EIEC PCR (NotDetected) St Y.enterocolitica PCR (NotDetected) Stool Vibrio (PCR) (NotDetected) Stl Vibrio cholerae PCR (NotDetected) Stl Norovirus GI/GII PCR (NotDetected) 08/01/25 08/01/25 08/01/25 Range/Units 09:00 07:11 04:54 WBC 9.87 (4.8-10.8) K/ul RBC 3.24 L (4.20-5.40) M/uL Hgb 9.9 L (12.0-16.0) g/dl Hct 29.7 L (37.0-47.0) % MCV 91.7 (80.0-100.0) fL MCH 30.6 (25.0-34.0) pg MCHC 33.3 (32.0-36.0) g/dL RDW Std Deviation 51.0 H (36.4-46.3) fL RDW Coeff of Nelia 15.6 H (11.5-14.5) % Plt Count 396 (130-400) K/uL MPV 9.2 L (9.4-12.4) fL Immature Gran % (Auto) % Neut % (Auto) % Lymph % (Auto) % [place] % (Auto) % Eos % (Auto) % Baso % (Auto) % Neut # (Auto) (1.40-6.50) K/uL Lymph # (Auto) (1.20-3.40) K/uL [place] # (Auto) (0.11-0.59) K/uL Eos # (Auto) (0.00-0.50) K/uL Baso # (Auto) (0.00-0.20) K/uL Immature Gran # (Auto) (0.01-0.20) K/uL Absolute Nucleated RBC 0.05 (0.00-0.12) K/uL Nucleated RBC % (auto) 0.5 % PT (9.0-12.0) Seconds INR (0.9-1.1) APTT (21-31) Seconds PTT Ratio Heparin Anti-Xa, Unfract 0.40 (0.3-0.7) IU/ml Sodium 134 L (136-145) mmol/L Potassium 3.5 (3.5-5.1) mmol/L Chloride 91 L (98-107) mmol/L Carbon Dioxide 35 H (21-32) mmol/L Anion Gap 8 (3-11) BUN 12 (6-23) mg/dl Creatinine 0.45 L (0.6-1.2) mg/dl Est Cr Clr Drug Dosing 98.0 ml/min eGFR 99.02 BUN/Creatinine Ratio 26.7 H (10-20) Glucose 208 H (70-99(Fasting)) mg/dl POC Glucose 211 H (70-99) mg/dl Lactate (0.4-2.0) mmol/L Calcium 8.7 (8.6-10.3) mg/dl Phosphorus 3.7 (2.5-4.9) mg/dl Magnesium (1.7-2.4) mg/dl Total Bilirubin 0.4 (0.2-1.0) mg/dl Direct Bilirubin 0.0 (0-0.2) mg/dl AST 11 L (13-39) U/L ALT 9 (7-52) U/L Alkaline Phosphatase 75 (34-104) U/L C-Reactive Protein (0-0.5) mg/dl B-Natriuretic Peptide (0-100) pg/ml Total Protein 5.6 L (6.0-8.3) gm/dl Albumin 2.5 L (3.4-5.0) gm/dl Globulin (2.5-4.0) gm/dl Albumin/Globulin Ratio (0.9-2) Lipase (11-82) U/L Procalcitonin (0-0.5) ng/ml Nasal Screen MRSA (PCR) Negative (Negative) St[facility]. cayetanensis [facility] Stool Rotavirus A PCR (NotDetected) Stl Adenov F 40/41 PCR (NotDetected) Stool Astrovirus (PCR) (NotDetected) Stool Campylobacter PCR (NotDetected) Stl C. diff Tox B Gene (Neg) Stl C. diff 027-NAP1-BI Stool Cryptosporidium PCR (NotDetected) Stl E.coli Shiga Tox PCR (NotDetected) Stl Enterotoxigenic E PCR (NotDetected) Stool EPEC (PCR) (NotDetected) Stool EAEC (PCR) (NotDetected) Stl E. histolytica PCR (NotDetected) Stool Giardia Lamblia PCR (NotDetected) Stool Salmonella PCR (NotDetected) Stool Sapovirus (PCR) (NotDetected) Stl P. shigelloides PCR (NotDetected) Stl Shigella/EIEC PCR (NotDetected) St Y.enterocolitica PCR (NotDetected) Stool Vibrio (PCR) (NotDetected) Stl Vibrio cholerae PCR (NotDetected) Stl Norovirus GI/GII PCR (NotDetected) 08/01/25 08/01/25 07/31/25 Range/Units 01:32 00:23 15:50 WBC 9.20 (4.8-10.8) K/ul RBC 3.47 L (4.20-5.40) M/uL Hgb 10.5 L (12.0-16.0) g/dl Hct 31.7 L (37.0-47.0) % MCV 91.4 (80.0-100.0) fL MCH 30.3 (25.0-34.0) pg MCHC 33.1 (32.0-36.0) g/dL RDW Std Deviation 50.9 H (36.4-46.3) fL RDW Coeff of Nelia 15.8 H (11.5-14.5) % Plt Count 403 H (130-400) K/uL MPV 9.4 (9.4-12.4) fL Immature Gran % (Auto) 1.7 % Neut % (Auto) 87.0 % Lymph % (Auto) 5.2 % [place] % (Auto) 5.8 % Eos % (Auto) 0.1 % Baso % (Auto) 0.2 % Neut # (Auto) 8.00 H (1.40-6.50) K/uL Lymph # (Auto) 0.48 L (1.20-3.40) K/uL [place] # (Auto) 0.53 (0.11-0.59) K/uL Eos # (Auto) 0.01 (0.00-0.50) K/uL Baso # (Auto) 0.02 (0.00-0.20) K/uL Immature Gran # (Auto) 0.16 (0.01-0.20) K/uL Absolute Nucleated RBC 0.05 (0.00-0.12) K/uL Nucleated RBC % (auto) 0.5 % PT 11.5 (9.0-12.0) Seconds INR 1.1 (0.9-1.1) APTT 26 (21-31) Seconds PTT Ratio 1.0 Heparin Anti-Xa, Unfract (0.3-0.7) IU/ml Sodium 131 L (136-145) mmol/L Potassium 3.6 (3.5-5.1) mmol/L Chloride 87 L (98-107) mmol/L Carbon Dioxide 34 H (21-32) mmol/L Anion Gap 10 (3-11) BUN 16 (6-23) mg/dl Creatinine 0.49 L (0.6-1.2) mg/dl Est Cr Clr Drug Dosing 104.6 ml/min eGFR 97.01 BUN/Creatinine Ratio 32.7 H (10-20) Glucose 316 H* (70-99(Fasting)) mg/dl POC Glucose 273 H (70-99) mg/dl Lactate (0.4-2.0) mmol/L Calcium 9.6 (8.6-10.3) mg/dl Phosphorus (2.5-4.9) mg/dl Magnesium 1.4 L (1.7-2.4) mg/dl Total Bilirubin 0.5 (0.2-1.0) mg/dl Direct Bilirubin (0-0.2) mg/dl AST 12 L (13-39) U/L ALT 10 (7-52) U/L Alkaline Phosphatase 82 (34-104) U/L C-Reactive Protein (0-0.5) mg/dl B-Natriuretic Peptide 54 (0-100) pg/ml Total Protein 6.3 (6.0-8.3) gm/dl Albumin 2.9 L (3.4-5.0) gm/dl Globulin 3.4 (2.5-4.0) gm/dl Albumin/Globulin Ratio 0.9 (0.9-2) Lipase 56 (11-82) U/L Procalcitonin 0.05 (0-0.5) ng/ml Nasal Screen MRSA (PCR) (Negative) Stl C. cayetanensis PCR (NotDetected) Stool Rotavirus A PCR (NotDetected) Stl Adenov F 40/41 PCR (NotDetected) Stool Astrovirus (PCR) (NotDetected) Stool Campylobacter PCR (NotDetected) Stl C. diff Tox B Gene (Neg) Stl C. diff 027-NAP1-BI Stool Cryptosporidium PCR (NotDetected) Stl E.coli Shiga Tox PCR (NotDetected) Stl Enterotoxigenic E PCR (NotDetected) Stool EPEC (PCR) (NotDetected) Stool EAEC (PCR) (NotDetected) Stl E. histolytica PCR (NotDetected) Stool Giardia Lamblia PCR (NotDetected) Stool Salmonella PCR (NotDetected) Stool Sapovirus (PCR) (NotDetected) Stl P. shigelloides PCR (NotDetected) Stl Shigella/EIEC PCR (NotDetected) St Y.enterocolitica PCR (NotDetected) Stool Vibrio (PCR) (NotDetected) Stl Vibrio cholerae PCR (NotDetected) Stl Norovirus GI/GII PCR (NotDetected) 07/31/25 Range/Units 15:13 WBC (4.8-10.8) K/ul RBC (4.20-5.40) M/uL Hgb (12.0-16.0) g/dl Hct (37.0-47.0) % MCV (80.0-100.0) fL MCH (25.0-34.0) pg MCHC (32.0-36.0) g/dL RDW Std Deviation (36.4-46.3) fL RDW Coeff of Nelia (11.5-14.5) % Plt Count (130-400) K/uL MPV (9.4-12.4) fL Immature Gran % (Auto) % Neut % (Auto) % Lymph % (Auto) % [place] % (Auto) % Eos % (Auto) % Baso % (Auto) % Neut # (Auto) (1.40-6.50) K/uL Lymph # (Auto) (1.20-3.40) K/uL [place] # (Auto) (0.11-0.59) K/uL Eos # (Auto) (0.00-0.50) K/uL Baso # (Auto) (0.00-0.20) K/uL Immature Gran # (Auto) (0.01-0.20) K/uL Absolute Nucleated RBC (0.00-0.12) K/uL Nucleated RBC % (auto) % PT (9.0-12.0) Seconds INR (0.9-1.1) APTT (21-31) Seconds PTT Ratio Heparin Anti-Xa, Unfract (0.3-0.7) IU/ml Sodium (136-145) mmol/L Potassium (3.5-5.1) mmol/L Chloride (98-107) mmol/L Carbon Dioxide (21-32) mmol/L Anion Gap (3-11) BUN (6-23) mg/dl Creatinine (0.6-1.2) mg/dl Est Cr Clr Drug Dosing ml/min eGFR BUN/Creatinine Ratio (10-20) Glucose (70-99(Fasting)) mg/dl POC Glucose 269 H (70-99) mg/dl Lactate (0.4-2.0) mmol/L Calcium (8.6-10.3) mg/dl Phosphorus (2.5-4.9) mg/dl Magnesium (1.7-2.4) mg/dl Total Bilirubin (0.2-1.0) mg/dl Direct Bilirubin (0-0.2) mg/dl AST (13-39) U/L ALT (7-52) U/L Alkaline Phosphatase (34-104) U/L C-Reactive Protein (0-0.5) mg/dl B-Natriuretic Peptide (0-100) pg/ml Total Protein (6.0-8.3) gm/dl Albumin (3.4-5.0) gm/dl Globulin (2.5-4.0) gm/dl Albumin/Globulin Ratio (0.9-2) Lipase (11-82) U/L Procalcitonin (0-0.5) ng/ml Nasal Screen MRSA (PCR) (Negative) Stl C. cayetanensis PCR (NotDetected) Stool Rotavirus A PCR (NotDetected) Stl Adenov F 40/41 PCR (NotDetected) Stool Astrovirus (PCR) (NotDetected) Stool Campylobacter PCR (NotDetected) Stl C. diff Tox B Gene (Neg) Stl C. diff 027-NAP1-BI Stool Cryptosporidium PCR (NotDetected) Stl E.coli Shiga Tox PCR (NotDetected) Stl Enterotoxigenic E PCR (NotDetected) Stool EPEC (PCR) (NotDetected) Stool EAEC (PCR) (NotDetected) Stl E. histolytica PCR (NotDetected) Stool Giardia Lamblia PCR (NotDetected) Stool Salmonella PCR (NotDetected) Stool Sapovirus (PCR) (NotDetected) Stl P. shigelloides PCR (NotDetected) Stl Shigella/EIEC PCR (NotDetected) St Y.enterocolitica PCR (NotDetected) Stool Vibrio (PCR) (NotDetected) Stl Vibrio cholerae PCR (NotDetected) Stl Norovirus GI/GII PCR (NotDetected) Diagnostic Findings Chest X-Ray 07/31/25 19:22 Chest radiograph, one view History: Shortness of breath Comparison: 07/12/2025 Findings: Single AP view of the chest performed. Numerous rounded nodular opacities throughout both lungs again seen and appear increased. Right chest wall port with catheter tip at the mid SVC. Blunted left costophrenic angle. No pneumothorax. The cardiomediastinal silhouette is within normal limits. Normal pulmonary vascularity. No visualized bony or soft tissue abnormality. Impression: Blunted left costophrenic angle, may represent new small pleural effusion and/or atelectasis. Numerous nodular densities increased from prior. Electronically signed by Joaquín Appiah 07-31-2025 8:06 PM Chest CTA 07/31/25 19:58 CR Exam(s): CTA CHEST IV Amt: 115 ml optiray 320 EXAM: CT Angiography Chest With Intravenous Contrast CLINICAL HISTORY: Reason for exam: PE, sob, hypoxia, hx ca. TECHNIQUE: Axial computed tomographic angiography images of the chest with intravenous contrast. Automated exposure control was utilized for the study. A dose lowering technique was utilized adhering to the principles of ALARA. MIP reconstructed images were created and reviewed. COMPARISON: No relevant prior studies available. FINDINGS: Pulmonary arteries: There is a pulmonary embolism noted in a right upper lobe pulmonary artery segment. The RV/LV ratio is 0.9 Aorta: There are atherosclerotic changes.. No thoracic aortic aneurysm. Lungs: There are bilateral pulmonary nodular opacities. Pleural space: There is a small left pleural effusion with a trace right pleural effusion.. No pneumothorax. Heart: Heart is normal in size.. Bones/joints: There are marked degenerative changes in the spine.. Soft tissues: Unremarkable. Lymph nodes: No enlarged lymph nodes. IMPRESSION: There is a pulmonary embolism noted in a right upper lobe pulmonary artery segment There are bilateral pulmonary nodular opacities which have markedly increased in size and number compared to previous examination. This may represent metastatic disease. There is a small left pleural effusion with a trace right pleural effusion Communications: Call Doctor Pulmonary Embolism Electronically signed by: Wally Woodward MD 07/31/25 23:24 PM Abdomen/Pelvis CT 08/03/25 10:50 CT SCAN OF THE ABDOMEN AND PELVIS WITH IV CONTRAST CLINICAL HISTORY: Abdominal pain. SIRS. Tongue cancer. COMPARISON STUDY: CT of the abdomen and pelvis January 01, 2025. PET/CT July 07, 2025. TECHNIQUE: Following the IV administration of 94 cc of Optiray 320, CT scan of the abdomen and pelvis is performed from the lung bases to the proximal femora. Images are reviewed in the axial, sagittal, and coronal planes. IV contrast was administered without complication. A dose lowering technique was utilized adhering to the principles of ALARA. FINDINGS: Numerous pulmonary metastases and bilateral pleural effusions, left larger than right, are better depicted on the chest CT which will be reported separately. There is a lytic anterior left eighth rib lesion with associated pathologic fracture. No pneumatosis, free air or portal venous gas is present. Gastrostomy tube is in place. There are no suspicious hepatic lesions. The right adrenal gland and pancreas are unremarkable. A 2.2 cm left adrenal nodule has increased in size from earlier exams. There is no hydronephrosis. Small bilateral renal calculi are noted. There are no ureteral calculi. There is no hydronephrosis. The bladder is moderately distended. There is no evidence for a bowel obstruction status post right hemicolectomy. The colon and rectum are mildly dilated and fluid-filled. No transition point is identified. Major vasculature is patent. A 1.2 cm left perirectal implant on image 382 is new since prior exams. There is a possible 1.1 cm left gluteal implant on image 425. Indeterminate 1.8 cm subcutaneous left abdominal nodule on image 296 is present. A 1 cm mesenteric implant/node on image 255 also appears new. IMPRESSION: 1. Extensive pulmonary metastases and bilateral pleural effusions, left larger than right, which are better depicted on the chest CT which will be reported separately. 2. Progression of metastatic disease within the abdomen and pelvis since PET/CT of July 07, 2025, including a left adrenal metastasis and several implants. 3. No evidence for a bowel obstruction. Mildly dilated fluid-filled colon and rectum could indicate a diarrheal state. 4. Distended bladder. Small bilateral renal calculi. No ureteral calculi. No hydronephrosis. 5. Gastrostomy tube in place. ACT 112: Negative or not required by law. Electronically signed by: Musa Dennis M.D. 08/03/2025 12:[address] 08/03/25 10:50 CT chest diagnostic wo con CT DOSE: 2217.17 mGy.cm CLINICAL HISTORY: 75 years-old Female with SIRS/Follow-up. Follow-up study patient with numerous pulmonary nodules TECHNIQUE: Multiaxial CT images of the chest were performed without contrast. A dose lowering technique was utilized adhering to the principles of ALARA. COMPARISON: CTA chest 07/31/2025, PET CT 07/07/2025 FINDINGS: The pulmonary emboli described on yesterday's study cannot be evaluated on this noncontrast scan. There is heterogeneity and prominence of the thyroid redemonstrated with adjacent inflammatory stranding which demonstrated hypermetabolic uptake within the right thyroid lobe and thyroid isthmus on prior study. Right IJ [id number] catheter distal tip terminates in the mid SVC. Heart is normal in size pericardial effusion. [id number] coronary artery calcifications. No thoracic aortic aneurysm. Subcentimeter mediastinal lymph nodes have increased in size from prior, for example there is a pretracheal 7 mm lymph node on image 76 series 6 which previously measured 3 mm. Trace right with small moderate left pleural effusions have increased in size from prior. Numerous irregular pulmonary and pleural-based nodules. The lungs are redemonstrated. There is an index 3.5 x 3.1 cm lesion within the right upper lobe on image 67, previously 2.8 x 2.2 cm on the prior exam. A centrally cavitary 2.8 x 1.2 similar nodule of the lingula on image 99 previously measured 2.1 x 1.3 cm. Intralobular septal thickening is also new/progressed from prior which may represent associated lymphangitic carcinomatosis. Partial opacification of the bronchi within the lung bases. No acute upper abdominal abnormality. Unchanged small hypodensity left hepatic lobe on image 50 series 2 which is likely benign. Unremarkable soft tissues. Destructive osteolytic lesion at T1 has increased in size. This lesion extends into the left T1-T2 neural foramen and epidural space. A subpleural nodule is noted at the level of the right lung base on image 189 series 6, not definitively seen from prior, also likely metastatic. IMPRESSION: 1. Progressive metastatic disease in the chest compared to the PET/CT from 07/07/2025 as detailed above. 2. The osteolytic skeletal metastatic lesion at T1 also demonstrates epidural extension of disease with involvement of the left T1-T2 neural foramen. 3. Trace right and moderate left pleural effusions have increased in size. ACT 112: Negative or not required by law. Electronically signed by: Og Abarca M.D. 08/03/2025 12:55 PM PG Care Time/CCT Total # of Minutes Spent Total Time Spent with Patient: Total time spent is greater than 50% in coordination of care (as documented) at patient's floor/unit and/or counseling patient: I spent 90 minutes overall addressing this case: 15 min in medical data review/discussion with referring provider(s) and/or preparation for the visit 0 min in direct interaction with the patient/exam 30 min in Advance Care Planning/Goals of Care discussions as detailed above in note (must be >16min) 15 min in subsequent review and synthesis of assessment and plan 30 min communicating with other providers regarding the patient's case: multiple d/w night coverage, nursing Advanced Care Planning [id number] Advanced Care Planning 30 [place] [address] IN/OBS CONSULT LVL 3,45M (25 - SIGNIFICANT, SEPARATELY IDENTIFIABLE ) Patient Type New Medical Decision Making High Complexity Diagnoses Cancer related pain G89.3 Generalized weakness R53.1 Counseling regarding advanced directives and goals of care Z71.89 Palliative care by specialist Z51.5 Spinal cord lesion G95.9 Pain from bone metastases G89.3; C79.51 Lethargy R53.83 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
[2025-08-03] MEDS ORDERED: LANTUS PER UNIT CHARGE SQ SCH ×2 (21:00)
[2025-08-03] MEDS: GLYCOPYRROLATE 0.2 MG/ML VIAL IV PRN (21:08)
[2025-08-03] MEDS: HYDROmorphone INJ 1 MG/ML SYRINGE IV PRN (21:10)
[2025-08-03] MEDS: LORazepam Inj 0.5 MG in SYRINGE 0.25 ML IV PRN (22:20)
[2025-08-03 22:57] VITALS: BP 94/61; PULSE 127; RESP 15; TEMP 97.5; O2SAT 97
--- NOTE | 2025-08-04 13:08 | Electrocardiogram Report ---
Test Reason : Blood Pressure : */* mmHG Vent. Rate : 113 BPM Atrial Rate : 113 BPM P-R Int : 200 ms QRS Dur : 92 ms QT Int : 306 ms P-R-T Axes : 45 -12 26 degrees QTcB Int : 419 ms Sinus tachycardia with occasional Premature ventricular complexes Otherwise normal ECG When compared with ECG of 12-Jul-2025 16:07, Premature ventricular complexes are now Present T wave inversion no longer evident in Anterior leads Confirmed by Lenin Crowder ([id number]) on 08/04/2025 1:08:05 PM Referred By: Radha Foster Confirmed By: Lenin Crowder
--- NOTE | 2025-08-04 15:45 | Hospitalist Progress Note ---
Date of Service August 04, 2025 Assessment & Plan (1) Pulmonary embolism: (2) Metastasis to lung: (3) Hyponatremia: (4) Hypomagnesemia: (5) Cancer related pain: (6) GAMA (obstructive sleep apnea): Plan 75yo female with metastatic head and neck cancer presenting with cough, lethargy and confusion. Patient with hypomagnesemia, mild hyponatremia and hyperglycemia. #Comfort Cares -Symptoms controlled with current regimen -Palliative Care Following -EOL likely imminent Prior Problem List #SIRS/Sepsis - Indolently progressive over the last 24-36 hours. Now with an increase in lactic acid which has been chronically elevated. No actual fevers but increasingly tachycardic - CT scan of the chest and abdomen showed no clear source there. Blood cultures were obtained will restart cefepime empirically. - Additional normal saline bolus and reflex lactic acid blood pressures in the interim renain WNL #Pulmonary Embolism - patient found with new PE in the RUL. No right heart strain. PESI score - Class V associated with very high risk of mortality, largely due malignancy as well as elevated HR on arrival. Normal shock index -Admit to PCU -Initiate heparin gtt. Discussed with patient's daughter. Patient with recent PET scan and MRI of the brain. She has a lesion in the occipital bone but does not seem to have any active brain lesions -Echo completed, no clear evidence of cor pulmonale, mild right hear reduced function noted -continue heparin, now therapeutic, no evidence of bleed, transition to oral anticoagulant as breathing and volume status/PO status stabilize #Episodic Respiratory Distress -Stable oxygen requirement, brief increase in requirements earlier today, continue to monitor, low threshold to repeat CT, see above for progressive metastasis #Metastatic head and neck cancer - increased size of pulmonary lesions. Patient follows with Oncology. First chemotherapy treatment was 3 weeks ago. Patient with PEG tube in place. She receives tube feeds and protein supplementation as well as most medications via PEG. She does take some medications by mouth if unable to be crushed. -Pain control with Tylenol 1gm IV q 8 hours, Dilaudid 2-4mg po q 6 hours as needed by tiered pain scale -Continue Fentanyl 50mcg patch - last placed yesterday -Continue Gabapentin 800mg po TID -Dexamethasone 1mg po daily to complete recent course - last dose is tomorrow 08/01 -Zofran, Compazine PRN -Hematology consultation appreciated, pending at this time -Exchange Operator Consultation appreciated - See orders #Wound left buttock -Wound care BID -Turn q 2 hours -WCT following #Diarrhea -Check stool PCR for cdiff, negative today, this worsened along with elevated blood sugars after Nutren and Prosure restarted #Tube Feed -will reach out to RD to see what formula she was on at home, consideration for alternatives to address intolerance and/or hyperglycemia #Anxiety/Mental Health -Continue Duloxetine 20mg po qAM - stable #Diabetes - with hyperglycemia -Lantus 12u BID -ISS -Goal blood sugar 110 - 160, approaching goal range -Pharmacy glycemic management consultation appreciated, bolus IV correction today, now WNL -See tube feed as above #Hypomagnesemia -2gm Mg given yesterday -Monitor labs in AM #Crohns -Continue Mercaptopurine 50mg po daily #Code Status DNR per discussion with patient Admission and Anticipated Discharge Date Admission Date: July 31, 2025 Subjective On comfort cares. Family at the bedside. Discussed with them briefly symptoms have been very well-controlled with the current medication regimen. No acute concerns per patient. Breathing has been more shallow and more sporadic at times through the day today. She has been minimally interactive. Physical Exam Physical Exam: General: Comfortable, eyes closed, HEENT: No audible or visible secretions Pulm: Coarde bilaterally, decreased on the right, RR around 6-10 and shallow at times Cardiac: tachycardic. -mrg. Radial pulses intact and symmetrical. Skin: warm, moist. Results & Data Results & Data Vital Signs (Past 12 Hours) Vital Signs O2 Del Method O2 Flow Rate 08/04/25 09:06 Nasal Cannula 6 PG Care Time/CCT Total # of Minutes Spent Total Time Spent with Patient: Total time spent is greater than 50% in coordination of care (as documented) at patient's floor/unit and/or counseling patient: Coding Level of Care Code 35654 SUB INP/OBS CARE 10/16MIN Diagnoses Pulmonary embolism I26.99 Metastasis to lung C78.00 Hyponatremia E87.1 Hypomagnesemia E83.42 Cancer related pain G89.3 GAMA (obstructive sleep apnea) G47.33
[2025-08-04] MEDS ORDERED: HYDROmorphone INJ 0.5 MG/0.5 ML SYR IV PRN (22:59)
--- NOTE | 2025-08-04 23:02 | Communication Note ---
Date of Service: August 04, 2025 Palliative Med Vacuum Cleaner Assembler Chart reviewed Pt was not seen today/I was in clinic I am off tomorrow but my colleague Malinda Marie is inpatient I have modified prn meds for Dilaudid options to be q30min as her symptoms are intensifying per chart review I have stopped non essential meds Family asked nursing to dc heparin gtt, that order is now d/c as well Carley is not awake or alert Family remains at bedside Please page me for any acute needs Thank you for allowing us to participate in the ongoing care of this patient. Please page with any additional concerns. Yeny Arenas DNP Director, Palliative Medicine
[2025-08-04] MEDS: HYDROmorphone INJ 1 MG/ML SYRINGE IV PRN (23:16)
--- NOTE | 2025-08-05 09:02 | Palliative Care Progress Note ---
Date of Service August 04, 2025 Assessment & Plan (1) Generalized weakness: (2) Cancer related pain: (3) Comfort measures only status: Plan: on family request, pt transitioned to [facility]PERATOR on 08/03/25. Spoke with large family at bedside today. Pt's daughter expressed that Carley has not been interactive for past 2 days and shared that they do not know what to expect at this point. Anticipatory guidance offered. Discussed changes pt may move through in the dying process including but not limited to sleeping more, disorientation when awake, restlessness, diminished senses/inability to respond to stimulus although ability to be aware of them remains intact longer, and changes in body temperatures, skin changes/mottling/cyanosis, respiratory pattern changes, and oral secretions. Family verbalized understanding and reinforced desire to focus on comfort. The goal is to assure a peaceful . (4) Need for comfort care: Plan: Comfort plan of care parameters: 1. Patient/Family want hospice added to their care. 2. NO rehab/PT/OT 3. Strictly End of Life care only 4. NO escalation of care: do not increase oxygen, escalate therapies, etc. The focus is on comfort through end of life, assure this is accomplished with aggressive symptom management (i.e. relief of dyspnea, pain, etc.) 5. NO return to hospital 6. NO labs, imaging, surgery 7. Oral intake as desired for comfort and pleasure: NO dietary restriction, Allow permissive aspiration, do not withhold food or drink for concern of aspiration and allow PO for pleasure and comfort. 8. If difficulty urinating/commode/bedpan, ok to place Luz catheter for comfort/hygiene/skin protection AND/OR Continue Luz catheter for comfort/hygiene/skin protection 9. NO: calorie counts, artificial nutrition, feeding tubes or IV fluids Medications to continue are noted on discharge summary. Provider to contact if any questions about comfort plan of care: Hospice Training Development Manager or designee EOL Symptom manamgement: Continue Fentanyl 50 Mcg/Hr 1 patch TD Q72H CHARI Pain/dyspnea/tachypnea dilaudid 1mg IVP PRN [id number] Consider titratable morphine drip if pt requires >3 PRN doses in under two consecutive hours. Nausea/vomitting zofran 4mg IVP q4h PRN Agitation ativan 0.5mg IVP q4h PRN Hyperactive delirium haldol 5mg IVP q6h PRN Secretions - if repositioning not effective robinul 0.4mg IV q4h PRN atropine SL 3 drops Q1h PRN Nursing care: Discontinue all medications not directed towards comfort. Detether pt from IV tubing, monitor cables, and check vitals once per shift. Please continue HFNC and titrate down as able for patient comfort. Use medications above PRN for dyspnea/tachypnea and do not increase oxygen once titrated down. Assess q1h for pain/dyspnea and treat accordingly. Plan [facility], pending evaluation for [facility] hospice. Admission and Anticipated Discharge Date Admission Date: July 31, 2025 Subjective Assessed pt at bedside, she was transitioned to DOPE WEIGH OPERATOR on 08/03/25. Pt is unresponsive to verbal and gentle tactile stimuli, did not attempt to awaken in concert with comfort directed care. She appears comfortable, pale skin, extremities cool to touch. Per family pt has not been interactive for over 24hr. Respiratory effort decreased, rate 16/min with occasional short periods of apnea. Spouse, daughter and ADAN at bedside. Review of Systems Review of Systems: Unobtainable due to cognitive status Physical Exam Constitutional: well developed, + ill appearing and comfortable Respiratory: + abnormal respiratory pattern; no respi ratory distress Respiratory effort decreased, rate 16/min with occasional short periods of apnea Cardiovascular: RRR, no murmur, no edema Gastrointestinal (Abdomen): normal bowel sounds, soft, nontender, no hepatosplenomegaly Neurologic: unresponsive to verbal/gentle tactile stimuli, did not attempt to aggressively awaken in concert with comfort directed care. Results & Data Vital Signs (Past 12 Hours) Vital Signs O2 Del Method O2 Flow Rate 08/05/25 00:00 Nasal Cannula 2 Laboratory Results No further labs or diagnostics in concert with comfort directed care. Diagnostic Findings No further labs or diagnostics in concert with comfort directed care. Medications Administered Current Inpatient Medications Benzonatate (Benzonatate 100 Mg Capsule) 100 mg PO TID PRN PRN Reason: Cough Stop: 09/01/25 09:12 Fentanyl (Fentanyl 50 Mcg/Hr Tdsy) 1 patch TD Q72H CHARI Stop: 08/16/25 08:59 Last Admin: 08/02/25 09:40 Dose: 1 patch Gabapentin (Gabapentin 250 Mg/5 Ml 470 Ml Btl) 800 mg PEG TID CHARI Stop: 08/31/25 08:59 Last Admin: 08/04/25 19:59 Dose: Not Given Glycopyrrolate (Glycopyrrolate 0.2 Mg/Ml Vial) 0.4 mg IV Q4H PRN PRN Reason: Rattling Secretions or Pulm Congestion Stop: 09/02/25 19:52 Last Admin: 08/05/25 05:00 Dose: 0.4 mg Haloperidol (Haloperidol Oral Soln 2 Mg/Ml) 1 mg PO Q4H PRN PRN Reason: Anxiety/Agitation Stop: 09/02/25 19:52 Hydromorphone HCl (Hydromorphone Inj 0.5 Mg/0.5 Ml Syr) 0.5 mg IV Q30M PRN PRN Reason: Inc resp effort,dyspnea,pain Stop: 08/17/25 19:52 Hydromorphone HCl (Hydromorphone Inj 1 Mg/Ml Syringe) 1 mg IV Q30M PRN PRN Reason: Sev pain,air hunger,resp distr Stop: 08/17/25 20:06 Last Admin: 08/05/25 07:59 Dose: 1 mg Lorazepam 0.5 mg/ Syringe 0.5 mls @ 2 mls/min IV Q4H PRN PRN Reason: Anxiety/Agitation,spasms Stop: 09/02/25 19:52 Last Admin: 08/05/25 08:09 Dose: 2 mls/min Lansoprazole (Lansoprazole 30 Mg Soltab) 30 mg PEG BID [facility] Stop: 08/31/25 08:59 Last Admin: 08/04/25 19:59 Dose: Not Given Mercaptopurine (Mercaptopurine 50 Mg Tab) 50 mg PO DAILY [facility] Stop: 08/31/25 08:59 Last Admin: 08/04/25 07:22 Dose: Not Given Miscellaneous (Fentanyl Patch Remove & Waste) 1 each N/A Q3D@0859 [facility] Stop: 09/01/25 08:58 Last Admin: 08/02/25 09:05 Dose: 1 each Miscellaneous (Check Fentanyl Patch Placement) 1 each N/A QS [facility] Stop: 08/31/25 01:42 Last Admin: 08/04/25 23:15 Dose: 1 each Nystatin (Nystatin Powder 15gm Btl) 1 appln EXT BID CHARI Stop: 08/31/25 08:59 Last Admin: 08/04/25 20:00 Dose: 1 appln Ondansetron HCl (Ondansetron Inj 2 Mg/Ml 2 Ml Vial) 4 mg IV Q6H PRN PRN Reason: Nausea And Vomiting Stop: 08/31/25 01:42 Last Admin: 08/03/25 13:50 Dose: 4 mg PG Care Time/CCT Total # of Minutes Spent Total Time Spent with Patient: Total time spent is greater than 50% in coordination of care (as documented) at patient's floor/unit and/or counseling patient: [place] [address] SUB INP/OBS CARE 2/35MIN Patient Type Established History Problem Focused Exam Problem Focused Medical Decision Making Moderate Complexity Diagnoses Generalized weakness R53.1 Cancer related pain G89.3 Comfort measures only status Z51.5 Need for comfort care
--- NOTE | 2025-08-05 09:20 | Electrocardiogram Report ---
Test Reason : Blood Pressure : */* mmHG Vent. Rate : 127 BPM Atrial Rate : 127 BPM P-R Int : 192 ms QRS Dur : 96 ms QT Int : 324 ms P-R-T Axes : 49 40 38 degrees QTcB Int : 470 ms Sinus tachycardia with occasional Premature ventricular complexes Nonspecific T wave abnormality Abnormal ECG When compared with ECG of 31-Jul-2025 15:31, (unconfirmed) No significant change Confirmed by Lenin Crowder [id number] on 08/05/2025 9:19:47 AM Referred By: Radha Foster Confirmed By: Lenin Crowder
--- NOTE | 2025-08-05 09:44 | Death Pronouncement Note ---
Date of Service August 05, 2025 Pronouncement Note Admission Date Admission Date: July 31, 2025 Contributing Factors (1) Generalized weakness: (2) Cancer related pain: (3) Comfort measures only status: (4) Need for comfort care: Hospital Course Hospital Course: See DC summary Summary Additional details: Called to bedside at 9:29 AM on 08/05/2025. Patient has been on comfort cares secondary to accident with widespread metastatic carcinoma, SIRS/sepsis, respiratory failure. Family was present at the bedside. Examination revealed no spontaneous respirations, no heart tones heard, pupils fixed and dilated. Time of was 928 on 08/05/2025. Family was updated. Release/DC orders placed. Additional Data Attending physician: Elliott Peña MD Coding Level of Care Code 73922 IN/OBS DISCH 30 MIN/LESS Diagnoses Generalized weakness R53.1 Cancer related pain G89.3 Comfort measures only status Z51.5 Need for comfort care Time Spent (min) 21
--- NOTE | 2025-08-05 09:48 | Discharge Summary ---
Discharge Summary Date of Service August 05, 2025 Principal Dx & Hospital Course #1 = Principal Diagnosis (1) Generalized weakness: (2) Cancer related pain: (3) Comfort measures only status: (4) Need for comfort care: Plan 75yo female with metastatic head and neck cancer presenting with cough, lethargy and confusion. Patient with hypomagnesemia, mild hyponatremia and hyperglycemia. #Comfort Cares - Patient was transitioned over to comfort cares on 08/03/25 secondary to progressive and overwhelming metastatic head neck cancer. Hospitalization for respiratory failure secondary to pulmonary embolism, late onset of surgery/sepsis. Secondary to the overwhelming nature of the comorbidities in the setting of metastatic Cancers decision making patient and family to transition to comfort cares. Over the last 48 hours of hospitalization the patient's symptoms are managed well. She passes naturally and peacefully at 9:29 AM on 08/05/25 Prior Problem List #SIRS/Sepsis - Indolently progressive over the last 24-36 hours. Now with an increase in lactic acid which has been chronically elevated. No actual fevers but increasingly tachycardic - CT scan of the chest and abdomen showed no clear source there. Blood cultures were obtained will restart cefepime empirically. - Additional normal saline bolus and reflex lactic acid blood pressures in the interim renain WNL #Pulmonary Embolism - patient found with new PE in the RUL. No right heart strain. PESI score - Class V associated with very high risk of mortality, largely due malignancy as well as elevated HR on arrival. Normal shock index -Admit to PCU -Initiate heparin gtt. Discussed with patient's daughter. Patient with recent PET scan and MRI of the brain. She has a lesion in the occipital bone but does not seem to have any active brain lesions -Echo completed, no clear evidence of cor pulmonale, mild right hear reduced function noted -continue heparin, now therapeutic, no evidence of bleed, transition to oral anticoagulant as breathing and volume status/PO status stabilize #Episodic Respiratory Distress -Stable oxygen requirement, brief increase in requirements earlier today, continue to monitor, low threshold to repeat CT, see above for progressive metastasis #Metastatic head and neck cancer - increased size of pulmonary lesions. Patient follows with Oncology. First chemotherapy treatment was 3 weeks ago. Patient with PEG tube in place. She receives tube feeds and protein supplementation as well as most medications via PEG. She does take some medications by mouth if unable to be crushed. -Pain control with Tylenol 1gm IV q 8 hours, Dilaudid 2-4mg po q 6 hours as needed by tiered pain scale -Continue Fentanyl 50mcg patch - last placed yesterday -Continue Gabapentin 800mg po TID -Dexamethasone 1mg po daily to complete recent course - last dose is tomorrow 08/01 -Zofran, Compazine PRN -Hematology consultation appreciated, pending at this time -Business Liaison Officer Consultation appreciated - See orders #Wound left buttock -Wound care BID -Turn q 2 hours -WCT following #Diarrhea -Check stool PCR for cdiff, negative today, this worsened along with elevated blood sugars after Nutren and Prosure restarted #Tube Feed -will reach out to RD to see what formula she was on at home, consideration for alternatives to address intolerance and/or hyperglycemia #Anxiety/Mental Health -Continue Duloxetine 20mg po qAM - stable #Diabetes - with hyperglycemia -Lantus 12u BID -ISS -Goal blood sugar 110 - 160, approaching goal range -Pharmacy glycemic management consultation appreciated, bolus IV correction today, now WNL -See tube feed as above #Hypomagnesemia -2gm Mg given yesterday -Monitor labs in AM #Crohns -Continue Mercaptopurine 50mg po daily #Code Status DNR per discussion with patient Admission HPI Per Admitting Provider Carley Ramos is a 75yo female with history of metastatic head and neck cancer s/p previous resection, chemotherapy and XRT. Patient follows with Dr. Perez for immunotherapy. Known metastatic lesion to the thoracic spine status post 5 treatments of XRT. Patient with PEG tube in place, receiving tube feeds and protein supplements. Patient was recently admitted to [facility] from 07/12 - 07/14 after presenting with lethargy. Thought to be secondary to medications possibly. She was treated with Keflex x 7 days for possible pneumonia. She had elevation of troponin - suspected Type II NSTEMI in setting of malignancy. Also with hyponatremia with initial Na of 127. Patient was ultimately discharged home with a Dexamethasone taper, Nystatin suspension and PO dilaudid. She returns today with complaint of cough productive for clear sputum. Also with hyperglycemia - daughter reports blood sugars at home have been 250-300 which is atypical for her. Also with periods of confusion and increased lethargy. Also with episode of non-bloody diarrhea today. Daughter states that patient was clammy and sweaty yesterday as well. No fever, chills, urinary complaints. She does have a wound on her left buttock - no drainage or evidence of infection. In the ER patient with tachycardia, hypoxic briefly (not documented) placed on NC 2L. ER Course: NSS Magnesium x 2gm Dilaudidd 0.5mg IV Gabapentin 800mg zofran 4mg Buspirone 30mg Lansoprazole 30mg Heparin gtt initiated Discharge Exam No spontaneous respirations, no heart tones heard, [place] [address]/05/2025 Discharge Plan Discharge Items Patient Disposition: Other Date/Time: 08/05/25 09:29 Hospital Stay Data Consultations 07/31/25 22:50 ED Decision to Admit Stat 07/31/25 23:37 Consult Hematology Routine 08/03/25 20:13 Consult Palliative Care Routine Diagnostic Imagining Performed 07/31/25 19:58 CT angio chest PE protocol Stat 08/03/25 10:50 CT abd pelvis IV con only Urgent CT chest without contrast [CT chest diagnostic wo con] Urgent Total Time Total Time Spent Total Time Spent (In Minutes): 21 minutes at bedside and release, pronouncement Coding Level of Care Code 86913 IN/OBS DISCH 30 MIN/LESS Diagnoses Generalized weakness R53.1 Cancer related pain G89.3 Comfort measures only status Z51.5 Need for comfort care
== END 2025-08-05 11:22 | disposition expired | DRG 175 ==
LOC: ED 15:01 → 2S 23:23 → SUATTDRO 23:23 → 2S 08-01 03:15